=== PATIENT | female | born 1980 | race Caucasian/White ===

== ENCOUNTER → 2016-05-27 | Outpatient (REF) | payer OTHER ==
[~2016-05-27] MED LIST: IMOD2TAB16 PO; LISI10TA2 PO; NORCOTAB PO; OMEP40CA2 PO; RANI15TA PO; ZOFR8TAB4 PO
[2016-05-27 20:28] LABS: ALBUMIN 3.9 GM/DL (3.2-5.2); ALBUMIN/GLOBULIN RATIO 1.11 (1.00-1.93); ALKALINE PHOSPHATASE 99 U/L (45-117); ALT/SGPT 153 U/L (12-78); AST/SGOT 83 U/L (15-37); BILIRUBIN,DIRECT < 0.1 MG/DL (0.0-0.2); BILIRUBIN,TOTAL 0.3 MG/DL (0.2-1.0); TOTAL PROTEIN 7.4 GM/DL (6.4-8.2)
[2016-05-27 20:45] LABS: BASO # 0.1 K/mm3 (0.0-0.2); EOS # 0.2 K/mm3 (0.0-0.50); EOS % 1.9 % (0.0-3.0); LARGE UNSTAINED CELL # 0.1 K/mm3 (0.0-0.4); LARGE UNSTAINED CELL % 1.4 % (0.0-4.0); LYMPH # 3.6 K/mm3 (1.5-4.5); LYMPH % 39.8 % (24.0-44.0); MEAN CORPUSCULAR HEMOGLOBIN 28.4 pg (27.0-33.0); MEAN CORPUSCULAR HGB CONC 32.2 g/dl (32.0-36.5); MEAN CORPUSCULAR VOLUME 88.1 fl (80.0-96.0); MONO # 0.4 K/mm3 (0.0-0.8); MONO % 4.2 % (0.0-5.0); NEUTROPHILS # 4.5 K/mm3 (1.8-7.7); NEUTROPHILS % 51.6 % (36.0-66.0); PLATELET COUNT, AUTOMATED 322 k/mm3 (150-450); WHITE BLOOD COUNT 8.8 K/mm3 (4.0-10.0)
[2016-05-27 21:21] LABS: ERYTHROCYTE SEDIMENTATION RATE 11 mm/hr (0-20)
== END ==
LOC: M LAB REF 08:53
PROVIDERS: ATTEND Student in an Organized Health Care Education/Training Program
DX: K50.00 Crohn's disease of small intestine without complications (principal); K42.9 Umbilical hernia without obstruction or gangrene; E66.01 Morbid (severe) obesity due to excess calories

== ENCOUNTER → 2016-06-03 | Outpatient (REF) | payer OTHER | LOC: M LAB REF 15:14 | PROVIDERS: ATTEND Student in an Organized Health Care Education/Training Program | DX: K50.00 Crohn's disease of small intestine without complications (principal); K42.9 Umbilical hernia without obstruction or gangrene; E66.01 Morbid (severe) obesity due to excess calories ==

== ENCOUNTER → 2016-06-25 | Outpatient (REF) | payer OTHER | LOC: M LABDRWAD 12:52 | PROVIDERS: ATTEND Internal Medicine Gastroenterology | DX: K50.00 Crohn's disease of small intestine without complications (principal) ==

== ENCOUNTER 2016-07-04 15:14 | Emergency (ER) | payer OTHER ==
[~2016-07-04] VITALS: Ht 162.6 cm; Wt 158.8 kg
[2016-07-04] MEDS ORDERED: HORMONE (15:25)
[2016-07-04 16:48] LABS: BASO % 0.5 % (0.0-1.0); EOS # 0.1 K/mm3 (0.0-0.50); EOS % 1.2 % (0.0-3.0); LARGE UNSTAINED CELL # 0.1 K/mm3 (0.0-0.4); LYMPH # 2.4 K/mm3 (1.5-4.5); LYMPH % 22.2 % (24.0-44.0); MEAN CORPUSCULAR HEMOGLOBIN 28.5 pg (27.0-33.0); MEAN CORPUSCULAR HGB CONC 32.4 g/dl (32.0-36.5); MEAN CORPUSCULAR VOLUME 87.9 fl (80.0-96.0); MONO # 0.5 K/mm3 (0.0-0.8); MONO % 4.8 % (0.0-5.0); NEUTROPHILS # 7.1 K/mm3 (1.8-7.7); NEUTROPHILS % 70.3 % (36.0-66.0); PLATELET COUNT, AUTOMATED 280 k/mm3 (150-450); RED CELL DISTRIBUTION WIDTH 14.2 % (11.5-14.5); WHITE BLOOD COUNT 10.1 K/mm3 (4.0-10.0)
[2016-07-04 16:49] LABS: ANION GAP 10 MEQ/L (8-16); BLOOD UREA NITROGEN 12 MG/DL (7-18); CALCIUM LEVEL 8.8 MG/DL (8.5-10.1); CARBON DIOXIDE LEVEL 26 MEQ/L (21-32); CHLORIDE LEVEL 104 MEQ/L (98-107); CREATININE FOR GFR 0.78 MG/DL (0.55-1.02); GLOMERULAR FILTRATION RATE > 60.0 (>60); GLUCOSE, FASTING 99 MG/DL (70-105); POTASSIUM SERUM 3.8 MEQ/L (3.5-5.1); SODIUM LEVEL 140 MEQ/L (136-145)
[2016-07-04] MEDS ORDERED: MORPHINE 4 MG/ML 1ML SYRINGE IV ONE (17:00)
[2016-07-04] MEDS ORDERED: NS 500 ML IV ONE (17:00)
[2016-07-04] MEDS ORDERED: diazePAM 5 MG TAB PO ONE (17:00)
--- NOTE | 2016-07-04 18:00 | REPUSA ---
CLINICAL HISTORY: Neck pain. TECHNIQUE: Multiple axial images were obtained through the cervical spine. Images were also reconstru cted in coronal and sagittal planes. The study was performed without IV contrast. COMMENTS: There is no fracture or spondylolisthesis visualized. The paraspinal soft tissues are unremarkable. T here are no lytic or blastic lesions. Straightening of cervical lordosis is seen, suggesting muscular spasm. There is evidence of minimal m ultilevel disk disease, demonstrated by minimal osteophytosis and endplate sclerosis. No significant disk herniation is noted at any level. Canal and foramina remain patent. IMPRESSION: 1. No fracture or spondylolisthesis. 2. Straightening of cervical lordosis is seen, suggesting muscular spasm. 3. Minimal multilevel spondylosis. Thank you for your kind referral of this patient.
[2016-07-04] MEDS ORDERED: KETOROLAC 30 MG/ML VIAL (J1885) IV ONE (18:15)
[2016-07-04] MEDS ORDERED: VALI5TAB PO (18:42)
[2016-07-04] MEDS ORDERED: NAPR500T PO (18:42)
[2016-07-04] MEDS ORDERED: NORCO 5/325MG TABLET (BULK) PO ONE (18:45)
[2016-07-04 18:47] VITALS: BP 129/59
--- NOTE | 2016-07-04 20:39 | ECGEPIP ---
Stationary ECG Study [facility] - ED Test Date: 2016-07-04 Pat Name: RUKHSANA LARES Department: Room: - Gender: F Ip Paralegal: pia : 1980 Requested By: Ailyn Husain Order Number: [id number] Reading MD: Ailyn Husain Measurements Intervals [place] Rate: 79 P: 46 NM: 153 QRS: 3 QRSD: 92 T: 29 QT: 381 QTc: 438 Interpretive Statements SINUS RHYTHM DECREASED RATE 05/10/13 Electronically Signed On 07-04-2016 20:39:04 EDT by Ailyn Husain
--- NOTE | 2016-07-05 07:26 | REP ---
Portable chest x-ray: Single view. History: Chest pain. Comparison chest x-ray April 07, 2016. Findings: EKG monitoring electrodes overlie the chest. Heart is not enlarged. Pulmonary vasculature is not increased. No infiltrate is seen. Impression: No active disease. Signed by Jose Alberto Gong MD 07/05/2016 11:41 A
== END 2016-07-04 18:53 | disposition home or self-care (01) ==
LOC: EDBD 15:14 → M ED 16:18
DX: M43.6 Torticollis (principal)
CPT/HCPCS: 71010; 72125; 80048; 82550; 82553; 85025; 85379; 93005; 93041; 94760; 96374; 96375; 99284; J1885

== ENCOUNTER 2016-07-21 11:40 | Outpatient (CLI) | payer OTHER ==
[~2016-07-21] VITALS: Ht 162.6 cm; Wt 148.6 kg
[~2016-07-21 11:40] MED LIST changes: +HORMONE; +NAPR500T PO; +VALI5TAB PO; +diphenhydrAMINE 25 MG CAP PO SCH
[2016-07-21] MEDS ORDERED: inFLIXimab INJECTION 700 MG in NS 180 ML IV ONE (13:00)
[2016-07-21] MEDS ORDERED: NS 1,000 ML IV SCH (13:00)
[2016-07-21] MEDS ORDERED: ACETAMINOPHEN TAB 650MG DOSE (2X325MG) PO ONE (13:00)
== END 2016-07-21 14:45 | disposition home or self-care (01) ==
LOC: M INFU 11:40
PROVIDERS: ATTEND Internal Medicine
DX: K50.00 Crohn's disease of small intestine without complications (principal); Z79.899 Other long term (current) drug therapy
CPT/HCPCS: 96413; 96415; J1745

== ENCOUNTER 2016-09-15 11:59 | Outpatient (CLI) | payer OTHER ==
[~2016-09-15] VITALS: Ht 162.6 cm; Wt 148.6 kg
[~2016-09-15 11:59] MED LIST changes: -diphenhydrAMINE 25 MG CAP PO SCH
[2016-09-15] MEDS ORDERED: NS 1,000 ML IV SCH (12:45)
[2016-09-15] MEDS ORDERED: ACETAMINOPHEN TAB 650MG DOSE (2X325MG) PO ONE (13:00)
[2016-09-15] MEDS ORDERED: diphenhydrAMINE 50 MG CAP PO ONE (13:00)
[2016-09-15] MEDS ORDERED: inFLIXimab INJECTION 700 MG in NS 180 ML IV ONE (13:00)
== END 2016-09-15 15:20 | disposition home or self-care (01) ==
LOC: M INFU 11:59
PROVIDERS: ATTEND General Practice
DX: K50.90 Crohn's disease, unspecified, without complications (principal); Z87.891 Personal history of nicotine dependence; Z88.8 Allergy status to other drugs, medicaments and biological substances; Z91.040 Latex allergy status; Z79.899 Other long term (current) drug therapy
CPT/HCPCS: 96413; 96415; J1745

== ENCOUNTER 2016-11-10 12:13 | Outpatient (CLI) | payer OTHER ==
[~2016-11-10] VITALS: Ht 162.6 cm; Wt 148.6 kg
[~2016-11-10 12:13] MED LIST changes: +diphenhydrAMINE 25 MG CAP PO SCH
[2016-11-10] MEDS ORDERED: NS 1,000 ML IV SCH (12:30)
[2016-11-10] MEDS ORDERED: ACETAMINOPHEN TAB 650MG DOSE (2X325MG) PO ONE (12:30)
[2016-11-10] MEDS ORDERED: inFLIXimab INJECTION 700 MG in NS 180 ML IV ONE (13:00)
== END 2016-11-10 15:30 | disposition home or self-care (01) ==
LOC: M INFU 12:13
PROVIDERS: ATTEND Internal Medicine
DX: K50.90 Crohn's disease, unspecified, without complications (principal); Z87.891 Personal history of nicotine dependence; Z88.8 Allergy status to other drugs, medicaments and biological substances; Z91.040 Latex allergy status
CPT/HCPCS: 96413; 96415; J1745

== ENCOUNTER 2017-01-05 11:42 | Outpatient (CLI) | payer OTHER ==
[~2017-01-05] VITALS: Ht 162.6 cm; Wt 148.6 kg
[~2017-01-05 11:42] MED LIST changes: -diphenhydrAMINE 25 MG CAP PO SCH
[2017-01-05] MEDS ORDERED: ACETAMINOPHEN TAB 650MG DOSE (2X325MG) PO ONE (12:00)
[2017-01-05] MEDS ORDERED: inFLIXimab INJECTION 700 MG in NS 180 ML IV ONE (12:00)
[2017-01-05] MEDS ORDERED: NS 1,000 ML IV SCH (12:00)
[2017-01-05] MEDS ORDERED: diphenhydrAMINE 25 MG CAP PO ONE (12:00)
== END 2017-01-05 14:35 | disposition home or self-care (01) ==
LOC: M INFU 11:42
PROVIDERS: ATTEND Internal Medicine Nephrology
DX: K50.00 Crohn's disease of small intestine without complications (principal); I10 Essential (primary) hypertension; G47.30 Sleep apnea, unspecified; E07.9 Disorder of thyroid, unspecified; Z87.891 Personal history of nicotine dependence; Z88.5 Allergy status to narcotic agent; Z79.899 Other long term (current) drug therapy
CPT/HCPCS: 96413; 96415; J1745

== ENCOUNTER 2017-03-02 12:50 | Outpatient (CLI) | payer OTHER ==
[~2017-03-02] VITALS: Ht 162.6 cm; Wt 161.4 kg
[2017-03-02] MEDS ORDERED: INFLIXIMAB BIOSIMILAR 800 MG in NS 170 ML IV ONE (14:00)
[2017-03-02] MEDS ORDERED: NS 1,000 ML IV SCH (14:00)
[2017-03-02] MEDS ORDERED: diphenhydrAMINE 25 MG CAP PO ONE (14:00)
[2017-03-02] MEDS ORDERED: ACETAMINOPHEN TAB 650MG DOSE (2X325MG) PO ONE (14:00)
== END 2017-03-02 16:30 | disposition home or self-care (01) ==
LOC: M INFU 12:50
PROVIDERS: ATTEND General Practice
DX: K50.90 Crohn's disease, unspecified, without complications (principal); Z87.891 Personal history of nicotine dependence; Z88.8 Allergy status to other drugs, medicaments and biological substances; Z91.040 Latex allergy status; Z79.899 Other long term (current) drug therapy
CPT/HCPCS: 96413; 96415; Q5102

== ENCOUNTER → 2017-03-26 | Outpatient (CLI) | payer OTHER ==
[2017-03-28 09:08] LABS: HEPATITIS B SURFACE ANTIBODY POSITIVE (POSITIVE)
== END ==
LOC: M LAB 09:31
PROVIDERS: ATTEND Student in an Organized Health Care Education/Training Program
DX: K50.00 Crohn's disease of small intestine without complications (principal)

== ENCOUNTER 2017-05-11 12:08 | Outpatient (CLI) | payer OTHER ==
[2017-05-11] MEDS: ACETAMINOPHEN TAB 650MG DOSE (2X325MG) PO (13:03)
[2017-05-11] MEDS: diphenhydrAMINE 25 MG CAP PO (13:03)
[2017-05-11] MEDS: INFLIXIMAB BIOSIMILAR 800 MG in NS 170 ML IV (13:23)
[2017-05-11] MEDS: NS 1,000 ML IV (13:23)
== END 2017-05-11 15:45 | disposition home or self-care (01) ==
LOC: M INFU 12:08
DX: K50.90 Crohn's disease, unspecified, without complications (principal); Z88.8 Allergy status to other drugs, medicaments and biological substances; Z91.040 Latex allergy status; Z79.899 Other long term (current) drug therapy
CPT/HCPCS: 96413

== ENCOUNTER 2017-06-23 08:57 | Emergency (ER) | payer OTHER | END 2017-06-23 09:38 | disposition home or self-care (01) | LOC: M ED 08:57 | DX: L02.416 Cutaneous abscess of left lower limb (principal); J45.909 Unspecified asthma, uncomplicated; I10 Essential (primary) hypertension; K50.90 Crohn's disease, unspecified, without complications; Z79.899 Other long term (current) drug therapy; Z88.8 Allergy status to other drugs, medicaments and biological substances; Z91.040 Latex allergy status | CPT/HCPCS: 99282 ==

== ENCOUNTER 2017-07-14 07:57 | Outpatient (CLI) | payer OTHER ==
[2017-07-14] MEDS: diphenhydrAMINE 25 MG CAP PO (08:15)
[2017-07-14] MEDS: ACETAMINOPHEN TAB 650MG DOSE (2X325MG) PO (08:15)
[2017-07-14] MEDS: inFLIXimab INJECTION 800 MG in NS 170 ML IV (08:40)
[2017-07-14] MEDS: NS 1,000 ML IV (08:41)
== END 2017-07-14 11:15 | disposition home or self-care (01) ==
LOC: M INFU 07:57
DX: K50.90 Crohn's disease, unspecified, without complications (principal); I10 Essential (primary) hypertension; Z79.899 Other long term (current) drug therapy; Z91.040 Latex allergy status; Z91.048 Other nonmedicinal substance allergy status; Z88.8 Allergy status to other drugs, medicaments and biological substances; Z87.891 Personal history of nicotine dependence; Z90.89 Acquired absence of other organs
CPT/HCPCS: J1745

== ENCOUNTER → 2017-08-15 | Outpatient (REF) | payer OTHER | LOC: M LAB REF 19:01 | DX: R30.0 Dysuria (principal) | CPT/HCPCS: 87086 ==

== ENCOUNTER 2017-09-01 13:13 | Outpatient (CLI) | payer OTHER ==
[2017-09-01] MEDS: FILTER 1.2 MICRON (ADULT TPN/MANNITOL/REMICADE) XX (13:30)
[2017-09-01] MEDS: ACETAMINOPHEN TAB 650MG DOSE (2X325MG) PO (13:34)
[2017-09-01] MEDS: diphenhydrAMINE 25 MG CAP PO (13:34)
[2017-09-01] MEDS: NS 1,000 ML IV (13:34)
[2017-09-01] MEDS: inFLIXimab INJECTION 800 MG in NS 170 ML IV (13:53)
== END 2017-09-01 16:15 | disposition home or self-care (01) ==
LOC: M INFU 13:13
DX: K50.00 Crohn's disease of small intestine without complications (principal); I10 Essential (primary) hypertension; Z79.899 Other long term (current) drug therapy; Z91.040 Latex allergy status; Z90.89 Acquired absence of other organs; Z88.8 Allergy status to other drugs, medicaments and biological substances
CPT/HCPCS: J1745

== ENCOUNTER 2017-10-27 10:53 | Outpatient (CLI) | payer OTHER ==
[2017-10-27] MEDS: ACETAMINOPHEN TAB 650MG DOSE (2X325MG) PO (12:09)
[2017-10-27] MEDS: diphenhydrAMINE 50 MG CAP PO (12:09)
[2017-10-27] MEDS: inFLIXimab INJECTION 800 MG in NS 170 ML IV (12:10)
[2017-10-27] MEDS: FILTER 1.2 MICRON (ADULT TPN/MANNITOL/REMICADE) XX (12:10)
[2017-10-27] MEDS ORDERED: NS 1,000 ML IV (12:30)
== END 2017-10-27 15:00 | disposition home or self-care (01) ==
LOC: M INFU 10:53
DX: K50.90 Crohn's disease, unspecified, without complications (principal); Z88.8 Allergy status to other drugs, medicaments and biological substances; Z79.899 Other long term (current) drug therapy
CPT/HCPCS: J1745

== ENCOUNTER 2017-12-29 12:59 | Outpatient (CLI) | payer OTHER ==
[2017-12-29] MEDS: FILTER 1.2 MICRON (ADULT TPN/MANNITOL/REMICADE) XX (07:30)
[2017-12-29] MEDS: ACETAMINOPHEN TAB 650MG DOSE (2X325MG) PO (13:44)
[2017-12-29] MEDS: diphenhydrAMINE 25 MG CAP PO (13:44)
[2017-12-29] MEDS: NS 1,000 ML IV (13:45)
[2017-12-29] MEDS: inFLIXimab INJECTION 800 MG in NS 170 ML IV (13:46)
== END 2017-12-29 16:00 | disposition home or self-care (01) ==
LOC: M INFU 12:59
DX: K50.90 Crohn's disease, unspecified, without complications (principal); G43.909 Migraine, unspecified, not intractable, without status migrainosus; I10 Essential (primary) hypertension; J45.909 Unspecified asthma, uncomplicated; M47.9 Spondylosis, unspecified; F41.9 Anxiety disorder, unspecified; Z79.899 Other long term (current) drug therapy; Z88.8 Allergy status to other drugs, medicaments and biological substances; Z91.040 Latex allergy status; Z91.048 Other nonmedicinal substance allergy status; Z90.2 Acquired absence of lung [part of]
CPT/HCPCS: J1745

== ENCOUNTER → 2018-03-13 | Outpatient (REF) | payer OTHER ==
[2018-03-13 13:24] LABS: BASO # 0.1 10^3/uL (0.0-0.2); BASO % 0.6 % (0.0-1.0); EOS # 0.2 10^3/uL (0.0-0.50); EOS % 2.2 % (0.0-3.0); HEMATOCRIT 45.1 % (36.0-47.0); HEMOGLOBIN 14.7 g/dl (12.0-15.5); IMMATURE GRANULOCYTE % 1.1 % (0-3.0); LYMPH # 3.7 10^3/uL (1.5-4.5); LYMPH % 37.7 % (24.0-44.0); MEAN CORPUSCULAR HEMOGLOBIN 29.8 pg (27.0-33.0); MEAN CORPUSCULAR HGB CONC 32.6 g/dl (32.0-36.5); MEAN CORPUSCULAR VOLUME 91.5 fl (80.0-96.0); MONO # 0.6 10^3/uL (0.0-0.8); MONO % 5.6 % (0.0-5.0); NEUTROPHILS # 5.2 10^3/uL (1.8-7.7); NEUTROPHILS % 52.8 % (36.0-66.0); PLATELET COUNT, AUTOMATED 305 10^3/uL (150-450); RED BLOOD COUNT 4.93 10^6/uL (4.00-5.40); WHITE BLOOD COUNT 9.8 10^3/uL (4.0-10.0)
[2018-03-13 14:08] LABS: ALBUMIN 3.7 GM/DL (3.2-5.2); ALBUMIN/GLOBULIN RATIO 1.06 (1.00-1.93); ALKALINE PHOSPHATASE 66 U/L (45-117); ALT/SGPT 39 U/L (12-78); AST/SGOT 23 U/L (7-37); BILIRUBIN,DIRECT 0.1 MG/DL (0.0-0.2); BILIRUBIN,TOTAL 0.4 MG/DL (0.2-1.0); FERRITIN 58 NG/ML (8-252); TOTAL PROTEIN 7.2 GM/DL (6.4-8.2); VITAMIN B12 LEVEL 479 PG/ML (247-911)
[2018-03-13 14:46] LABS: TOTAL 25(OH) VITAMIN D 22.2 NG/ML (30.0-100.0)
[2018-03-15 14:13] LABS: QuantiFERON-TB Gold Plus Negative (Negative)
== END ==
LOC: M LAB REF 12:26
DX: K50.00 Crohn's disease of small intestine without complications (principal); E55.9 Vitamin D deficiency, unspecified

== ENCOUNTER 2018-05-02 06:42 | Outpatient (CLI) | payer OTHER ==
[~2018-05-02] VITALS: Ht 162.6 cm; Wt 163.6 kg
[2018-05-02] VITALS (8 sets, daily range): BP systolic 133–162; BP diastolic 65–88
[~2018-05-02 06:42] MED LIST changes: +ACETAMINOPHEN 650MG PO PRIOR TO INFUSION PO ONE; +FILTER 1.2 MICRON (ADULT TPN/MANNITOL/REMICADE) XX ONE; +HYDR12.55 PO; +INFL10VL IV; +NAPR-50 PO; -NAPR500T PO; +NS 1,000 ML IV SCH; +SULFAMETHOXAZOLE-TMP; +ZOFR8TAB22 PO; -ZOFR8TAB4 PO; +diphenhydrAMINE 50MG PO PRIOR TO INFUSION PO ONE; +inFLIXimab INJECTION 800 MG in NS 170 ML IV ONE
[2018-05-02] MEDS ORDERED: diphenhydrAMINE 25 MG CAP As Ordered ONE (07:21)
[2018-05-02] MEDS ORDERED: NS 1,000 ML IV SCH (07:30)
[2018-05-02] MEDS ORDERED: diphenhydrAMINE 50MG PO PRIOR TO INFUSION PO ONE (07:30)
[2018-05-02] MEDS ORDERED: inFLIXimab INJECTION 800 MG in NS 170 ML IV ONE (07:30)
[2018-05-02] MEDS ORDERED: FILTER 1.2 MICRON (ADULT TPN/MANNITOL/REMICADE) XX ONE (07:30)
[2018-05-02] MEDS ORDERED: ACETAMINOPHEN 650MG PO PRIOR TO INFUSION PO ONE (07:30)
== END 2018-05-02 10:30 | disposition home or self-care (01) ==
LOC: M INFU 06:42
PROVIDERS: ATTEND Internal Medicine
DX: K50.00 Crohn's disease of small intestine without complications (principal); Z88.5 Allergy status to narcotic agent; Z91.040 Latex allergy status; Z91.048 Other nonmedicinal substance allergy status
CPT/HCPCS: 96413; 96415; J1745

== ENCOUNTER 2018-06-27 06:53 | Outpatient (CLI) | payer OTHER ==
[~2018-06-27] VITALS: Ht 162.6 cm; Wt 163.0 kg
[2018-06-27] VITALS (7 sets, daily range): BP systolic 129–156; BP diastolic 80–100
[~2018-06-27 06:53] MED LIST changes: -ACETAMINOPHEN 650MG PO PRIOR TO INFUSION PO ONE; -FILTER 1.2 MICRON (ADULT TPN/MANNITOL/REMICADE) XX ONE; -NS 1,000 ML IV SCH; -diphenhydrAMINE 50MG PO PRIOR TO INFUSION PO ONE; -inFLIXimab INJECTION 800 MG in NS 170 ML IV ONE
[2018-06-27] MEDS ORDERED: FILTER 1.2 MICRON (ADULT TPN/MANNITOL/REMICADE) XX ONE (07:00)
[2018-06-27] MEDS ORDERED: NS 1,000 ML IV SCH (07:00)
[2018-06-27] MEDS ORDERED: ACETAMINOPHEN 650MG PO PRIOR TO INFUSION PO ONE (07:00)
[2018-06-27] MEDS ORDERED: diphenhydrAMINE 50MG PO PRIOR TO INFUSION PO ONE (07:00)
[2018-06-27] MEDS ORDERED: inFLIXimab INJECTION 800 MG in NS 170 ML IV ONE (07:30)
== END 2018-06-27 09:50 | disposition home or self-care (01) ==
LOC: M INFU 06:53
PROVIDERS: ATTEND Internal Medicine
DX: K50.00 Crohn's disease of small intestine without complications (principal); Z91.048 Other nonmedicinal substance allergy status; Z91.040 Latex allergy status; Z88.8 Allergy status to other drugs, medicaments and biological substances
CPT/HCPCS: 96413; 96415; J1745

== ENCOUNTER → 2018-06-29 | Outpatient (REF) | payer OTHER | LOC: M LAB REF 12:22 | PROVIDERS: ATTEND Physician Assistant | DX: N39.0 Urinary tract infection, site not specified (principal) ==

== ENCOUNTER 2018-09-22 11:14 | Outpatient (CLI) | payer OTHER ==
[~2018-09-22 11:14] MED LIST changes: +HYDR-3715 PO; -NAPR-50 PO; +NAPR-837 PO; -NORCOTAB PO
[2018-09-22 11:20] VITALS: BP 151/95
[2018-09-22] MEDS ORDERED: FILTER 1.2 MICRON (ADULT TPN/MANNITOL/REMICADE) XX ONE (11:30)
[2018-09-22] MEDS ORDERED: inFLIXimab INJECTION 800 MG in NS 170 ML IV ONE (11:30)
[2018-09-22] MEDS ORDERED: NS 1,000 ML IV SCH (11:30)
[2018-09-22] MEDS ORDERED: ACETAMINOPHEN 650MG PO PRIOR TO INFUSION PO ONE (11:30)
[2018-09-22] MEDS ORDERED: diphenhydrAMINE 50MG IV PRIOR TO INFUSION IV ONE (11:30)
[2018-09-22] MEDS ORDERED: diphenhydrAMINE 25 MG CAP PO ONE (12:00)
[2018-09-22 14:35] VITALS: BP 141/86
== END 2018-09-22 14:35 | disposition home or self-care (01) ==
LOC: M INFU 11:14
PROVIDERS: ATTEND Student in an Organized Health Care Education/Training Program
DX: K50.00 Crohn's disease of small intestine without complications (principal); Z88.8 Allergy status to other drugs, medicaments and biological substances; Z91.040 Latex allergy status; Z91.048 Other nonmedicinal substance allergy status
CPT/HCPCS: 96413; 96415; J1745

== ENCOUNTER 2018-11-17 10:57 | Outpatient (CLI) | payer OTHER ==
[~2018-11-17] VITALS: Ht 162.6 cm; Wt 167.4 kg
[2018-11-17 11:00] VITALS: BP 137/84
[2018-11-17] MEDS ORDERED: diphenhydrAMINE 25MG PO PRIOR TO INFUSION PO ONE (11:15)
[2018-11-17] MEDS ORDERED: NS 1,000 ML IV SCH (11:15)
[2018-11-17] MEDS ORDERED: inFLIXimab INJECTION 800 MG in NS 170 ML IV ONE (11:15)
[2018-11-17] MEDS ORDERED: ACETAMINOPHEN 650MG PO PRIOR TO INFUSION PO ONE (11:15)
[2018-11-17] MEDS ORDERED: FILTER 1.2 MICRON (ADULT TPN/MANNITOL/REMICADE) XX ONE (11:15)
[2018-11-17 12:00] VITALS: BP 143/88
[2018-11-17 12:30] VITALS: BP 145/94
[2018-11-17 13:20] VITALS: BP 141/79
== END 2018-11-17 13:20 | disposition home or self-care (01) ==
LOC: M INFU 10:57
PROVIDERS: ATTEND Student in an Organized Health Care Education/Training Program
DX: K50.00 Crohn's disease of small intestine without complications (principal); Z88.8 Allergy status to other drugs, medicaments and biological substances; Z88.5 Allergy status to narcotic agent; Z91.040 Latex allergy status; Z91.048 Other nonmedicinal substance allergy status
CPT/HCPCS: 96413; J1745

== ENCOUNTER → 2018-12-09 | Outpatient (CLI) | payer OTHER ==
[~2018-12-09] MED LIST changes: +LISI10TA15 PO; -LISI10TA2 PO
[2018-12-09 09:16] LABS: BASO # 0.1 10^3/uL (0.0-0.2); BASO % 0.7 % (0.0-1.0); EOS # 0.1 10^3/uL (0.0-0.50); EOS % 1.5 % (0.0-3.0); HEMATOCRIT 47.6 % (36.0-47.0); HEMOGLOBIN 15.6 g/dl (12.0-15.5); LYMPH # 3.5 10^3/uL (1.5-4.5); LYMPH % 37.7 % (24.0-44.0); MEAN CORPUSCULAR HEMOGLOBIN 29.8 pg (27.0-33.0); MEAN CORPUSCULAR HGB CONC 32.8 g/dl (32.0-36.5); MEAN CORPUSCULAR VOLUME 90.8 fl (80.0-96.0); MONO # 0.5 10^3/uL (0.0-0.8); MONO % 5.1 % (0.0-5.0); NEUTROPHILS % 54.6 % (36.0-66.0); PLATELET COUNT, AUTOMATED 314 10^3/uL (150-450); RED BLOOD COUNT 5.24 10^6/uL (4.00-5.40); WHITE BLOOD COUNT 9.2 10^3/uL (4.0-10.0)
[2018-12-09 09:47] LABS: ALBUMIN 3.9 GM/DL (3.2-5.2); BILIRUBIN,DIRECT 0.2 MG/DL (0.0-0.2); BILIRUBIN,TOTAL 0.5 MG/DL (0.2-1.0); TOTAL PROTEIN 7.1 GM/DL (6.4-8.2)
[2018-12-11 10:42] LABS: TOTAL 25(OH) VITAMIN D 28.2 NG/ML (30.0-100.0)
== END ==
LOC: M LAB 09:02
PROVIDERS: ATTEND Nurse Practitioner Family
DX: K50.00 Crohn's disease of small intestine without complications (principal)

== ENCOUNTER 2018-12-18 14:45 | Emergency (ER) | payer OTHER ==
[~2018-12-18] VITALS: Ht 162.6 cm; Wt 143.5 kg
[2018-12-18] MEDS ORDERED: PRED20TA (15:01)
[2018-12-18] MEDS ORDERED: AMOX875T2 (15:01)
--- NOTE | 2018-12-18 17:23 | REP ---
Clinical: Generalized abdominal pain and bloating. Technique: Two supine views of the abdomen and pelvis. Findings: Bowel gas pattern is nonspecific. No organomegaly. No abnormal calcifications. Skeletal structures are intact. A thin linear 10 mm foreign body identified in the right mid abdomen may represent surgical clip and should be correlated clinically. Impression: Nonspecific bowel gas pattern. As above. Electronically Signed by Miguel Wan MD 12/18/2018 05:15 P
[2018-12-18] MEDS ORDERED: COLA100C5 PO (18:06)
[2018-12-18] MEDS ORDERED: MIRA3350 PO (18:06)
[2018-12-18 18:10] VITALS: BP 167/107
--- NOTE | 2018-12-20 14:54 | ED PDOC ---
Post-Departure Follow-Up dr cheri yang faxed formal report of kub for Rupal Pena MD Dec 20, 2018 14:53
== END 2018-12-18 18:11 | disposition home or self-care (01) ==
LOC: M ED 14:45
DX: K59.00 Constipation, unspecified (principal); R14.3 Flatulence; I10 Essential (primary) hypertension; K50.919 Crohn's disease, unspecified, with unspecified complications; J45.909 Unspecified asthma, uncomplicated; Z79.899 Other long term (current) drug therapy; Z91.040 Latex allergy status; Z91.018 Allergy to other foods; Z88.8 Allergy status to other drugs, medicaments and biological substances

== ENCOUNTER 2018-12-21 16:26 | Emergency (ER) | payer OTHER ==
[~2018-12-21] VITALS: Ht 162.6 cm; Wt 143.0 kg
[~2018-12-21 16:26] MED LIST changes: +AMOX875T2; +COLA100C5 PO; +MIRA3350 PO; +PRED20TA
[2018-12-21 17:03] LABS: BASO % 0.1 % (0.0-1.0); HEMATOCRIT 47.5 % (36.0-47.0); HEMOGLOBIN 15.7 g/dl (12.0-15.5); LYMPH # 3.3 10^3/uL (1.5-5.0); LYMPH % 15.9 % (24.0-44.0); MEAN CORPUSCULAR HEMOGLOBIN 29.1 pg (27.0-33.0); MEAN CORPUSCULAR HGB CONC 33.1 g/dl (32.0-36.5); MEAN CORPUSCULAR VOLUME 88.1 fl (80.0-96.0); MONO % 4.8 % (0.0-5.0); NEUTROPHILS # 16.2 10^3/uL (1.5-8.5); NEUTROPHILS % 78.1 % (36.0-66.0); PLATELET COUNT, AUTOMATED 368 10^3/uL (150-450); RED BLOOD COUNT 5.39 10^6/uL (4.00-5.40); WHITE BLOOD COUNT 20.7 10^3/uL (4.0-10.0)
--- NOTE | 2018-12-21 17:05 | REP ---
Clinical: Chest pain . Comparison: 07/04/2016 . Findings: The mediastinum and cardiac silhouette are stable and within normal limits for portable technique. The lung quiñonez are clear without acute consolidation, effusion, or pneumothorax. Skeletal structures are intact. Impression: No acute cardiopulmonary process appreciated. Electronically Signed by Miguel Wan MD 12/21/2018 04:56 P
[2018-12-21 17:25] LABS: BLOOD UREA NITROGEN 16 MG/DL (7-18); CALCIUM LEVEL 9.8 MG/DL (8.5-10.1); CARBON DIOXIDE LEVEL 28 MEQ/L (21-32); CHLORIDE LEVEL 104 MEQ/L (98-107); CK-MB VALUE MASS < 1.0 NG/ML (<3.6); CPK CREATINE PHOSPHOKINASE 43 U/L (26-192); CREATININE FOR GFR 0.95 MG/DL (0.55-1.30); GLOMERULAR FILTRATION RATE > 60.0 (>60); GLUCOSE, FASTING 125 MG/DL (70-100); MB/CK RELATIVE INDEX 2.33 (< OR =4); POTASSIUM SERUM 3.6 MEQ/L (3.5-5.1); SODIUM LEVEL 139 MEQ/L (136-145); TROPONIN I < 0.02 NG/ML (< 0.10)
[2018-12-21] MEDS ORDERED: ISOVUE-370 76% 100ML VIAL (Q9967) As Ordered ONE (18:00)
--- NOTE | 2018-12-21 18:25 | REPVR ---
EXAM: CT Angiography Chest With Contrast EXAM DATE/TIME: 12/21/2018 5:55 PM CLINICAL HISTORY: 38 years old, female; Shortness of breath; Chest pain; Additional info: Chest pain/sob TECHNIQUE: Imaging protocol: Computed tomographic angiography of the chest with intravenous contrast. 3D rendering: MIP reconstructed images were created and reviewed. Radiation optimization: All CT scans at this facility use at least one of these dose optimization techniques: automated exposure control; mA and/or kV adjustment per patient size (includes targeted exams where dose is matched to clinical indication); or iterative reconstruction. Contrast material: ISOVUE 370; Contrast volume: 75 ml; Contrast route: IV; COMPARISON: CR PORTABLE CHEST X-RAY 12/21/2018 4:46 PM FINDINGS: Pulmonary arteries: There are no pulmonary emboli. Aorta: There is no aortic dissection or aneurysm. Lungs: Suboptimal inspiratory effort. Bilateral groundglass opacities likely represent atelectasis less likely changes related to mosaic perfusion in the absence of any known lung disease. Subcentimeter calcified granuloma left upper lobe. Lungs otherwise unremarkable. Pleural space: Unremarkable. No pneumothorax. No pleural effusion. Heart: Unremarkable. No cardiomegaly. No pericardial effusion. Lymph nodes: Unremarkable. No enlarged lymph nodes. Bones/joints: Unremarkable. No acute fracture. Soft tissues: Unremarkable. IMPRESSION: 1. There is no aortic dissection or aneurysm. 2. There are no pulmonary emboli. 3. No acute pulmonary parenchymal findings. Electronically signed by: Jim Loyola On 12/21/2018 18:25:15 PM
[2018-12-21] MEDS ORDERED: IPRATROPIUM 0.5MG/ALBUTEROL 2.5MG INH SOL UD 3ML (DUONEB)(J7620) NEB ONE (19:00)
[2018-12-21] MEDS ORDERED: ALBUTEROL SULFATE 2.5 MG/0.5 ML INH NEB SOLN INH ONE (19:00)
[2018-12-21 20:16] VITALS: BP 102/53
[2018-12-21] MEDS ORDERED: ACETAMINOPHEN/CODEINE 300MG/30MG 12.5 ML UDC PO ONE (20:45)
[2018-12-21] MEDS ORDERED: PRED10TA2 PO (20:51)
[2018-12-21] MEDS ORDERED: GUAI1SOL2 PO (20:51)
[2018-12-21] MEDS ORDERED: AZIT500T2 PO (20:51)
[2018-12-21] MEDS ORDERED: AZITHROMYCIN 250 MG TAB PO ONE (21:00)
--- NOTE | 2018-12-22 07:14 | ECGEPIP ---
[facility] - ED Test Date: 2018-12-21 Pat Name: RUKHSANA LARES Department: Room: - Gender: Female Last Trimmer: rosalind : 1980 Requested By: Regan Conroy Order Number: [id number] Reading MD: Regan Mayorga Measurements Intervals [place] Rate: 92 P: 44 [place]: 172 QRS: -11 QRSD: 98 T: 42 QT: 326 QTc: 405 Interpretive Statements SINUS RHYTHM POSSIBLE LEFT VENTRICULAR HYPERTROPHY NONSPECIFIC T-WAVE ABNORMALITY BASELINE ARTIFACT AFFECTS INTERPRETATION Electronically Signed on 12-22-2018 7:14:10 EDT by Regan Mayorga
== END 2018-12-21 21:23 | disposition home or self-care (01) ==
LOC: M ED 16:26
DX: J18.9 Pneumonia, unspecified organism (principal); I10 Essential (primary) hypertension; K50.919 Crohn's disease, unspecified, with unspecified complications; Z79.899 Other long term (current) drug therapy; Z91.040 Latex allergy status; Z91.89 Other specified personal risk factors, not elsewhere classified; Z88.8 Allergy status to other drugs, medicaments and biological substances
CPT/HCPCS: 71045; 71275; 80048; 82550; 82553; 84484; 85025; 87486; 87581; 87633; 87798; 93005; 93041; 94640; 94760; 99285; Q9967

== ENCOUNTER 2019-01-12 07:25 | Outpatient (CLI) | payer OTHER ==
[~2019-01-12] VITALS: Ht 162.6 cm; Wt 143.1 kg
[2019-01-12 07:25] VITALS: BP 120/84
[~2019-01-12 07:25] MED LIST changes: +AZIT500T2 PO; +GUAI1SOL2 PO; +PRED10TA2 PO
[2019-01-12] MEDS ORDERED: NS 1,000 ML IV SCH (07:45)
[2019-01-12] MEDS ORDERED: FILTER 1.2 MICRON (ADULT TPN/MANNITOL/REMICADE) XX ONE (07:45)
[2019-01-12] MEDS ORDERED: inFLIXimab INJECTION 700 MG in NS 180 ML IV ONE (07:45)
[2019-01-12] MEDS ORDERED: diphenhydrAMINE 25 MG CAP PO ONE (07:45)
[2019-01-12] MEDS ORDERED: ACETAMINOPHEN 650MG PO PRIOR TO INFUSION PO ONE (07:45)
[2019-01-12 09:00] VITALS: BP 121/59
== END 2019-01-12 10:20 ==
LOC: M INFU 07:25
PROVIDERS: ATTEND Student in an Organized Health Care Education/Training Program
DX: K50.00 Crohn's disease of small intestine without complications (principal); Z88.8 Allergy status to other drugs, medicaments and biological substances; Z91.048 Other nonmedicinal substance allergy status
CPT/HCPCS: 96413; J1745

== ENCOUNTER → 2019-02-22 | Outpatient (CLI) | payer OTHER ==
[~2019-02-22] MED LIST changes: -AZIT500T2 PO; +AZIT500T5 PO; -OMEP40CA2 PO; +OMEP40CA97 PO
[2019-02-22 17:59] LABS: HEMATOCRIT 46.8 % (36.0-47.0); HEMOGLOBIN 15.4 g/dl (12.0-15.5); MEAN CORPUSCULAR HGB CONC 32.9 g/dl (32.0-36.5); MEAN CORPUSCULAR VOLUME 91.1 fl (80.0-96.0); PLATELET COUNT, AUTOMATED 334 10^3/uL (150-450); RED BLOOD COUNT 5.14 10^6/uL (4.00-5.40)
[2019-02-22 18:35] LABS: ALBUMIN 4.1 GM/DL (3.2-5.2); BILIRUBIN,DIRECT 0.1 MG/DL (0.0-0.2); BILIRUBIN,TOTAL 0.4 MG/DL (0.2-1.0); TOTAL PROTEIN 7.4 GM/DL (6.4-8.2)
[2019-02-22 18:38] LABS: TOTAL 25(OH) VITAMIN D 12.3 NG/ML (30.0-100.0)
[2019-02-22 18:50] LABS: ATYPICAL LYMPH 5 % (0-5); BASOPHILS 3 % (0-1); LYMPHOCYTES 29 % (16-44); MONOCYTES 6 % (0-5); NEUTROPHILS 57 % (28-66)
[2019-02-22 18:51] LABS: PLATELET ESTIMATE NORMAL (NORMAL)
== END ==
LOC: M LAB 17:17
PROVIDERS: ATTEND Student in an Organized Health Care Education/Training Program
DX: K50.00 Crohn's disease of small intestine without complications (principal)

== ENCOUNTER → 2019-02-26 | Outpatient (CLI) | payer OTHER | LOC: M LAB 09:29 | PROVIDERS: ATTEND Student in an Organized Health Care Education/Training Program | DX: K50.00 Crohn's disease of small intestine without complications (principal) ==

== ENCOUNTER 2019-03-23 06:32 | Outpatient (CLI) | payer OTHER ==
[~2019-03-23] VITALS: Ht 162.6 cm; Wt 135.9 kg
[2019-03-23 07:14] VITALS: BP 186/90
[2019-03-23] MEDS ORDERED: diphenhydrAMINE 25MG PO PRIOR TO INFUSION PO ONE (07:30)
[2019-03-23] MEDS ORDERED: FILTER 1.2 MICRON (ADULT TPN/MANNITOL/REMICADE) XX ONE (07:30)
[2019-03-23] MEDS ORDERED: ACETAMINOPHEN 650MG PO PRIOR TO INFUSION PO ONE (07:30)
[2019-03-23] MEDS ORDERED: NS 1,000 ML IV SCH (07:30)
[2019-03-23] MEDS ORDERED: inFLIXimab INJECTION 700 MG in NS 180 ML IV ONE (07:30)
== END 2019-03-23 08:45 | disposition home or self-care (01) ==
LOC: M INFU 06:32
PROVIDERS: ATTEND Student in an Organized Health Care Education/Training Program
DX: K50.00 Crohn's disease of small intestine without complications (principal); Z88.3 Allergy status to other anti-infective agents; Z88.5 Allergy status to narcotic agent; Z91.040 Latex allergy status; Z91.048 Other nonmedicinal substance allergy status
CPT/HCPCS: 96413; J1745

== ENCOUNTER 2019-04-28 09:43 | Emergency (ER) | payer OTHER ==
[~2019-04-28] VITALS: Ht 162.6 cm; Wt 134.0 kg
[2019-04-28] MEDS ORDERED: DEBL1TAB (09:51)
[2019-04-28 10:46] LABS: BASO # 0.1 10^3/uL (0.0-0.2); BASO % 0.8 % (0.0-1.0); EOS # 0.2 10^3/uL (0.0-0.5); EOS % 1.7 % (0.0-3.0); HEMOGLOBIN 15.9 g/dl (12.0-15.5); LYMPH # 3.7 10^3/uL (1.5-5.0); LYMPH % 41.9 % (24.0-44.0); MEAN CORPUSCULAR HEMOGLOBIN 29.3 pg (27.0-33.0); MEAN CORPUSCULAR HGB CONC 33.1 g/dl (32.0-36.5); MEAN CORPUSCULAR VOLUME 88.4 fl (80.0-96.0); MONO # 0.5 10^3/uL (0.0-0.8); MONO % 6.1 % (0.0-5.0); NEUTROPHILS # 4.3 10^3/uL (1.5-8.5); NEUTROPHILS % 49.2 % (36.0-66.0); PLATELET COUNT, AUTOMATED 336 10^3/uL (150-450); RED BLOOD COUNT 5.43 10^6/uL (4.00-5.40); WHITE BLOOD COUNT 8.8 10^3/uL (4.0-10.0)
[2019-04-28] MEDS ORDERED: BACT800T5 PO (11:25)
[2019-04-28 11:50] VITALS: BP 161/93
== END 2019-04-28 11:52 | disposition home or self-care (01) ==
LOC: M ED 09:43
DX: N75.1 Abscess of Bartholin's gland (principal); E87.6 Hypokalemia; N39.0 Urinary tract infection, site not specified; E66.9 Obesity, unspecified; I10 Essential (primary) hypertension; Z87.448 Personal history of other diseases of urinary system; K50.919 Crohn's disease, unspecified, with unspecified complications; F41.9 Anxiety disorder, unspecified; Z86.39 Personal history of other endocrine, nutritional and metabolic disease; J45.909 Unspecified asthma, uncomplicated; Z79.899 Other long term (current) drug therapy; Z88.8 Allergy status to other drugs, medicaments and biological substances; Z88.5 Allergy status to narcotic agent; Z91.040 Latex allergy status

== ENCOUNTER 2019-05-18 06:11 | Outpatient (CLI) | payer OTHER ==
[~2019-05-18] VITALS: Ht 162.6 cm; Wt 131.4 kg
[~2019-05-18 06:11] MED LIST changes: +BACT800T5 PO; +DEBL1TAB
[2019-05-18 07:15] VITALS: BP 115/78
[2019-05-18] MEDS ORDERED: diphenhydrAMINE 25MG PO PRIOR TO INFUSION PO ONE (08:00)
[2019-05-18] MEDS ORDERED: NS 1,000 ML IV SCH (08:00)
[2019-05-18] MEDS ORDERED: ACETAMINOPHEN 650MG PO PRIOR TO INFUSION PO ONE (08:00)
[2019-05-18] MEDS ORDERED: inFLIXimab INJECTION 700 MG in NS 180 ML IV ONE (08:00)
== END 2019-05-18 11:52 | disposition home or self-care (01) ==
LOC: M INFU 06:11
PROVIDERS: ATTEND Student in an Organized Health Care Education/Training Program
DX: K50.00 Crohn's disease of small intestine without complications (principal); Z88.3 Allergy status to other anti-infective agents; Z88.5 Allergy status to narcotic agent; Z91.040 Latex allergy status; Z91.048 Other nonmedicinal substance allergy status
CPT/HCPCS: 96413; J1745

== ENCOUNTER 2019-07-13 06:41 | Outpatient (CLI) | payer OTHER ==
[~2019-07-13] VITALS: Ht 162.6 cm; Wt 128.6 kg
[2019-07-13] MEDS ORDERED: diphenhydrAMINE 25MG PO PRIOR TO INFUSION PO ONE (07:00)
[2019-07-13] MEDS ORDERED: ACETAMINOPHEN 650MG PO PRIOR TO INFUSION PO ONE (07:00)
[2019-07-13] MEDS ORDERED: NS 1,000 ML IV SCH (07:00)
[2019-07-13] MEDS ORDERED: inFLIXimab INJECTION 700 MG in NS 180 ML IV ONE (07:30)
== END 2019-07-13 08:20 | disposition home or self-care (01) ==
LOC: M INFU 06:41
PROVIDERS: ATTEND Student in an Organized Health Care Education/Training Program
DX: K50.00 Crohn's disease of small intestine without complications (principal); Z88.8 Allergy status to other drugs, medicaments and biological substances; Z91.040 Latex allergy status; Z91.041 Radiographic dye allergy status
CPT/HCPCS: 96413; J1745

== ENCOUNTER → 2019-08-28 | Outpatient (REF) | payer OTHER | LOC: M LABDRWAD 17:09 | PROVIDERS: ATTEND Student in an Organized Health Care Education/Training Program | DX: E55.9 Vitamin D deficiency, unspecified (principal) ==

== ENCOUNTER 2019-09-07 06:57 | Outpatient (CLI) | payer OTHER ==
[~2019-09-07] VITALS: Ht 162.6 cm; Wt 138.0 kg
[2019-09-07 07:08] VITALS: BP 150/97
[2019-09-07] MEDS ORDERED: inFLIXimab INJECTION 700 MG in NS 180 ML IV ONE (07:30)
[2019-09-07] MEDS ORDERED: NS 1,000 ML IV SCH (07:30)
[2019-09-07] MEDS ORDERED: ACETAMINOPHEN 650MG PO PRIOR TO INFUSION PO ONE (07:30)
[2019-09-07] MEDS ORDERED: diphenhydrAMINE 25MG PO PRIOR TO INFUSION PO ONE (07:30)
[2019-09-07 08:46] VITALS: BP 129/72
== END 2019-09-07 08:45 | disposition home or self-care (01) ==
LOC: M INFU 06:57
PROVIDERS: ATTEND Student in an Organized Health Care Education/Training Program
DX: K50.00 Crohn's disease of small intestine without complications (principal)
CPT/HCPCS: 96413; J1745

== ENCOUNTER → 2019-09-13 | Outpatient (REF) | payer OTHER | LOC: M LAB REF 12:31 | PROVIDERS: ATTEND Physician Assistant | DX: N39.0 Urinary tract infection, site not specified (principal) ==

== ENCOUNTER 2019-11-02 06:52 | Outpatient (CLI) | payer OTHER ==
[~2019-11-02] VITALS: Ht 162.6 cm; Wt 122.7 kg
[2019-11-02 06:55] VITALS: BP 147/95
[2019-11-02] MEDS ORDERED: inFLIXimab INJECTION 600 MG in NS 190 ML IV ONE (07:15)
[2019-11-02] MEDS ORDERED: ACETAMINOPHEN 650MG PO PRIOR TO INFUSION PO ONE (07:15)
[2019-11-02] MEDS ORDERED: NS 1,000 ML IV SCH (07:15)
[2019-11-02] MEDS ORDERED: diphenhydrAMINE 25MG PO PRIOR TO INFUSION PO ONE (07:30)
[2019-11-02 08:00] VITALS: BP 147/95
[2019-11-02 08:20] VITALS: BP 120/72
[2019-11-02 09:00] VITALS: BP 129/76
[2019-11-02 09:05] VITALS: BP 126/78
[2019-11-02 09:20] VITALS: BP 126/78
== END 2019-11-02 09:20 | disposition home or self-care (01) ==
LOC: M INFU 06:52
PROVIDERS: ATTEND Student in an Organized Health Care Education/Training Program
DX: K50.00 Crohn's disease of small intestine without complications (principal)
CPT/HCPCS: 96413; J1745

== ENCOUNTER → 2019-12-13 | Outpatient (CLI) | payer OTHER ==
[~2019-12-13] MED LIST changes: +KETO10TAB PO; +ONDA4TAB6 PO
--- NOTE | 2019-12-13 16:22 | REPMRS ---
Patient History The patient states she had a clinical breast exam in 2019. Patient is nulliparous. Family history of colorectal cancer in father, colorectal cancer in paternal aunt, colorectal cancer in maternal cousin, unknown cancer in maternal grandfather. Taking hormonal contraceptives for 4 years. Digital Woman Screen Mammo: December 13, 2019 - Exam #: [id number] Bilateral CC and MLO view(s) were taken. Technologist: Essence Hall, Technologist No prior studies available for comparison. FINDINGS: There are scattered fibroglandular densities. The Volpara volumetric breast density category is: B. There is no evidence of dominant mass, architectural distortion, or grouped microcalcification typical of malignancy. 3-D tomosynthesis shows no additional findings. Assessment: BI-RADS/ACR category 1 mammogram. Negative Mammogram. Recommendation Routine screening mammogram of both breasts in 1 year (for women over age 40). This patient's Lifetime Breast Cancer RIsk is estimated at 12.9 %. This mammogram was interpreted with the aid of an FDA-approved computer-aided dectection system. Electronically Signed By: Ivan Gong MD 12/13/19 0080
== END ==
LOC: M WHC 09:29
PROVIDERS: ATTEND Obstetrics & Gynecology Gynecology
DX: Z12.31 Encounter for screening mammogram for malignant neoplasm of breast (principal)

== ENCOUNTER 2019-12-28 06:31 | Outpatient (CLI) | payer OTHER ==
[~2019-12-28] VITALS: Ht 162.6 cm; Wt 122.7 kg
[~2019-12-28 06:31] MED LIST changes: -KETO10TAB PO; -ONDA4TAB6 PO
[2019-12-28 06:35] VITALS: BP 122/88
[2019-12-28] MEDS ORDERED: ACETAMINOPHEN TAB 650MG DOSE (2X325MG) As Ordered ONE (06:51)
[2019-12-28] MEDS ORDERED: diphenhydrAMINE 25MG CAP As Ordered ONE (06:51)
[2019-12-28 07:05] VITALS: BP 122/80
[2019-12-28] MEDS ORDERED: NS 1,000 ML IV SCH (07:15)
[2019-12-28] MEDS ORDERED: inFLIXimab INJECTION 600 MG in NS 190 ML IV ONE (07:15)
[2019-12-28] MEDS ORDERED: diphenhydrAMINE 25MG PO PRIOR TO INFUSION PO ONE (07:15)
[2019-12-28] MEDS ORDERED: ACETAMINOPHEN 650MG PO PRIOR TO INFUSION PO ONE (07:15)
[2019-12-28 07:23] VITALS: BP 121/82
[2019-12-28 08:00] VITALS: BP 139/81
[2019-12-28 09:00] VITALS: BP 143/77
[2019-12-28 09:15] VITALS: BP 138/82
== END 2019-12-28 09:15 | disposition home or self-care (01) ==
LOC: M INFU 06:31
PROVIDERS: ATTEND Student in an Organized Health Care Education/Training Program
DX: K50.00 Crohn's disease of small intestine without complications (principal)
CPT/HCPCS: 96413; 96415; J1745

== ENCOUNTER → 2020-01-20 | Outpatient (CLI) | payer OTHER ==
[~2020-01-20] MED LIST changes: +KETO10TAB PO; +ONDA4TAB6 PO
[2020-01-20 09:48] LABS: BASO # 0.1 10^3/uL (0.0-0.2); BASO % 0.7 % (0.0-1.0); EOS # 0.1 10^3/uL (0.0-0.5); EOS % 1.7 % (0.0-3.0); HEMATOCRIT 48.1 % (36.0-47.0); HEMOGLOBIN 15.6 g/dl (12.0-15.5); LYMPH # 3.3 10^3/uL (1.5-5.0); LYMPH % 46.5 % (24.0-44.0); MEAN CORPUSCULAR HEMOGLOBIN 29.1 pg (27.0-33.0); MEAN CORPUSCULAR HGB CONC 32.4 g/dl (32.0-36.5); MEAN CORPUSCULAR VOLUME 89.7 fl (80.0-96.0); MONO # 0.4 10^3/uL (0.0-0.8); NEUTROPHILS # 3.2 10^3/uL (1.5-8.5); NEUTROPHILS % 44.7 % (36.0-66.0); PLATELET COUNT, AUTOMATED 322 10^3/uL (150-450); RED BLOOD COUNT 5.36 10^6/uL (4.00-5.40); WHITE BLOOD COUNT 7.1 10^3/uL (4.0-10.0)
[2020-01-20 10:16] LABS: ERYTHROCYTE SEDIMENTATION RATE 9 mm/hr (0-20)
[2020-01-20 10:24] LABS: ALBUMIN 3.8 GM/DL (3.2-5.2); ALT/SGPT 28 U/L (12-78); BILIRUBIN,DIRECT 0.1 MG/DL (0.0-0.2); BILIRUBIN,TOTAL 0.6 MG/DL (0.2-1.0); BLOOD UREA NITROGEN 13 MG/DL (7-18); C REACTIVE PROTEIN QUANTITATIV 0.67 MG/DL (0.00-0.30); CALCIUM LEVEL 9.1 MG/DL (8.5-10.1); CARBON DIOXIDE LEVEL 27 MEQ/L (21-32); CHLORIDE LEVEL 106 MEQ/L (98-107); GLOMERULAR FILTRATION RATE > 60.0 (>58); GLUCOSE, FASTING 65 MG/DL (70-100); POTASSIUM SERUM 3.6 MEQ/L (3.5-5.1); SODIUM LEVEL 140 MEQ/L (136-145); TOTAL PROTEIN 7.1 GM/DL (6.4-8.2)
[2020-01-21 11:21] LABS: TOTAL 25(OH) VITAMIN D 35.8 NG/ML (30.0-100.0)
== END ==
LOC: M LAB 09:12
PROVIDERS: ATTEND Nurse Practitioner Family
DX: K50.00 Crohn's disease of small intestine without complications (principal); E55.9 Vitamin D deficiency, unspecified

== ENCOUNTER 2020-02-10 10:08 | Emergency (ER) | payer OTHER ==
[~2020-02-10] VITALS: Ht 162.6 cm; Wt 119.8 kg
[~2020-02-10 10:08] MED LIST changes: -KETO10TAB PO; -ONDA4TAB6 PO
[2020-02-10] MEDS ORDERED: KETOROLAC 30 MG/ML 1ML VIAL IM ONE (10:45)
[2020-02-10] MEDS ORDERED: ONDANSETRON 4 MG ORAL DISINTEGRATING TAB PO ONE (10:45)
[2020-02-10 11:30] VITALS: BP 130/78
[2020-02-10] MEDS ORDERED: KETO10TAB PO (11:42)
[2020-02-10] MEDS ORDERED: ONDA4TAB6 PO (11:42)
== END 2020-02-10 12:05 | disposition home or self-care (01) ==
LOC: M ED 10:08
DX: R51.9 Headache, unspecified (principal); R11.10 Vomiting, unspecified; Z88.5 Allergy status to narcotic agent; Z88.8 Allergy status to other drugs, medicaments and biological substances; Z91.040 Latex allergy status; Z91.09 Other allergy status, other than to drugs and biological substances
CPT/HCPCS: 96372; 99283; J1885; Q0162

== ENCOUNTER 2020-03-06 06:33 | Outpatient (CLI) | payer OTHER ==
[~2020-03-06] VITALS: Ht 162.6 cm; Wt 122.7 kg
[~2020-03-06 06:33] MED LIST changes: +KETO10TAB PO; +ONDA4TAB6 PO
[2020-03-06] MEDS ORDERED: diphenhydrAMINE 25MG PO PRIOR TO INFUSION PO ONE (07:00)
[2020-03-06] MEDS ORDERED: inFLIXimab INJECTION 600 MG in NS 190 ML IV ONE (07:00)
[2020-03-06] MEDS ORDERED: ACETAMINOPHEN 650MG PO PRIOR TO INFUSION PO ONE (07:00)
[2020-03-06] MEDS ORDERED: NS 1,000 ML IV SCH (07:00)
[2020-03-06 07:11] VITALS: BP 170/84
[2020-03-06 07:12] VITALS: BP 170/84
[2020-03-06 07:40] VITALS: BP 154/90
[2020-03-06 08:21] VITALS: BP 138/88
== END 2020-03-06 08:30 | disposition home or self-care (01) ==
LOC: M INFU 06:33
PROVIDERS: ATTEND Student in an Organized Health Care Education/Training Program
DX: K50.00 Crohn's disease of small intestine without complications (principal); Z88.8 Allergy status to other drugs, medicaments and biological substances; Z91.040 Latex allergy status
CPT/HCPCS: 96413; J1745

== ENCOUNTER 2020-04-29 06:45 | Outpatient (CLI) | payer OTHER ==
[~2020-04-29] VITALS: Ht 162.6 cm; Wt 121.0 kg
[2020-04-29 06:55] VITALS: BP 148/90
[2020-04-29] MEDS ORDERED: ACETAMINOPHEN 650MG PO PRIOR TO INFUSION PO ONE (07:00)
[2020-04-29] MEDS ORDERED: NS 1,000 ML IV SCH (07:00)
[2020-04-29] MEDS ORDERED: inFLIXimab INJECTION 600 MG in NS 190 ML IV ONE (07:00)
[2020-04-29] MEDS ORDERED: diphenhydrAMINE 25MG PO PRIOR TO INFUSION PO ONE (07:00)
[2020-04-29 07:06] VITALS: BP 148/98
[2020-04-29 08:05] VITALS: BP 127/78
[2020-04-29 09:00] VITALS: BP 143/96
== END 2020-04-29 09:00 | disposition home or self-care (01) ==
LOC: M INFU 06:45
PROVIDERS: ATTEND Student in an Organized Health Care Education/Training Program
DX: K50.00 Crohn's disease of small intestine without complications (principal); Z88.8 Allergy status to other drugs, medicaments and biological substances; Z91.040 Latex allergy status
CPT/HCPCS: 96413; J1745

== ENCOUNTER 2020-06-08 08:26 | Emergency (ER) | payer OTHER ==
[~2020-06-08] VITALS: Ht 162.6 cm; Wt 126.0 kg
--- OUTSIDE RECORDS SUMMARY | 2020-06-08 08:31 | CCD | Continuity of Care Document ---
Author Author Mallory MORFIN MUMPS DEVELOPER Organization Unknown Address [address] [place] [address] Phone [phone] Care Team Providers Care Technology Resource Teacher Name Role Phone Otto Shepherd DO AUTM Unavailable Problems Description No Information Available Social History Type Date Description Comments Sex Unknown Tobacco Use Start: Unknown Never Used Smokeless Tobacco Tobacco Use Start: Unknown Patient has never smoked Allergies, Adverse Reactions, Alerts Active Allergies Reaction Severity Comments Date Thimerosal 05/22/2020 FD&C Blue #1 Aluminum Rabago 0 05/22/2020 Medications Active Medications SIG Qnty Indications Ordering Provide r Date Hydrochlorothiazide 12.5mg Tablets 1 by mouth every day Unknown Deblitane 0.35mg Tablets 1 by mouth every day Unknown Vitamin D 50mcg (1999 Ut) Capsules 1 by mouth every day Unknown Remicade 100mg Solution Rec Unknown Immunizations Description No Information Available Vital Signs Date Vital Result Comment 05/22/2020 11:25am BP Systolic 144 mmHg BP Diastolic 106 mmHg Heart Rate 82 /min Body Temperature 97.2 F O2 % BldC Oximetry 97 % Results Description No Information Available Procedures Description No Information Available Medical Devices Description No Information Available Encounters Description No Information Available Assessments Description No Information Available Plan of Treatment No Information Available Functional Status Description No Information Available Mental Status Description No Information Available Referrals Description No Information Available
--- OUTSIDE RECORDS SUMMARY | 2020-06-08 08:31 | CCD | Continuity of Care Document ---
Author Author Mallory BERNSTEIN RPA Organization Unknown Address [address] [facility] [address] [place] [address] Phone [phone] Problems Active Problems Provider Date Non-toxic uninodular goiter Armen Bernstein RPA Onset: Vitamin D deficiency Armen Bernstein RPA Onset: 5 Migraine with typical aura Armen Bernstein RPA Onset: Essential hypertension Armen Bernstein RPA Onset: 015 Crohn's disease of small intestine Armen Bernstein RPA On set: 03/05/2016 Obstructive sleep apnea of adult Ivette Ambriz D., CUSTOMER PROFESSIONAL-C Onset: 11/18/2017 Social History Type Date Description Comments Sex Unknown ETOH Use Never used alcohol Recreational Drug Use Never Used Drugs Tobacco Use Start: Unknown End: Unknown Patient is a former smoker Allergies, Adverse Reactions, Alerts Active Allergies Reaction Severity Comments Date Darvocet 04/13/2010 Darvon 04/13/2010 Eva GI cramping. 08/12/2015 Thimerosal 02/16/2018 Blue Dyes (Parenteral) Hives 03/30 Dermabon Hives 03/30/2019 Medications Active Medications SIG Qnty Indications Ordering Provide r Date Hydrochlorothiazide 25mg Tablets take one tablet by mouth every day 30tabs Otto Shepherd D.O., FAAFP 07/18/2017 Remicade 100mg Solution Rec q 8 weeks Unknown Deblitane 0.35mg Tablets Airline Customer Service Agent Unknown History Medications Keflex 500mg Capsules one tab po tid x 10 days 30caps Otto Shepherd D.O., FAAFP - 02/11/2020 Diflucan 150mg Tablets one tab po now and one tab po in 7 days 2tabs Otto Shepherd D.O., FAAF P 02/01/2020 - 02/08/2020 Azithromycin 250mg Tablets 2 by mouth stat followed by 1 by mouth every day x 4 days 6tabs Rob Shepherd D.O., FAAFP 12/21/2019 - 12/31/2019 Diflucan 150mg Tablets one pill by mouth today followed by 1 in 1 week. 2tabs Otto Shepherd D.O., FAAFP 12/21/2019 - 12/31/2019 HM Famotidine 20mg Tablets 1 by mouth every night at bedtime 30tabs Otto Shepherd D.O., FA AFP 12/21/2019 - 12/31/2019 Medications Administered in Office Medication SIG Qnty Indications Ordering Provider Date Injection (SC)/(Im) Injection Armen Bernstein, SINCERE 03/30/2016 Injection (SC)/(Im) Injection Abraham Husain M.D. 04/09/2014 Injection (SC)/(Im) Injection Ivette Ambriz D., CUSTOMER PROFESSIONAL-C 02/27/2014 Injection (SC)/(Im) Injection Anjum Ernandez . M.D 08/31/2011 Immunizations CPT Code Status Date Vaccine Reaction Lot # [id number] Given 03/31/2017 Influenza Virus Vaccine, Quadrivalent, Slit Virus, Im Use 3Y & Up [id number] Given 10/07/2015 Tdap Tetanus,Dip htheria Toxoids/Acellular Pertussis 7Yrs Or Older [id number] Given 10/25/2014 PPD Tuberculosis Intradermal [id number] Given 04/09/2014 Influenza Virus Vac. Split Virus Individuals 3 Years And Above [id number] Refused 02/07/2019 Influenza Virus Vaccine, Quadrivalent, Slit Virus, Im Use 3Y & Up ALLERGY TO THIMEROSAL [id number] Refused 03/05/2016 Influenza Virus Vaccine, Quadrivalent, Slit Virus, Im Use 3Y & Up [id number] Refused 01/29/2015 Influenza Virus Vac. Split Virus Individuals 3 Years And Above Vital Signs Date Vital Result Comment 04/07/2020 3:24pm BP Systolic 102 mmHg BP Diastolic 64 mmHg Body Temperature 98.0 F Heart Rate 87 /min Respiratory Rate 16 /min Height 68 inches 5'8" Weight 274.00 lb [place] Body Weight 140 lb BMI (Body Mass Index) 41.7 kg/m2 O2 % BldC Oximetry 99 % 02/01/2020 10:54am BP Systolic 118 mmHg BP Diastolic 76 mmHg Body Temperature 96.9 F Heart Rate 75 /min Respiratory Rate 16 /min Height 68 inches 5'8" Weight 266.00 lb [place] Body Weight 140 lb BMI (Body Mass Index) 40.4 kg/m2 O2 % BldC Oximetry 98 % (AT Rest), (Room Air ) Results Test Acquired Date Facility Test Result H/L Range Note Urine Culture, Routine 02/01/2020 [facility] [place] Urine Culture, Routine Final report 1, 2 Result 1 See Comment: 3 U/A DIP 02/01/2020 [facility]Inhouse Color yellow QUAL Clarity cloudy QUAL Glucose-Ua Negative g/dL Negative Bilirubin,Urine Negative QUAL Negative Ketone Negative mg/dL Negative Specific [place] 1.025 # 1.000 - 1.030 Blood - Ua Negative QUAL Negative pH 5.5 # 5.0 - 8.0 Protein Negative mg/dL Negative Urobilinogen 0.2 NA 0.2 - 1.0 Nitrite Negative QUAL Negative Leukocyte Small QUAL Abnormal Negative RBC-Ua 0-3/HPF # 0 - 3 Epithelial Cells - Ua 3-5/LPF QUAL Bacteria - Ua many QUAL Abnormal Negative Mucous - Ua trace QUAL WBC-Ua 5-10/HPF #/HPF Abnormal 0 - 5 Crystals FEW SEDIMENTS QUAL CBC With Differential 01/20/2020 [facility] (Interface) [phone] White Blood Count 7.1 10 Normal 4.0-10.0 Red Blood Count 5.36 10 Normal 4.00-5.40 Hemoglobin 15.6 g/dL High 12.0-15.5 Hematocrit 48.1 % High 36.0-47.0 Mean Corpuscular Volume 89.7 fl Normal 80.0-96.0 Mean Corpuscular Hemoglobin 29.1 pg Normal 27.0-33.0 Mean Corpuscular HGB Conc 32.4 g/dL Normal 32.0-36.5 Red Cell Distribution Width 13.0 % Normal 11.5-14.5 Platelet Count, Automated 322 10 Normal 150-450 Neutrophils % 44.7 % Normal 36.0-66.0 Lymph % 46.5 % High 24.0-44.0 [place] % 6.0 % High 0.0-5.0 Eos % 1.7 % Normal 0.0-3.0 Baso % 0.7 % Normal 0.0-1.0 Immature Granulocyte % 0.4 % Normal 0-3.0 Nucleated Red Blood Cell % 0.0 % Normal 0-0 Neutrophils # 3.2 10 Normal 1.5-8.5 Lymph # 3.3 10 Normal 1.5-5.0 [place] # 0.4 10 Normal 0.0-0.8 Eos # 0.1 10 Normal 0.0-0.5 Baso # 0.1 10 Normal 0.0-0.2 Laboratory test finding 01/20/2020 [facility] (Interface) [phone] Erythrocyte Sedimentation Rate 9 mm/hr Normal 0 -20 Liver Profile 01/20/2020 [facility] [phone] Ast/Sgot 12 U/L Normal 7-37 Alt/SGPT 28 U/L Normal 12-78 Alkaline Phosphatase 60 U/L Normal 45-117 Bilirubin,Total 0.6 mg/dL Normal 0.2-1.0 Bilirubin,Direct 0.1 mg/dL Normal 0.0-0.2 Total Protein 7.1 GM/DL Normal 6.4-8.2 Albumin 3.8 GM/DL Normal 3.2-5.2 Albumin/Globulin Ratio 1.2 Normal 1.2-2.2 Basic Metabolic Profile 01/20/2020 [facility] (Interface) [phone] Glucose, Fasting 65 mg/dL Low 70-100 Blood Urea Nitrogen 13 mg/dL Normal 7-18 Creatinine For GFR 0.80 mg/dL Normal 0.55-1.30 Glomerular Filtration Rate > 60.0 Normal >58 4 Sodium Level 140 mEq/L Normal 136-145 Potassium Serum 3.6 mEq/L Normal 3.5-5.1 Chloride Level 106 mEq/L Normal 98-107 Carbon Dioxide Level 27 mEq/L Normal 21-32 Anion Gap 7 mEq/L Low 8-16 Calcium Level 9.1 mg/dL Normal 8.5-10.1 Laboratory test finding [facility]/20[facility]Interface[facility] [phone] Total 25(Oh) Vitamin D 35.8 NG/ML Normal 30.0-100. 0 C Reactive Protein Quantitativ 0.67 mg/dL High 0.00-0.30 Quanteferon TB Gold Test 01/20/2020 [facility] (Interface) [phone] QuantiFERON Criteria (SEE NOTE) Normal . 5 QuantiFERON TB1 Ag Value 0.11 IU/mL Normal . QuantiFERON TB2 Ag Value 0.10 IU/mL Normal . QuantiFERON Nil Value 0.10 IU/mL Normal . QuantiFERON Mitogen Value >10.00 IU/mL Normal . QuantiFERON-TB Gold Plus Negative Normal Negative 6 HCG Serum Qual 11/15/2019 [place] [address] [phone] HCG Serum Qual NEGATIVE Normal: Negative HCG Serum QL [place] NEGATIVE Normal: Negative 7 1 SRC:VOIDED 2 Source of Specimen: VOIDED 3 Source of Specimen: VOIDED Culture shows less than 10,000 colony forming units of bacteria per milliliter of urine. This colony count is not generally considered to be clinically significant. 4 Units are mL/min/1.73 m2 Chronic Kidney Disease Staging per NKF: Stage I & II GFR >=60 Normal to Mildly Decreased Stage III GFR 30-59 Moderately Decreased Stage IV GFR 15-29 Severely Decreased Stage V GFR <15 Very Little GFR Left ESRD GFR <15 on RE ETCHER 5 . The QuantiFERON-TB Gold Plus result is determined by subtracting the Nil value from either TB antigen (Ag) tube. The mitogen tube serves as a control for the test. 6 . The specimen received for QuantiFERON testing was incubated by the ordering institution. Specific procedures outlined in our Directory of Services and in the package insert for the QuantiFERON Gold (In Tube) test must be followed to enable for proper stimulation of cells for the production of interferon gamma. Performed at: RN - [facility] [address] [id number] Roller Stitcher: Anuja Oconnell MD, Phone: [phone] { KIT LOT # [id number] ) { KIT EXP DATE 01.28.21 ) { PROCEDURAL CONTROL VALID ) Procedures Description No Information Available Medical Devices Description No Information Available Encounters Type Date Location Provider Dx Diagnosis Office Visit 04/07/2020 4:00p [place] [facility] Armen Bernstein, RP A I10 Essential (primary) hypertension K50.00 Crohn's disease of small int estine without complications G43.109 Migraine with aura, not intr actable, w/o status migrainosus E55.9 Vitamin D deficiency, unspec ified Office Visit 02/01/2020 11:00a [place] [facility] Brad Truong PA R30.0 Dysuria Office Visit 12/21/2019 2:40p [place] [facility] Armen Bernstein, RP A J02.9 Acute pharyngitis, unspecified J01.00 Acute maxillary sinusitis, u nspecified Assessments Date Code Description Provider 04/07/2020 I10 Essential (primary) hypertension Armen Bernstein, RPA 04/07/2020 K50.00 Crohn's disease of small intesti ne without complications Armen Bernstein, RPA 04/07/2020 G43.109 Migraine with aura, not intractable, without status migrainosus Armen Bernstein, RPA 04/07/2020 E55.9 Vitamin D deficiency, unspecifie d Armen Bernstein, RPA 02/01/2020 R30.0 Dysuria Kolton Truong PA 12/21/2019 J02.9 Acute pharyngitis, unspecified H Armen rogers, RPA 12/21/2019 J01.00 Acute maxillary sinusitis, unspe cified Armen Bernstein, RPA Plan of Treatment No Information Available Functional Status Description No Information Available Mental Status Description No Information Available Referrals Refer to Reason for Referral Status Appt Date [facility] Re referral fo r Crohn's as per [facility]. auth [id number] Sent [address] [place] [address] [phone]
--- OUTSIDE RECORDS SUMMARY | 2020-06-08 08:31 | CCD | Summary of Care ---
Author Author [facility] Organization [facility] Address Unknown Phone Unavailable Care Team Providers Care Signals Collection Technician Name Role Phone Otto Shepherd DO PCP Reason for Visit * Reason Comments Other Encounter Details Care Team Description Date Type Department Nakita Murcia MD [address] [facility] [address] [place] [address] [phone] Medication management (Primary Dx); Post-void dribbling; Irregular menses 06/05/2020 Telemedicine [facility] [address] [place], [place] [id number] Allergies Comments Active Allergy Reactions Severity Noted Date Adhesive Tape Rash Low 11/25/2015 Blue Dyes (Parenteral) Diarrhea, Low 020 Rash hallucinations Propoxyphene Other (See 07/10/2012 N-Acetaminophen Comments) Green Dye Hives 09/14/2019 Latex Rash Low 11/25/2015 Dermabond Other Rash Low 05/07/2019 Thimerosal Hives, 05/07/2019 Swelling documented as of this encounter (statuses as of 06/05/2020) Medications End Date Status Medication Sig Dispensed Refills Start Date Active infliximab (REMICADE) 100 Inject into 0 MG injection the vein. Active vitamin D 0 (ERGOCALCIFEROL) 27388 7 units capsule Active diphenhydrAMINE Take 50 mg by 0 (BENADRYL) 25 MG tablet mouth Active diphenhydramine-acetamino Take 2 0 phen (TYLENOL PM) 25-500 tablets by MG TABS mouth Active hydrochlorothiazide TAKE ONE 5 (HYDRODIURIL) 25 MG TABLET BY 8 tablet MOUTH EVERY DAY Active Nitrofurantoin Monohyd 0 Macro 100 MG Oral Capsule 0 (MACROBID) Active Fluconazole 150 MG Oral 0 Tablet (DIFLUCAN) 0 06/04/2021 Active Norethindrone 0.35 MG Take 1 tablet 28 tablet 12 Oral Tablet (MICRONOR) by mouth 1 daily 06/05/2020 Discontinued (Reorder) Norethindrone 0.35 MG Take 1 tablet 28 tablet 3 Oral Tablet (MICRONOR) by mouth 0 daily documented as of this encounter (statuses as of 06/05/2020) Active Problems Problem Noted Date Sinusitis 03/01/2014 Migraine headache 02/28/2014 Neck mass 07/16/2013 Overview: At site of thyroglossal scar Thyroid nodule 07/10/2012 documented as of this encounter (statuses as of 06/05/2020) Social History Date Tobacco Use Types Packs/Day Years Used Former Smoker Cigarettes 1 6 Smokeless Tobacco: Never Used Drinks/Week oz/Week Comments Alcohol Use 0 Standard drinks or equivalent 0.0 No Sex Assigned at Date Recorded Not on file Date Recorded COVID-19 Exposure Response 06/05/2020 9:59 AM EST In the last month, have you been in contact with No / Unsure someone who was confirmed or suspected to have Coronavirus / COVID-19? documented as of this encounter Last Filed Vital Signs Not on filedocumented in this encounter Progress Notes * Nakita Murcia MD - 06/05/2020 10:00 AM EST This is a tele-medical visit. The patient was informed of the risks including se curity breach, technological failure, inability to perform a comprehensive physi danette exam which could delay or prevent an accurate diagnosis, and potential compl ications from treatment decisions rendered over a telemedical platform. The shaun ent understands and consented to the use of tele-health services. The service was provided by means of an audio/video telecommunication. CC: OCP check, history irregular periods, incontinence HPI: Mallory Mazariegos is a 39 y.o. female has been on micronor OC Ps for treatment of irregular periods starting 08/29/17. Since then she has had regular periods lasting up to 3 days not excessively heavy or painful. She wants to continue on that. She reports episodes of incontinence, post void dribbling. She denies stress or urge incontinence. She does kegal exercises. This is not a new problem. Medications: Outpatient Medications Marked as Taking for the 06/05/20 encounter (Telemedicine) with Nakita Murcia MD Medication Sig Dispense Refill Extra Info diphenhydrAMINE (BENADRYL) 25 MG tablet Take 50 mg by mouth 1 diphenhydramine-acetaminophen (TYLENOL PM) 25-500 MG TABS Take 2 tablets by mouth 1 hydrochlorothiazide (HYDRODIURIL) 25 MG tablet TAKE ONE TABLET BY MOUTH E VERY DAY 5 1 infliximab (REMICADE) 100 MG injection Inject into the vein. 1 Norethindrone 0.35 MG Oral Tablet (MICRONOR) Take 1 tablet by mouth daily 28 tablet 12 1 vitamin D (ERGOCALCIFEROL) 92384 units capsule 1 Allergies: Allergies Allergen Reactions Darvocet [Propoxyphene N-Acetaminophen] Other (See Comments) hallucinations Green Dye Hives Thimerosal Hives and Swelling Adhesive Tape Rash Blue Dyes (Parenteral) Diarrhea and Rash Latex Rash Other Rash Dermabond LMP: No LMP recorded. Past Medical History: Diagnosis Date Asthma Crohn's disease Female infertility she has 4 adopted children Larry's duct cyst right History of bone density study 03/17/2017 normal with mild osteopenia L3 and L4 History of mammogram 12/13/2019 Hypertension Irritable bowel Migraine no aura Obesity Pap smear for cervical cancer screening 05/07/2019 normal, HPV negative Reflux Umbilical hernia having repaired 2017 Past Surgical History: Procedure Laterality Date CHOLECYSTECTOMY 03/02 COLONOSCOPY W/ BIOPSIES 02/07/2014 normal, Dr. Snyder COLONOSCOPY W/ BIOPSIES 11/18/2016 normal, Dr. Snyder COMBINED HYSTEROSCOPY DIAGNOSTIC / D&C 06/01/2016 benign path INCISION AND DRAINAGE / EXCISION THYROGLOSSAL CYST OVARIAN CYST REMOVAL Right 1999 laparoscopic, benign THYROID LOBECTOMY Right 07/29 benign TONSILLECTOMY 1999 UMBILICAL HERNIA REPAIR 12/26/15 Family History Problem Relation Age of Onset Thyroid disease Father Colon cancer Father 63 Hypertension Father Other Father hernia Dementia Paternal Grandfather Diabetes Maternal Grandmother Heart disease Maternal Grandmother Angina Maternal Grandmother Lung cancer Maternal Grandfather Breast cancer Neg Hx Ovarian cancer Neg Hx Uterine cancer Neg Hx Blood Clots Neg Hx High cholesterol Neg Hx Social History Socioeconomic History Marital status: Spouse name: Not on file Number of children: Not on file Years of education: Not on file Highest education level: Not on file Occupational History Employer: [employer] Social Needs Financial resource strain: Not on file Food insecurity Worry: Not on file Inability: Not on file Transportation needs Medical: Not on file Non-medical: Not on file Tobacco Use Smoking status: Former Smoker Packs/day: 1.00 Years: 6.00 Pack years: 6.00 Types: Cigarettes Smokeless tobacco: Never Used Substance and Sexual Activity Alcohol use: No Alcohol/week: 0.0 standard drinks Drug use: No Sexual activity: Yes Partners: Male control/protection: None Lifestyle Physical activity Days per week: Not on file Minutes per session: Not on file Stress: Not on file Relationships Social connections Talks on phone: Not on file Gets together: Not on file Attends adventist service: Not on file Active member of club or organization: Not on file Attends meetings of clubs or organizations: Not on file Relationship status: Not on file Intimate partner violence Fear of current or ex partner: Not on file Emotionally abused: Not on file Physically abused: Not on file Forced sexual activity: Not on file Other Topics Concern Not on file Social History Narrative Violence (intimate partner violence, elder/child abuse): none Sexual Abuse: no Health Hazards at home/work: no Safe Driving Practices: yes [place] Status: no Diet discussed: yes Folic Acid Intake: no Regular Exercise: no Caffeine Intake: yes Advance Directive (living will/power of deicer repairer pneumatic): no Organ Donation: No Patient has 4 adopted children Past medical history, surgical history, obstetrical history, family history and social history reviewed and updated as needed. Review of Systems - History obtained from the patient Genito-Urinary ROS: positive for incontinence, negative for abnormal bleeding, d ischarge, itching, odor, dysuria, urinary frequency/urgency, hematuria, dysmenor jarrod Physical Examination: General appearance - alert, well appearing, and in no dist ress, oriented to person, place, and time and overweight Mental status - alert, oriented to person, place, and time, normal mood, behavio r, speech, dress, motor activity, and thought processes Assessment: She is doing well on micronor progesterone only OCP and wants to continue Incontinence as per HPI Plan: micronor #1 Rx12 Patient offered consult with urology, declined Will schedule annual appt within a few months 17 minute total time telemedicine appointment Low complexity medical decision making Nakita Murcia MD, FACOG documented in this encounter Plan of Treatment Health Maintenance Due Date Last Done Comments MMR Vaccines (1 of - 12/10/1980 Standard series) Varicella Vaccines (1 of 12/10/1980 2 - 2-dose childhood series) DTaP,Tdap,and Td Vaccines 12/10/1986 (1 - Tdap) HIV Screening 12/10/1992 Influenza Vaccine 01/17/2020 03/08/2019 Cervical Cancer Screening 05/07/2024 05/07/2019, 5 years 11/25/2015 Pneumococcal Vaccine: 65+ 12/10/2044 Years (1 of - PPSV23) HIB Vaccines Aged Out No longer eligible based on patient's age to complete this topic Hepatitis A Vaccines Aged Out No longer eligibl e based on patient's age to complete this topic Hepatitis B Vaccines Aged Out No longer eligibl e based on patient's age to complete this topic IPV Vaccines Aged Out No longer eligible based on patient's age to complete this topic Pneumococcal Vaccine: Aged Out No longer eligib le based on patient's age to Pediatrics (0 to 5 Years) complete this topic and At-Risk Patients (6 to 64 Years) documented as of this encounter Results Not on filedocumented in this encounter Visit Diagnoses Diagnosis Medication management - Primary Encounter for long-term (current) use o f other medications Post-void dribbling Irregular menses Irregular menstrual cycle documented in this encounter
--- OUTSIDE RECORDS SUMMARY | 2020-06-08 08:31 | CCD | Continuity of Care Document ---
Author Author [facility] Organization Unknown Address [address] [facility] [address] [place] [address] Phone [phone] Problems Active Problems Provider Date Non-toxic uninodular goiter Armen Bernstein RPA Onset: Vitamin D deficiency Armen Bernstein RPA Onset: 5 Migraine with typical aura Armen Bernstein RPA Onset: Essential hypertension Armen Bernstein RPA Onset: 015 Crohn's disease of small intestine Armen Bernstein RPA On set: 03/05/2016 Obstructive sleep apnea of adult Ivette Ambriz D., ELEMENTARY EDUCATION TUTOR-C Onset: 11/18/2017 Social History Type Date Description [...] q 8 weeks Unknown 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 M.D 08/31/2011 Immunizations CPT Code Status Date Vaccine Reaction Lot # [id number] Given 03/31/2017 Influenza Virus Vaccine, Quadrivalent, Slit Virus, Im Use 3Y & Up [id number] Given 10/07/2015 Tdap Tetanus,Dip htheria Toxoids/Acellular Pertussis 7Yrs Or Older [id number] Given 10/25/2014 PPD Tuberculosis Intradermal 06365 Given 04/09/2014 Influenza Virus Vac. Split Virus Individuals 3 Years And Above [id number] Refused 02/07/2019 Influenza Virus Vaccine, Quadrivalent, Slit Virus, Im Use 3Y & Up ALLERGY TO THIMEROSAL [id number] Refused 03/05/2016 Influenza Virus Vaccine, Quadrivalent, Slit Virus, Im Use 3Y & Up [id number] Refused 01/29/2015 Influenza Virus Vac. Split Virus Individuals 3 Years And Above Vital Signs Date Vital Result Comment 04/07/2020 3:24pm BP Systolic 102 mmHg BP Diastolic 64 mmHg Body Temperature 98.0 F Heart Rate 87 /min Respiratory Rate 16 /min Height 68 inches 5'8" Weight 274.00 lb [place] Body Weight 140 lb BMI (Body Mass Index) 41.7 kg/m2 O2 % BldC Oximetry 99 % 02/01/2020 10:54am BP Systolic 118 mmHg BP Diastolic 76 mmHg Body Temperature 96.9 F Heart Rate 75 /min Respiratory Rate 16 /min Height 68 inches 5'8" Weight 266.00 lb [place] Body Weight 140 lb BMI (Body Mass [...] QUAL Negative Ketone Negative mg/dL Negative Specific [place] 1.025 # 1.000 - 1.030 Blood - [...] FEW SEDIMENTS QUAL CBC With Differential 01/20/2020 [facility] (Interface) [phone] White Blood Count 7.1 10 Normal 4.0-10.0 [...] 36.0-66.0 Lymph % 46.5 % High 24.0-44.0 [place]ander % 6.0 % High 0.0-5.0 Eos % 1.7 % Normal 0.0-3.0 Baso % 0.7 % Normal 0.0-1.0 Immature Granulocyte % 0.4 % Normal 0-3.0 Nucleated Red Blood Cell % 0.0 % Normal 0-0 Neutrophils # 3.2 10 Normal 1.5-8.5 Lymph # 3.3 10 Normal 1.5-5.0 Lander # 0.4 10 Normal 0.0-0.8 Eos # 0.1 10 Normal 0.0-0.5 Baso # 0.1 10 Normal 0.0-0.2 Laboratory test finding 01/20/2020 [facility] (Interface) [phone] Erythrocyte Sedimentation Rate 9 mm/hr Normal 0 -20 Liver Profile 01/20/2020 [facility] [phone] Ast/Sgot 12 U/L Normal 7-37 Alt/SGPT 28 U/L Normal 12-78 Alkaline Phosphatase 60 U/L Normal 45-117 Bilirubin,Total 0.6 mg/dL Normal 0.2-1.0 Bilirubin,Direct 0.1 mg/dL Normal 0.0-0.2 Total Protein 7.1 GM/DL Normal 6.4-8.2 Albumin 3.8 GM/DL Normal 3.2-5.2 Albumin/Globulin Ratio 1.2 Normal 1.2-2.2 Basic Metabolic Profile 01/20/2020 [facility] (Interface) [phone] Glucose, Fasting 65 mg/dL Low 70-100 Blood [...] mg/dL Normal 8.5-10.1 Laboratory test finding [facility] [phone] Total 25(Oh) Vitamin D 35.8 NG/ML Normal 30.0-100. 0 C Reactive Protein Quantitativ 0.67 mg/dL High 0.00-0.30 Quanteferon TB Gold Test 01/20/2020 [facility] (Interface) [phone] QuantiFERON Criteria (SEE NOTE) Normal . 5 QuantiFERON TB1 Ag Value 0.11 IU/mL Normal . QuantiFERON TB2 Ag Value 0.10 IU/mL Normal . QuantiFERON Nil Value 0.10 IU/mL Normal . QuantiFERON Mitogen Value >10.00 IU/mL Normal . 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 The QuantiFERON-TB Gold Plus result [...] interferon gamma. Performed at: RN - [facility] [address] [id number] Game Trapper: Anuja Oconnell MD, Phone: [phone] { KIT LOT # [id number] ) { KIT EXP DATE 01.28.21 ) { PROCEDURAL CONTROL VALID ) Procedures Description No Information Available Medical Devices Description No Information Available Encounters Type Date Location Provider Dx Diagnosis Office Visit 04/07/2020 4:00p [facility] Armen Bernstein, RP A I10 Essential (primary) hypertension K50.00 Crohn's disease of small int estine without complications G43.109 Migraine with aura, not intr actable, w/o status migrainosus E55.9 Vitamin D deficiency, unspec ified Office Visit 02/01/2020 11:00a [place] [facility] Brad Truong PA R30.0 Dysuria Office Visit 12/21/2019 2:40p [facility] Armen Bernstein, RP A J02.9 Acute [...] to Reason for Referral Status Appt Date [facility] Re referral fo r Crohn's as per [facility]. auth [id number] Sent [address] [place] [address] [phone]
--- OUTSIDE RECORDS SUMMARY | 2020-06-08 08:32 | CCD ---
Author Author [facility] Organization [facility] Address Unknown Phone Unavailable Care Team Providers Care Program Trainer Name Role Phone Barraclough, Delores PA Unavailable Unavailable Barraclough, Delores PA Unavailable Unavailable Barraclough, Delores PA Unavailable Unavailable Barraclough, Delores PA Unavailable Unavailable Barraclough, Delores PA Unavailable Unavailable Barraclough, Delores PA Unavailable Unavailable Day, D Armen PA Unavailable Unavailable Day, D Armen PA Unavailable Unavailable Day, D Armen PA Unavailable Unavailable Day, D Armen PA Unavailable Unavailable Day, D Armen PA Unavailable Unavailable Day, D Armen PA Unavailable Unavailable Day, D Armen PA Unavailable Unavailable Day, D Armen PA Unavailable Unavailable Day, D Armen PA Unavailable Unavailable Day, D Armen PA Unavailable Unavailable Day, D Armen PA Unavailable Unavailable Day, D Armen PA Unavailable Unavailable Day, D Armen PA Unavailable Unavailable Day, D Armen PA Unavailable Unavailable Day, D Armen PA Unavailable Unavailable Day, D Armen PA Unavailable Unavailable Day, D Armen PA Unavailable Unavailable Day, D Armen PA Unavailable Unavailable Day, D Armen PA Unavailable Unavailable Day, D Armen PA Unavailable Unavailable Day, D Armen PA Unavailable Unavailable Day, D Armen PA Unavailable Unavailable Day, D Armen PA Unavailable Unavailable Day, D Armen PA Unavailable Unavailable Day, D Armen PA Unavailable Unavailable Day, D Armen PA Unavailable Unavailable Day, D Armen PA Unavailable Unavailable Day, D Armen PA Unavailable Unavailable Day, D Armen PA Unavailable Unavailable Day, D Armen PA Unavailable Unavailable Day, D Armen PA Unavailable Unavailable Day, D Armen PA Unavailable Unavailable Day, D Armen PA Unavailable Unavailable Day, D Armen PA Unavailable Unavailable Day, D Armen PA Unavailable Unavailable Day, D Armen PA Unavailable Unavailable Day, D Armen PA Unavailable Unavailable Day, D Armen PA Unavailable Unavailable Day, D Armen PA Unavailable Unavailable Day, D Armen PA Unavailable Unavailable Day, D Armen PA Unavailable Unavailable Day, D Armen PA Unavailable Unavailable Day, D Armen PA Unavailable Unavailable Day, D Armen PA Unavailable Unavailable Day, D Armen PA Unavailable Unavailable Day, D Armen PA Unavailable Unavailable Day, D Armen PA Unavailable Unavailable Day, D Armen PA Unavailable Unavailable Day, D Armen PA Unavailable Unavailable Day, D Armen PA Unavailable Unavailable Day, D Armen PA Unavailable Unavailable Day, D Armen PA Unavailable Unavailable Day, D Armen PA Unavailable Unavailable Day, D Armen PA Unavailable Unavailable Day, D Armen PA Unavailable Unavailable Ady, D Armen PA Unavailable Unavailable Day, D Armen PA Unavailable Unavailable Day, D Armen PA Unavailable Unavailable Day, D Armen PA Unavailable Unavailable Day, D Armen PA Unavailable Unavailable Day, D Armen PA Unavailable Unavailable Day, D Armen PA Unavailable Unavailable Day, D Armen PA Unavailable Unavailable BUMBANAC, A STAR TEAM GUIDE Unavailable Unavailable BUMBANAC, A STAR TEAM GUIDE Unavailable Unavailable BUMBANAC, A STAR TEAM GUIDE Unavailable Unavailable BUMBANAC, A STAR TEAM GUIDE Unavailable Unavailable BUMBANAC, A STAR TEAM GUIDE Unavailable Unavailable BUMBANAC, A STAR TEAM GUIDE Unavailable Unavailable BUMBANAC, A STAR TEAM GUIDE Unavailable Unavailable BUMBANAC, A STAR TEAM GUIDE Unavailable Unavailable BUMBANAC, A STAR TEAM GUIDE Unavailable Unavailable BUMBANAC, A STAR TEAM GUIDE Unavailable Unavailable BUMBANAC, A STAR TEAM GUIDE Unavailable Unavailable BUMBANAC, A STAR TEAM GUIDE Unavailable Unavailable BUMBANAC, A STAR TEAM GUIDE Unavailable Unavailable BUMBANAC, A STAR TEAM GUIDE Unavailable Unavailable BUMBANAC, A STAR TEAM GUIDE Unavailable Unavailable BUMBANAC, A STAR TEAM GUIDE Unavailable Unavailable BUMBANAC, A STAR TEAM GUIDE Unavailable Unavailable BUMBANAC, A STAR TEAM GUIDE Unavailable Unavailable BUMBANAC, A STAR TEAM GUIDE Unavailable Unavailable BUMBANAC, A STAR TEAM GUIDE Unavailable Unavailable BUMBANAC, A STAR TEAM GUIDE Unavailable Unavailable BUMBANAC, A STAR TEAM GUIDE Unavailable Unavailable BUMBANAC, A STAR TEAM GUIDE Unavailable Unavailable BUMBANAC, A STAR TEAM GUIDE Unavailable Unavailable BUMBANAC, A STAR TEAM GUIDE Unavailable Unavailable BUMBANAC, A STAR TEAM GUIDE Unavailable Unavailable RING, K MERCED PA Unavailable Unavailable RING, K MERCED PA Unavailable Unavailable RING, K MERCED PA Unavailable Unavailable RING, K MERCED PA Unavailable Unavailable RING, K MERCED PA Unavailable Unavailable RING, K MERCED PA Unavailable Unavailable RING, K MERCED PA Unavailable Unavailable RING, K MERCED PA Unavailable Unavailable RING, K MERCED PA Unavailable Unavailable RING, K MERCED PA Unavailable Unavailable RING, K MERCED PA Unavailable Unavailable RING, K MERCED PA Unavailable Unavailable RING, K MERCED PA Unavailable Unavailable RING, K MERCED PA Unavailable Unavailable RING, K MERCED PA Unavailable Unavailable RING, K MERCED PA Unavailable Unavailable RING, K MERCED PA Unavailable Unavailable RING, K MERCED PA Unavailable Unavailable RING, K MERCED PA Unavailable Unavailable RING, K MERCED PA Unavailable Unavailable RING, K MERCED PA Unavailable Unavailable CAMPBELL, M FLORES TEAM GUIDE Unavailable Unavailable CAMPBELL, M FLORES TEAM GUIDE Unavailable Unavailable CAMPBELL, M FLORES TEAM GUIDE Unavailable Unavailable CAMPBELL, M FLORES TEAM GUIDE Unavailable Unavailable CAMPBELL, M FLORES TEAM GUIDE Unavailable Unavailable CAMPBELL, M FLORES TEAM GUIDE Unavailable Unavailable CAMPBELL, M FLORES TEAM GUIDE Unavailable Unavailable CAMPBELL, M FLORES TEAM GUIDE Unavailable Unavailable CAMPBELL, M FLORES TEAM GUIDE Unavailable Unavailable CAMPBELL, M FLORES TEAM GUIDE Unavailable Unavailable CAMPBELL, M FLORES TEAM GUIDE Unavailable Unavailable CAMPBELL, M FLORES TEAM GUIDE Unavailable Unavailable CAMPBELL, M FLORES TEAM GUIDE Unavailable Unavailable CAMPBELL, M FLORES TEAM GUIDE Unavailable Unavailable CAMPBELL, M FLORES TEAM GUIDE Unavailable Unavailable CAMPBELL, M FLORES TEAM GUIDE Unavailable Unavailable CAMPBELL, M FLORES TEAM GUIDE Unavailable Unavailable CAMPBELL, M FLORES TEAM GUIDE Unavailable Unavailable CAMPBELL, M FLORES TEAM GUIDE Unavailable Unavailable CAMPBELL, M FLORES TEAM GUIDE Unavailable Unavailable CAMPBELL, M FLORES TEAM GUIDE Unavailable Unavailable CAMPBELL, M FLORES TEAM GUIDE Unavailable Unavailable CAMPBELL, M FLORES TEAM GUIDE Unavailable Unavailable CAMPBELL, M FLORES TEAM GUIDE Unavailable Unavailable CAMPBELL, M FLORES TEAM GUIDE Unavailable Unavailable CAMPBELL, M FLORES TEAM GUIDE Unavailable Unavailable CAMPBELL, M FLORES TEAM GUIDE Unavailable Unavailable CAMPBELL, M FLORES TEAM GUIDE Unavailable Unavailable CAMPBELL, M FLORES TEAM GUIDE Unavailable Unavailable CAMPBELL, M FLORES TEAM GUIDE Unavailable Unavailable CAMPBELL, M FLORES TEAM GUIDE Unavailable Unavailable CAMPBELL, M FLORES TEAM GUIDE Unavailable Unavailable CAMPBELL, M FLORES TEAM GUIDE Unavailable Unavailable CAMPBELL, M FLORES TEAM GUIDE Unavailable Unavailable CAMPBELL, M FLORES TEAM GUIDE Unavailable Unavailable CAMPBELL, M FLORES TEAM GUIDE Unavailable Unavailable CAMPBELL, M FLORES TEAM GUIDE Unavailable Unavailable CAMPBELL, M FLORES TEAM GUIDE Unavailable Unavailable CAMPBELL, M FLORES TEAM GUIDE Unavailable Unavailable CAMPBELL, M FLORES TEAM GUIDE Unavailable Unavailable CAMPBELL, M FLORES TEAM GUIDE Unavailable Unavailable CAMPBELL, M FLORES TEAM GUIDE Unavailable Unavailable CAMPBELL, M FLORES TEAM GUIDE Unavailable Unavailable CAMPBELL, M FLORES TEAM GUIDE Unavailable Unavailable CAMPBELL, M FLORES TEAM GUIDE Unavailable Unavailable CAMPBELL, M FLORES TEAM GUIDE Unavailable Unavailable CAMPBELL, M FLORES TEAM GUIDE Unavailable Unavailable CAMPBELL, M FLORES TEAM GUIDE Unavailable Unavailable CAMPBELL, M FLORES TEAM GUIDE Unavailable Unavailable CAMPBELL, M FLORES TEAM GUIDE Unavailable Unavailable CAMPBELL, M FLORES TEAM GUIDE Unavailable Unavailable CAMPBELL, M FLORES TEAM GUIDE Unavailable Unavailable CAMPBELL, M FLORES TEAM GUIDE Unavailable Unavailable CAMPBELL, M FLORES TEAM GUIDE Unavailable Unavailable CAMPBELL, M FLORES TEAM GUIDE Unavailable Unavailable CAMPBELL, M FLORES TEAM GUIDE Unavailable Unavailable CAMPBELL, M FLORES TEAM GUIDE Unavailable Unavailable CAMPBELL, M FLORES TEAM GUIDE Unavailable Unavailable Fish, J Otto Unavailable Unavailable Fish, J Otto Unavailable Unavailable Fish, J Otto Unavailable Unavailable Fish, J Otto Unavailable Unavailable Fish, J Otto Unavailable Unavailable Fish, J Otto Unavailable Unavailable Fish, J Otto Unavailable Unavailable Fish, J Otto Unavailable Unavailable Fish, J Otto Unavailable Unavailable Fish, J Otto Unavailable Unavailable Fish, J Otto Unavailable Unavailable Fish, J Otto Unavailable Unavailable Fish, J Otto Unavailable Unavailable Fish, J Otto Unavailable Unavailable Fish, J Otto Unavailable Unavailable Fish, J Otto Unavailable Unavailable Fish, J Otto Unavailable Unavailable Fish, J Otto Unavailable Unavailable Fish, J Otto Unavailable Unavailable Fish, J Otto Unavailable Unavailable Fish, J Otto Unavailable Unavailable Fish, J Otto Unavailable Unavailable Fish, J Otto Unavailable Unavailable Fish, J Otto Unavailable Unavailable Fish, J Otto Unavailable Unavailable Fish, J Otto Unavailable Unavailable Fish, J Otto Unavailable Unavailable Fish, J Otto Unavailable Unavailable Fish, J Otto Unavailable Unavailable Fish, J Otto Unavailable Unavailable Fish, J Otto Unavailable Unavailable Fish, J Otto Unavailable Unavailable Fish, J Otto Unavailable Unavailable Fish, J Otto Unavailable Unavailable Fish, J Otto Unavailable Unavailable Fish, J Otto Unavailable Unavailable Fish, J Otto Unavailable Unavailable Fish, J Otto Unavailable Unavailable Fish, J Otto Unavailable Unavailable Fish, J Otto Unavailable Unavailable Fish, J Otto Unavailable Unavailable Fish, J Otto Unavailable Unavailable Fish, J Otto Unavailable Unavailable Fish, J Otto Unavailable Unavailable Fish, J Otto Unavailable Unavailable Fish, J Otto Unavailable Unavailable Fish, J Otto Unavailable Unavailable Fish, J Otto Unavailable Unavailable Fish, J Otto Unavailable Unavailable Fish, J Otto Unavailable Unavailable Fish, J Otto Unavailable Unavailable Fish, J Otto Unavailable Unavailable Fish, J Otto Unavailable Unavailable Fish, J Otto Unavailable Unavailable Fish, J Otto Unavailable Unavailable Fish, J Otto Unavailable Unavailable Fish, J Otto Unavailable Unavailable Fish, J Otto Unavailable Unavailable Fish, J Otto Unavailable Unavailable Fish, J Otto Unavailable Unavailable Fish, J Otto Unavailable Unavailable Fish, J Otto Unavailable Unavailable Fish, J Otto Unavailable Unavailable Fish, J Otto Unavailable Unavailable Fish, J Otto Unavailable Unavailable Fish, J Otto Unavailable Unavailable Fish, J Otto Unavailable Unavailable Fish, J Otto Unavailable Unavailable Fish, J Otto Unavailable Unavailable Fish, J Otto Unavailable Unavailable Fish, J Otto Unavailable Unavailable Fish, J Otto Unavailable Unavailable Fish, J Otto Unavailable Unavailable Fish, J Otto Unavailable Unavailable Fish, J Otto Unavailable Unavailable Fish, J Otto Unavailable Unavailable Fish, J Otto Unavailable Unavailable Fish, J Otto Unavailable Unavailable Fish, J Otto Unavailable Unavailable Fish, J Otto Unavailable Unavailable Fish, J Otto Unavailable Unavailable Fish, J Otto Unavailable Unavailable Fish, J Otto Unavailable Unavailable Fish, J Otto Unavailable Unavailable Fish, J Otto Unavailable Unavailable Kay PORTER MD Unavailable Unavailable Kay PORTER MD Unavailable Unavailable Kay PORTER MD Unavailable Unavailable Kay PORTER MD Unavailable Unavailable Kay PORTER MD Unavailable Unavailable Kay PORTER MD Unavailable Unavailable Kay PORTER MD Unavailable Unavailable Kay PORTER MD Unavailable Unavailable Kay PORTER MD Unavailable Unavailable Kay PORTER MD Unavailable Unavailable Kay PORTER MD Unavailable Unavailable Kay PORTER MD Unavailable Unavailable Kay PORTER MD Unavailable Unavailable Kay PORTER MD Unavailable Unavailable Kay PORTER MD Unavailable Unavailable Kay PORTER MD Unavailable Unavailable Kay PORTER MD Unavailable Unavailable Kay PORTER MD Unavailable Unavailable Kay PORTER MD Unavailable Unavailable Kay PORTER MD Unavailable Unavailable Kay PORTER MD Unavailable Unavailable Kay PORTER MD Unavailable Unavailable Kay PORTER MD Unavailable Unavailable Kay PORTER MD Unavailable Unavailable Kay PORTER MD Unavailable Unavailable Kay PORTER MD Unavailable Unavailable Kay PORTER MD Unavailable Unavailable Kay PORTER MD Unavailable Unavailable Kay PORTER MD Unavailable Unavailable Kay PORTER MD Unavailable Unavailable Kay PORTER MD Unavailable Unavailable Kay PORTER MD Unavailable Unavailable Kay PORTER MD Unavailable Unavailable Kay PORTER MD Unavailable Unavailable Kay PORTER MD Unavailable Unavailable Kay PORTER MD Unavailable Unavailable Kay PORTER MD Unavailable Unavailable Kay PORTER MD Unavailable Unavailable Kay PORTER MD Unavailable Unavailable GERMAN, E WIL BROWN Unavailable Unavailable GERMAN, E WIL BROWN Unavailable Unavailable GERMAN, E WIL BROWN Unavailable Unavailable GERMAN, E WIL BROWN Unavailable Unavailable GERMAN, E WIL MD Unavailable Unavailable GERMAN, E WIL MD Unavailable Unavailable GERMAN, E WIL MD Unavailable Unavailable GERMAN, E WIL MD Unavailable Unavailable GERMAN, E WIL MD Unavailable Unavailable GERMAN, E WIL MD Unavailable Unavailable GERMAN, E WIL MD Unavailable Unavailable GERMAN, E WIL MD Unavailable Unavailable GERMAN, E WIL MD Unavailable Unavailable GERMAN, E WIL MD Unavailable Unavailable GERMAN, E WIL MD Unavailable Unavailable GERMAN, E WIL MD Unavailable Unavailable GERMAN, E WIL MD Unavailable Unavailable GERMAN, E WIL MD Unavailable Unavailable Duran, Shiloh Marichuy PA Unavailable Unavailable Duran, Shiloh Marichuy PA Unavailable Unavailable Duran, Shiloh Marichuy PA Unavailable Unavailable Duran, Shiloh Marichuy PA Unavailable Unavailable Duran, Shiloh Marichuy PA Unavailable Unavailable Duran, Shiloh Marichuy PA Unavailable Unavailable Duran, Shiloh Marichuy PA Unavailable Unavailable Duran, Shiloh Marichuy PA Unavailable Unavailable Duran, Shiloh Marichuy PA Unavailable Unavailable Duran, Shiloh Marichuy PA Unavailable Unavailable VENERUS, Andrea OH MD Unavailable Unavailable VENERUS, Andrea OH MD Unavailable Unavailable VENERUS, Andrea OH MD Unavailable Unavailable VENERUS, Andrea OH MD Unavailable Unavailable VENERUS, Andrea OH MD Unavailable Unavailable VENERUS, Andrea OH MD Unavailable Unavailable VENERUS, Andrea OH MD Unavailable Unavailable VENERUS, Andrea OH MD Unavailable Unavailable VENERUS, Andrea OH MD Unavailable Unavailable Re-disclosure Warning The records that you are about to access may contain information from federally-assisted alcohol or drug abuse programs. If such information is present, then the following federally mandated warning applies: This information has been disclosed to you from records protected by federal confidentiality rules (42 CFR part 2). The federal rules prohibit you from making any further disclosure of this information unless further disclosure is expressly permitted by the written consent of the person to whom it pertains or as otherwise permitted by 42 CFR part 2. A general authorization for the release of medical or other information is NOT sufficient for this purpose. The Federal rules restrict any use of the information to criminally investigate or prosecute any alcohol or drug abuse patient.The records that you are about to access may contain highly sensitive health information, the redisclosure of which is protected by Article 27-F of the [facility] Public Health law. If you continue you may have access to information: Regarding HIV / AIDS; Provided by facilities licensed or operated by the [facility] Office of Mental Health; or Provided by the [facility] Office for People With Developmental Disabilities. If such information is present, then the following [facility] mandated warning applies: This information has been disclosed to you from confidential records which are protected by state law. State law prohibits you from making any further disclosure of this information without the specific written consent of the person to whom it pertains, or as otherwise permitted by law. Any unauthorized further disclosure in violation of state law may result in a fine or chcf sentence or both. A general authorization for the release of medical or other information is NOT sufficient authorization for further disc losure. Allergies and Adverse Reactions Type Description Substance Reaction Status Data Source(s ) Drug allergy nas[facility] DR[facility] INGREDI GREEN DYE GREEN DYE Hives Rash Low Diarrhea [facility] OTHER OTHER Rash [facility] DRUG INGREDI THIMEROSAL THIMEROSAL Hives [facility] Family History Family Member Name Family Member Gender Family Member Status Date o f Status Description Data Source(s) Unknown Unknown Problem [facility] ([facility]) Unknown Male Problem [facility] ([facility]) Encounters Encounter Providers Location Date Indications Data Source(s ) Outpatient Attender: WIL PORTER MD [id number] 06/05/2020 12 :00:00 AM EST Other care home (current) drug therapy [facility] Other care home (current) drug therapy Outpatient Attender: MARYLU MORFIN NPConsultant: Otto tovar 05/22/2020 11:17:00 AM EST - 05/22/2020 11:17:00 AM EST [facility] Outpatient Attender: WIL PORTER MD 05/13/2020 12:00:00 AM [facility] Outpatient Attender: Armen BOURGEOIS [facility] 03:00:00 PM EST [facility] ([facility] Outpatient Attender: Delores BOURGEOIS [facility] 02/01/2020 11:00:00 AM EDT [facility] ([facility] Outpatient Attender: Armen BOURGEOIS [facility] 07/2019 02:40:00 PM EDT [facility] ([facility] Emergency Attender: ADRIANO THOMAS MDConsultant: Otto Aguila 11/15/2019 09:35:00 AM EDT - 11/15/2019 12:17:00 PM EDT [facility] Patient discharged. Outpatient Attender: Marichuy sagastumey 10/31/2019 07:00:00 PM EDT [facility] ([facility] Outpatient Attender: Armen BOURGEOIS [facility] 03:15:00 PM EDT [facility] ([facility] Outpatient Attender: WIL PORTER MD [address] [place] [address] 08/17 12:00:00 AM EDT - 09/14/2019 02:59:35 PM [facility] Outpatient Attender: MERCED Morrissey Primary 09/13/2019 06:00:00 PM EDT [facility] ([facility]) Outpatient Attender: WIL PORTER MD 07/16/2019 12:00:00 AM [facility] Outpatient Attender: FLORES CAMPBELL NP [facility] 07/04 04:15:00 PM EDT [facility] ([facility] Outpatient Attender: FLORES CAMPBELL NP [facility] 07/01 01:00:00 PM EDT [facility] ([facility] Outpatient Attender: WIL PORTER MDAdmitter: WIL VARELA MD [address] [place] [address] 05/07/2019 12:00:00 AM EST - 05/08/2019 12:00:00 AM EST Encounter for gynecological examination (general) (routine) without abnormal findings [facility] Encounter for gynecological examination (general) (routine) without abnormal findings Immunizations Vaccine Date Status Description Data Source(s) INFLUENZA VIRUS VACCINE QUADRIVAL [id number](6 MOS AND UP)/PF 01/11/2020 12:00:00 AM EDT completed [facility] Medications Medication Brand Name Start Date Product Form Dose Route Admi nistrative Instructions Pharmacy Instructions Status Indications Reaction Description Data Source(s) 0.35 mg 06/06/2020 12:00:00 AM EST tablet 28 TAKE ONE TABLET BY MOUTH EVERY DAY TAKE ONE TABLET BY MOUTH EVERY DAY SOLD: 06/07/2020 [facility] Norethindrone 0.35 MG Oral Tablet Norethindrone 0.35 M G Oral Tablet (MICRONOR) Norethindrone 0.35 MG Oral Tablet (MICRONOR) 06/05/2020 12:00:00 AM EST 0.35 mg Oral active Take 1 tablet by mouth d [facility] 875-125 mg 05/22/2020 12:00:00 AM EST tablet 20 TAKE ONE TABLET BY MOUTH EVERY 12 HOURS TAKE ONE TABLET BY MOUTH EVERY 12 HOURS SOLD: 05/22/2020 [facility] 150 mg 05/22/2020 12:00:00 AM EST tablet 1 TAKE 1 TABLET BY MOUTH FOR 1 DOSE TAKE 1 TABLET BY MOUTH FOR 1 DOSE SOLD: 05/22/2020 [facility] 25 mg 05/09/2020 12:00:00 AM EST tablet 30 TAKE ONE TABLET BY MOUTH EVERY DAY TAKE ONE TABLET BY MOUTH EVERY DAY SOLD: 05/10/2020 [facility] 25 mg 05/09/2020 12:00:00 AM EST tablet 30 TAKE ONE TABLET BY MOUTH EVERY DAY TAKE ONE TABLET BY MOUTH EVERY DAY SOLD: 06/07/2020 [facility] 25 mg 04/02/2020 12:00:00 AM EST tablet 30 TAKE ONE TABLET BY MOUTH EVERY DAY TAKE ONE TABLET BY MOUTH EVERY DAY SOLD: 04/04/2020 [facility] 10 mg 02/10/2020 12:00:00 AM EDT tablet 20 TAKE ONE TABLET BY MOUTH EVERY 6 HOURS NEEDED FOR PAIN TAKE ONE TABLET BY MOUTH EVERY 6 HOURS A S NEEDED FOR PAIN SOLD: 02/10/2020 [facility] 4 mg 02/10/2020 12:00:00 AM EDT tablet,disintegrating 1 6 DISSOLVE 1 TABLET BY MOUTH EVERY 6-8 HOURS NEEDED FOR NAUSEA/ VOMITING DISSOLVE 1 TABLET BY MOUTH EVERY 6-8 HOURS NEEDED FOR NAUSEA/ VOMITING SOLD: 02/10/2020 [facility] 150 mg 02/01/2020 12:00:00 AM EDT tablet 2 TAKE ONE TABLET BY MOUTH NOW AND ONE TABLET IN 7 DAYS TAKE ONE TABLET BY MOUTH NOW AND ONE TABLET IN 7 DAYS SOLD: 02/02/2020 [facility] Cephalexin 500 MG Oral Capsule [Keflex] Keflex 02/01/2020 12:00:0 0 AM EDT ORAL completed [facility] ([facility] Fluconazole 150 MG Oral Tablet [Diflucan] Diflucan 02/01/2020 1 2:00:00 AM EDT ORAL completed [facility] ([facility] Cephalexin 500 MG Oral Capsule CEPHALEXIN 02/01/2020 12:00:00 AM EDT capsule 30 TAKE ONE CAPSULE BY MOUTH THREE TIMES A DAY FOR 10 DAY S TAKE ONE CAPSULE BY MOUTH THREE TIMES A DAY FOR 10 DAYS SOLD: 02/02/2020 [facility] 25 mg 01/04/2020 12:00:00 AM EDT tablet 30 TAKE ONE TABLET BY MOUTH EVERY DAY TAKE ONE TABLET BY MOUTH EVERY DAY SOLD: 03/05/2020 [facility] 25 mg 01/04/2020 12:00:00 AM EDT tablet 30 TAKE ONE TABLET BY MOUTH EVERY DAY TAKE ONE TABLET BY MOUTH EVERY DAY SOLD: 02/09/2020 [facility] 25 mg 01/04/2020 12:00:00 AM EDT tablet 30 TAKE ONE TABLET BY MOUTH EVERY DAY TAKE ONE TABLET BY MOUTH EVERY DAY SOLD: 01/06/2020 [facility] 150 mg 12/21/2019 12:00:00 AM EDT tablet 2 TAKE ONE TABLET BY MOUTH TODAY FOLLOWED BY ONE TABLET IN 1 WEEK TAKE ONE TABLET BY MOUTH TODAY FOLLOWED BY ONE TABLET IN 1 WEEK SOLD: 12/21/2019 [facility] Azithromycin 250 MG Oral Tablet Azithromycin 12/21/2019 12:00:00 AM E DT ORAL completed [facility] ([facility] Fluconazole 150 MG Oral Tablet [Diflucan] Diflucan 12/21/2019 1 2:00:00 AM EDT ORAL completed [facility] ([facility] 250 mg 12/21/2019 12:00:00 AM EDT tablet 6 TAKE TWO TABLETS BY MOUTH AT ONCE ON THE FIRST DAY THEN TAKE ONE DAILY THEREAFTER TAKE TWO TABLETS BY MOUTH AT ONCE ON THE FIRST DAY THEN TAKE ONE DAILY THEREAFTER SOLD: 12/21/2019 [facility] Famotidine 20 MG Oral Tablet HM Famotidine 12/21/2019 12:00:00 AM EDT ORAL completed [facility] ([facility] 20 mg 12/21/2019 12:00:00 AM EDT tablet 30 TAKE ONE TABLET BY MOUTH EVERY DAY AT BEDTIME TAKE ONE TABLET BY MOUTH EVERY DAY AT BEDTIME SOLD: 12/21/2019 [facility] 25 mg 10/02/2019 12:00:00 AM EDT tablet 30 TAKE ONE TABLET BY MOUTH EVERY DAY TAKE ONE TABLET BY MOUTH EVERY DAY SOLD: 11/01/2019 [facility] 25 mg 10/02/2019 12:00:00 AM EDT tablet 30 TAKE ONE TABLET BY MOUTH EVERY DAY TAKE ONE TABLET BY MOUTH EVERY DAY SOLD: 12/08/2019 [facility] 25 mg 10/02/2019 12:00:00 AM EDT tablet 30 TAKE ONE TABLET BY MOUTH EVERY DAY TAKE ONE TABLET BY MOUTH EVERY DAY SOLD: 10/03/2019 [facility] 800-160 mg 09/21/2019 12:00:00 AM EDT tablet 6 TAKE ONE TABLET BY MOUTH TWICE A DAY FOR 3 DAYS TAKE ONE TABLET BY MOUTH TWICE A DAY FOR 3 DAYS SOLD: 09/25/2019 [facility] Fluconazole 150 MG Oral Tablet [Diflucan] Diflucan 09/13/2019 1 2:00:00 AM EDT ORAL completed [facility] ([facility], [facility]) NITROFURANTOIN, MACROCRYSTALS 25 MG / Ni trofurantoin, Monohydrate 75 MG Oral Capsule [Macrobid] Macrobid 09/13/2019 12:00:00 AM EDT ORAL completed [facility] ([facility], [facility]) NITROFURANTOIN, MACROCRYSTALS 25 MG / Ni trofurantoin, Monohydrate 75 MG Oral Capsule Nitrofurantoin Monohyd Macro 100 MG Oral Capsule (MACROBID) Nitrofurantoin Monohyd Macro 100 MG Oral Capsule (MACROBID) 09/13/2019 12:00:00 AM EDT [facility] Fluconazole 150 MG Oral Tablet Fluconazole 150 MG Oral Tablet (DIFLUCAN) Fluconazole 150 MG Oral Tablet (DIFLUCAN) 09/13/2019 12:00:00 AM EDT active [facility] 150 mg 09/13/2019 12:00:00 AM EDT tablet 1 TAKE ONE TABLET BY MOUTH EVERY DAY TAKE ONE TABLET BY MOUTH EVERY DAY SOLD: 09/13/2019 [facility] 100 mg 09/13/2019 12:00:00 AM EDT capsule 10 TAKE ONE CAPSULE BY MOUTH EVERY 12 HOURS FOR 5 DAYS TAKE ONE CAPSULE BY MOUTH EVERY 12 HOURS FOR 5 DAYS SO LD: 09/13/2019 [facility] 0.35 mg 07/19/2019 12:00:00 AM EDT tablet 28 TAKE ONE TABLET BY MOUTH EVERY DAY TAKE ONE TABLET BY MOUTH EVERY DAY SOLD: 01/06/2020 [facility] 0.35 mg 07/19/2019 12:00:00 AM EDT tablet 28 TAKE ONE TABLET BY MOUTH EVERY DAY TAKE ONE TABLET BY MOUTH EVERY DAY SOLD: 02/02/2020 [facility] 0.35 mg 07/19/2019 12:00:00 AM EDT tablet 28 TAKE ONE TABLET BY MOUTH EVERY DAY TAKE ONE TABLET BY MOUTH EVERY DAY SOLD: 03/05/2020 [facility] 0.35 mg 07/19/2019 12:00:00 AM EDT tablet 28 TAKE ONE TABLET BY MOUTH EVERY DAY TAKE ONE TABLET BY MOUTH EVERY DAY SOLD: 10/12/2019 [facility] 0.35 mg 07/19/2019 12:00:00 AM EDT tablet 28 TAKE ONE TABLET BY MOUTH EVERY DAY TAKE ONE TABLET BY MOUTH EVERY DAY SOLD: 09/15/2019 [facility] 0.35 mg 07/19/2019 12:00:00 AM EDT tablet 28 TAKE ONE TABLET BY MOUTH EVERY DAY TAKE ONE TABLET BY MOUTH EVERY DAY SOLD: 05/06/2020 [facility] 0.35 mg 07/19/2019 12:00:00 AM EDT tablet 28 TAKE ONE TABLET BY MOUTH EVERY DAY TAKE ONE TABLET BY MOUTH EVERY DAY SOLD: 08/20/2019 [facility] 0.35 mg 07/19/2019 12:00:00 AM EDT tablet 28 TAKE ONE TABLET BY MOUTH EVERY DAY TAKE ONE TABLET BY MOUTH EVERY DAY SOLD: 07/20/2019 [facility] Norethindrone 0.35 MG Oral Tablet Norethindrone 0.35 M G Oral Tablet (MICRONOR) Norethindrone 0.35 MG Oral Tablet (MICRONOR) 07/19/2019 12:00:00 AM EDT 0.35 mg Oral aborted Take 1 tablet by mouth d [facility] 0.35 mg 07/19/2019 12:00:00 AM EDT tablet 28 TAKE ONE TABLET BY MOUTH EVERY DAY TAKE ONE TABLET BY MOUTH EVERY DAY SOLD: 11/13/2019 [facility] 0.35 mg 07/19/2019 12:00:00 AM EDT tablet 28 TAKE ONE TABLET BY MOUTH EVERY DAY TAKE ONE TABLET BY MOUTH EVERY DAY SOLD: 04/04/2020 [facility] 0.35 mg 07/19/2019 12:00:00 AM EDT tablet 28 TAKE ONE TABLET BY MOUTH EVERY DAY TAKE ONE TABLET BY MOUTH EVERY DAY SOLD: 12/08/2019 [facility] 20 mg 07/02/2019 12:00:00 AM EDT tablet 5 TAKE ONE TABLET BY MOUTH EVERY DAY WITH FOOD FOR 5 DAYS TAKE ONE TABLET BY MOUTH EVERY DAY WITH FOOD FOR 5 DAY S SOLD: 07/03/2019 [facility] cetirizine hydrochloride 10 MG Oral Tablet [Zyrtec] Zyrtec A llergy 07/02/2019 12:00:00 AM EDT ORAL completed [facility] ([facility] Prednisone 20 MG Oral Tablet Prednisone 07/02/2019 12:00:00 AM EDT ORAL completed [facility] ([facility] 25 mg 05/15/2019 12:00:00 AM EST tablet 30 TAKE ONE TABLET BY MOUTH EVERY DAY MAXIMUM DAILY DOSE = 1 TAKE ONE TABLET BY MOUTH EVERY DAY MAXIM UM DAILY DOSE = 1 SOLD: 09/04/2019 [facility] 25 mg 05/15/2019 12:00:00 AM EST tablet 30 TAKE ONE TABLET BY MOUTH EVERY DAY MAXIMUM DAILY DOSE = 1 TAKE ONE TABLET BY MOUTH EVERY DAY MAXIM UM DAILY DOSE = 1 SOLD: 05/26/2019 [facility] 25 mg 05/15/2019 12:00:00 AM EST tablet 30 TAKE ONE TABLET BY MOUTH EVERY DAY MAXIMUM DAILY DOSE = 1 TAKE ONE TABLET BY MOUTH EVERY DAY MAXIM UM DAILY DOSE = 1 SOLD: 06/25/2019 [facility] 25 mg 05/15/2019 12:00:00 AM EST tablet 30 TAKE ONE TABLET BY MOUTH EVERY DAY MAXIMUM DAILY DOSE = 1 TAKE ONE TABLET BY MOUTH EVERY DAY MAXIM UM DAILY DOSE = 1 SOLD: 08/04/2019 [facility] 800-160 mg 05/07/2019 12:00:00 AM EST tablet 10 TAKE ONE TABLET BY MOUTH TWICE A DAY FOR 5 DAYS TAKE ONE TABLET BY MOUTH TWICE A DAY FOR 5 DAYS SOLD: 05/09/2019 [facility] Sulfamethoxazole 800 MG / Trimethoprim 1 60 MG Oral Tablet Sulfamethoxazole- Trimethoprim 800-160 MG Oral Tablet (BACTRIM DS) Sulfamethoxazole-Trimethoprim 800-160 MG Oral Tablet (BACTRIM DS) 05/07/2019 12:00:00 AM EST 1 {tbl } Oral active Take 1 tablet by mouth Two T imes Daily for 5 days [facility] 800-160 mg 04/28/2019 12:00:00 AM EST tablet 14 TAKE ONE TABLET BY MOUTH EVERY 12 HOURS TAKE ONE TABLET BY MOUTH EVERY 12 HOURS SOLD: 04/28/2019 [facility] 0.35 mg 01/16/2019 12:00:00 AM EDT tablet 28 TAKE ONE TABLET BY MOUTH EVERY DAY TAKE ONE TABLET BY MOUTH EVERY DAY SOLD: 05/26/2019 [facility] 0.35 mg 01/16/2019 12:00:00 AM EDT tablet 28 TAKE ONE TABLET BY MOUTH EVERY DAY TAKE ONE TABLET BY MOUTH EVERY DAY SOLD: 06/25/2019 [facility] 0.35 mg 01/16/2019 12:00:00 AM EDT tablet 28 TAKE ONE TABLET BY MOUTH EVERY DAY TAKE ONE TABLET BY MOUTH EVERY DAY SOLD: 04/19/2019 [facility] Norethindrone 0.35 MG Oral Tablet norethindrone (MICRO NOR) 0.35 MG tablet norethindrone (MICRONOR) 0.35 MG tablet 01/16/2019 12:00:00 AM EDT 0.35 mg Oral active Take 1 tablet by raymond th daily [facility] 25 mg 09/08/2018 12:00:00 AM EDT tablet 30 TAKE ONE TABLET BY MOUTH EVERY DAY TAKE ONE TABLET BY MOUTH EVERY DAY SOLD: 04/19/2019 [facility] Cholecalciferol 1000 UNT Oral Capsule Ch olecalciferol (VITAMIN D) 1000 UNITS capsule Cholecalciferol (VITAMIN D) 1000 UNITS capsule 1000 U O ral aborted Take 1,000 Units by mouth twice a week. [facility] Insurance Providers Payer name Policy type / Coverage type Policy ID Covered alliance party ID Covered alliance party's relationship to navarro Policy Navarro Plan Information [facility] [id number] [facility] [id number] U [id number] Self [id number] [place] [id number] 01 [id number] [employer] [place] [id number] 2 [id number] [employer]MA[employer] [place] REG O [id number] S [id number] [place] [employer] - O/P [id number] 01 [id number] [place] [employer] [id number] 2 [id number] SELF [id number] SELF PAY UNAVAILABLE SELF UNAVAILA BLE [id number] SELF [id number] [employer] [id number] Family Dependent [id number] [employer] [id number] Family Dependent [id number] [employer] [id number] Other [facility] Program [id number] [employer] [id number] Family Dependent [id number] [employer] [id number] Family Dependent [id number] [employer] [id number] Family Dependent [id number] [employer] [id number] 2 [id number] [place] [employer] [id number] 2 [id number] [facility] REGION [id number] 2 [id number] [place] Commercial [id number] Family Dependent [id number] Krysta [id number] U [id number] Spouse [id number] PI PI [id number] Krysta [id number] Spo [id number] FOR LIFE U [id number] PI PI [id number] Krysta [id number] Krysta [id number] U [id number] Self [id number] HEA [id number] SP [id number] [employer] [place] [id number] SP [id number] Spo [id number] PG[employer] [place] [id number] SP [id number] PG[employer] [place] [id number] SP [id number] PG[employer] [place]TH [place] O [id number] S [id number] [employer]ALTH[employer]/ AD O [id number] S [id number] U [id number] Spouse [id number] PGBA [place] REGION [id number] HU2 [id number] PGBA [place] REG[place] [id number] HU2 [id number] PGBA RUBY JAELYN O [id number] S [id number] [facility] Federal [employer] Commercial HEALTHNET/ AD O [id number] P [id number] [facility] [employer] Commercial HEALTHNET FEDERAL O [id number] SP [id number] CONTRACT CLAIMS SERVICES P [id number] S [id number] CONTRACT CLAIMS SERVICES [id number] SP [id number] OTHER WORKERS COMPENSATION [id number] SP [id number] N REGIONAL CLAIMS YEVGENIY-O/P [id number] 01 [id number] [facility] O [id number] U [id number] [phone] [phone] SELFPAY 5 UNAVAILABLE 1 UNAVAILA BLE SELF PAY 5 UNAVAILABLE 1 UNAVAILA BLE [id number] Problems, Conditions, and Diagnoses Code Display Name Description Problem Type Effective Dates Data Source(s) N92.6 Irregular menstruation, unspecified Irregular me nstruation, unspecified Diagnosis 06/05/2020 10:00:06 AM [facility] N39.43 Post-void dribbling Post-void dribbling Diagnosis 0 06/05/2020 10:00:06 AM [facility] Z79.899 Other care home (current) drug therapy O ther care home (current) drug therapy Diagnosis 06/05/2020 10:00:06 AM [facility] [id number] Migraine, unspecified, not intractable, without status migrainosus Migraine, unspecified, not intractable, without status migrainosus Diagnosis 11/15/2019 09:35:00 AM EDT [facility] R51 Headache Headache Diagnosis 11/15/2019 09:35:00 AM ED T [facility] N39.498 Other specified urinary incontinence Oth er specified urinary incontinence Diagnosis 05/07/2019 09:19:59 AM [facility] R92.2 Inconclusive mammogram Inconclusive mammogram Diagnosi s 05/07/2019 09:19:59 AM [facility] Z12.31 Encounter for screening mammogram for ma lignant neoplasm of breast Encounter for screening mammogram for malignant neoplasm of breast Diagnosis 05/07/2019 09:19:59 AM [facility] Z01.419 Encounter for gynecological examination (general) (routine) without abnormal findings Encounter for gynecological examination (general) (routine) without abnormal findings Diagnosis 05/07/2019 09:19:59 AM [facility] Results ID Date Data Source [id number] 06/05/2020 10:38:35 AM [facility] Name Value Range Interpretation Code Description Data Kassy rce(s) Supporting Document(s) Progress Note [facility] TUPIBu3qIqIGDkOv98/DYEgoSMXsc7HtQGgeQPa3LUxmCEFbF1IoRHH6eR8aTTU4JFsZYzBcOiCvJgG6 lbm [file] ebKG6U32mINOQe0p0ucRthDepx9240pRRVL3TMxzc7Bix/stamping mill tender/Ulg2NmdjX9Ehokp92N01+K3Y/6aTJP [file] AgICAgICAgICAgICAgICAgICAgICAgICAgICAgICAgICAgICAgICAgICAgICAgICAgICAgICAgICAgIC AgICAgICAgICAgICAgICAgICAgICAgICANCiAgICAg ICAgICAgICAgICAgICAgICAgICAgICAgICAgICAgICAgICAgICAgICAgICAgICAgICAgICAgICAgICAg ICAgICAgICAgICAgICAgICAgICAgICAgICAgICAgICAgICANCiAgICAgICAgICAgICAgICAgICAgICAg ICAgICAgICAgICAgICAgICAgICAgICAgICAgICAgIC AgICAgICAgICAgICAgICAgICAgICAgICAgICAgICAgICAgICAgICAgICAgICANCiAgICAgICAgICAgIC AgICAgICAgICAgICAgICAgICAgICAgICAgICAgICAgICAgICAgICAgICAgICAgICAgICAgICAgICAgIC AgICAgICAgICAgICAgICAgICAgICAgICAgICANCiAg ICAgICAgICAgICAgICAgICAgICAgICAgICAgICAgICAgICAgICAgICAgICAgICAgICAgICAgICAgICAg ICAgICAgICAgICAgICAgICAgICAgICAgICAgICAgICAgICAgICANCiAgICAgICAgICAgICAgICAgICAg ICAgICAgICAgICAgICAgICAgICAgICAgICAgICAgIC AgICAgICAgICAgICAgICAgICAgICAgICAgICAgICAgICAgICAgICAgICAgICAgICANCiAgICAgICAgIC AgICAgICAgICAgICAgICAgICAgICAgICAgICAgICAgICAgICAgICAgICAgICAgICAgICAgICAgICAgIC AgICAgICAgICAgICAgICAgICAgICAgICAgICAgICAN CiAgICAgICAgICAgICAgICAgICAgICAgICAgICAgICAgICAgICAgICAgICAgICAgICAgICAgICAgICAg ICAgICAgICAgICAgICAgICAgICAgICAgICAgICAgICAgICAgICAgICANCiAgICAgICAgICAgICAgICAg ICAgICAgICAgICAgICAgICAgICAgICAgICAgICAgIC AgICAgICAgICAgICAgICAgICAgICAgICAgICAgICAgICAgICAgICAgICAgICAgICAgICANCiAgICAgIC AgICAgICAgICAgICAgICAgICAgICAgICAgICAgICAgICAgICAgICAgICAgICAgICAgICAgICAgICAgIC AgICAgICAgICAgICAgICAgICAgICAgICAgICAgICAg ICANCjw/zBZtS0pjpRQscfK0S8vkYa2SFc1YGL1ho1OuGLTmEDuaqvGcBpmZXtXjYFVoTdyQBfe8EHhq DW4NeWSgP2GyO2AnENzsHR0HVJPjQPGznIFcKGMpFNDnHrF5ILQhKGfpPS7XjIVlXWkuADHjWAImLxLb ADTrPPAxNNQdDETzMIMYURVcUCJuSvJyRDyxNC5Fi3 MxuEW0YEq+Sy9ABR1ki2XiLBocUZRmWR1sge6UTWeYCsXeH0JzquK6SYCpLAOlSs3OUKFaUTGgvEFgLG RrCPWTYkKkM4SezM30ACTXIo9+SNnlfbIeZlxBNsUkFVVzz2OvIOx7PZ9OYTErGBr6bYSaNOCeO9Shu8 MyRe93EMYdEijjJNBlhXUqynNFKU7jhXajlrwjAXFr CPBxYd2vRW8jYUXmXXDzYnZzOSRMJV9HSKEyLAXvtBXsRCEdYMBNQE0OGZgdZBD2RWZvdmZrjNOwMLah MR5STPJtqgScEaFcARXNPIb+Bv6JTX1ch9PfBWjpUnPqBP4sxz1EFGiCCyHyH7A2zQCsM5J0NOvoZk2T TEXlHWRoKhzkQHMYFOpaKD4BWI4rjeL5VX0KsQReIR VaQWOiqGKoJJk3E95woEIcIBttSX1ISEU+Emmanuel+Yl2TIVJdEKNuTBPpQrLgCBWLIpVwO5QbJ4HLn5BkJ4 RqKL91vUspvqIjJFzsQU4FUJ9tKOSrGXEPUD5FySOftB6zzjOpKCLhTVQOGiBmP83fcDFjZQWbDMK5KT HjKq6ZCSHdL1ObgfNovZbyzlMyZAQnJDZEWM0HQSji ehIbiHTjbPfsXZ59gJqzJQ0VMq6CHtZgWQ5dae0HlUPpUo4MEBJmYa4LEGZtWOWsYBSjIQO7SNYrFuEa HFezQZFeNIVjYUG4GUAfVUZjFZ1ZNkVtMGNsPjx2DaNmTRTqOHOddk8SMPMtKGWyVFH1KYJaOTCkSVOq LWfzVUKyMKWcDMK8LRSrANOjDK8QBsVmPPApCBHfNA mxADSbJMYuar8AFYLrSGUdNLC4PoRdYXQnBXLdMTxqVCRjUJI8Muq9XADtUPAsCN4IEiEmIRWuWEE2WA DhRRDvBKCkiu6WSHQxUPWqIUNdZzTiIVDxFUBsIEcwROEzBYL9NBGvUGOaVBDkWP0UOjOaQLJcNKEmNC SkDZPoEYShqg3QRHKnWUCpIzSpGPMbRJZcTTNwNUkj ODTdYPMnRmP6UDKuMMEdWO4YUgWyFEIsCYJ1BZYvWUZbUVMwtz4DTAAzGDHhSANfYtFfPBQmATLtFKgr QZPmOUI7JUx6YFKoDRJnJQ0CNuLqFNSzJOB6OODjUXBsZXEvkz8APTKnUOGoFOd0TNPcKTTbAGCgIYts XRDgZQD8SEAxHPXxIRBaNR9HIyBiNFJcFBQyZfGcPD NySQUnmk4IEOGvBPNsZrE4UQCqNRFyUSXiZBeiQJHcVJK3DMe3BZXiBZVsUV6BFaTcFRTqGmncOANkIH YgTQKvlj5BPDLxNDQrAFZ6YPSfPEKoKOTgZOvjPHFxDEB6GSrtXHSgPZOyEW4MCcKqSTCzMwo2QsNgQE GwWRNfei9BVSDmHFNlKYYkNzPxSMCrOKQuJNcdWGEr UNA8NSDwLQKxJXDpEC2TQiHfBINaCcGoAObgDZEzHDJcut7LIQWtMQQsHUG3QmOiLWUjQABvOQfkDYFv OSRfLrHqFNSqHAHySK3OTlJaVJBpNvG6NBHuLYZhOEDrpb5VtKQpyDdecd4EIItVRh3XxYjzTXYqCLjt Il6efVIsMlBtTJOLJh9MmdEgRVCfOJLZOTlfTHTtYV o9MJHeZDP8LGC0LDDxTPK5Uwh2FONxOpN8FLdcZEb3VuJ2Cqq7SKMkMSEyFQB7PUXxNJC9CRG6LjWjQW G7MzJqLgB+JK8nFJb+Bj7Zf9JtugG6ibTjFIisUyT7PW0KMDMQM3BMRu== ID Date Data Source [id number] 05/01/2020 12:00:00 AM EST [facility] Name Value Range Interpretation Code Description Data Kassy rce(s) Supporting Document(s) SARS coronavirus 2 Ag Negative [facility] This lab was ordered by [facility] and reported by [facility]. ID Date Data Source [id number] 02/01/2020 11:11:00 AM EDT [facility] ([facility] Name Value Range Interpretation Code Description Data Kassy rce(s) Supporting Document(s) Urine Culture, Routine Laboratory test result [facility] ([facility] SRC:VOIDED Bacteria identified in Urine by Culture Laboratory test result [facility] ([facility] SRC:VOIDED ID Date Data Source [id number] 02/01/2020 10:29:00 AM EDT [facility] ([facility] Name Value Range Interpretation Code Description Data Kassy rce(s) Supporting Document(s) Color Laboratory test result [facility] ([facility] Clarity Laboratory test result [facility] ([facility] Glucose-Ua Laboratory test result [facility] ([facility] Bilirubin,Urine Laboratory test result [facility] ([facility] Ketone Laboratory test result [facility] ([facility] Creatine kinase [Enzymatic activity/volume] in Serum or Plas ma 1.025 # 1.000-1.030 [facility] Blood - Ua Laboratory test result [facility] ([facility] pH 5.5 # 5.0-8.0 [facility] Protein Laboratory test result [facility] ([facility] Urobilinogen 0.2 NA 0.2-1.0 [facility] ([facility] Nitrite Laboratory test result [facility] ([facility] Leukocyte Laboratory test result Abnormal (applies to non -numeric results) [facility] ([facility] RBC-Ua Laboratory test result 0-3 [facility] ([facility] Epithelial Cells - Ua Laboratory test result [facility] ([facility] Bacteria - Ua Laboratory test result Abnormal (applies to non-numeric results) [facility] ([facility] ) Mucous - Ua Laboratory test result M [facility] ([facility] WBC-Ua Laboratory test result 0-5 Abnormal (applies to non -numeric results) [facility] ([facility] Crystals Laboratory test result [facility] ([facility] ID Date Data Source [id number] 01/20/2020 09:23:00 AM EDT [facility] ([facility] Name Value Range Interpretation Code Description Data Kassy rce(s) Supporting Document(s) QuantiFERON Criteria Laboratory test result Norm al (applies to non-numeric results) [facility] ([facility] ) . The QuantiFERON-TB Gold Plus result is determined by subtracting the Nil value from either TB antigen (Ag) tube. The mitogen tube serves as a control for the test. QuantiFERON TB1 Ag Value 0.11 IU/ml Normal (applies to non -numeric results) [facility] ([facility] QuantiFERON Nil Value 0.10 IU/ml Normal (applies to non-nu meric results) [facility] ([facility] QuantiFERON TB2 Ag Value 0.10 IU/ml Normal (applies to non -numeric results) [facility] ([facility] QuantiFERON Mitogen Value Laboratory test result Normal (applies to non- numeric results) [facility] ) QuantiFERON-TB Gold Plus Laboratory test result Normal (applies to non-numeric results) [facility] ([facility] ) . The specimen received for QuantiFERON testing was incubated by the ordering institution. Specific procedures outlined in our Directory of Services and in the package insert for the QuantiFERON Gold (In Tube) test must be followed to enable for proper stimulation of cells for the production of interferon gamma. Performed at: RN - [facility] [address] [id number] Outside Residential Sales Professional: Anuja Oconnell MD, Phone: [phone] ID Date Data Source [id number] 01/20/2020 09:23:00 AM EDT [facility] Name Value Range Interpretation Code Description Data Kassy rce(s) Supporting Document(s) Calcidiol [Mass/volume] in Serum or Plasma 35.8 ng/mL 30.0- 100.0 Normal (applies to non-numeric results) [facility] C reactive protein [Mass/volume] in Serum or Plasma by High sensitivity method 0.67 mg/dL 0.00-0.30 Above high normal [facility] ([facility] ID Date Data Source [id number] 01/20/2020 09:23:00 AM EDT [facility] Name Value Range Interpretation Code Description Data Kassy rce(s) Supporting Document(s) Glucose, Fasting 65 mg/dL 70-100 Below low normal [facility] ([facility] Blood Urea Nitrogen 13 mg/dL 7-18 Normal (applies to non-nume sophia results) [facility] ([facility] Creatinine For GFR 0.80 mg/dL 0.55-1.30 Normal (applies to non -numeric results) [facility] ([facility] Glomerular Filtration Rate Laboratory test result Normal (applies to non- numeric results) [facility] ([facility] ) <content>Units are mL/min/1.73 m2</content>
<content></content>
<content>Chronic Kidney Disease Staging per NKF:</content>
<content></content>
<content>Stage I & II GFR >=60 Normal to Mildly Decreased</content>
<content>Stage III GFR 30- 59 Moderately Decreased</content>
<content>Stage IV GFR 15-29 Severely Decreased</content>
<content>Stage V GFR <15 Very Little GFR Left</content>
<content>ESRD GFR <15 on MEDICAL FACILITIES SECTION DIRECTOR</content>
<content></content> Sodium Level 140 meq/L 136-145 Normal (applies to non-numeric res ults) [facility] ([facility] Potassium Serum 3.6 meq/L 3.5-5.1 Normal (applies to non-numeric results) [facility] Chloride Level 106 meq/L 98-107 Normal (applies to non-numeric r esults) [facility] ([facility] Calcium Level 9.1 mg/dL 8.5-10.1 Normal (applies to non-numeric re sults) [facility] Anion Gap 7 meq/L 8-16 Below low normal [facility] Carbon Dioxide Level 27 meq/L 21-32 Normal (applies to non-num nalini results) [facility] ([facility] ID Date Data Source [id number] 01/20/2020 09:23:00 AM EDT [facility] ([facility] Name Value Range Interpretation Code Description Data Kassy rce(s) Supporting Document(s) Ast/Sgot 12 U/L 7-37 Normal (applies to non-numeric resul ts) [facility] ([facility] Alt/SGPT 28 U/L 12-78 Normal (applies to non-numeric resul ts) [facility] ([facility] Alkaline Phosphatase 60 U/L 45-117 Normal (applies to non-num nalini results) [facility] ([facility] Bilirubin,Total 0.6 mg/dL 0.2-1.0 Normal (applies to non-numeric results) [facility] ([facility] Albumin 3.8 GM/DL 3.2-5.2 Normal (applies to non-numeric resul ts) [facility] ([facility] Bilirubin,Direct 0.1 mg/dL 0.0-0.2 Normal (applies to non-numeric results) [facility] ([facility] Total Protein 7.1 GM/DL 6.4-8.2 Normal (applies to non-numeric re sults) [facility] ([facility] Albumin/Globulin Ratio 1.2 1.2-2.2 Normal (applies to non-n umeric results) [facility] ([facility] ID Date Data Source [id number] 01/20/2020 09:23:00 AM EDT [facility] Name Value Range Interpretation Code Description Data Kassy rce(s) Supporting Document(s) Erythrocyte sedimentation rate by Westergren method 9 mm/hr 0-20 Normal (applies to non-numeric results) [facility] ([facility] ID Date Data Source [id number] 01/20/2020 09:23:00 AM EDT [facility] Name Value Range Interpretation Code Description Data Kassy rce(s) Supporting Document(s) White Blood Count 7.1 10 4.0-10.0 Normal (applies to non-numeri c results) [facility] ([facility] Red Blood Count 5.36 10 4.00-5.40 Normal (applies to non-numeric results) [facility] ([facility] Hematocrit 48.1 % 36.0-47.0 Above high normal [facility] ([facility] Hemoglobin 15.6 g/dL 12.0-15.5 Above high normal [facility] ([facility] Mean Corpuscular Hemoglobin 29.1 pg 27.0-33.0 Norm al (applies to non-numeric results) [facility] ([facility] ) Mean Corpuscular HGB Conc 32.4 g/dL 32.0-36.5 Normal (applies to non-numeric results) [facility] ([facility] ) Mean Corpuscular Volume 89.7 fl 80.0-96.0 Normal ( applies to non-numeric results) [facility] ([facility] ) Red Cell Distribution Width 13.0 % 11.5-14.5 Norm al (applies to non-numeric results) [facility] ([facility] ) Platelet Count, Automated 322 10 150-450 Normal (applies to non-numeric results) [facility] ([facility] ) Neutrophils % 44.7 % 36.0-66.0 Normal (applies to non-numeric re sults) [facility] ([facility] Lymph % 46.5 % 24.0-44.0 Above high normal [facility] ([facility] Harnett % 6.0 % 0.0-5.0 Above high normal [facility] ([facility] Eos % 1.7 % 0.0-3.0 Normal (applies to non-numeric resul ts) [facility] ([facility] Immature Granulocyte % 0.4 % 0-3.0 Normal (applies to non-n umeric results) [facility] ([facility] Baso % 0.7 % 0.0-1.0 Normal (applies to non-numeric resul ts) [facility] ([facility] Nucleated Red Blood Cell % 0.0 % 0-0 Normal (applies to n on-numeric results) [facility] ([facility] Neutrophils # 3.2 10 1.5-8.5 Normal (applies to non-numeric re sults) [facility] ([facility] Lymph # 3.3 10 1.5-5.0 Normal (applies to non-numeric resul ts) [facility] ([facility] Harnett # 0.4 10 0.0-0.8 Normal (applies to non-numeric resul ts) [facility] ([facility] Eos # 0.1 10 0.0-0.5 Normal (applies to non-numeric resul ts) [facility] ([facility] Baso # 0.1 10 0.0-0.2 Normal (applies to non-numeric resul ts) [facility] ([facility] ID Date Data Source [id number] 11/15/2019 09:35:00 AM EDT [facility] 1 OrderSheet [facility] Emergency Department [address] [place] [address] Phone #: ext- [phone] 11/15/2019 09:27 Patient: RUKHSANA LARES Sex: F : 1980 Age: 38yWEIGHT:120.2 kg (S) HEIGHT:64 inches (S) BMI:45.5ALLERGIES: Blue Dyes (Parenteral), Thimeril preservativeCHIEF COMPLAINT: headacheDIAGNOSIS: MigraineLAB ORDERSOrder Description Priority Entered Acknowledged InitialedBeta-HCG, Qual STAT 10:10/18 10:14 TerrySerum Lynn Mensah RN PA;DIAGNOSTIC STUDY ORDERSOrder Description Priority Entered Acknowledged InitialedMEDICATION/IV/DRIP/FLUID ORDERSOrder Description Priority Entered Acknowledged InitialedToradol 15 mg IVP 10:11/15/2019 10:30 TerryX1 dose: 15 mg Lynn Mensah RN(NOW x1) PA;Reglan 10 mg IVP 10:07 11/15/2019 10:30 TerryX1 dose: 10 mg Lynn Mensah RN(NOW x1) PA;NS IV 1000 mL 10:11/15/2019 10:29 TerryBolus: : Bolus 1000 Lynn Mensah RNmL (X1) PA;GENERAL ORDERSOrder Description Priority Entered Acknowledged InitialedSaline Lock 10:07 11/15/2019 10:14 Art Mensah RN PA;[Electronically signed by Lynn Hutchison (13:39 11/15/2019)][Electronically signed by Art Mensah RN (15:41 11/15/2019)][Electronically locked by Art Mensah RN (15:41 11/15/2019)] Name Value Range Interpretation Code Description Data Kassy rce(s) Supporting Document(s) ID Date Data Source [id number] 11/15/2019 09:35:00 AM EDT [facility] 1 Medication Reconciliation Report [facility] Emergency Department [address] [place] [address] Phone #: [phone] 11/15/2019 09:27 Patient: RUKHSANA LARES Sex: F : 1980 Age: 38yWeight: 120.2 kgHeight/Length: 64 in.BMI: 45.5ALLERGIES: Blue Dyes (Parenteral), Thimeril preservativeThe patient's Home Medications are listed below:CONTINUE TAKING THE FOLLOWING MEDICATIONS: Advil Oral (200 mg) 2 tablets, last dose: today 829, prn Control Pills hydroCHLOROthiazide Oral (12.5 mg) 1 tablet, daily, at bedtime Remeron Q8 week Tylenol Extra Strength Oral 1,000 mg, last dose: today 729, prnThe source(s) of the original Home Medication information:Not obtained.The following Medications were given to the patient in the Emergency Department:normal saline IV Fluids bolus 0, then 1000 cc bolus, administered: 11/15/2019 10:25:00 AMToradol [IVP] IVP 15 mg, administered: 11/15/2019 10:25:00 AMReglan [IVP] IVP 15 mg, administered: 11/15/2019 10:26:00 AMThe following Medications were prescribed to the patient:None. Name Value Range Interpretation Code Description Data Kassy rce(s) Supporting Document(s) ID Date Data Source [id number] 11/15/2019 09:35:00 AM EDT [facility] 1 Medication Administration Record [facility] Emergency Department [address] [place] [address] Phone #: ext- [phone] 11/15/2019 09:27 Patient: RUKHSANA LARES Sex: F : 1980 Age: 38yWeight: 120.2 kgHeight/Length: 64 inBMI: 45.5ALLERGIES: Blue Dyes (Parenteral), Thimeril preservative Date/Time Medication Administered Medication OrderedGiven TORADOL [IVP] (KETOROLAC Toradol 15 mg IVP X1 dose: 15 mg10:25 11/15/2019 TROMETHAMINE) (NOW x1)Art Mensah RN Dose: 15 mg IVP Site: #1 left ACGiven REGLAN [IVP] (METOCLOPRAMIDE Reglan 10 mg IVP X1 dose: 10 mg10:26 11/15/2019 HCL) (NOW x1)Art Mensah RN Dose: 15 mg IVP Site: #1 left ACStart normal saline * NS IV 1000 mL Bolus: : Bolus 410049:[id number] 11/15/2019 Dose: 1000 cc bolus * IV Fluids mL (X1)Art Mensah RN----Stop11:45 11/15/2019Art Mensah RN Name Value Range Interpretation Code Description Data Kassy rce(s) Supporting Document(s) ID Date Data Source [id number] 11/15/2019 09:35:00 AM EDT [facility] 1 General Instructions [facility] Emergency Department [address] [place] [address] Phone #: ext- [phone] 11/15/2019 09:27 [id number] Sex[facility] F : 1980 Age: 38yAcute migraine headache.INSTRUCTIONS(return to the ER for worsening or concerning symptoms. Follow up with your regular provider for recheck.).Warnings: Further evaluation is necessary.GENERAL WARNINGS: Return or contact your physician immediately if your condition worsens orchanges un expectedly, if not improving as expected, or if other problems arise. SPECIFICALLY, return ifyou develop fever, vomiting, numbness, weakness, difficulty thinking, fainting or extreme fatigue.Your Current Medications: Your current home medications have been reviewed.CONTINUE TAKING THE FOLLOWING MEDICATIONS:Advil Oral : Tablet 200 mg, 2 tablets, Last: today 0830, prn. Control Pills*.hydroCHLOROthiazide Oral : Tablet 12.5 mg, 1 tablet daily, at bedtime.Remeron Q8 week*.Tylenol Extra Strength Oral : 1,000 mg, Last: today 0730, prn.Follow-up:Follow up with your healthcare provider in about two days even if well. Call for an appointment. Reason forreferral: evaluation and treatment. Summary of care provided to patient via paper.Understanding of the discharge instructions verbalized by patient. ADDITIONAL INFORMATIONMigraine HeadacheThis often severe type of headache is different from other types of headaches in that symptoms otherthan pain occur with the headache. Nausea and vomiting, lightheadedness, sensitivity to light(photophobia), and other visual disturbances are common migraine symptoms. The pain may lastfrom a few hours to several days. It is not clear why migraines occur but certain factors called"triggers" can raise the risk of having a migraine attack. A migraine may be triggered by emotionalstress or depression, or by hormone changes during the menstrual cycle. Other triggers include birthcontrol pills, overuse of migraine medicines, alcohol or caffeine, foods with tyramine (such as agedcheese and wine), eyestrain, weather changes, missed meals, or too little or too much sleep. 2 General Instructions [facility] Emergency Department [address] [place] [address], [place] [address] Phone #: ext- [phone] 11/15/2019 09:27 Patient: RUKHSANA LARES Sex: F : 1980 Age: 38yHome careFollow these tips when taking care of yourself at home: Don't drive yourself home if you were given pain medicine for your headache or are having visual symptoms. Instead, have someone else drive you home. Try to sleep when you get home. You should feel much better when you wake up. Cold can help ease migraine symptoms. Put an ice pack on your forehead or at the base of your skull. Put heat on the back of your neck to help ease any neck spasm. Drink only clear liquids or eat a light diet until your symptoms get better. This will help you avoid nausea and vomiting.How to prevent migrainesPay attention to what seems to trigger your headache. Try to avoid the triggers when you can. If youhave frequent headaches, consider keeping a headache diary. In it, write down what you were doing,feeling, or eating in the hours before each headache. Show this to your healthcare provider to helpfind the cause of your headaches.If stress seems to be a trigger for your headaches, figure out what is causing stress in your life. Learnnew ways to handle your stress. Ideas include regular exercise, biofeedback, self-hypnosis, yoga,and meditation. Talk with your healthcare provider to find out more information about managingstress. Many books and digital media are also available on this subject.Tyramine is a substance found in many foods. It can trigger a migraine in some people. These foodscontain tyramine: Chocolate Yogurt All cheeses, but especially aged cheeses Smoked or pickled fish and meat, including mark, caviar, bologna, pepperoni, and salami Liver Avocados Bananas Figs Raisins Red wine 3 General Instructions [facility] Emergency Department [address] [place] [address] Phone #: ext- [phone] 11/15/2019 09:27 Patient: RUKHSANA LARES Sex: F : 1980 Age: 38yTry staying away from these foods for 1 to 2 months to see if you have fewer headaches.How to treat future headaches Take time out at the first sign of a headache, if possible. Find a quiet, dark, comfortable place to sit or lie down. Let yourself relax or sleep. Put an ice pack on your forehead or on the area of greatest pain. A heating pad and massage may help if you are having a muscle spasm and tightness in your neck. If you have been prescribed a medicine to stop a migraine headache, use this at the first warning sign of the headache for best results. First signs may be an aura or pain. If you need to take medicine often for your migraine, talk with your healthcare provider about other ways to prevent your headaches.Follow-up careFollow up with your healthcare provider, or as advised. Talk with your provider if you have frequentheadaches. He or she can figure out a treatment plan. Ask if you can have medicine to take at homethe next time you get a bad headache. This may keep you from having to visit the emergencydepartment in the future. You may need to see a headache specialist (neurologist) if you continue tohave headaches.When to seek medical adviceCall your healthcare provider right away if any of these occur: Your head pain gets worse, or doesn't get better within 24 hours You can't keep liquids down (repeated vomiting) Pain in your sinuses, ears, or throat Fever of 100.4 F (38 C) or higher, or as directed by your healthcare provider Stiff neck Extreme drowsiness, confusion, or fainting Dizziness, or dizziness with spinning sensation (vertigo) Weakness in an arm or leg, or on one side of your face Difficulty talking or seeing [id number] [employer]. [address] [place] [address], [place] [address]. All rights reserved. 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 Always follow your healthcare professional's instructions. You have been given the following additional information: Headache, Migraine, Classic(Electronically signed by BK Hernandez 11/15/2019 13:39) Name Value Range Interpretation Code Description Data Kassy rce(s) Supporting Document(s) ID Date Data Source [id number] 11/15/2019 09:35:00 AM EDT [facility] 1 Clinical Report - Nurses [facility] Emergency Department [address] [place] [address] Phone #: ext- [phone] 11/15/2019 09:27 Patient: RUKHSANA LARES Sex: F : 1980 Age: 38yTRIAGEArrived by private vehicle. Historian: patient. ( pt c/o sharp grabbing pain starting below left ear radiatingto left sinus and eyes, pt photophobic, + nausea, + dizzy, + post nasal drip every thing started 0730 thismorning).Triage time: 09:32 11/15/2019. Acuity: LEVEL 3.Chief Complaint: MIGRAINE HEADACHE.09:52 11/15/19.This started today. She has had nausea and sinus pain.Treatment SPRING BENDER:Took Tylenol and ibuprofen.SEPSIS SCREEN: SIRS Screen negative. Sepsis Screen negative. No suspected or confirmed signs ofinfection present. (09:51 11/15/2019). --09:52 11/15/19 Art Mensah RN09:42 11/15/19. BP: 149/109 (large adult cuff) taken on the right arm, via an automat ed monitor, whilesitting. MAP: 122. HR: 83. RR: 16. O2 saturation: 97% on room air. Temp: 97.1 F (temporal). Pain levelnow: 11/25. --09:52 11/15/19 Art Mensah RN.Weight: 120.2 kg stated. Height/Length: 64 inches Per Patient. BMI: 45.5. --09:42 11/15/19 Art Mensah RN.MedicationshydroCHLOROthiazide Oral (Tablet 12.5 mg) 1 tablet, daily at bedtime. --09:44 11/15/19 Art Mensah RN Control Pills. --09:44 11/15/19 Art Mensah RN Remeron Q8 week. --09:45 11/15/19 Art Mensah RN Tylenol Extra Strength Oral 1,000 mg, as needed, last dose today 0730. --09:45 11/15/19 URI Santamaria Advil Oral (Tablet 200 mg) 2 tablets, as needed, last dose today 0830. --09:46 11/15/19 URI Santamaria.AllergiesThimeril preservative. --09:46 11/15/19 Art Mensah RNBlue Dyes (Parenteral). --09:46 11/15/19 Art Mensah RN.PROBLEMS:Migraine Headache.Chrons. 2 Clinical Report - Nurses [facility] Emergency Department [address] [place] [address] Phone #: ext- [phone] 11/15/2019 09:27 [id number] Sex[facility] F : 1980 Age: 38y Hypertension. --09:11/15/19 Art Mensah RN. ADDITIONAL SURGERIES: Ovarian cyst. Right thyroid. --09:11/15/19 Art Mensah RN Cholecystectomy. Colonoscopy. Hernia Repair. Teeth. --09:11/15/19 Art Mensah RN. History 09:11/15/19. PAST MEDICAL HX: Headaches. Last normal menstrual period- 2 days ago. SOCIAL HX: Never smoker. No alcohol use or drug use. No recent travel. No known contact with a sick individual. She was offered HIV testing but declined and hepatitis C testing but declined. She has not traveled outside the [place] Infectious disease exposure: No infectious disease exposure. SELF HARM ASSESSMENT: Self harm assessment was performed. The patient answered "no" to the question(s) "Have you recently felt down, depressed, or hopeless?", "Do you have thoughts of harming or killing yourself?", "Do you have a plan for harming or killing yourself?", "Have you recently had thoughts about harming or killing others?", "Do you have any dangerous items in your possession?", "Have you noticed less interest or pleasure in doing things?", "Are you here because you tried to hurt yourself?" and "Have you ever tried to hurt yourself before today?". ABUSE ASSESSMENT: Abuse history: reports abuse. (no). Abuse assessment. no. NUTRITIONAL RISK ASSESSMENT: The nutritional risk assessment revealed no deficiencies. FUNCTIONAL ASSESSMENT: Functional assessment: no impairments noted. LEARNING NEEDS ASSESSMENT: The learning needs assessment revealed no barriers. FALL RISK ASSESSMENT: Fall risk assessment completed. No risk factors identified. SKIN INTEGRITY ASSESSMENT: Skin integrity risk assessment completed. No skin integrity risk identified. --09:11/15/19 Art Mensah RN. Interventions 09:11/15/19. Identification band on patient. To treatment room. --09:11/15/19 Art Mensah RN.PHYSICAL [id number]:11/15/19. Ambulatory to room. 3 Clinical Report - Nurses [facility] Emergency Department [address] [place] [address] Phone #: ext- [phone] 11/15/2019 09:27 Patient: RUKHSANA LARES Sex: F : 1980 Age: 38y GENERAL / NEURO / PSYCH: Alert. Oriented X 4. Speech within normal limits. HEENT: No facial asymmetry noted. RESPIRATORY: Respirations not labored. Breath sounds within normal limits. CVS: Capillary refill less than 2 seconds. GI / : Abdomen soft and nontender. SKIN: Skin is warm and dry. --09:11/15/19 Art Mensah RN.NURSING PROGRESS NOTES09:11/15/19. Head of bed elevated 75 degrees. Two patient identifiers checked. Call light placed inreach. Bed placed in lowest position. Brakes of bed on. Patient ready for evaluation- chart flagged.--:11/15/19 Art Mensah RN 10:11/15/2019 Site #1 started via IV in the left antecubital space with an 20g angiocath; one attempt. Saline lock flushed with 10 mL saline. --10:11/15/19 Art Mensah RN 10:11/15/2019 normal saline * IV Fluids 1000 cc bolus --10:11/15/19 Art Mensah RN 10:11/15/2019 Toradol (Ketorolac Tromethamine) IVP 15 mg given over 30 second(s) via site #1. Allergies verified and confirmed 5 rights. IV patency established. IV site checked: no pain, redness, or swelling. IV flushed thoroughly pre- and post-medication administration. IVP given by RN. Information reviewed with patient. --10:11/15/19 Art Mensah RN 10:11/15/2019 Reglan (Metoclopramide HCl) IVP 15 mg given over 1 minute(s) via site #1. Allergies verified and confirmed 5 rights. IV patency established. IV site checked: no pain, redness, or swelling. IV flushed thoroughly pre- and post- medication administration. IVP given by RN. Information reviewed with patient. --10:30 11/15/19 Art Mensah RN 10:31 11/15/19. Checked patient name and birthdate. Blood samples drawn from the right antecubital space by tech. ([id number]). --10:31 11/15/19 Art Mensah RN 10:32 11/15/19. BP: 139/72. MAP: 94. HR: 16. O2 saturation: 97%. --10:32 11/15/19 [facility] Tech1.DISPOSITION / DISCHARGE 11:52 11/15/19. BP: 137/84. MAP: 101. HR: 68. RR: 18. O2 saturation : 98%. Temp: 98.3 F. --11:52 11/15/19 [facility] Tech1 12:15 11/15/19. Pain level now: 0/10. --12:16 11/15/19 Art Mensah RN 11:45 11/15/2019 Normal saline IV Fluids Discontinued: bag #1 infused. Total amount infused: 1000 mL. IV patency established. IV site checked: no pain, redness, or swelling. IV flushed thoroughly. --12:16 11/15/19 Art Mensah RN 11:45 11/15/2019 Toradol IVP Response: pain is gone now. Symptoms have improved the patient feels 4 Clinical Report - Nurses [facility] Emergency Department [address] [place] [address] Phone #: ext- [phone] 11/15/2019 09:27 Patient: RUKHSANA LARES Sex: F : 1980 Age: 38y better. --12:17 11/15/19 Art Mensah RN 11:45 11/15/2019 Reglan IVP Response: symptoms have improved the patient feels better. --12:17 11/15/19 Art Mensah RN 12:02 11/15/2019 Site #1 removed upon discharge. Catheter intact. Bandaid applied. --12:17 11/15/19 Art Mensah RN 12:16 11/15/19. Departure time: 12:16 11/15/2019. Condition at departure: improved. No learning barriers present. Discharge instructions provided and reviewed with the patient. Reviewed medication(s) (no changes). Reviewed referrals. Provided to follow-up provider. Patient verbalized understanding. Written instructions provided in German. The patient was discharged by the physician. She was discharged home. She left ambulatory and via private vehicle. Patient driving. --12:16 11/15/19 Art Mensah RN.Locked/Released at 11/15/2019 15:41 by Art Mensah RN Name Value Range Interpretation Code Description Data Kassy rce(s) Supporting Document(s) ID Date Data Source [id number] 11/15/2019 09:35:00 AM EDT [facility] 1 Clinical Report - Physicians/Mid Levels [facility] Emergency Department [address] [place] [address] Phone #: ext- [phone] 11/15/2019 09:27 [id number] Sex[facility] F : 1980 Age: 38y Time Seen: 09:52 11/15/2019. Arrived- By private vehicle. Historian- patient. Disposition decision: 11:46 11/15/2019.HISTORY OF PRESENT ILLNESS Chief Complaint: HEADACHE. Is still present. Onset during started at work. No obvious trigger. This started today 730 AM. It is described as similar to previous headaches, "pain", tightness and throbbing. Located in the region of the left eye and left temporal and left maxillary region. No neck pain. Not located in the facial region. At its maximum, severity described as 9 / 10. When seen in the E.D., severity described as 9 / 10. The patient has had photophobia and nausea. No preceding symptoms, blurred vision, numbness, weakness or vomiting. (38 year old female here for a headache that started at 7:30 am on her left side with associated nausea. 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 This feels similar to them. Last KINNEY like this was 3 years ago. Frequency of KINNEY decreased once she started remeron for Crohns). No recent travel. Similar symptoms previously. Patient has had similar symptoms frequently. Recent medical care: Not recently seen/assessed.REVIEW OF SYSTEMSThe patient has had sinus pressure (left sided). She has had ear pain (l eft sided). No sore throat orthroat, chills, fatigue or fever. No ear pain, nasal congestion, runny nose, chest pain or cough. Nodifficulty breathing, abdominal pain, diarrhea, vomiting or urinary problems. No back pain, neck pain, skinrash or head injury. She has had photophobia, sinus pain, nausea, dizziness and a headache.PAST HISTORYProblems:Migraine Headache.Chrons.Hypertension. Additional Surgeries: Cholecystectomy. Colonoscopy. Hernia Repair. Ovarian cyst. Right thyroid. 2 Clinical Report - Physicians/Mid Levels [facility] Emergency Department [address] [place] [address] Phone #: ext- [phone] 11/15/2019 09:27 Patient: RUKHSANA LARES Sex: F : 1980 Age: 38y Teeth. Medications: Advil Oral (Tablet 200 mg) 2 tablets, as needed, last dose today 0830. Tylenol Extra Strength Oral 1,000 mg, as needed, last dose today 0730. Remeron Q8 week. Control Pills. h ydroCHLOROthiazide Oral (Tablet 12.5 mg) 1 tablet, daily at bedtime. Allergies: Blue Dyes (Parenteral). Thimeril preservative.SOCIAL HISTORYNever smoker. No alcohol use or drug use.ADDITIONAL NOTESThe nursing notes have been reviewed.PHYSICAL EXAMVital Signs: 11/15/2019 11:52 BP: 137/84. MAP: 101. HR: 68. RR: 18. O2 saturation: 98%. Temp: 98.3 F.Have been reviewed and appear to be correct. Blood pressure normal. Heart rate normal. Respiratoryrate normal. Temperature normal. Oxygen saturation normal.Appearance: Alert. No acute distress.Head: Tenderness present to percussion/palpation of the sinuses: mild left maxillary tenderness.Rt Eye: Right eye exam normal.Eyes: Eyelids appear normal to inspection. Conjunctivae and sclerae appear normal to inspection.Corneas appear normal to inspection. Pupils equal, round and reactive to light and light.Accommodation normal. EOMs intact. Periorbital areas appear normal to inspection.Lt Eye: Left eye exam normal.ENT: Ears normal. Nose normal. Pharynx normal.Neck: Normal inspection. Neck supple.CVS: Normal heart rate and rhythm. Heart sounds normal. Pulses normal.Respiratory: No respiratory distress. Painless inspiration. Breath sounds normal.Abdomen: Soft and nontender. No organomegaly.Back: Normal inspection.Skin: Skin warm and dry. Normal skin color. No rash. Normal skin turgor.Extremities: Extremities exhibit normal ROM. No lower extremity edema.Neuro: Oriented X 3. Alert. Mood/affect normal. Speech normal. Cranial nerves normal (as tested).No cerebellar findings. No abnormal finger-nose test. No motor deficit. No sensory deficit. Reflexesnormal.LABS, X- RAYS, AND EKGLaboratory Tests: Laboratory tests have been ordered, with results reviewed and considered in themedical decision making process. 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 Most recent episode was 3years ago. This episode feels similar. Neurological examination is normal with the exceptions of somephotophobia. No deficits noted. Will start with toradol, reglan, and IVF and will reassess. 11:48 11/15/19. Pt feeling much better. She states she is ready to go home. Considered imaging at the time of presentation but since symptoms resolved with typical migraine management, will hold off at this time. Will dc with close PCP follow up. Strict precautions given. Disposition: Discharged home. Discharge decision based on the following: patient's condition is stable; patient is ambulatory; patient's pain is controlled; patient's exam is improved; improving condition on repeat evaluation; social support is adequate; transportation is available; follow-up is available; clinical impression is consistent with outpatient treatment.CLINICAL IMPRESSION Acute migraine headache.INSTRUCTIONS (return to the ER for worsening or concerning symptoms. Follow up with your regular provider for recheck.). Warnings: Further evaluation is necessary. GENERAL WARNINGS: Return or contact your physician immediately if your condition worsens or changes unexpectedly, if not improving as expected, or if other problems arise. SPECIFICALLY, return if you develop fever, vomiting, numbness, weakness, difficulty thinking, fainting or extreme fatigue. Your Current Medications: Your current home medications have been reviewed. CONTINUE TAKING THE FOLLOWING MEDICATIONS: Advil Oral : Tablet 200 mg, 2 tablets, Last: today 0830, prn. Control Pills*. hydroCHLOR Othiazide Oral : Tablet 12.5 mg, 1 tablet daily, at bedtime. 4 Clinical Report - Physicians/Mid Levels [facility] Emergency Department [address] [place] [address] Phone #: [phone] 11/15/2019 09:27 Patient: RUKHSANA LARES Sex: F : 1980 Age: 38y Remeron Q8 week*. Tylenol Extra Strength Oral : 1,000 mg, Last: today 729, prn. Follow-up: Follow up with your healthcare provider in about two days even if well. Call for an appointment. Reason for referral: evaluation and treatment. Summary of care provided to patient via paper. Understanding of the discharge instructions verbalized by patient.(Electronically signed by BK Hernandez 11/15/2019 13:39) Name Value Range Interpretation Code Description Data Kassy rce(s) Supporting Document(s) ID Date Data Source [id number] 11/15/2019 10:56:00 AM EDT [facility] Name Value Range Interpretation Code Description Data Kassy rce(s) Supporting Document(s) HCG SERUM QUAL NEGATIVE NORMAL: NEGATIVE [facility] HCG SERUM QL REENTER NEGATIVE NORMAL: NEGATIVE [facility] { KIT LOT # [id number] ){ KIT EXP DATE 01.28.21 ){ PROCEDURAL CONTROL VALID ) ID Date Data Source [id number] 11/15/2019 10:20:00 AM EDT [facility] ([facility] Name Value Range Interpretation Code Description Data Kassy rce(s) Supporting Document(s) HCG Serum Qual Laboratory test result [facility] ([facility] HCG Serum QL Reenter Laboratory test result [facility] ([facility] { KIT LOT # [id number] ) { KIT EXP DATE 01.28.21 ) { PROCEDURAL CONTROL VALID ) ID Date Data Source [id number] 09/14/2019 03:01:35 PM EDT [facility] Name Value Range Interpretation Code Description Data Kassy rce(s) Supporting Document(s) Progress Note [facility] [id number] lbm [file] [id number] ID Date Data Source [id number] 09/13/2019 06:27:00 PM EDT [facility] ([facility]) Name Value Range Interpretation Code Description Data Kassy rce(s) Supporting Document(s) Bacteria identified in Urine by Culture Laboratory test result [facility] ([facility], [facility]) FULL REPORT IN LAB NOTES (eCW and [facility] ). NO GROWTH CLINICAL SIGNIFICANCE 2 OR MORE ORGANISMS ID Date Data Source [id number] 05/08/2019 12:28:46 PM [facility] Service Cmnt XXX-Imp : Microorganism XXX Cult : No growth (qualifier value) Name Value Range Interpretation Code Description Data Kassy rce(s) Supporting Document(s) ID Date Data Source [id number] 05/07/2019 12:40:39 PM [facility] Name Value Range Interpretation Code Description Data Kassy rce(s) Supporting Document(s) Progress Note [facility] [id number] lbm [file] [id number] ID Date Data Source [id number] 05/11/2019 03:23:00 PM [facility] CYTOPATHOLOGY REPORT See Addendum BelowN tolu: RUKHSANA LARES RMRN: [id number] Number: [id number] Date: 05/07/2019 10:40Received Date: 05/08/2019 13:15Physician(s): WIL PORTER E WIL PORTER Specimen(s) ReceivedA: ThinPrep Pap Test with Image Review with full manual rescreen. HR HPVcotesting and reflex to 16/18 HPV genotyping if Pap results are normal andHPV is positive.Date of Last Menstrual Period: 04/21/2019Menstrual History:CyclingPrior Pap Diagnosis History:Last Pap test: 11/25/2015 normal, HPV negativeNo previous abnormal Pap smearsClinical Findings:Source: Cervical /jviyqjrjvrxvH55.419 ICD Code, Encounter for routine gynecological examination with Papsmear of cervixADEQUACY OF THE SPECIMEN:Satisfactory for evaluation. Transformation zone component identified.GENERAL CATEGORIZATIONNegative for intraepithelial lesion or malignancy Reviewing [employer]: Jory Martin, SCT 15:23:19 Procedures/AddendaHR HPV Aptima Addendum Date Complete: 05/11/2019 Date Reported: 05/11/2019 08:34 HPV High Risk E6/E7 mRNASpecimen DescriptionThin prep vial cervix05/10/2019 10:42Special RequestNon05/10/2019 10:42Culture/ResultsNEGATIVE for HPV high-risk types by excel analyst-mediated amplification.Thistest detects HPV types 16,18,31,33,35,39,45,51,52,56,58,59,66, and 68withoutdifferentiation. LIMITATIONS Detection of high-risk HPV mRNA isdependenton the number of copies present in the specimen and may be affected byspecimenadequacy, stage of infection, and presence of interfering substances .Prevalance may also affect performance as positive predictive valuesdecrease inlow prevalance populations and when testing individuals with no risk ofinfection. The performance of this assay has not been evaluated in HPVvaccinated individuals. Cross- reactivity with low-risk HPV types 26, 67,70,and 82 may occur05/11/2019 08:34Report StatusFinal 08:34 Procedure Electronically Signed System Interface 05/11/2019 08:34 Name Value Range Interpretation Code Description Data Kassy rce(s) Supporting Document(s) ID Date Data Source [id number] 05/07/2019 05:32:38 PM [facility] Name Value Range Interpretation Code Description Data Kassy rce(s) Supporting Document(s) Color of Urine [facility] Clarity of Urine [facility] Specific gravity of Urine by Refractometry automated 1.023 1.003 -1.030 [facility] pH of Urine by Automated test strip 5.0 5.0-8.0 [facility] Protein [Mass/volume] in Urine by Automated test strip Neg [facility] Glucose [Mass/volume] in Urine by Automated test strip Neg [facility] Ketones [Mass/volume] in Urine by Automated test strip Neg [facility] Bilirubin.total [Presence] in Urine by Automated test strip Negative [facility] Hemoglobin [Presence] in Urine by Automated test strip Neg ative [facility] Leukocyte esterase [Presence] in Urine by Automated test strip Negative [facility] Nitrite [Presence] in Urine by Automated test strip Negati [facility] Leukocytes [#/area] in Urine sediment by Automated count 0 -5 [facility] Erythrocytes [#/area] in Urine sediment by Automated count 3 /HPF 0-3 [facility] Epithelial cells.squamous [#/area] in Urine sediment by Automate d count None [facility] Mucus [#/area] in Urine sediment by Microscopy low power field None [facility] ID Date Data Source [id number] 04/28/2019 11:14:00 AM EST [facility] ([facility] Name Value Range Interpretation Code Description Data Kassy rce(s) Supporting Document(s) Wound Culture Laboratory test result [facility] ([facility] If aerobic or anaerobic growth is detect ed within the next 7-21 days, an addendum will follow. . . FULL REPORT IN LAB NOTES (eCW and Med[facility]). NORMAL ANAYELI PRESENT Gram Stain Laboratory test result Normal (applies to non-n umeric results) [facility] ([facility] FEW WBCS MODERATE GRAM POSITIVE COCCI IN PAIRS MODERATE GRAM NEGATIVE RODS ID Date Data Source [id number] 04/28/2019 10:57:00 AM EST [facility] ([facility] Name Value Range Interpretation Code Description Data Kassy rce(s) Supporting Document(s) Reflex Urine Culture Laboratory test result Norm al (applies to non-numeric results) [facility] ([facility] ) FULL REPORT IN LAB NOTES (eCW and [facility] ). SPECIMEN APPEARS CONTAMINATED ID Date Data Source [id number] 04/28/2019 10:57:00 AM EST [facility] Name Value Range Interpretation Code Description Data Kassy rce(s) Supporting Document(s) Appearance, Urine RFX Laboratory test result Above high no rmal [facility] ([facility] Color, Urine RFX Laboratory test result Normal ( applies to non-numeric results) [facility] ([facility] ) PH,Urine RFX 5.0 units 5.0-9.0 Normal (applies to non-numeric res ults) [facility] ([facility] Protein, Urine Auto RFX Laboratory test result Above high normal [facility] ([facility] Specific [place] Ur Auto RFX 1.023 1.002-1.035 Nor mal (applies to non-numeric results) [facility] ([facility] ) Ketone, Urine Auto RFX Laboratory test result Above high n ormal [facility] ([facility] Urobilinogen, Urine Auto RFX 0.2 mg/dL 0.0-2.0 Nor mal (applies to non-numeric results) [facility] ([facility] ) Glucose, Urine (Ua) Auto RFX Laboratory test result Normal (applies to non- numeric results) [facility] ([facility] ) Nitrite, Urine Auto RFX Laboratory test result N ormal (applies to non-numeric results) [facility] ([facility] ) Bilirubin, Urine Auto RFX Laboratory test result Normal (applies to non- numeric results) [facility] ([facility] ) Blood, Urine Blood RFX Laboratory test result Above high n ormal [facility] ([facility] Leukocyte Esterase Ur Auto RFX Laboratory test result Abov e high normal [facility] ([facility] WBC, Urine Auto RFX Laboratory test result 0-3 Above high norm al [facility] ([facility] RBC, Urine Auto RFX 139 /HPF 0-3 Above high normal [facility] ([facility] Squam Epithelial Cell Ur Aurfx 7 /HPF 0-6 N ormal (applies to non-numeric results) [facility] ([facility] ) Bacteria, Urine Auto RFX Laboratory test result Above high normal [facility] ([facility] Mucus, Urine RFX Laboratory test result Normal ( applies to non-numeric results) [facility] ([facility] ) Hyaline Cast, Urine Auto RFX 0 /LPF 0-1 Normal (appl ies to non-numeric results) [facility] ([facility] ID Date Data Source [id number] 04/28/2019 10:45:00 AM EST [facility] ([facility] Name Value Range Interpretation Code Description Data Kassy rce(s) Supporting Document(s) Laboratory test finding (navigational concept) 49.0 % 3 8.0-51.0 Normal (applies to non-numeric results) [facility] ([facility] Laboratory test finding (navigational concept) 115 mg/dL 7 0-105 Above high normal [facility] ([facility] ) Laboratory test finding (navigational concept) 3.3 meq/L 3 .5-5.1 Below low normal [facility] ([facility] ) Laboratory test finding (navigational concept) 139 meq/L 1 36-145 Normal (applies to non-numeric results) [facility] ([facility] Laboratory test finding (navigational concept) 4.8 mg/dL 4 .5-5.3 Normal (applies to non-numeric results) [facility] ([facility] Laboratory test finding (navigational concept) 26.0 MM/L 2 3.0-27.0 Normal (applies to non-numeric results) [facility] ([facility] Laboratory test finding (navigational concept) 102 meq/L 9 8-109 Normal (applies to non-numeric results) [facility] ([facility] Laboratory test finding (navigational concept) 11 mg/dL 8 -26 Normal (applies to non-numeric results) [facility] ([facility]) Laboratory test finding (navigational concept) 0.7 mg/dL 0 .6-1.3 Normal (applies to non-numeric results) [facility] ([facility] ID Date Data Source [id number] 04/28/2019 10:33:00 AM EST [facility] ([facility] Name Value Range Interpretation Code Description Data Kassy rce(s) Supporting Document(s) Red Blood Count 5.43 10 4.00-5.40 Above high normal [place] DENT ([facility] White Blood Count 8.8 10 4.0-10.0 Normal (applies to non-numeri c results) [facility] ([facility] Hematocrit 48.0 % 36.0-47.0 Above high normal [facility] ([facility] Hemoglobin 15.9 g/dL 12.0-15.5 Above high normal [facility] ([facility] Mean Corpuscular Volume 88.4 fl 80.0-96.0 Normal ( applies to non-numeric results) [facility] ([facility] ) Mean Corpuscular Hemoglobin 29.3 pg 27.0-33.0 Norm al (applies to non-numeric results) [facility] ([facility] ) Red Cell Distribution Width 13.1 % 11.5-14.5 Norm al (applies to non-numeric results) [facility] ([facility] ) Mean Corpuscular HGB Conc 33.1 g/dL 32.0-36.5 Normal (applies to non-numeric results) [facility] ([facility] ) Neutrophils % 49.2 % 36.0-66.0 Normal (applies to non-numeric re sults) [facility] ([facility] Platelet Count, Automated 336 10 150-450 Normal (applies to non-numeric results) [facility] ([facility] ) Lymph % 41.9 % 24.0-44.0 Normal (applies to non-numeric resul ts) [facility] ([facility] [place] % 6.1 % 0.0-5.0 Above high normal [facility] ([facility] Eos % 1.7 % 0.0-3.0 Normal (applies to non-numeric resul ts) [facility] ([facility] Baso % 0.8 % 0.0-1.0 Normal (applies to non-numeric resul ts) [facility] ([facility] Immature Granulocyte % 0.3 % 0-3.0 Normal (applies to non-n umeric results) [facility] ([facility] Nucleated Red Blood Cell % 0.0 % 0-0 Normal (applies to n on-numeric results) [facility] ([facility] Neutrophils # 4.3 10 1.5-8.5 Normal (applies to non-numeric re sults) [facility] ([facility] Lymph # 3.7 10 1.5-5.0 Normal (applies to non-numeric resul ts) [facility] ([facility] [place] # 0.5 10 0.0-0.8 Normal (applies to non-numeric resul ts) [facility] ([facility] Eos # 0.2 10 0.0-0.5 Normal (applies to non-numeric resul ts) [facility] ([facility] Baso # 0.1 10 0.0-0.2 Normal (applies to non-numeric resul ts) [facility] ([facility] Procedure Social History Code Duration Value Status Description Data Source(s ) Alcohol intake 06/05/2020 12:00:00 AM EST Current non-d loco of alcohol (finding) completed Current non-drinker of alcohol (finding) [facility] Tobacco use and exposure 06/05/2020 12:00:00 AM EST Never used co mpleted Never used [facility] Cigarette pack-years 06/05/2020 12:00:00 AM EST UNK completed [facility] Cigarettes smoked current (pack per day) - Reported 06/05/19 12:00:00 AM EST UNK completed [facility] Smoking 06/05/2020 12:00:00 AM EST Former smoker completed Former smoker [facility] Smoking 10/31/2019 12:00:00 AM EDT Patient has never smoked co mpleted Patient has never smoked [facility] ([facility]) Alcohol intake 09/14/2019 12:00:00 AM EDT Current non-d loco of alcohol (finding) completed Current non-drinker of alcohol (finding) [facility] Cigarette pack-years 09/14/2019 12:00:00 AM EDT UNK [facility] Cigarettes smoked current (pack per day) - Reported 09/14/19 12:00:00 AM EDT UNK completed [facility] Smoking 09/14/2019 12:00:00 AM EDT Former smoker completed Former smoker [facility] Alcohol intake 05/07/2019 12:00:00 AM EST Current non-d loco of alcohol (finding) completed Current non-drinker of alcohol (finding) [facility] Cigarette pack-years 05/07/2019 12:00:00 AM EST UNK completed [facility] Cigarettes smoked current (pack per day) - Reported 05/07/19 12:00:00 AM EST UNK completed [facility] Smoking 05/07/2019 12:00:00 AM EST Former smoker completed Former smoker [facility] Vital Signs ID Date Data Source UNK Name Value Range Interpretation Code Description Data Source(s) Oxygen saturation in Arterial blood by Pulse oximetry 97 % 97 % [facility] ([facility]) Body temperature 97.2 [degF] 97.2 [degF] [facility] ([facility]) Heart rate 82 /min 82 /min [facility] ([facility]) Diastolic blood pressure 106 mm[Hg] 106 mm[Hg] [facility] ([facility]) Systolic blood pressure 144 mm[Hg] 144 mm[Hg] M EDENT ([facility]) Oxygen saturation in Arterial blood by Pulse oximetry 99 % 99 % [facility] ([facility] Body mass index (BMI) [Ratio] 41.7 kg/m2 41.7 k g/m2 [facility] ([facility] [place] body weight 140 [lb_av] 140 [lb_av] MEDEN T ([facility] Body weight 274.00 [lb_av] 274.00 [lb_av] MEDEN T ([facility] Body height 68 [in_i] 68 [in_i] [facility] ([facility] 5'8" Respiratory rate 16 /min 16 /min [facility] ( [facility] Heart rate 87 /min 87 /min [facility] ([facility] Body temperature 98.0 [degF] 98.0 [degF] [facility] ([facility] Diastolic blood pressure 64 mm[Hg] 64 mm[Hg] [facility] ([facility] Systolic blood pressure 102 mm[Hg] 102 mm[Hg] M EDENT ([facility] Oxygen saturation in Arterial blood by Pulse oximetry 98 % 98 % MEDKATHLEEN ([facility] ([place]), (Room Air) Body mass index (BMI) [Ratio] 40.4 kg/m2 40.4 k g/m2 [facility] ([facility] [place] body weight 140 [lb_av] 140 [lb_av] MEDEN T ([facility] Body weight 266.00 [lb_av] 266.00 [lb_av] MEDEN T ([facility] Body height 68 [in_i] 68 [in_i] [facility] ([facility] 5'8" Respiratory rate 16 /min 16 /min [facility] ( [facility] Heart rate 75 /min 75 /min [facility] ([facility] Body temperature 96.9 [degF] 96.9 [degF] [facility] ([facility] Diastolic blood pressure 76 mm[Hg] 76 mm[Hg] [facility] ([facility] Systolic blood pressure 118 mm[Hg] 118 mm[Hg] M EDENT ([facility] Oxygen saturation in Arterial blood by Pulse oximetry 96 % 96 % [facility] ([facility] Body mass index (BMI) [Ratio] 41.0 kg/m2 41.0 k g/m2 [facility] ([facility] [place] body weight 140 [lb_av] 140 [lb_av] MEDEN T ([facility] Body weight 270.00 [lb_av] 270.00 [lb_av] MEDEN T ([facility] Body height 68 [in_i] 68 [in_i] [facility] ([facility] 5'8" Respiratory rate 12 /min 12 /min [facility] ( [facility] Heart rate 74 /min 74 /min [facility] ([facility] Body temperature 98.3 [degF] 98.3 [degF] [facility] ([facility] Diastolic blood pressure 80 mm[Hg] 80 mm[Hg] [facility] ([facility] Systolic blood pressure 112 mm[Hg] 112 mm[Hg] M EDENT ([facility] Body mass index (BMI) [Ratio] 46.3 kg/m2 46.3 k g/m2 [facility] ([facility], [facility]) Body height 64 [in_i] 64 [in_i] [facility] ([facility], [facility]) 5'4" Body weight 270.00 [lb_av] 270.00 [lb_av] MEDEN T ([facility], [facility]) Body temperature 98.3 [degF] 98.3 [degF] [facility] ([facility], [facility]) Oxygen saturation in Arterial blood by Pulse oximetry 99 % 99 % [facility] ([facility], [facility]) Respiratory rate 17 /min 17 /min [facility] ( [facility], [facility]) Heart rate 80 /min 80 /min [facility] ([facility], [facility]) Diastolic blood pressure 90 mm[Hg] 90 mm[Hg] [facility] ([facility], [facility]) Systolic blood pressure 152 mm[Hg] 152 mm[Hg] M EDENT ([facility], [facility]) Oxygen saturation in Arterial blood by Pulse oximetry 99 % 99 % [facility] ([facility] Body mass index (BMI) [Ratio] 41.4 kg/m2 41.4 k g/m2 [facility] ([facility] Body weight 272.00 [lb_av] 272.00 [lb_av] MEDEN T ([facility] Body height 68 [in_i] 68 [in_i] [facility] ([facility] 5'8" Respiratory rate 16 /min 16 /min [facility] ( [facility] Heart rate 87 /min 87 /min [facility] ([facility] Body temperature 98.3 [degF] 98.3 [degF] [facility] ([facility] Diastolic blood pressure 78 mm[Hg] 78 mm[Hg] [facility] ([facility] Systolic blood pressure 100 mm[Hg] 100 mm[Hg] M EDENT ([facility] Body mass index (BMI) [Ratio] 46.3 kg/m2 46.3 k g/m2 [facility] ([facility], [facility]) Body height 64 [in_i] 64 [in_i] [facility] ([facility], [facility]) 5'4" Body weight 270.00 [lb_av] 270.00 [lb_av] MEDEN T ([facility], [facility]) Body temperature 98.2 [degF] 98.2 [degF] [facility] ([facility], [facility]) Oxygen saturation in Arterial blood by Pulse oximetry 99 % 99 % [facility] ([facility], [facility]) Respiratory rate 18 /min 18 /min [facility] ( [facility], [facility]) Heart rate 74 /min 74 /min [facility] ([facility], [facility]) Diastolic blood pressure 92 mm[Hg] 92 mm[Hg] [facility] ([facility], [facility]) Systolic blood pressure 150 mm[Hg] 150 mm[Hg] [facility]) Oxygen saturation in Arterial blood by Pulse oximetry 99 % 99 % [facility] ([facility] ([place]), ([place]) Body mass index (BMI) [Ratio] 43.2 kg/m2 43.2 k g/m2 [facility] ([facility] Body weight 284.00 [lb_av] 284.00 [lb_av] MEDEN T ([facility] Body height 68 [in_i] 68 [in_i] MEDENT ([facility] 5'8" Respiratory rate 18 /min 18 /min MEDENT ( [facility] Heart rate 95 /min 95 /min MEDENT ([facility] Body temperature 98.4 [degF] 98.4 [degF] MEDENT ([facility] Diastolic blood pressure 64 mm[Hg] 64 mm[Hg] MEDKATHLEEN ([facility] Systolic blood pressure 112 mm[Hg] 112 mm[Hg] M TAMARA ([facility] Oxygen saturation in Arterial blood by Pulse oximetry 97 % 97 % MEDKATHLEEN ([facility] Body mass index (BMI) [Ratio] 43.0 kg/m2 43.0 k g/m2 MEDENT ([facility] Body weight 283.00 [lb_av] 283.00 [lb_av] MEDEN T ([facility] Body height 68 [in_i] 68 [in_i] MEDENT ([facility] 5'8" Respiratory rate 18 /min 18 /min MEDKATHLEEN ( [facility] Heart rate 104 /min 104 /min MEDKATHLEEN ([facility] Body temperature 98.0 [degF] 98.0 [degF] MEDENT ([facility] Diastolic blood pressure 90 mm[Hg] 90 mm[Hg] JASON ([facility] Systolic blood pressure 122 mm[Hg] 122 mm[Hg] M TAMARA ([facility] ID Date Data Source [id number] 05/11/2019 03:23:35 PM [facility] Name Value Range Interpretation Code Description Data Source(s) WEIGHT RECORDED 291 lb 291 lb [facility] Body height Measured 62 in 62 in [facility] Patient Treatment Plan of Care Planned Activity Planned Date Details Description Data Source (s) Norethindrone 0.35 MG Oral Tablet 06/05/2020 12:00:00 AM [facility] Fluconazole 150 MG Oral Tablet 09/13/2019 12:00:00 AM [facility] NITROFURANTOIN, MACROCRYSTALS 25 MG / Ni trofurantoin, Monohydrate 75 MG Oral Capsule 09/13/2019 12:00:00 AM [facility] Norethindrone 0.35 MG Oral Tablet 07/19/2019 12:00:00 AM [facility] Sulfamethoxazole 800 MG / Trimethoprim 160 MG Oral Tab let 05/07/2019 12:00:00 AM EST [facility] Norethindrone 0.35 MG Oral Tablet 01/16/2019 12:00:00 AM EDT [facility] Cholecalciferol 1000 UNT Oral Capsule [facility]
[2020-06-08] MEDS ORDERED: GI COCKTAIL 50ML BTL(HYOSCYAMINE/MAALOX/LIDOCAINE VISCOUS)(1:3:1) PO ONE (08:45)
--- OUTSIDE RECORDS SUMMARY | 2020-06-08 09:09 | CCD ---
Author Author [facility] Organization [facility] Address Unknown Phone Unavailable Care Team Providers Care Machine I Coremaker Name Role Phone Barraclough, Delores PA Unavailable [...] D Armen PA Unavailable Unavailable Day, D Armne PA Unavailable Unavailable Day, D Armen PA Unavailable Unavailable Dya, D Armen PA Unavailable Unavailable Day, D [...] Armen PA Unavailable Unavailable BUMBANAC, A STAR SOFTWARE ENGINEER DEVELOPER Unavailable Unavailable BUMBANAC, A STAR SOFTWARE ENGINEER DEVELOPER Unavailable Unavailable BUMBANAC, A STAR SOFTWARE ENGINEER DEVELOPER Unavailable Unavailable BUMBANAC, A STAR SOFTWARE ENGINEER DEVELOPER Unavailable Unavailable BUMBANAC, A STAR SOFTWARE ENGINEER DEVELOPER Unavailable Unavailable BUMBANAC, A STAR SOFTWARE ENGINEER DEVELOPER Unavailable Unavailable BUMBANAC, A STAR SOFTWARE ENGINEER DEVELOPER Unavailable Unavailable BUMBANAC, A STAR SOFTWARE ENGINEER DEVELOPER Unavailable Unavailable BUMBANAC, A STAR SOFTWARE ENGINEER DEVELOPER Unavailable Unavailable BUMBANAC, A STAR SOFTWARE ENGINEER DEVELOPER Unavailable Unavailable BUMBANAC, A STAR SOFTWARE ENGINEER DEVELOPER Unavailable Unavailable BUMBANAC, A STAR SOFTWARE ENGINEER DEVELOPER Unavailable Unavailable BUMBANAC, A STAR SOFTWARE ENGINEER DEVELOPER Unavailable Unavailable BUMBANAC, A STAR SOFTWARE ENGINEER DEVELOPER Unavailable Unavailable BUMBANAC, A STAR SOFTWARE ENGINEER DEVELOPER Unavailable Unavailable BUMBANAC, A STAR SOFTWARE ENGINEER DEVELOPER Unavailable Unavailable BUMBANAC, A STAR SOFTWARE ENGINEER DEVELOPER Unavailable Unavailable BUMBANAC, A STAR SOFTWARE ENGINEER DEVELOPER Unavailable Unavailable BUMBANAC, A STAR SOFTWARE ENGINEER DEVELOPER Unavailable Unavailable BUMBANAC, A STAR SOFTWARE ENGINEER DEVELOPER Unavailable Unavailable BUMBANAC, A STAR SOFTWARE ENGINEER DEVELOPER Unavailable Unavailable BUMBANAC, A STAR SOFTWARE ENGINEER DEVELOPER Unavailable Unavailable BUMBANAC, A STAR SOFTWARE ENGINEER DEVELOPER Unavailable Unavailable BUMBANAC, A STAR SOFTWARE ENGINEER DEVELOPER Unavailable Unavailable BUMBANAC, A STAR SOFTWARE ENGINEER DEVELOPER Unavailable Unavailable BUMBANAC, A STAR SOFTWARE ENGINEER DEVELOPER Unavailable Unavailable RING, K MERCED PA Unavailable [...] MERCED PA Unavailable Unavailable CAMPBELL, M FLORES SOFTWARE ENGINEER DEVELOPER Unavailable Unavailable CAMPBELL, M FLORES SOFTWARE ENGINEER DEVELOPER Unavailable Unavailable CAMPBELL, M FLORES SOFTWARE ENGINEER DEVELOPER Unavailable Unavailable CAMPBELL, M FLORES SOFTWARE ENGINEER DEVELOPER Unavailable Unavailable CAMPBELL, M FLORSE SOFTWARE ENGINEER DEVELOPER Unavailable Unavailable CAMPBELL, M FLORES SOFTWARE ENGINEER DEVELOPER Unavailable Unavailable CAMPBELL, M FLORES SOFTWARE ENGINEER DEVELOPER Unavailable Unavailable CAMPBELL, M FLORES SOFTWARE ENGINEER DEVELOPER Unavailable Unavailable CAMPBELL, M FLORES SOFTWARE ENGINEER DEVELOPER Unavailable Unavailable CAMPBELL, M FLORES SOFTWARE ENGINEER DEVELOPER Unavailable Unavailable CAMPBELL, M FLORES SOFTWARE ENGINEER DEVELOPER Unavailable Unavailable CAMPBELL, M FLORES SOFTWARE ENGINEER DEVELOPER Unavailable Unavailable CAMPBELL, M FLORES SOFTWARE ENGINEER DEVELOPER Unavailable Unavailable CAMPBELL, M FLORES SOFTWARE ENGINEER DEVELOPER Unavailable Unavailable CAMPBELL, M FLORES SOFTWARE ENGINEER DEVELOPER Unavailable Unavailable CAMPBELL, M FLORES SOFTWARE ENGINEER DEVELOPER Unavailable Unavailable CAMPBELL, M FLORES SOFTWARE ENGINEER DEVELOPER Unavailable Unavailable CAMPBELL, M FLORES SOFTWARE ENGINEER DEVELOPER Unavailable Unavailable CAMPBELL, M FLORES SOFTWARE ENGINEER DEVELOPER Unavailable Unavailable CAMPBELL, M FLORES SOFTWARE ENGINEER DEVELOPER Unavailable Unavailable CAMPBELL, M FLORES SOFTWARE ENGINEER DEVELOPER Unavailable Unavailable CAMPBELL, M FLORES SOFTWARE ENGINEER DEVELOPER Unavailable Unavailable CAMPBELL, M FLORES SOFTWARE ENGINEER DEVELOPER Unavailable Unavailable CAMPBELL, M FLORES SOFTWARE ENGINEER DEVELOPER Unavailable Unavailable CAMPBELL, M FLORES SOFTWARE ENGINEER DEVELOPER Unavailable Unavailable CAMPBELL, M FLORES SOFTWARE ENGINEER DEVELOPER Unavailable Unavailable CAMPBELL, M FLORES SOFTWARE ENGINEER DEVELOPER Unavailable Unavailable CAMPBELL, M FLORES SOFTWARE ENGINEER DEVELOPER Unavailable Unavailable CAMPBELL, M FLORES SOFTWARE ENGINEER DEVELOPER Unavailable Unavailable CAMPBELL, M FLORES SOFTWARE ENGINEER DEVELOPER Unavailable Unavailable CAMPBELL, M FLORES SOFTWARE ENGINEER DEVELOPER Unavailable Unavailable CAMPBELL, M FLORES SOFTWARE ENGINEER DEVELOPER Unavailable Unavailable CAMPBELL, M FLORES SOFTWARE ENGINEER DEVELOPER Unavailable Unavailable CAMPBELL, M FLORES SOFTWARE ENGINEER DEVELOPER Unavailable Unavailable CAMPBELL, M FLORES SOFTWARE ENGINEER DEVELOPER Unavailable Unavailable CAMPBELL, M FLORES SOFTWARE ENGINEER DEVELOPER Unavailable Unavailable CAMPBELL, M FLORES SOFTWARE ENGINEER DEVELOPER Unavailable Unavailable CAMPBELL, M FLORES SOFTWARE ENGINEER DEVELOPER Unavailable Unavailable CAMPBELL, M FLORES SOFTWARE ENGINEER DEVELOPER Unavailable Unavailable CAMPBELL, M FLORES SOFTWARE ENGINEER DEVELOPER Unavailable Unavailable CAMPBELL, M FLORES SOFTWARE ENGINEER DEVELOPER Unavailable Unavailable CAMPBLEL, M FLORES SOFTWARE ENGINEER DEVELOPER Unavailable Unavailable CAMPBELL, M FLORES SOFTWARE ENGINEER DEVELOPER Unavailable Unavailable CAMPBELL, M FLORES SOFTWARE ENGINEER DEVELOPER Unavailable Unavailable CAMPBELL, M FLORES SOFTWARE ENGINEER DEVELOPER Unavailable Unavailable CAMPBELL, M FLORES SOFTWARE ENGINEER DEVELOPER Unavailable Unavailable CAMPBELL, M FLORES SOFTWARE ENGINEER DEVELOPER Unavailable Unavailable CAMPBELL, M FLORES SOFTWARE ENGINEER DEVELOPER Unavailable Unavailable CAMPBELL, M FLORES SOFTWARE ENGINEER DEVELOPER Unavailable Unavailable CAMPBELL, M FLORES SOFTWARE ENGINEER DEVELOPER Unavailable Unavailable CAMPBELL, M FLORES SOFTWARE ENGINEER DEVELOPER Unavailable Unavailable CAMPBELL, M FLORES SOFTWARE ENGINEER DEVELOPER Unavailable Unavailable CAMPBELL, M FLORES SOFTWARE ENGINEER DEVELOPER Unavailable Unavailable CAMPBELL, M FLORES SOFTWARE ENGINEER DEVELOPER Unavailable Unavailable CAMPBELL, M FLORES SOFTWARE ENGINEER DEVELOPER Unavailable Unavailable CAMPBELL, M FLORES SOFTWARE ENGINEER DEVELOPER Unavailable Unavailable CAMPBELL, M FLORES SOFTWARE ENGINEER DEVELOPER Unavailable Unavailable CAMPBELL, M FLORES SOFTWARE ENGINEER DEVELOPER Unavailable Unavailable Fish, J Otto Unavailable Unavailable [...] Fish, J Otto Unavailable Unavailable Fish, J Otot Unavailable Unavailable Fish, J Otto Unavailable Unavailable [...] is protected by Article 27-F of the [facility] Public Health law. If you continue you may have access to information: Regarding HIV / AIDS; Provided by facilities licensed or operated by the [facility] Office of Mental Health; or Provided by the [facility] Office for People With Developmental Disabilities. If such information is present, then the following [facility] mandated warning applies: This information has [...] law may result in a fine or long-term sentence or both. A general authorization for the release of medical or other information is NOT sufficient authorization for further disc losure. Allergies and Adverse Reactions Type Description Substance Reaction Status Data Source(s ) Drug allergy [facility] DRUG INGREDI GREEN DYE GREEN DYE Hives Rash Low Diarrhea [facility] OTHER OTHER Rash [facility] DRUG INGREDI THIMEROSAL THIMEROSAL Hives [facility] Family History Family Member Name Family Member Gender Family Member Status Date o f Status Description Data Source(s) Unknown Unknown Problem [facility] ([facility]) Unknown Male Problem [facility] ([facility]) Encounters Encounter Providers Location Date Indications Data Source(s ) Outpatient Attender: WIL PORTER MD [id number] 06/05/2020 12 :00:00 AM EST Other senior living (current) drug therapy [facility] Other senior living (current) drug therapy Outpatient Attender: MARYLU MORFIN NPConsultant: Otto tovar 05/22/2020 11:17:00 AM EST - 05/22/2020 11:17:00 AM EST [facility] Outpatient Attender: WIL PORTER MD 05/13/2020 12:00:00 AM [facility] Outpatient Attender: Armen BOURGEOIS [place] [facility] 03:00:00 PM EST [facility] ([facility] Outpatient Attender: Delores BOURGEOIS [place] [facility] 02/01/2020 11:00:00 AM EDT [facility] ([facility] Outpatient Attender: Armen BOURGEOIS [place] [facility] 07/2019 02:40:00 PM EDT [facility] ([facility] Emergency Attender: ADRIANO THOMAS MDConsultant: Otto Aguila 11/15/2019 09:35:00 AM EDT - 11/15/2019 12:17:00 PM EDT [facility] Patient discharged. Outpatient Attender: Marichuy sagastumey 10/31/2019 07:00:00 PM EDT [facility] ([facility] Outpatient Attender: Armen BOURGEOIS [place] [facility] 03:15:00 PM EDT [facility] ([facility] Outpatient Attender: WIL PORTER MD [address] [place] [address] 08/17 12:00:00 AM EDT - 09/14/2019 02:59:35 PM [facility] Outpatient Attender: MERCED Morrissey Primary 09/13/2019 06:00:00 PM EDT [facility] ([facility] Outpatient Attender: WIL PORTER MD 07/16/2019 12:00:00 AM [facility] Outpatient Attender: FLORES CAMPBELL NP [facility] [place] [facility] 07/04 04:15:00 PM EDT [facility] ([facility] Outpatient Attender: FLORES CAMPBELL NP [place] [facility] 07/01 01:00:00 PM EDT [facility] ([facility] Outpatient Attender: WIL PORTER MDAdmitter: WIL VARELA MD [address] [place] [address] 05/07/2019 12:00:00 AM EST - 05/08/2019 12:00:00 AM EST Encounter for gynecological examination (general) (routine) without abnormal findings [facility] Encounter for gynecological examination (general) (routine) without abnormal findings Immunizations Vaccine Date Status Description Data Source(s) INFLUENZA VIRUS VACCINE QUADRIVAL [id number](6 MOS AND UP)/PF 01/11/2020 12:00:00 AM EDT [...] active Take 1 tablet by mouth d [facility] 875-125 mg 05/22/2020 12:00:00 AM EST [...] 12:00:0 0 AM EDT ORAL completed [facility] ([facility] Fluconazole 150 MG Oral Tablet [Diflucan] Diflucan 02/01/2020 1 2:00:00 AM EDT ORAL completed [facility] ([facility] Cephalexin 500 MG Oral Capsule [...] 12:00:00 AM E DT ORAL completed [facility] ([facility] Fluconazole 150 MG Oral Tablet [Diflucan] Diflucan 12/21/2019 1 2:00:00 AM EDT ORAL completed [facility] ([facility] 250 mg 12/21/2019 12:00:00 AM [...] 1 2:00:00 AM EDT ORAL completed [facility] ([facility]) NITROFURANTOIN, MACROCRYSTALS 25 MG / Ni trofurantoin, Monohydrate 75 MG Oral Capsule [Macrobid] Macrobid 09/13/2019 12:00:00 AM EDT ORAL completed [facility] ([facility] NITROFURANTOIN, MACROCRYSTALS 25 MG / Ni trofurantoin, Monohydrate 75 MG Oral Capsule Nitrofurantoin Monohyd Macro 100 MG Oral Capsule (MACROBID) Nitrofurantoin Monohyd Macro 100 MG Oral Capsule (MACROBID) 09/13/2019 12:00:00 AM EDT [facility] Fluconazole 150 MG Oral Tablet Fluconazole 150 MG Oral Tablet (DIFLUCAN) Fluconazole 150 MG Oral Tablet (DIFLUCAN) 09/13/2019 12:00:00 AM EDT active [facility] 150 mg 09/13/2019 12:00:00 AM EDT [...] aborted Take 1 tablet by mouth d [facility] 0.35 mg 07/19/2019 12:00:00 AM EDT [...] 07/02/2019 12:00:00 AM EDT ORAL completed [facility] ([facility] Prednisone 20 MG Oral Tablet Prednisone 07/02/2019 12:00:00 AM EDT ORAL completed [facility] ([facility] 25 mg 05/15/2019 12:00:00 AM [...] Two T imes Daily for 5 days [facility] 800-160 mg 04/28/2019 12:00:00 AM EST [...] Take 1 tablet by raymond th daily [facility] 25 mg 09/08/2018 12:00:00 AM EDT tablet 30 TAKE ONE TABLET BY MOUTH EVERY DAY TAKE ONE TABLET BY MOUTH EVERY DAY SOLD: 04/19/2019 [facility] Cholecalciferol 1000 UNT Oral Capsule Ch olecalciferol (VITAMIN D) 1000 UNITS capsule Cholecalciferol (VITAMIN D) 1000 UNITS capsule 1000 U O ral aborted Take 1,000 Units by mouth twice a week. [facility] Insurance Providers Payer name Policy type / Coverage type Policy ID Covered alliance party ID Covered alliance party's relationship to navarro Policy Navarro Plan Information [facility] [id number] RUST [id number] U [id number] Self [id number] [place] [id number] 01 [id number] [place] [id number] 2 [id number] [place] O [id number] S [id number] [place] [employer] - O/P [id number] 01 [id number] [place] [employer] [id number] 2 [id number] SELF [id number] SELF PAY UNAVAILABLE SELF UNAVAILA BLE [id number] SELF [id number] [place] [employer] [id number] Family Dependent [id number] [employer] [id number] Family Dependent [id number] [employer] [id number] Other [facility] Program [id number] [employer] [id number] Family Dependent [id number] [employer] [id number] Family Dependent [id number] [employer] [id number] Family Dependent [id number] EAST [employer] [id number] 2 [id number] [place] [id number] 2 [id number] [facility] REGION [id number] 2 [id number] [place] Commercial [id number] Family Dependent [id number] Krysta [id number] U [id number] Spouse [id number] PI PI [id number] Krysta [id number] Spo [id number] FOR LIFE U [id number] PI PI [id number] Krysta [id number] Krysta [id number] U [id number] Self [id number] HEA [id number] SP [id number] PGBA [place] [id number] SP [id number] Spo [id number] PGBA [place] [id number] SP [id number] PGBA [place] [id number] SP [id number] PGBA [place]TH [place] O [id number] S [id number] HEALTHNET/ AD O [id number] S [id number] U [id number] Spouse [id number] PGBA [place] REGION [id number] HU2 [id number] PGBA [place] REGION [id number] HU2 [id number] PGBA YULEE JAELYN O [id number] S [id number] [facility] Federal Service Commercial HEALTHNET/ AD O [id number] P [id number] [facility] Federal Service Commercial HEALTHNET FEDERAL O [id number] SP [id number] CONTRACT CLAIMS SERVICES P [id number] S [id number] CONTRACT CLAIMS SERVICES [id number] SP [id number] OTHER WORKERS COMPENSATION [id number] SP [id number] N REGIONAL CLAIMS YEVGENIY-O/P [id number] 01 [id number] [facility] O [id number] U [id number] SELFPAY 5 UNAVAILABLE 1 UNAVAILA BLE SELF PAY 5 UNAVAILABLE 1 UNAVAILA BLE [id number] Problems, Conditions, and Diagnoses Code Display Name Description Problem Type Effective Dates Data Source(s) N92.6 Irregular menstruation, unspecified Irregular me nstruation, unspecified Diagnosis 06/05/2020 10:00:06 AM [facility] N39.43 Post-void dribbling Post-void dribbling Diagnosis 0 06/05/2020 10:00:06 AM [facility] Z79.899 Other senior living (current) drug therapy O ther senior living (current) drug therapy Diagnosis 06/05/2020 10:00:06 AM [facility] [id number] Migraine, unspecified, not intractable, without status migrainosus Migraine, unspecified, not intractable, without status migrainosus Diagnosis 11/15/2019 09:35:00 AM EDT [facility] R51 Headache Headache Diagnosis 11/15/2019 09:35:00 AM ED T [facility] N39.498 Other specified urinary incontinence Oth er specified urinary incontinence Diagnosis 05/07/2019 09:19:59 AM [facility] R92.2 Inconclusive mammogram Inconclusive mammogram Diagnosi s 05/07/2019 09:19:59 AM [facility] Z12.31 Encounter for screening mammogram for ma lignant neoplasm of breast Encounter for screening mammogram for malignant neoplasm of breast Diagnosis 05/07/2019 09:19:59 AM [facility] Z01.419 Encounter for gynecological examination (general) (routine) without abnormal findings Encounter for gynecological examination (general) (routine) without abnormal findings Diagnosis 05/07/2019 09:19:59 AM [facility] Results ID Date Data Source [id number] 06/05/2020 10:38:35 AM [facility] Name Value Range Interpretation Code Description Data Kassy rce(s) Supporting Document(s) Progress Note [facility] BXPLNz0rCpXCXdKq39/GOWwuAUJxk1KtGPlrQDn9ZYbdAFYsR4ZxKAC0zS2cXTX2HWgFCiFrSkGiRkI6 lbm [file] diTU8H53gDXSIp7b7avBajHhzg8536mJLUH9NIwet5Egd/tower foreman/Pbv9CgpcE0Bkhoy07I06+K3Y/6aTJP [file] AgICAgICAgICAgICAgICAgICAgICAgICAgICAgICAgICAgICAgICAgICAgICAgICAgICAgICAgICAgIC AgICAgICAgICAgICAgICAgICAgICAgICANCiAgICAg ICAgICAgICAgICAgICAgICAgICAgICAgICAgICAgICAgICAgICAgICAgICAgICAgICAgICAgICAgICAg ICAgICAgICAgICAgICAgICAgICAgICAgICAgICAgICAgICANCiAgICAgICAgICAgICAgICAgICAgICAg ICAgICAgICAgICAgICAgICAgICAgICAgICAgICAgIC AgICAgICAgICAgICAgICAgICAgICAgICAgICAgICAgICAgICAgICAgICAgICANCiAgICAgICAgICAgIC AgICAgICAgICAgICAgICAgICAgICAgICAgICAgICAgICAgICAgICAgICAgICAgICAgICAgICAgICAgIC AgICAgICAgICAgICAgICAgICAgICAgICAgICANCiAg ICAgICAgICAgICAgICAgICAgICAgICAgICAgICAgICAgICAgICAgICAgICAgICAgICAgICAgICAgICAg ICAgICAgICAgICAgICAgICAgICAgICAgICAgICAgICAgICAgICANCiAgICAgICAgICAgICAgICAgICAg ICAgICAgICAgICAgICAgICAgICAgICAgICAgICAgIC AgICAgICAgICAgICAgICAgICAgICAgICAgICAgICAgICAgICAgICAgICAgICAgICANCiAgICAgICAgIC AgICAgICAgICAgICAgICAgICAgICAgICAgICAgICAgICAgICAgICAgICAgICAgICAgICAgICAgICAgIC AgICAgICAgICAgICAgICAgICAgICAgICAgICAgICAN CiAgICAgICAgICAgICAgICAgICAgICAgICAgICAgICAgICAgICAgICAgICAgICAgICAgICAgICAgICAg ICAgICAgICAgICAgICAgICAgICAgICAgICAgICAgICAgICAgICAgICANCiAgICAgICAgICAgICAgICAg ICAgICAgICAgICAgICAgICAgICAgICAgICAgICAgIC AgICAgICAgICAgICAgICAgICAgICAgICAgICAgICAgICAgICAgICAgICAgICAgICAgICANCiAgICAgIC AgICAgICAgICAgICAgICAgICAgICAgICAgICAgICAgICAgICAgICAgICAgICAgICAgICAgICAgICAgIC AgICAgICAgICAgICAgICAgICAgICAgICAgICAgICAg ICANCjw/eLPkS2cbjWMeaiA3Y9dcXi9DWf8HNK4dm4TxDRKeXIgvkvWbNpyEYpFyIUAhHxpFRob9XKmk IV8IsELeF6FsE2AkDXliKG2PBDGtRXZtqKFoPLSvELVeAxE6LCGaIGijCR7BvNWaSNzhCZJpHPCzCoUf ZYBzIWBdOLQhEKKvAAILZVCgAVYnHmMsPFweME2Ja8 PolTF5ZKs+Ii8YOL6kl6GsGRqnRVIuOB8vwa8TWHaREnIcF8MgjjB5GLYdXUTxCj0NMDJiPKIvsSCpGM CrJLXMJpKwH6ZxdG36XQBASm6+OKblopIbCxiSNgDoIOFmh8BuCNf2VE3XSQLmTYa6nEFfOJDxO3Gmk3 WqWr53AHDoAsmgPBBdxIEfzbIADH2uySkbgvmiTUYa BSLhYq6bEA5mQQIiIXQyVnQsGJEEOK4QGOUyBXBacKEaYSYaPCZGCL6QGRyqJJN5ULHzyeUhyBVlVPdu VQ7VQTWzphQaLmKtTCKRXNi+Yp1OCS9ck6TfSEppRkQwGT5pxd4RANoCGwPlE4T7zMVgL3T4HTrwXe4Y AITpQODxTptoPSJKRTedTW6JCH7dpuQ1TI3SsEBwDU LfLXYjrOSbKMn8V07ppVBiHDjaLB0KXHV+Emmanuel+Qj2CQONsOXUvQXDiVdUuWENBAuTgK0NgO3JFf2GqV4 KhDO56jEnefeNfRDicIM2JEV4oOLKpFUABDI4NrSGreI5nxhCiTTIxHEIOEbFtJ41oxSDqTTGwMSQ1BM OvSn0ELWAhE8YqqsMllTxryhYkZDPmLEFNAW0ZZKsa idFdwTWqyQhdAV03wOciBC3LPu8RKvMyZO0tiy9SqSQqBz3BUFCgCa8DNMIbJHLdWLFhPFF1IONbItPt FRnwVWFpOQSvFQL0SUUhEYSuFS8IKfQgJPIhGip9UxHdGXTuURObdx3LCDNsZRHnCDQ1JZMgUEWiWZZe GIreRPJbTZBjHVL5EQUcUCXcIV1YXpAxKOOqJCQpVY fwRSLiNXNiyv5DGOXeKHVwDLU1BlWgSRNbXEHtJDvhQDHlMPW0Iwg5TYMiJCAzPG0THlDlDOXoPNZ3OX LgYGTnITGexg9QAUElJBDqIWEcThMaKKHaIFKoNFytKJKmLVD9UTIoVTBzYMFaRR5SQiKuDHWwIBSwYX UoYCFkCWTswd0HHLKlKWHvCnBrGVDqGWLrJZKoRRuo ETYbLDJrRbN8ZGGgMFVuYP1NVpOqBCKtXVF2GCObOXDlEWHnsd9SFAYlCYKcXFXgIrQsVBGcZLOgCKle CDZqOPW9IUy1CHAcBIXkNP2XOxSwHXMsUZZ4IQYdRKNrMBFarr6BSWNmIMYdALe4UIUsYDSnXFUqUQjz BPKhILH6NREzZJFaSBMxIO5ZPoHlYYOqILEtIhZiNR RdYXVkhk8RGREaQRYxFoC1ISRaVQKuIMGqEUudHDJaFOL0DVi9JVOcQNWzLL1LVuHpDLEwHyyyGYWoIJ CtTEHpto2OGSNaNGAlQAS9ELPyTAHyKZOrPDmkAQZpOFI7ITmzNONzXRIcLU2JAxCuJIGiKfg2IjEtEH OkLIWqtt9VUQBkVMJjHXCxIwBtJGMkWXLcFCsiOWLw EPU0MKEhCDVkOQFhFA4QQjRzQJXtDkNoSSiyQJRgWSPvzb9OEETxLLXuSBV9WyCnIUAoBVDpPTsyFZLv CTKoJkYxMJEwPGAxUZ7PGmIzTTEuYgM6EIVfJQDwLOCzhc9HqIYheXtfwf6AZPgFOn8YlHivYRMbCWli Zi0fvJOtIiTvBCAEVi7FqcYiZCOcRAIMPHuxUPIkFH z0RPVnXER1YAA4KLPbEHX1Igr9NNAkAzA2CPtqHSm1ErV5Lwu3PQMkOQUzZLT1DAMlERI4NIL1AcBaGK O4XfXbCmJ+JS8xDCc+Bq7Ke9WndvD6mbYuMWlaUpK4NP4QESHKR0NZJy== ID Date Data Source [id number] 05/01/2020 12:00:00 AM EST [facility] Name Value Range Interpretation Code Description Data Kassy rce(s) Supporting Document(s) SARS coronavirus 2 Ag Negative [facility] This lab was ordered by [facility] and reported by [facility]. ID Date Data Source [id number] 02/01/2020 11:11:00 AM EDT [facility] ([facility] Name Value Range Interpretation Code Description Data Kassy rce(s) Supporting Document(s) Urine Culture, Routine Laboratory test result [facility] ([facility] SRC:VOIDED Bacteria identified in Urine by Culture Laboratory test result [facility] ([facility] SRC:VOIDED ID Date Data Source [id number] 02/01/2020 10:29:00 AM EDT [facility] ([facility] Name Value Range [...] or Plas ma 1.025 # 1.000-1.030 [facility] ([facility] Blood - Ua Laboratory test result ME DENT ([facility] pH 5.5 # 5.0-8.0 [facility] Protein Laboratory test result [facility] ([facility] Urobilinogen 0.2 NA 0.2-1.0 [facility] ([facility] Nitrite Laboratory test result [...] - Ua Laboratory test result M EDENT ([facility] WBC-Ua Laboratory test result 0-5 Abnormal (applies to non -numeric results) [facility] ([facility] Crystals Laboratory test result [facility] ([facility] ID Date Data Source [id number] 01/20/2020 09:23:00 AM EDT [facility] ([facility] Name Value Range [...] Normal (applies to non -numeric results) [facility] ([facility] QuantiFERON Nil Value 0.10 IU/ml Normal (applies to non-nu meric results) [facility] ([facility] QuantiFERON TB2 Ag Value 0.10 IU/ml Normal (applies to non -numeric results) [facility] ([facility] QuantiFERON Mitogen Value Laboratory test result Normal (applies to non- numeric results) [facility] ) QuantiFERON-TB Gold Plus Laboratory test result Normal (applies to non-numeric results) [facility] ([facility] ) . The specimen received for QuantiFERON testing was incubated by the ordering institution. Specific procedures outlined in our Directory of Services and in the package insert for the QuantiFERON Gold (In Tube) test must be followed to enable for proper stimulation of cells for the production of interferon gamma. Performed at: RN - [facility] [address] [id number] Cash Office Worker: Anuja Oconnell MD, Phone: [phone] ID Date Data Source [id number] 01/20/2020 09:23:00 AM EDT [facility] Name Value Range Interpretation Code Description Data Kassy rce(s) Supporting Document(s) Calcidiol [Mass/volume] in Serum or Plasma 35.8 ng/mL 30.0- 100.0 Normal (applies to non-numeric results) [facility] C reactive protein [Mass/volume] in Serum or Plasma by High sensitivity method 0.67 mg/dL 0.00-0.30 Above high normal [facility] ([facility] ID Date Data Source [id number] 01/20/2020 09:23:00 AM EDT [facility] ([facility] Name Value Range Interpretation Code Description Data Kassy rce(s) Supporting Document(s) Glucose, Fasting 65 mg/dL 70-100 Below low normal [facility] ([facility] Blood Urea Nitrogen 13 mg/dL 7-18 Normal (applies to non-nume sophia results) [facility] ([facility] Creatinine For GFR 0.80 mg/dL 0.55-1.30 Normal (applies to non -numeric results) [facility] ([facility] Glomerular Filtration Rate Laboratory test result Normal (applies to non- numeric results) [facility] ([facility] ) <content>Units are mL/min/1.73 m2</content>
<content></content>
<content>Chronic Kidney Disease Staging per NKF:</content>
<content></content>
<content>Stage I & II GFR >=60 Normal to Mildly Decreased</content>
<content>Stage III GFR 30- 59 Moderately Decreased</content>
<content>Stage IV GFR 15-29 Severely Decreased</content>
<content>Stage V GFR <15 Very Little GFR Left</content>
<content>ESRD GFR <15 on GEROPSYCHOLOGIST</content>
<content></content> Sodium Level 140 meq/L 136-145 Normal (applies to non-numeric res ults) [facility] ([facility] Potassium Serum 3.6 meq/L 3.5-5.1 Normal (applies to non-numeric results) [facility] Chloride Level 106 meq/L 98-107 Normal (applies to non-numeric r esults) [facility] ([facility] Calcium Level 9.1 mg/dL 8.5-10.1 Normal (applies to non-numeric re sults) [facility] Anion Gap 7 meq/L 8-16 Below low normal [facility] Carbon Dioxide Level 27 meq/L 21-32 Normal (applies to non-num nalini results) [facility] ([facility] ID Date Data Source [id number] 01/20/2020 09:23:00 AM EDT [facility] ([facility] Name Value Range Interpretation Code Description Data Kassy rce(s) Supporting Document(s) Ast/Sgot 12 U/L 7-37 Normal (applies to non-numeric resul ts) [facility] ([facility] Alt/SGPT 28 U/L 12-78 Normal (applies to non-numeric resul ts) [facility] ([facility] Alkaline Phosphatase 60 U/L 45-117 Normal (applies to non-num nalini results) [facility] ([facility] Bilirubin,Total 0.6 mg/dL 0.2-1.0 Normal (applies to non-numeric results) [facility] ([facility] Albumin 3.8 GM/DL 3.2-5.2 Normal (applies to non-numeric resul ts) [facility] ([facility] Bilirubin,Direct 0.1 mg/dL 0.0-0.2 Normal (applies to non-numeric results) [facility] ([facility] Total Protein 7.1 GM/DL 6.4-8.2 Normal (applies to non-numeric re sults) [facility] ([facility] Albumin/Globulin Ratio 1.2 1.2-2.2 Normal (applies to non-n umeric results) [facility] ([facility] ID Date Data Source [id number] 01/20/2020 09:23:00 AM EDT [facility] ([facility] Name Value Range Interpretation Code Description Data Kassy rce(s) Supporting Document(s) Erythrocyte sedimentation rate by Westergren method 9 mm/hr 0-20 Normal (applies to non-numeric results) [facility] ([facility] ID Date Data Source [id number] 01/20/2020 09:23:00 AM EDT [facility] ([facility] Name Value Range Interpretation Code Description Data Kassy rce(s) Supporting Document(s) White Blood Count 7.1 10 4.0-10.0 Normal (applies to non-numeri c results) [facility] ([facility] Red Blood Count 5.36 10 4.00-5.40 Normal (applies to non-numeric results) [facility] ([facility] Hematocrit 48.1 % 36.0-47.0 Above high normal [facility] ([facility] Hemoglobin 15.6 g/dL 12.0-15.5 Above high normal [facility] ([facility] Mean Corpuscular Hemoglobin 29.1 pg 27.0-33.0 Norm al (applies to non-numeric results) [facility] ([facility] ) Mean Corpuscular HGB Conc 32.4 g/dL 32.0-36.5 Normal (applies to non-numeric results) [facility] ([facility] ) Mean Corpuscular Volume 89.7 fl 80.0-96.0 Normal ( applies to non-numeric results) [facility] ([facility] ) Red Cell Distribution Width 13.0 % 11.5-14.5 Norm al (applies to non-numeric results) [facility] ([facility] ) Platelet Count, Automated 322 10 150-450 Normal (applies to non-numeric results) [facility] ([facility] ) Neutrophils % 44.7 % 36.0-66.0 Normal (applies to non-numeric re sults) [facility] ([facility] Lymph % 46.5 % 24.0-44.0 Above high normal [facility] ([facility] Boyd % 6.0 % 0.0-5.0 Above high normal [facility] ([facility] Eos % 1.7 % 0.0-3.0 Normal (applies to non-numeric resul ts) [facility] ([facility] Immature Granulocyte % 0.4 % 0-3.0 Normal (applies to non-n umeric results) [facility] ([facility] Baso % 0.7 % 0.0-1.0 Normal (applies to non-numeric resul ts) [facility] ([facility] Nucleated Red Blood Cell % 0.0 % 0-0 Normal (applies to n on-numeric results) [facility] ([facility] Neutrophils # 3.2 10 1.5-8.5 Normal (applies to non-numeric re sults) [facility] ([facility] Lymph # 3.3 10 1.5-5.0 Normal (applies to non-numeric resul ts) [facility] ([facility] Boyd # 0.4 10 0.0-0.8 Normal (applies to non-numeric resul ts) [facility] ([facility] Eos # 0.1 10 0.0-0.5 Normal (applies to non-numeric resul ts) [facility] ([facility] Baso # 0.1 10 0.0-0.2 Normal (applies to non-numeric resul ts) [facility] ([facility] ID Date Data Source [id number] 11/15/2019 09:35:00 AM EDT [facility] 1 OrderSheet [facility] Emergency Department [address] [place] [address] Phone #: ext- [phone] 11/15/2019 09:27 Patient: [...] rce(s) Supporting Document(s) ID Date Data Source [id number] 11/15/2019 09:35:00 AM EDT [facility] 1 Medication Reconciliation Report [facility] Emergency Department [address] [place] [address] Phone #: [phone] 11/15/2019 09:27 Patient: RUKHSANA LARES Sex: F [...] rce(s) Supporting Document(s) ID Date Data Source [id number] 11/15/2019 09:35:00 AM EDT [facility] 1 Medication Administration Record [facility] Emergency Department [address] [place] [address] Phone #: ext- [phone] 11/15/2019 09:27 Patient: RUKHSANA LARES Sex: F [...] NS IV 1000 mL Bolus: : Bolus [id number] 11/15/2019 Dose: 1000 cc bolus * IV Fluids mL (X1)Art Mensah RN----Stop11:45 11/15/2019Art Mensah RN Name Value Range Interpretation Code Description Data Kassy rce(s) Supporting Document(s) ID Date Data Source [id number] 11/15/2019 09:35:00 AM EDT [facility] 1 General Instructions [facility] Emergency Department [address] [place] [address] Phone #: ext- [phone] 11/15/2019 09:27 [id number] Sex: F : 1980 Age: 38yAcute migraine [...] or too much sleep. 2 General Instructions [facility] Emergency Department [address] [place] [address], [place] [address] Phone #: ext- [phone] 11/15/2019 09:27 Patient: [...] Figs Raisins Red wine 3 General Instructions [facility] Emergency Department [address] [place] [address] Phone #: ext- [phone] 11/15/2019 09:27 Patient: [...] of your face Difficulty talking or seeing [phone] [employer]. [address] [place] [address], [place] [address]. All rights reserved. 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 Always follow your healthcare professional's instructions. 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 [...] RN.PROBLEMS:Migraine Headache.Chrons. 2 Clinical Report - Nurses [facility] Emergency Department [address] [place] [address] Phone #: ext- [phone] 11/15/2019 09:27 Patient: [id number] Sex: F : 1980 Age: 38y Hypertension. [...] To treatment room. --09:11/15/19 Art Mensah RN.PHYSICAL [id number]:11/15/19. Ambulatory to room. 3 Clinical Report - Nurses [facility] Emergency Department [address] [place] [address] Phone #: ext- [phone] 11/15/2019 09:27 Patient: RUKHSANA LARES Sex: F [...] from the right antecubital space by tech. ([id number]). --10:31 11/15/19 Art Mensah RN 10:32 11/15/19. BP: 139/72. MAP: 94. HR: 16. O2 saturation: 97%. --10:32 11/15/19 [facility] Tech1.DISPOSITION / DISCHARGE 11:52 11/15/19. BP: 137/84. MAP: 101. HR: 68. RR: 18. O2 saturation : 98%. Temp: 98.3 F. --11:52 11/15/19 [facility] Tech1 12:15 11/15/19. Pain level now: 0/10. [...] patient feels 4 Clinical Report - Nurses [facility] Emergency Department [address] [place] [address] Phone #: ext- [phone] 11/15/2019 09:27 Patient: RUKHSANA LARES Sex: F [...] Patient verbalized understanding. Written instructions provided in [place]. The patient was discharged by the physician. She was discharged home. She left ambulatory and via private vehicle. Patient driving. --12:16 11/15/19 Art Mensah RN.Locked/Released at 11/15/2019 15:41 by Art Mensah RN Name Value Range Interpretation Code Description Data Kassy rce(s) Supporting Document(s) ID Date Data Source [id number] 11/15/2019 09:35:00 AM EDT [facility] 1 Clinical Report - Physicians/Mid Levels [facility] Emergency Department [address] [place] [address] Phone #: ext- [phone] 11/15/2019 09:27 Patient: [id number] Sex: F : 1980 Age: 38y Time [...] thyroid. 2 Clinical Report - Physicians/Mid Levels [facility] Emergency Department [address] [place] [address] Phone #: ext- [phone] 11/15/2019 09:27 Patient: [...] process. 3 Clinical Report - Physicians/Mid Levels [facility] Emergency Department [address] [place] [address] Phone #: ext- [phone] 11/15/2019 09:27 Patient: RUKHSA[facility] L[facility]ES [id number] Sex: F : 1980 Age: 38y Beta-HCG, Qual Serum: (RED: 11/15/2019 10:20) ( MsgRcvd 11/15/2019 10:57) Final results Test Result Flag Units (Reference) HCG SERUM QUAL NEGATIVE (NORMAL: NEGAT HCG SERUM QL REENTER NEGATIVE (NORMAL: NEGAT { KIT LOT # [id number] ){ KIT EXP DATE 01.28.21 ){ PROCEDURAL [...] bedtime. 4 Clinical Report - Physicians/Mid Levels [facility] Emergency Department [address] [place] [address] Phone #: ext- [phone] 11/15/2019 09:27 Patient: RUKHSANA LARES Sex: F [...] rce(s) Supporting Document(s) ID Date Data Source [id number] 11/15/2019 10:56:00 AM EDT [facility] Name Value Range Interpretation Code Description Data Kassy rce(s) Supporting Document(s) HCG SERUM QUAL NEGATIVE NORMAL: NEGATIVE [facility] HCG SERUM QL REENTER NEGATIVE NORMAL: NEGATIVE [facility] { KIT LOT # [id number] ){ KIT EXP DATE 01.28.21 ){ PROCEDURAL CONTROL VALID ) ID Date Data Source [id number] 11/15/2019 10:20:00 AM EDT [facility] ([facility] Name Value Range Interpretation Code Description Data Kassy rce(s) Supporting Document(s) HCG Serum Qual Laboratory test result [facility] ([facility] HCG Serum QL Reenter Laboratory test result [facility] ([facility] { KIT LOT # [id number] ) { KIT EXP DATE 01.28.21 ) { PROCEDURAL CONTROL VALID ) ID Date Data Source [id number] 09/14/2019 03:01:35 PM EDT [facility] Name Value Range Interpretation Code Description Data Kassy rce(s) Supporting Document(s) Progress Note [facility] [id number] lbm [file] [id number] ID Date Data Source [id number] 09/13/2019 06:27:00 PM EDT [facility] ([facility]) Name Value Range Interpretation Code Description Data Kassy rce(s) Supporting Document(s) Bacteria identified in Urine by Culture Laboratory test result [facility] ([facility] FULL REPORT IN LAB NOTES (eCW and [facility] ). NO GROWTH CLINICAL SIGNIFICANCE 2 OR MORE ORGANISMS ID Date Data Source [id number] 05/08/2019 12:28:46 PM [facility] XXX-Imp : Microorganism XXX Cult : No growth (qualifier value) Name Value Range Interpretation Code Description Data Kassy rce(s) Supporting Document(s) ID Date Data Source [id number] 05/07/2019 12:40:39 PM [facility] Name Value Range Interpretation Code Description Data Kassy rce(s) Supporting Document(s) Progress Note [facility] [id number] lbm [file] [id number] ID Date Data Source [id number] 05/11/2019 03:23:00 PM [facility] CYTOPATHOLOGY REPORT See Addendum BelowN tolu: RUKHSANA LARES RMRN: [id number] Number: [id number] Date: 05/07/2019 10:40Received Date: 05/08/2019 13:15Physician(s): WIL PORTER E WIL PORTER Specimen(s) ReceivedA: ThinPrep Pap Test with Image Review with full manual rescreen. HR HPVcotesting and reflex to 16/18 HPV genotyping if Pap results are normal andHPV is positive.Date of Last Menstrual Period: 04/21/2019Menstrual History:CyclingPrior Pap Diagnosis History:Last Pap test: 11/25/2015 normal, HPV negativeNo previous abnormal Pap smearsClinical Findings:Source: Cervical /rfzrommhnyxxJ68.419 ICD Code, Encounter for routine gynecological examination with Papsmear of cervixADEQUACY OF THE SPECIMEN:Satisfactory for evaluation. Transformation zone component identified.GENERAL CATEGORIZATIONNegative for intraepithelial lesion or malignancy Reviewing [employer]: Jory Martin, SCT 15:23:19 Procedures/AddendaHR HPV Aptima Addendum Date Complete: 05/11/2019 Date Reported: 05/11/2019 08:34 HPV High Risk E6/E7 mRNASpecimen DescriptionThin prep vial cervix05/10/2019 10:42Special RequestNon05/10/2019 10:42Culture/ResultsNEGATIVE for HPV high-risk types by machine room operator-mediated amplification.Thistest detects HPV types 16,18,31,33,35,39,45,51,52,56,58,59,66, and 68withoutdifferentiation. [...] Date Data Source [id number] 05/07/2019 05:32:38 PM [facility] Name Value Range Interpretation Code Description Data Kassy rce(s) Supporting Document(s) Color of Urine [facility] Clarity of Urine [facility] Specific gravity of Urine by Refractometry automated 1.023 1.003 -1.030 [facility] pH of Urine by Automated test strip 5.0 5.0-8.0 [facility] Protein [Mass/volume] in Urine by Automated test strip Neg [facility] Glucose [Mass/volume] in Urine by Automated test strip Neg [facility] Ketones [Mass/volume] in Urine by Automated test strip Neg [facility] Bilirubin.total [Presence] in Urine by Automated test strip Negative [facility] Hemoglobin [Presence] in Urine by Automated test strip Neg ative [facility] Leukocyte esterase [Presence] in Urine by Automated test strip Negative [facility] Nitrite [Presence] in Urine by Automated test strip Negati [facility] Leukocytes [#/area] in Urine sediment by Automated count 0 -5 [facility] Erythrocytes [#/area] in Urine sediment by Automated count 3 /HPF 0-3 [facility] Epithelial cells.squamous [#/area] in Urine sediment by Automate d count None [facility] Mucus [#/area] in Urine sediment by Microscopy low power field None [facility] ID Date Data Source [id number] 04/28/2019 11:14:00 AM EST [facility] ([facility] Name Value Range Interpretation [...] GRAM NEGATIVE RODS ID Date Data Source [id number] 04/28/2019 10:57:00 AM EST [facility] ([facility] Name Value Range Interpretation Code Description Data Kassy rce(s) Supporting Document(s) Reflex Urine Culture Laboratory test result Norm al (applies to non-numeric results) [facility] ([facility] ) FULL REPORT IN LAB NOTES (eCW and [facility] ). SPECIMEN APPEARS CONTAMINATED ID Date Data Source [id number] 04/28/2019 10:57:00 AM EST [facility] ([facility] Name Value Range Interpretation Code Description Data Kassy rce(s) Supporting Document(s) Appearance, Urine RFX Laboratory test result Above high no rmal [facility] ([facility] Color, Urine RFX Laboratory test result Normal ( applies to non-numeric results) [facility] ([facility] ) PH,Urine RFX 5.0 units 5.0-9.0 Normal (applies to non-numeric res ults) [facility] ([facility] Protein, Urine Auto RFX Laboratory test result Above high normal [facility] ([facility] Specific [place] Ur Auto RFX 1.023 1.002-1.035 Nor mal (applies to non-numeric results) [facility] ([facility] ) Ketone, Urine Auto RFX Laboratory test result Above high n ormal [facility] ([facility] Urobilinogen, Urine Auto RFX 0.2 mg/dL 0.0-2.0 Nor mal (applies to non-numeric results) [facility] ([facility] ) Glucose, Urine (Ua) Auto RFX Laboratory test result Normal (applies to non- numeric results) [facility] ([facility] ) Nitrite, Urine Auto RFX Laboratory test result N ormal (applies to non-numeric results) [facility] ([facility] ) Bilirubin, Urine Auto RFX Laboratory test result Normal (applies to non- numeric results) [facility] ([facility] ) Blood, Urine Blood RFX Laboratory test result Above high n ormal [facility] ([facility] Leukocyte Esterase Ur Auto RFX Laboratory test result Abov e high normal [facility] ([facility] WBC, Urine Auto RFX Laboratory test result 0-3 Above high norm al [facility] ([facility] RBC, Urine Auto RFX 139 /HPF 0-3 Above high normal [facility] ([facility] Squam Epithelial Cell Ur Aurfx 7 /HPF 0-6 N ormal (applies to non-numeric results) [facility] ([facility] ) Bacteria, Urine Auto RFX Laboratory test result Above high normal [facility] ([facility] Mucus, Urine RFX Laboratory test result Normal ( applies to non-numeric results) [facility] ([facility] ) Hyaline Cast, Urine Auto RFX 0 /LPF 0-1 Normal (appl ies to non-numeric results) [facility] ([facility] ID Date Data Source [id number] 04/28/2019 10:45:00 AM EST [facility] ([facility] Name Value Range Interpretation Code Description Data Kassy rce(s) Supporting Document(s) Laboratory test finding (navigational concept) 49.0 % 3 8.0-51.0 Normal (applies to non-numeric results) [facility] ([facility] Laboratory test finding (navigational concept) 115 mg/dL 7 0-105 Above high normal [facility] ([facility] ) Laboratory test finding (navigational concept) 3.3 meq/L 3 .5-5.1 Below low normal [facility] ([facility] ) Laboratory test finding (navigational concept) 139 meq/L 1 36-145 Normal (applies to non-numeric results) [facility] ([facility] Laboratory test finding (navigational concept) 4.8 mg/dL 4 .5-5.3 Normal (applies to non-numeric results) [facility] ([facility] Laboratory test finding (navigational concept) 26.0 MM/L 2 3.0-27.0 Normal (applies to non-numeric results) [facility] ([facility] Laboratory test finding (navigational concept) 102 meq/L 9 8-109 Normal (applies to non-numeric results) [facility] ([facility] Laboratory test finding (navigational concept) 11 mg/dL 8 -26 Normal (applies to non-numeric results) [facility] ([facility]) Laboratory test finding (navigational concept) 0.7 mg/dL 0 .6-1.3 Normal (applies to non-numeric results) [facility] ([facility] ID Date Data Source [id number] 04/28/2019 10:33:00 AM EST [facility] ([facility] Name Value Range Interpretation Code Description Data Kassy rce(s) Supporting Document(s) Red Blood Count 5.43 10 4.00-5.40 Above high normal [facility] ([facility] White Blood Count 8.8 10 4.0-10.0 Normal (applies to non-numeri c results) [facility] ([facility] Hematocrit 48.0 % 36.0-47.0 Above high normal [facility] ([facility] Hemoglobin 15.9 g/dL 12.0-15.5 Above high normal [facility] ([facility] [facility] Mean Corpuscular Volume 88.4 fl 80.0-96.0 Normal ( applies to non-numeric results) [facility] ([facility] ) Mean Corpuscular Hemoglobin 29.3 pg 27.0-33.0 Norm al (applies to non-numeric results) [facility] ([facility] ) Red Cell Distribution Width 13.1 % 11.5-14.5 Norm al (applies to non-numeric results) [facility] ([facility] ) Mean Corpuscular HGB Conc 33.1 g/dL 32.0-36.5 Normal (applies to non-numeric results) [facility] ([facility] ) Neutrophils % 49.2 % 36.0-66.0 Normal (applies to non-numeric re sults) [facility] ([facility] Platelet Count, Automated 336 10 150-450 Normal (applies to non-numeric results) [facility] ([facility] ) Lymph % 41.9 % 24.0-44.0 Normal (applies to non-numeric resul ts) [facility] ([facility] Boyd % 6.1 % 0.0-5.0 Above high normal [...] Normal (applies to n on-numeric results) [facility] ([facility] Neutrophils # 4.3 10 1.5-8.5 Normal (applies to non-numeric re sults) [facility] ([facility] Lymph # 3.7 10 1.5-5.0 Normal (applies to non-numeric resul ts) [facility] ([facility] Boyd # 0.5 10 0.0-0.8 Normal (applies to non-numeric resul ts) [facility] ([facility] Eos # 0.2 10 0.0-0.5 Normal (applies to non-numeric resul ts) [facility] ([facility] Baso # 0.1 10 0.0-0.2 Normal (applies to non-numeric resul ts) [facility] ([facility] Procedure Social History Code Duration Value Status Description Data Source(s ) Alcohol intake 06/05/2020 12:00:00 AM EST Current non-d loco of alcohol (finding) completed Current non-drinker of alcohol (finding) [facility] Tobacco use and exposure 06/05/2020 12:00:00 AM EST Never used co mpleted Never used [facility] Cigarette pack-years 06/05/2020 12:00:00 AM EST UNK completed [facility] Cigarettes smoked current (pack per day) - Reported 06/05/19 12:00:00 AM EST UNK completed [facility] Smoking 06/05/2020 12:00:00 AM EST Former smoker completed Former smoker [facility] Smoking 10/31/2019 12:00:00 AM EDT Patient has never smoked co mpleted Patient has never smoked MED[facility] ([facility]) Alcohol intake 09/14/2019 12:00:00 AM EDT Current non-d loco of alcohol (finding) completed Current non-drinker of alcohol (finding) [facility] Cigarette pack-years 09/14/2019 12:00:00 AM EDT UNK [facility] Cigarettes smoked current (pack per day) - Reported 09/14/19 12:00:00 AM EDT UNK completed [facility] Smoking 09/14/2019 12:00:00 AM EDT Former smoker completed Former smoker [facility] Alcohol intake 05/07/2019 12:00:00 AM EST Current non-d loco of alcohol (finding) completed Current non-drinker of alcohol (finding) [facility] Cigarette pack-years 05/07/2019 12:00:00 AM EST UNK completed [facility] Cigarettes smoked current (pack per day) - Reported 05/07/19 12:00:00 AM EST UNK completed [facility] Smoking 05/07/2019 12:00:00 AM EST Former smoker completed Former smoker [facility] Vital Signs ID Date Data Source UNK Name Value Range Interpretation Code Description Data Source(s) Oxygen saturation in Arterial blood by Pulse oximetry 97 % 97 % [facility] ([facility]) Body temperature 97.2 [degF] 97.2 [degF] [facility] ([facility]) Heart rate 82 /min 82 /min [facility] ([facility]) Diastolic blood pressure 106 mm[Hg] 106 mm[Hg] [facility] ([facility]) Systolic blood pressure 144 mm[Hg] 144 mm[Hg] M EDENT ([facility]) Oxygen saturation in Arterial blood by Pulse oximetry 99 % 99 % [facility] ([facility] Body mass index (BMI) [Ratio] 41.7 kg/m2 41.7 k g/m2 [facility] ([facility] Wells body weight 140 [lb_av] 140 [lb_av] MEDEN T ([facility] Body weight 274.00 [lb_av] 274.00 [lb_av] MEDEN T ([facility] Body height 68 [in_i] 68 [in_i] MED[facility] ([facility] 5'8" Respiratory rate 16 [...] k g/m2 [facility] ([facility] [place] body weight 140 [lb_av] 140 [lb_av] MEDEN T ([facility] Body weight 266.00 [lb_av] 266.00 [lb_av] MEDEN T ([facility] Body height 68 [in_i] 68 [in_i] MED[facility] ([facility] 5'8" Respiratory rate 16 [...] k g/m2 [facility] ([facility] [place] body weight 140 [lb_av] 140 [lb_av] MEDEN T ([facility] Body weight 270.00 [lb_av] 270.00 [lb_av] MEDEN T ([facility] Body height 68 [in_i] 68 [in_i] MED[facility] ([facility] 5'8" Respiratory rate 12 /min 12 /min MED[facility] ( [facility] Heart rate 74 /min 74 /min [facility] ([facility] Body temperature 98.3 [degF] 98.3 [degF] MED[facility] ([facility] Diastolic blood pressure 80 mm[Hg] 80 mm[Hg] [facility] ([facility] Systolic blood pressure 112 mm[Hg] 112 mm[Hg] M EDENT ([facility] Body mass index (BMI) [Ratio] 46.3 kg/m2 46.3 k g/m2 MED[facility] ([facility]) Body height 64 [in_i] 64 [in_i] MED[facility] ([facility]) 5'4" Body weight 270.00 [lb_av] 270.00 [lb_av] MEDEN T ([facility]) Body temperature 98.3 [degF] 98.3 [degF] MEDENT ([facility]) Oxygen saturation in Arterial blood by Pulse oximetry 99 % 99 % MED[facility] ([facility]) Respiratory rate 17 /min 17 /min MED[facility] ( [facility]) Heart rate 80 /min 80 /min MED[facility] ([facility]) Diastolic blood pressure 90 mm[Hg] 90 mm[Hg] MED[facility] ([facility]) Systolic blood pressure 152 mm[Hg] 152 mm[Hg] M EDENT ([facility], [facility]) Oxygen saturation in Arterial blood by Pulse oximetry 99 % 99 % [facility] ([facility] Body mass index (BMI) [Ratio] 41.4 kg/m2 41.4 k g/m2 [facility] ([facility] Body weight 272.00 [lb_av] 272.00 [lb_av] MEDEN T ([facility] Body height 68 [in_i] 68 [in_i] MED[facility] ([facility] 5'8" Respiratory rate 16 /min 16 /min MED[facility] ( [facility] Heart rate 87 /min 87 /min [facility] ([facility] Body temperature 98.3 [degF] 98.3 [degF] [facility] ([facility] Diastolic blood pressure 78 mm[Hg] 78 mm[Hg] [facility] ([facility] Systolic blood pressure 100 mm[Hg] 100 mm[Hg] M EDENT ([facility] Body mass index (BMI) [Ratio] 46.3 kg/m2 46.3 k g/m2 MED[facility] ([facility]) Body height 64 [in_i] 64 [in_i] MED[facility] ([facility], [facility]) 5'4" Body weight 270.00 [lb_av] 270.00 [lb_av] MEDEN T ([facility], [facility]) Body temperature 98.2 [degF] 98.2 [degF] MED[facility] ([facility], [facility]) Oxygen saturation in Arterial blood by Pulse oximetry 99 % 99 % MED[facility] ([facility], [facility]) Respiratory rate 18 /min 18 /min MED[facility] ( [facility]) Heart rate 74 /min 74 /min [facility] ([facility], [facility]) Diastolic blood pressure 92 mm[Hg] 92 mm[Hg] [facility] ([facility]) Systolic blood pressure 150 mm[Hg] 150 mm[Hg] [facility]) Oxygen saturation in Arterial blood by Pulse oximetry 99 % 99 % [facility] ([facility] ([place]), ([facility]) Body mass index (BMI) [Ratio] 43.2 kg/m2 43.2 k g/m2 [facility] ([facility] Body weight 284.00 [lb_av] 284.00 [lb_av] MEDEN T ([facility] Body height 68 [in_i] 68 [in_i] MED[facility] ([facility] 5'8" Respiratory rate 18 /min 18 /min MED[facility] ( [facility] Heart rate 95 /min 95 /min [facility] ([facility] Body temperature 98.4 [degF] 98.4 [degF] [facility] ([facility] Diastolic blood pressure 64 mm[Hg] 64 mm[Hg] MEDKATHLEEN ([facility] Systolic blood pressure 112 mm[Hg] 112 mm[Hg] M TAMARA ([facility] Oxygen saturation in Arterial blood by Pulse oximetry 97 % 97 % MEDKATHLEEN ([facility] Body mass index (BMI) [Ratio] 43.0 kg/m2 43.0 k g/m2 [facility] ([facility] Body weight 283.00 [lb_av] 283.00 [lb_av] MEDEN T ([facility] Body height 68 [in_i] 68 [in_i] MED[facility] ([facility] 5'8" Respiratory rate 18 /min 18 /min MEDKATHLEEN ( [facility] Heart rate 104 /min 104 /min MEDKATHLEEN ([facility] Body temperature 98.0 [degF] 98.0 [degF] [facility] ([facility] Diastolic blood pressure 90 mm[Hg] 90 mm[Hg] JASON ([facility] Systolic blood pressure 122 mm[Hg] 122 mm[Hg] M TAMARA ([facility] ID Date Data Source [id number] 05/11/2019 03:23:35 PM [facility] Name Value Range Interpretation Code Description Data Source(s) WEIGHT RECORDED 291 lb 291 lb [facility] Body height Measured [address] [facility] Patient Treatment Plan of Care Planned Activity Planned Date Details Description Data Source (s) Norethindrone 0.35 MG Oral Tablet 06/05/2020 12:00:00 AM [facility] Fluconazole 150 MG Oral Tablet 09/13/2019 12:00:00 AM [facility] NITROFURANTOIN, MACROCRYSTALS 25 MG / Ni trofurantoin, Monohydrate 75 MG Oral Capsule 09/13/2019 12:00:00 AM [facility] Norethindrone 0.35 MG Oral Tablet 07/19/2019 12:00:00 AM [facility] Sulfamethoxazole 800 MG / Trimethoprim 160 MG Oral Tab let 05/07/2019 12:00:00 AM EST [facility] Norethindrone 0.35 MG Oral Tablet 01/16/2019 12:00:00 AM EDT [facility] Cholecalciferol 1000 UNT Oral Capsule [facility]
--- NOTE | 2020-06-08 09:37 | REP ---
INDICATION: chest pain. COMPARISON: CT angio and, portable chest 12/21/2018 TECHNIQUE: AP upright portable chest FINDINGS: Lung quiñonez are well inflated without pleural effusion, acute infiltrate, atelectasis or mass. The heart, mediastinal and hilar contours are normal. The aorta and airway are intact. The bony thorax shows no focal lesion. There is no free air under the diaphragm. IMPRESSION: 1. No acute cardiopulmonary disease. <Electronically signed by Juan David Junior > 06/08/20 [id number]
--- NOTE | 2020-06-08 09:38 | ECGEPIP ---
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
[2020-06-08 10:26] LABS: CK-MB VALUE MASS < 1.0 NG/ML (<3.6); CPK CREATINE PHOSPHOKINASE 46 U/L (26-192); LIPASE 152 U/L (73-393); MB/CK RELATIVE INDEX 2.17 (< OR =4); TROPONIN I < 0.02 NG/ML (< 0.10)
[2020-06-08 11:03] LABS: BASO # 0.1 10^3/uL (0.0-0.2); BASO % 1.3 % (0.0-1.0); EOS % 0.9 % (0.0-3.0); HEMATOCRIT 46.5 % (36.0-47.0); HEMOGLOBIN 15.3 g/dl (12.0-15.5); LYMPH # 1.6 10^3/uL (1.5-5.0); LYMPH % 33.9 % (24.0-44.0); MEAN CORPUSCULAR HEMOGLOBIN 29.5 pg (27.0-33.0); MEAN CORPUSCULAR HGB CONC 32.9 g/dl (32.0-36.5); MEAN CORPUSCULAR VOLUME 89.8 fl (80.0-96.0); MONO # 0.5 10^3/uL (0.0-0.8); MONO % 11.5 % (2.0-8.0); NEUTROPHILS # 2.4 10^3/uL (1.5-8.5); PLATELET COUNT, AUTOMATED 266 10^3/uL (150-450); RED BLOOD COUNT 5.18 10^6/uL (4.00-5.40); WHITE BLOOD COUNT 4.7 10^3/uL (4.0-10.0)
[2020-06-08 11:28] LABS: BLOOD UREA NITROGEN 10 MG/DL (7-18); CARBON DIOXIDE LEVEL 28 MEQ/L (21-32); CHLORIDE LEVEL 104 MEQ/L (98-107); CREATININE FOR GFR 0.68 MG/DL (0.55-1.30); GLOMERULAR FILTRATION RATE > 60.0 (>58); GLUCOSE, FASTING 89 MG/DL (70-100); POTASSIUM SERUM 3.6 MEQ/L (3.5-5.1); SODIUM LEVEL 140 MEQ/L (136-145)
[2020-06-08 11:29] LABS: ALBUMIN 3.5 GM/DL (3.2-5.2); ALT/SGPT 294 U/L (12-78); BILIRUBIN,TOTAL 0.3 MG/DL (0.2-1.0); CALCIUM LEVEL 8.9 MG/DL (8.5-10.1); TOTAL PROTEIN 6.7 GM/DL (6.4-8.2)
[2020-06-08] MEDS ORDERED: ISOVUE-370 76% 100ML VIAL As Ordered ONE (12:00)
--- NOTE | 2020-06-08 13:40 | REP ---
INDICATION: epigastric pain. COMPARISON: None. TECHNIQUE: CT angiogram chest performed following the intravenous administration of 100 cc of Isovue 370. Sagittal and coronal reconstruction images are performed. FINDINGS: Lungs: Shows some minor dependent atelectasis without infiltrate, effusion or mass. No pleural thickening, parenchymal nodule or pneumothorax. Mediastinum: There is mild ectasia of the ascending aorta up to a 4.5 cm in AP diameter tapering at the anterior arch with normal caliber posterior arch and descending aorta of the 2.1 cm. No pathologic sized adenopathy. No hiatal hernia. Pulmonary arteries: No evidence of pulmonary embolism. Zhane: No adenopathy. Axilla: No adenopathy. Pleura: No effusion. Heart: Not enlarged. No pericardial thickening or effusion Upper abdominal structures: Unremarkable. Visualized osseous structures: Unremarkable. IMPRESSION: No CT evidence of pulmonary embolism.No infiltrate seen. Mild ectasia of the ascending aorta without dissection. Maximum AP diameter 4.5 cm tapering to 2.1 cm by the posterior arch and descending aorta. No atherosclerotic calcifications. <Electronically signed by Juan David Junior > 06/08/20 [id number]
--- NOTE | 2020-06-08 13:47 | REP ---
INDICATION: epigastric pain. COMPARISON: 10/11/2013 TECHNIQUE: Bolus 100 mL Isovue 370 scanning through the abdomen with coronal and sagittal reconstructions. FINDINGS: CT abdomen: Lung bases are clear. Heart is not enlarged. There is no pericardial thickening or effusion and no hiatal hernia. The liver, spleen, pancreas and adrenal glands were normal gallbladder is surgically absent. Kidneys show function without obstruction, mass or stone. No abnormal gastric distention or mass. Abdominal portions of the colon without colitis or diverticulitis. No mass small bowel loops without dilatation or air-fluid levels. Lung windows show no perforation or free air in the abdomen. No abdominal ascites. The aorta is normal there is no periaortic or retroperitoneal pathologic sized lymphadenopathy. No ventral hernia the abdominal wall except a small pocket of omental fat in the umbilicus without bowel herniation. The bone windows show marginal osteophytes without compression deformity, disc space narrowing or destructive lesions. Visualized ribs intact. IMPRESSION: 1. No evidence of hiatal hernia, gastric distention or wall thickening. No colitis or diverticulitis in the upper abdomen. No small bowel abnormalities. 2. Solid organs in the upper abdomen without acute finding. There has been a cholecystectomy. 3. No renal or ureteral stone. No ascites, perforation or free air. No adenopathy. <Electronically signed by Juan David Junior > 06/08/20 2221
[2020-06-08] MEDS ORDERED: PANT20TA6 PO (14:04)
[2020-06-08] MEDS ORDERED: SUCR1SS PO (14:04)
[2020-06-08 14:23] VITALS: BP 163/89
== END 2020-06-08 14:25 | disposition home or self-care (01) ==
LOC: M ED 08:26
DX: K29.00 Acute gastritis without bleeding (principal); K50.90 Crohn's disease, unspecified, without complications; K44.9 Diaphragmatic hernia without obstruction or gangrene; Z87.891 Personal history of nicotine dependence; Z79.899 Other long term (current) drug therapy; Z91.040 Latex allergy status; Z91.02 Food additives allergy status; Z88.8 Allergy status to other drugs, medicaments and biological substances
CPT/HCPCS: 71045; 71275; 74160; 80053; 82550; 82553; 83690; 84484; 85025; 93005; 99284; Q9967

== ENCOUNTER 2020-06-24 06:44 | Outpatient (CLI) | payer OTHER ==
[~2020-06-24] VITALS: Ht 165.1 cm; Wt 121.0 kg
[~2020-06-24 06:44] MED LIST changes: +PANT20TA6 PO; +SUCR1SS PO
[2020-06-24 06:54] VITALS: BP 149/96
[2020-06-24 07:00] VITALS: BP 149/96
[2020-06-24] MEDS ORDERED: ACETAMINOPHEN 650MG PO PRIOR TO INFUSION PO ONE (07:00)
[2020-06-24] MEDS ORDERED: diphenhydrAMINE 25MG PO PRIOR TO INFUSION PO ONE (07:00)
[2020-06-24] MEDS ORDERED: NS 1,000 ML IV SCH (07:00)
[2020-06-24] MEDS ORDERED: inFLIXimab INJECTION 600 MG in NS 190 ML IV ONE (07:00)
[2020-06-24 07:34] VITALS: BP 127/79
[2020-06-24 08:39] VITALS: BP 120/75
== END 2020-06-24 08:40 | disposition home or self-care (01) ==
LOC: M INFU 06:44
PROVIDERS: ATTEND Student in an Organized Health Care Education/Training Program
DX: K50.00 Crohn's disease of small intestine without complications (principal); Z88.8 Allergy status to other drugs, medicaments and biological substances; Z91.040 Latex allergy status
CPT/HCPCS: 96413; J1745

== ENCOUNTER 2020-06-25 12:29 | Emergency (ER) | payer OTHER ==
[~2020-06-25] VITALS: Ht 162.6 cm; Wt 127.0 kg
[2020-06-25] MEDS ORDERED: NS 1,000 ML IV ONE (13:05)
[2020-06-25] MEDS ORDERED: KETOROLAC 30 MG/ML 1ML VIAL IV ONE (13:25)
[2020-06-25] MEDS ORDERED: METOCLOPRAMIDE INJ 10MG/2ML VIAL (J2765 PER 1) IV ONE (13:25)
[2020-06-25] MEDS ORDERED: diphenhydrAMINE 50MG/ML VIAL (J1200) IV ONE (13:25)
[2020-06-25 14:01] LABS: HEMOGLOBIN 15.9 g/dl (12.0-15.5); MEAN CORPUSCULAR HEMOGLOBIN 30.8 pg (27.0-33.0); MEAN CORPUSCULAR HGB CONC 33.8 g/dl (32.0-36.5); MEAN CORPUSCULAR VOLUME 90.9 fl (80.0-96.0); PLATELET COUNT, AUTOMATED 334 10^3/uL (150-450); RED BLOOD COUNT 5.17 10^6/uL (4.00-5.40); WHITE BLOOD COUNT 12.5 10^3/uL (4.0-10.0)
[2020-06-25 14:23] LABS: ALBUMIN 3.9 GM/DL (3.2-5.2); ALT/SGPT 28 U/L (12-78); AMYLASE 67 U/L (25-115); BILIRUBIN,DIRECT 0.1 MG/DL (0.0-0.2); BILIRUBIN,TOTAL 0.3 MG/DL (0.2-1.0); BLOOD UREA NITROGEN 15 MG/DL (7-18); CALCIUM LEVEL 9.3 MG/DL (8.5-10.1); CARBON DIOXIDE LEVEL 31 MEQ/L (21-32); CHLORIDE LEVEL 102 MEQ/L (98-107); GLOMERULAR FILTRATION RATE > 60.0 (>58); GLUCOSE, FASTING 100 MG/DL (70-100); LIPASE 170 U/L (73-393); POTASSIUM SERUM 3.4 MEQ/L (3.5-5.1); SODIUM LEVEL 140 MEQ/L (136-145); TOTAL PROTEIN 7.1 GM/DL (6.4-8.2)
[2020-06-25] MEDS ORDERED: ISOVUE-370 76% 100ML VIAL As Ordered ONE (14:43)
[2020-06-25 14:48] LABS: EOSINOPHILS 2 % (0-3); LYMPHOCYTES 31 % (16-44); MONOCYTES 1 % (0-5); NEUTROPHILS 66 % (28-66); PLATELET ESTIMATE NORMAL (NORMAL)
--- NOTE | 2020-06-25 16:16 | REP ---
INDICATION: RLQ and RUQ pain, h/o crohns, diarrhea. COMPARISON: Comparison CT studies are from June 08, 2020 and October 11, 2013.. TECHNIQUE: Helical scanning was acquired and 4 mm axial images are re-formatted. Coronal and sagittal MPR images were generated and reviewed. The contrast enhancement dose is 100 mL of intravenous Isovue 370. FINDINGS: Preliminary digital director employee communications radiograph is unremarkable. Bowel gas pattern is normal. The lung bases are clear on axial CT images. The liver and the spleen are normal in size. There is a small low-density area laterally in the right lobe of the liver measuring 1.2 cm in greatest diameter. This is most compatible with a small hemangioma. It appears to be visible in retrospect on the 2013 study. No other focal hepatic lesion is appreciated. Normal adrenal glands are observed. No abnormality is noted in the pancreas. The gallbladder is surgically absent by history. There is a 1.3 cm fluid collection in the gallbladder fossa unchanged from the comparison CT study June 08, 2020. This could be a small seroma. Small and large bowel loops are normal in the upper abdomen. No retroperitoneal mass or adenopathy is seen. The kidneys enhance symmetrically and are morphologically intact. Pelvic CT images demonstrate normal distal ileal small bowel loops. A tiny noninflamed appendix appears adjacent to the cecum. There is no CT evidence of appendicitis or other inflammatory change. A spigelian hernia is apparent in the right lower quadrant transmitting a small quantity of abdominal fat. This is unchanged. The abdominal wall defect measures 1.6 cm in medial to lateral span by 1.8 cm craniocaudal. No uterine or ovarian abnormality is observed. Urinary bladder is intact. No pelvic mass or adenopathy seen. No bony destructive lesion is observed. IMPRESSION: No acute abdominal or pelvic abnormality. Right lower quadrant spigelian hernia transmits a small quantity of abdominal fat. Post cholecystectomy. 1.2 cm hemangioma in the liver which appears to be unchanged. <Electronically signed by Ivan Gong > 06/25/20 [id number]
[2020-06-25 17:08] VITALS: BP 152/80
--- NOTE | 2020-06-27 08:14 | ED PDOC ---
Post-Departure Follow-Up dr cheri yang faxed fomral report of ct abd/p for fu Rupal Pena MD Jun 27, 2020 08:13
== END 2020-06-25 17:10 | disposition home or self-care (01) ==
LOC: M ED 12:29
DX: R10.11 Right upper quadrant pain (principal); K43.6 Other and unspecified ventral hernia with obstruction, without gangrene; D18.03 Hemangioma of intra-abdominal structures; K21.9 Gastro-esophageal reflux disease without esophagitis; J45.909 Unspecified asthma, uncomplicated; G43.909 Migraine, unspecified, not intractable, without status migrainosus; G47.30 Sleep apnea, unspecified; K44.9 Diaphragmatic hernia without obstruction or gangrene; K50.90 Crohn's disease, unspecified, without complications; E66.9 Obesity, unspecified; I10 Essential (primary) hypertension; Z87.448 Personal history of other diseases of urinary system; Z87.891 Personal history of nicotine dependence; Z79.899 Other long term (current) drug therapy; Z91.02 Food additives allergy status; Z91.040 Latex allergy status; Z88.8 Allergy status to other drugs, medicaments and biological substances
CPT/HCPCS: 74177; 80047; 80048; 80076; 81001; 82150; 83605; 83690; 84702; 85025; 87086; 87798; 96361; 96374; 96375; 99284; J1200; J1885; J2765; Q9967

== ENCOUNTER → 2020-07-03 | Outpatient (CLI) | payer OTHER ==
[~2020-07-03] MED LIST changes: +E-Z-GAS II EFFERVESCENT PACKET (SODIUM BICARB./CITRIC ACID/SIMETHICONE) As Ordered ONE; +E-Z-HD 98% w/w 340GM SUSP BTL As Ordered ONE; +E-Z-PAQUE 96% w/w SUSP 176GM BTL As Ordered ONE
--- NOTE | 2020-07-03 16:21 | REP ---
INDICATION: R10.11 RUQ ABD PAIN. COMPARISON: None. TECHNIQUE: This procedure was performed under the direct supervision of Dr. Gong. Images were reviewed with Dr. Gong. Liquid barium and gas producing granules were given in the erect position as well as liquid barium in the prone oblique positions in order to perform a double contrast esophagram examination. 0.6 minutes of fluoro time was utilized for this procedure. FINDINGS: A single view PA chest x-ray is submitted as a bromination equipment operator film. The superior mediastinal structures are midline. The heart size is within normal limits. The lungs are clear. The oral and pharyngeal stages of deglutition were unremarkable. Esophageal transport is prompt and efficient and there is no evidence of esophagitis, stricture, mucosal ring, or hiatal hernia.There is gastroesophageal reflux demonstrated to the level of the jay jay. IMPRESSION: There is gastroesophageal reflux demonstrated to the level of the jay jay. Otherwise, unremarkable double-contrast esophagram examination. <Electronically signed by Milton Tyler > 07/03/20 1616 <Electronically signed by Ivan Gong > 07/03/20 2424
== END ==
LOC: M RAD 06:38
PROVIDERS: ATTEND Nurse Practitioner Family
DX: K21.9 Gastro-esophageal reflux disease without esophagitis (principal); R10.11 Right upper quadrant pain; R07.9 Chest pain, unspecified

== ENCOUNTER 2020-08-22 06:59 | Outpatient (CLI) | payer OTHER ==
[~2020-08-22] VITALS: Ht 157.5 cm; Wt 121.4 kg
[~2020-08-22 06:59] MED LIST changes: -E-Z-GAS II EFFERVESCENT PACKET (SODIUM BICARB./CITRIC ACID/SIMETHICONE) As Ordered ONE; -E-Z-HD 98% w/w 340GM SUSP BTL As Ordered ONE; -E-Z-PAQUE 96% w/w SUSP 176GM BTL As Ordered ONE
[2020-08-22] MEDS ORDERED: inFLIXimab INJECTION 600 MG in NS 190 ML IV ONE (07:00)
[2020-08-22] MEDS ORDERED: NS 1,000 ML IV SCH (07:00)
[2020-08-22] MEDS ORDERED: ACETAMINOPHEN TAB 650MG DOSE (2X325MG) PO ONE (07:00)
[2020-08-22] MEDS ORDERED: diphenhydrAMINE 25MG CAP PO ONE (07:00)
[2020-08-22 07:36] VITALS: BP 178/88
[2020-08-22 08:05] VITALS: BP 173/90
[2020-08-22 08:50] VITALS: BP 152/77
== END 2020-08-22 08:55 | disposition home or self-care (01) ==
LOC: M INFU 06:59
PROVIDERS: ATTEND Student in an Organized Health Care Education/Training Program
DX: K50.00 Crohn's disease of small intestine without complications (principal); Z88.8 Allergy status to other drugs, medicaments and biological substances; Z91.040 Latex allergy status
CPT/HCPCS: 96413; J1745

== ENCOUNTER 2020-10-14 07:04 | Outpatient (CLI) | payer OTHER ==
[~2020-10-14] VITALS: Ht 157.5 cm; Wt 121.1 kg
[~2020-10-14 07:04] MED LIST changes: +ACETAMINOPHEN 650MG PO PRIOR TO INFUSION PO ONE; +NS 1,000 ML IV SCH; +OMEP40CA4 PO; -OMEP40CA97 PO; +diphenhydrAMINE 25MG PO PRIOR TO INFUSION PO ONE; +inFLIXimab INJECTION 600 MG in NS 190 ML IV ONE
[2020-10-14 07:19] VITALS: BP 139/94
[2020-10-14 08:00] VITALS: BP 144/87
[2020-10-14 09:00] VITALS: BP 171/99
== END 2020-10-14 09:00 | disposition home or self-care (01) ==
LOC: M INFU 07:04
PROVIDERS: ATTEND Student in an Organized Health Care Education/Training Program
DX: K50.00 Crohn's disease of small intestine without complications (principal)
CPT/HCPCS: 96413; J1745

== ENCOUNTER → 2020-10-24 | Outpatient (REF) | payer OTHER ==
[~2020-10-24] MED LIST changes: -ACETAMINOPHEN 650MG PO PRIOR TO INFUSION PO ONE; -NS 1,000 ML IV SCH; -diphenhydrAMINE 25MG PO PRIOR TO INFUSION PO ONE; -inFLIXimab INJECTION 600 MG in NS 190 ML IV ONE
[2020-10-24 17:49] LABS: APPEARANCE, URINE CLEAR (CLEAR); BACTERIA, URINE AUTO NEGATIVE (NEGATIVE); BILIRUBIN, URINE AUTO NEGATIVE (NEGATIVE); BLOOD, URINE BLOOD NEGATIVE (NEGATIVE); COLOR, URINE YELLOW (YELLOW); GLUCOSE, URINE (UA) AUTO NEGATIVE (NEGATIVE); KETONE, URINE AUTO NEGATIVE (NEGATIVE); LEUKOCYTE ESTERASE, URINE AUTO NEGATIVE (NEGATIVE); MUCUS, URINE SMALL (NEGATIVE); NITRITE, URINE AUTO NEGATIVE (NEGATIVE); PROTEIN, URINE AUTO NEGATIVE (NEGATIVE); RBC, URINE AUTO 1 /HPF (0-3); SPECIFIC GRAVITY URINE AUTO 1.019 (1.002-1.035); SQUAMOUS EPITHELIAL CELL UR AU 1 /HPF (0-6); UROBILINOGEN, URINE AUTO 0.2 mg/dL (0.0-2.0); WBC, URINE AUTO 0 /HPF (0-3)
[2020-10-24 18:10] LABS: BASO # 0.1 10^3/uL (0.0-0.2); BASO % 0.5 % (0.0-1.0); EOS # 0.2 10^3/uL (0.0-0.5); EOS % 1.6 % (0.0-3.0); HEMATOCRIT 46.5 % (36.0-47.0); LYMPH # 4.3 10^3/uL (1.5-5.0); LYMPH % 39.7 % (24.0-44.0); MEAN CORPUSCULAR HEMOGLOBIN 29.7 pg (27.0-33.0); MEAN CORPUSCULAR HGB CONC 32.3 g/dl (32.0-36.5); MEAN CORPUSCULAR VOLUME 92.1 fl (80.0-96.0); MONO # 0.6 10^3/uL (0.0-0.8); MONO % 5.1 % (2.0-8.0); NEUTROPHILS # 5.8 10^3/uL (1.5-8.5); NEUTROPHILS % 52.7 % (36.0-66.0); PLATELET COUNT, AUTOMATED 297 10^3/uL (150-450); RED BLOOD COUNT 5.05 10^6/uL (4.00-5.40); WHITE BLOOD COUNT 10.9 10^3/uL (4.0-10.0)
[2020-10-24 18:16] LABS: BLOOD UREA NITROGEN 14 MG/DL (7-18); C REACTIVE PROTEIN QUANTITATIV 0.35 MG/DL (0.00-0.30); CALCIUM LEVEL 8.3 MG/DL (8.5-10.1); CARBON DIOXIDE LEVEL 31 MEQ/L (21-32); CHLORIDE LEVEL 109 MEQ/L (98-107); COMPLEMENT C3 134 MG/DL (90-180); COMPLEMENT C4 26 MG/DL (10-40); CREATININE FOR GFR 0.71 MG/DL (0.55-1.30); GLOMERULAR FILTRATION RATE > 60.0 (>58); GLUCOSE, FASTING 67 MG/DL (70-100); POTASSIUM SERUM 3.9 MEQ/L (3.5-5.1); SODIUM LEVEL 143 MEQ/L (136-145)
[2020-10-24 18:17] LABS: TOTAL PROTEIN,RANDOM URINE 7.7 MG/DL (0.0-12.0)
[2020-10-24 18:45] LABS: ERYTHROCYTE SEDIMENTATION RATE 8 mm/hr (0-20)
[2020-10-30 13:43] LABS: DRVV SCREEN 36.6 SEC
[2020-11-04 14:15] LABS: COMPLEMENT TOTAL (CH50) > 60 U/mL (>41); HSV IgM TYPES 1&2 <0.91 Ratio (0.00-0.90)
== END ==
LOC: M SFHCRHEU 16:00
PROVIDERS: ATTEND Internal Medicine
DX: K12.1 Other forms of stomatitis (principal); R76.8 Other specified abnormal immunological findings in serum; Z79.899 Other long term (current) drug therapy; M25.40 Effusion, unspecified joint
CPT/HCPCS: 80048; 80230; 81001; 82397; 82570; 84156; 85025; 85652; 85730; 86140; 86160; 86162; 86256; 86694; G0463

== ENCOUNTER → 2020-10-28 | Outpatient (CLI) | payer OTHER ==
[~2020-10-28] MED LIST changes: +GABA-1171; +IBUP-1022 PO; -LISI10TA15 PO; +LISI10TA24 PO; +VALA1TAB5
== END ==
LOC: M RAD 08:16
PROVIDERS: ATTEND Internal Medicine
DX: M25.40 Effusion, unspecified joint (principal); M54.5 Low back pain

== ENCOUNTER → 2020-11-27 | Outpatient (REF) | payer OTHER ==
[~2020-11-27] MED LIST changes: -GABA-1171; -IBUP-1022 PO; +LISI10TA15 PO; -LISI10TA24 PO; -VALA1TAB5
== END ==
LOC: M LAB REF 11:16
PROVIDERS: ATTEND Student in an Organized Health Care Education/Training Program
DX: K50.00 Crohn's disease of small intestine without complications (principal); R15.2 Fecal urgency; R10.11 Right upper quadrant pain; R10.30 Lower abdominal pain, unspecified; R19.4 Change in bowel habit; R11.0 Nausea

== ENCOUNTER → 2020-12-01 | Outpatient (CLI) | payer OTHER ==
[2020-12-01 08:01] LABS: BASO # 0.1 10^3/uL (0.0-0.2); BASO % 0.9 % (0.0-1.0); EOS # 0.2 10^3/uL (0.0-0.5); EOS % 2.8 % (0.0-3.0); HEMATOCRIT 49.8 % (36.0-47.0); HEMOGLOBIN 16.3 g/dl (12.0-15.5); LYMPH % 39.5 % (24.0-44.0); MEAN CORPUSCULAR HEMOGLOBIN 29.5 pg (27.0-33.0); MEAN CORPUSCULAR HGB CONC 32.7 g/dl (32.0-36.5); MEAN CORPUSCULAR VOLUME 90.1 fl (80.0-96.0); MONO # 0.5 10^3/uL (0.0-0.8); MONO % 6.1 % (2.0-8.0); NEUTROPHILS # 3.8 10^3/uL (1.5-8.5); NEUTROPHILS % 50.2 % (36.0-66.0); PLATELET COUNT, AUTOMATED 323 10^3/uL (150-450); RED BLOOD COUNT 5.53 10^6/uL (4.00-5.40); WHITE BLOOD COUNT 7.6 10^3/uL (4.0-10.0)
[2020-12-01 08:20] LABS: ALBUMIN 3.8 GM/DL (3.2-5.2); ALT/SGPT 28 U/L (12-78); BILIRUBIN,DIRECT 0.1 MG/DL (0.0-0.2); BILIRUBIN,TOTAL 0.5 MG/DL (0.2-1.0); BLOOD UREA NITROGEN 13 MG/DL (7-18); C REACTIVE PROTEIN QUANTITATIV 0.52 MG/DL (0.00-0.30); CALCIUM LEVEL 9.1 MG/DL (8.5-10.1); CARBON DIOXIDE LEVEL 31 MEQ/L (21-32); CHLORIDE LEVEL 105 MEQ/L (98-107); CREATININE FOR GFR 0.78 MG/DL (0.55-1.30); GLOMERULAR FILTRATION RATE > 60.0 (>58); GLUCOSE, FASTING 74 MG/DL (70-100); POTASSIUM SERUM 3.6 MEQ/L (3.5-5.1); SODIUM LEVEL 140 MEQ/L (136-145); TOTAL PROTEIN 7.2 GM/DL (6.4-8.2)
[2020-12-01 08:58] LABS: ERYTHROCYTE SEDIMENTATION RATE 4 mm/hr (0-20)
== END ==
LOC: M LAB 07:19
PROVIDERS: ATTEND Nurse Practitioner Family
DX: K50.00 Crohn's disease of small intestine without complications (principal); R15.2 Fecal urgency; R10.11 Right upper quadrant pain; R10.30 Lower abdominal pain, unspecified; R19.4 Change in bowel habit; R11.0 Nausea

== ENCOUNTER → 2020-12-08 | Outpatient (CLI) | payer OTHER | LOC: M LAB 07:31 | PROVIDERS: ATTEND Nurse Practitioner Family | DX: K50.00 Crohn's disease of small intestine without complications (principal); R19.4 Change in bowel habit; R10.30 Lower abdominal pain, unspecified ==

== ENCOUNTER 2020-12-09 07:12 | Outpatient (CLI) | payer OTHER ==
[~2020-12-09] VITALS: Ht 157.5 cm; Wt 127.0 kg
[~2020-12-09 07:12] MED LIST changes: +ACETAMINOPHEN 650MG PO PRIOR TO INFUSION PO ONE; +NS 1,000 ML IV SCH; +diphenhydrAMINE 25MG PO PRIOR TO INFUSION PO ONE; +inFLIXimab INJECTION 600 MG in NS 190 ML IV ONE
[2020-12-09 07:31] VITALS: BP 154/74
[2020-12-09 08:05] VITALS: BP 164/80
[2020-12-09 09:01] VITALS: BP 146/80
== END 2020-12-09 09:00 | disposition home or self-care (01) ==
LOC: M INFU 07:12
PROVIDERS: ATTEND Student in an Organized Health Care Education/Training Program
DX: K50.00 Crohn's disease of small intestine without complications (principal); Z88.8 Allergy status to other drugs, medicaments and biological substances; Z91.040 Latex allergy status
CPT/HCPCS: 96413; J1745

== ENCOUNTER 2021-02-03 06:26 | Outpatient (CLI) | payer OTHER ==
[~2021-02-03] VITALS: Ht 157.5 cm; Wt 127.2 kg
[~2021-02-03 06:26] MED LIST changes: -ACETAMINOPHEN 650MG PO PRIOR TO INFUSION PO ONE; -NS 1,000 ML IV SCH; -diphenhydrAMINE 25MG PO PRIOR TO INFUSION PO ONE; -inFLIXimab INJECTION 600 MG in NS 190 ML IV ONE
[2021-02-03 06:47] VITALS: BP 135/77
[2021-02-03] MEDS ORDERED: ACETAMINOPHEN 650MG PO PRIOR TO INFUSION PO ONE (07:05)
[2021-02-03] MEDS ORDERED: NS 1,000 ML IV SCH (07:05)
[2021-02-03] MEDS ORDERED: diphenhydrAMINE 25MG PO PRIOR TO INFUSION PO ONE (07:05)
[2021-02-03] MEDS ORDERED: inFLIXimab INJECTION 600 MG in NS 190 ML IV ONE (07:05)
[2021-02-03 08:30] VITALS: BP 141/71
[2021-02-03 09:30] VITALS: BP 120/81
== END 2021-02-03 09:30 | disposition home or self-care (01) ==
LOC: M INFU 06:26
PROVIDERS: ATTEND Student in an Organized Health Care Education/Training Program
DX: K50.00 Crohn's disease of small intestine without complications (principal); Z91.040 Latex allergy status; Z88.8 Allergy status to other drugs, medicaments and biological substances
CPT/HCPCS: 96413; J1745

== ENCOUNTER 2021-03-30 13:15 | Emergency (ER) | payer OTHER ==
[~2021-03-30] VITALS: Ht 162.6 cm; Wt 133.9 kg
--- OUTSIDE RECORDS SUMMARY | 2021-03-30 13:22 | CCD | Continuity of Care Document ---
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 08/12/2015 Thimerosal Unable to assess criticality 02/16/2018 Blue Dyes (Parenteral) Unable to assess criticality Hives 03/30/2019 Dermabon Unable to assess criticality Hives 03/30/2019 Medications Active Medications SIG Qnty Indications Ordering Provide r Date Hydrochlorothiazide 25mg Tablets take one tablet by mouth every day 30tabs Otto Shepherd D.O., FAAFP 07/18/2017 Remicade 100mg Solution Rec q 8 weeks Unknown Deblitane 0.35mg Tablets Production Machine Operator Unknown Pantoprazole Sodium 20mg Tablets D R 1 by mouth bid x30 days [facility] ER Unknown 0000 Sucralfate 1GM/10ML Suspension 10 milliliters by mouth twice a day x 6 Days [facility] ER Unknown Medications Administered in Office Medication SIG Qnty Indications Ordering Provider Date Injection (SC)/(Im) Injection Armen Bernstein, SINCERE 03/30/2016 Injection (SC)/(Im) Injection Abraham Husain M.D. 04/09/2014 Injection (SC)/(Im) Injection Ivette Ambriz D., HOT AIR FURNACE INSTALLER AND REPAIRER-C 02/27/2014 Injection (SC)/(Im) Injection Anjum Ernandez . M.D 08/31/2011 Immunizations CPT Code Status Date Vaccine Reaction Lot # 30171 Given 03/31/2017 Influenza Virus Vaccine, Quadrivalent, Slit Virus, Im Use 3Y & Up [id number] Given 10/07/2015 Tdap Tetanus,Dip htheria Toxoids/Acellular Pertussis 7Yrs Or Older [id number] 80195 Given 10/25/2014 PPD Tuberculosis Intradermal 48877 Given 04/09/2014 Influenza Virus Vac. Split Virus Individuals 3 Years And Above [id number] Refused 02/07/2019 Influenza Virus Vaccine, Quadrivalent, Slit Virus, Im Use 3Y & Up ALLERGY TO THIMEROSAL [id number] Refused 03/05/2016 Influenza Virus Vaccine, Quadrivalent, Slit Virus, Im Use 3Y & Up [id number] Refused 01/29/2015 Influenza Virus Vac. Split Virus Individuals 3 Years And Above Vital Signs Date Vital Result Comment 01/16/2021 3:49pm BP Systolic 118 mmHg BP Diastolic 80 mmHg Body Temperature 98.0 F Heart Rate 86 /min Respiratory Rate 16 /min Height 68 inches 5'8" Weight 284.00 lb [place] Body Weight 140 lb BMI (Body Mass Index) 43.2 kg/m2 O2 % BldC Oximetry 99 % 06/10/2020 1:06pm BP Systolic 126 mmHg BP Diastolic 74 mmHg Body Temperature 96.6 F Heart Rate 88 /min Respiratory Rate 16 /min Height 68 inches 5'8" Weight 283.00 lb [place] Body Weight 140 lb BMI (Body Mass Index) 43.0 kg/m2 O2 % BldC Oximetry 98 % Results Test Acquired Date Facility Test Result H/L Range Note Covid-19 12/25/2020 [place] [address] [phone] Sars-CoV-2, Arlene Not Detected Not Detected 1, 2 Sars-CoV-2, Arlene 2 Day Tat Performed Infliximab Level & Antibody 12/08/2020 [facility] dical (Interface) [phone] Infliximab Drug Level 8.9 ug/mL Normal . 3 Anti-Infliximab Antibody <22 ng/mL Normal . 4 Liver Profile 12/01/2020 [facility] (I nterface) [phone] Ast/Sgot 12 U/L Normal 7-37 Alt/SGPT 28 U/L Normal 12-78 Alkaline Phosphatase 68 U/L Normal 45-117 Bilirubin,Total 0.5 mg/dL Normal 0.2-1.0 Bilirubin,Direct 0.1 mg/dL Normal 0.0-0.2 Total Protein 7.2 GM/DL Normal 6.4-8.2 Albumin 3.8 GM/DL Normal 3.2-5.2 Albumin/Globulin Ratio 1.1 Low 1.2-2.2 Basic Metabolic Profile 12/01[facility] ([facility] [phone] Glucose, Fasting 74 mg/dL Normal 70-100 Blood Urea Nitrogen 13 mg/dL Normal 7-18 Creatinine For GFR 0.78 mg/dL Normal 0.55-1.30 Glomerular Filtration Rate > 60.0 Normal >58 5 Sodium Level 140 mEq/L Normal 136-145 Potassium Serum 3.6 mEq/L Normal 3.5-5.1 Chloride Level 105 mEq/L Normal 98-107 Carbon Dioxide Level 31 mEq/L Normal 21-32 Anion Gap 4 mEq/L Low 8-16 Calcium Level 9.1 mg/dL Normal 8.5-10.1 Laboratory test finding [facility] (Interface) [phone] C Reactive Protein Quantitativ 0.52 mg/dL High 0 .00-0.30 CBC With Differential 12/01/2020 [facility] (Interface) [phone] White Blood Count 7.6 10 Normal 4.0-10.0 Red Blood Count 5.53 10 High 4.00-5.40 Hemoglobin 16.3 g/dL High 12.0-15.5 Hematocrit 49.8 % High 36.0-47.0 Mean Corpuscular Volume 90.1 fl Normal 80.0-96.0 Mean Corpuscular Hemoglobin 29.5 pg Normal 27.0-33.0 Mean Corpuscular HGB Conc 32.7 g/dL Normal 32.0-36.5 Red Cell Distribution Width 12.6 % Normal 11.5-14.5 Platelet Count, Automated 323 10 Normal 150-450 Neutrophils % 50.2 % Normal 36.0-66.0 Lymph % 39.5 % Normal 24.0-44.0 [place] % 6.1 % Normal 2.0-8.0 Eos % 2.8 % Normal 0.0-3.0 Baso % 0.9 % Normal 0.0-1.0 Immature Granulocyte % 0.5 % Normal 0-3.0 Nucleated Red Blood Cell % 0.0 % Normal 0-0 Neutrophils # 3.8 10 Normal 1.5-8.5 Lymph # 3.0 10 Normal 1.5-5.0 [place] # 0.5 10 Normal 0.0-0.8 Eos # 0.2 10 Normal 0.0-0.5 Baso # 0.1 10 Normal 0.0-0.2 Laboratory test finding 12/01/2020 [facility] (Interface) [phone] Erythrocyte Sedimentation Rate 4 mm/hr Normal 0 -20 1 .~.~J02.9 2 This nucleic acid amplificat ion test was developed and its performance characteristics determined by [employer]. Nucleic acid amplification tests include RT-PCR and TMA. This test has not been FDA cleared or approved. This test has been authorized by FDA under an Emergency Use Authorization (EUA). This test is only authorized for the duration of time the declaration that circumstances exist justifying the authorization of the emergency use of in vitro diagnostic tests for detection of SARS-CoV-2 virus and/or diagnosis of COVID-19 infection under section 564(b)(1) of the Act, 21 U.S.C. 360bbb-3(b) (1), unless the authorizatio n is terminated or revoked sooner. When diagnostic testing is negative, the possibility of a false negative result should be considered in the context of a patient's recent exposures and the presence of clinical signs and symptoms consistent with COVID-19. An individual without symptoms of COVID-19 and who is not shedding SARS-CoV-2 virus would expect to have a negative (not detected) result in this assay. 3 Quantitation Limit: <0.4 ug/ mL Results of 0.4 or higher indicate detection of infliximab. Comments: - The optimal drug concentration depends upon patient-specific factors including the disease and desired therapeutic endpoint. - Maintenance trough concentrations >=5 may be associated with higher remission rates.(1) - In severe CD, higher trough levels (>1 0) may be necessary to achieve fistula healing.(2) - In rheumatoid arthritis, EULAR respond ers had higher median trough levels (3.6) than non-responders (0.5).(3) - This assay measures the antibody-unbou nd (free) fraction of infliximab when serum anti-infliximab antibodies are present. 4 Interpretation: The above result is an UNDETECTED Antibody titer. Quantitation Limit: <22 ng/mL. Results of 22 or higher indicate detection of anti- infliximab antibodies. 22 - 200 ng/mL: LOW titer 201 - 1,000 ng/mL: INTERMEDIATE titer 1,001 or greater ng/mL: HIGH titer Comments: - Anti-drug antibody levels should be in terpreted in the context of the concomitant free drug trough concentration. - Low titer anti-drug antibodies may be transient while high titers are likely to be more consequential.(4-6) - Some immunogenicity is reversible. Yvonne mination of intermediate titer (and even some high titer) anti-infliximab antibodies has been achieved with dose escalation and/or methotrexate or 6-MP.(7) - Maintenance of drug levels greater sue n 3 ug/mL may reduce the risk of developing anti-drug antibodies.(8) - This anti-infliximab antibody assay is drug tolerant, and all positive results are verified for anti-drug specificity by a confirmatory test. References: 1. Holly Duenas et al. AGA Review on TDM in IBD. Gastroenterol 2017;153:835-857. 2. Ian A, et al. Gastroenterol 2016;15 0(4):O360-C068. 3. Halima GJ, et al. Alethea Rheum Dis 2005 ;64:704-707. 4. Chelsey Sol et al. Inflamm Bowel Di s 2012;18(12): 1663-8113. 5. Holly N, et al. Am J Gastroen terol 2013;108: 962-971. 6. Ji H et al. Clin Gastroenterol He patol 2015;13(3): 522-530. 7. Tammy A, et al. Gastroenterol 2019;156(6):S-617. 8. Imani JF, et al. Gastroenterol 2016 ;150(4):S144. 9. Sweta Mendez, et al. AAPS Journal 2016 DO I:10.1208/ [id number]. These tests were developed and their performance characteristics determined by [employer]. They have not been cleared or approved by the Food and Drug Administration. However, these electrochemiluminescence immunoassay (ECLIA) measurements of infliximab and anti-infliximab antibody (constituting DoseASSURE IFX) have been developed and validated in accordance with CLIA (Clinical Laboratory Improvement Amendments) and the FDA Guidance document, Assay Development and Validation for Immunogenicity Testing of Therapeutic Protein Products (2019). 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 Procedures Date Code Description Status 01/16/2021 03112 Office/Outpatient Established Mo d MDM 30-39 Min Completed Medical Devices Description No Information Available Encounters Type Date Location Provider Dx Diagnosis Office Visit 01/16/2021 3:45p [place] [facility] Armen Bernstein, RP A I10 Essential (primary) hypertension K50.00 Crohn's disease of small int estine without complications E55.9 Vitamin D deficiency, unspec ified Assessments Date Code Description Provider 01/16/2021 I10 Essential (primary) hypertension Armen Bernstein, RPA 01/16/2021 K50.00 Crohn's disease of small intesti ne without complications Armen Bernstein, SINCERE 01/16/2021 E55.9 Vitamin D deficiency, unspecifie d Armen Bernstein, RPA Plan of Treatment No Information Available Functional Status Description No Information Available Mental Status Description No Information Available Referrals Description No Information Available
--- OUTSIDE RECORDS SUMMARY | 2021-03-30 13:22 | CCD | Continuity of Care Document ---
Author Author Mallory BERNSTEIN [facility] Organization Unknown Address 3 [facility] [address] [place] [address] Phone [phone] Problems Active Problems Provider Date Non-toxic uninodular goiter Armen Bernstein RPA Onset: Vitamin D deficiency Armen Bernstein RPA Onset: 5 Migraine with typical aura Armen Bernstein RPA Onset: Essential hypertension Armen Bernstein RPA Onset: 015 Crohn's disease of small intestine Armen Bernstein RPA On set: 03/05/2016 Obstructive sleep apnea of adult Ivette Ambriz D., GROUND WOOD SUPERVISOR-C Onset: 11/18/2017 Social History Type Date Description Comments Sex Unknown ETOH Use Never used alcohol Recreational Drug Use Never Used Drugs Tobacco Use Start: Unknown End: Unknown Patient is a former smoker Allergies and adverse reactions Active Allergies Criticality Reaction | Severity Comments Date Darvocet Unable to assess criticality 04/13/2010 Darjovannyn Unable to assess criticality 04/13/2010 Eva Unable to assess criticality GI cramping. 08/12/2015 Thimerosal Unable to assess criticality 02/16/2018 Blue Dyes (Parenteral) Unable to assess criticality Hives 03/30/2019 Dermabon Unable to assess criticality Hives 03/30/2019 Medications Active Medications SIG Qnty Indications Ordering Provide r Date Valtrex 1gm Tablets 2 pills by mouth now and 2 in 12 hours 4tabs Otto Shepherd D.O., FAAFP 1 05/27/2020 Hydrochlorothiazide 25mg Tablets take one tablet by mouth every day 30tabs Otto Shepherd D.O., FAAFP 07/18/2017 Remicade 100mg Solution Rec q 8 weeks Unknown Deblitane 0.35mg Tablets Head Teacher Unknown Pantoprazole Sodium 20mg Tablets D R 1 by mouth bid x30 days [facility] ER Unknown Sucralfate 1GM/10ML Suspension 10 milliliters by mouth twice a day x 6 Days [facility] ER Unknown Medications Administered in Office Medication SIG Qnty Indications Ordering Provider Date Injection (SC)/(Im) Injection Armen Bernstein, SINCERE 03/30/2016 Injection (SC)/(Im) Injection Abraham Husain M.D. 04/09/2014 Injection (SC)/(Im) Injection Ivette Ambriz D., GROUND WOOD SUPERVISOR-C 02/27/2014 Injection (SC)/(Im) Injection Anjum Ernandez . M.D 08/31/2011 Immunizations CPT Code Status Date Vaccine Reaction Lot # 30359 Given 03/31/2017 Influenza Virus Vaccine, Quadrivalent, Slit Virus, Im Use 3Y & Up [id number] 49104 Given 10/07/2015 Tdap Tetanus,Dip htheria Toxoids/Acellular Pertussis 7Yrs Or Older [id number] 65342 Given 10/25/2014 PPD Tuberculosis Intradermal 98602 Given 04/09/2014 Influenza Virus Vac. Split Virus Individuals 3 Years And Above [id number] Refused 02/07/2019 Influenza Virus Vaccine, Quadrivalent, Slit Virus, Im Use 3Y & Up ALLERGY TO THIMEROSAL 20652 Refused 03/05/2016 Influenza Virus Vaccine, Quadrivalent, Slit Virus, Im Use 3Y & Up [id number] Refused 01/29/2015 Influenza Virus Vac. Split Virus Individuals 3 Years And Above Vital Signs Date Vital Result Comment 03/26/2021 1:20pm BP Systolic 104 mmHg BP Diastolic 62 mmHg Body Temperature 97.2 F Heart Rate 90 /min Respiratory Rate 16 /min Height 68 inches 5'8" Weight 300.00 lb [place] Body Weight 140 lb BMI (Body Mass Index) 45.6 kg/m2 O2 % BldC Oximetry 98 % 01/16/2021 3:49pm BP Systolic 118 mmHg BP Diastolic 80 mmHg Body Temperature 98.0 F Heart Rate 86 /min Respiratory Rate 16 /min Height 68 inches 5'8" Weight 284.00 lb [place] Body Weight 140 lb BMI (Body Mass Index) 43.2 kg/m2 O2 % BldC Oximetry 99 % Results Test Acquired Date Facility Test Result H/L Range Note HSV 1 And 2 -Spec AB, Igg W/RFX 03/26/2021 [facility] [place] HSV 1 IgG, Type Spec 29.30 index High 0.00-0.90 1 HSV 2 IgG, Type Spec <0.91 index 0.00-0.90 2 Laboratory test finding 02/09/2021 [facility] [place] [address] [phone] Coronavirus Covid-19 Not Detected Not Dete cted 3, 4 Covid-19 12/25/2020 [place] [address] (095) [phone] Sars-CoV-2, Arlene Not Detected Not Detected 5, 6 Sars-CoV-2, Arlene 2 Day Tat Performed Infliximab Level & Antibody 12/08/2020 [facility] dical (Interface) [phone] Infliximab Drug Level 8.9 ug/mL Normal . 7 Anti-Infliximab Antibody <22 ng/mL Normal . 8 Liver Profile 12/01/[address] [facility] (I nterface) [phone] Ast/Sgot 12 U/L Normal 7-37 Alt/SGPT 28 U/L Normal 12-78 Alkaline Phosphatase 68 U/L Normal 45-117 Bilirubin,Total 0.5 mg/dL Normal 0.2-1.0 Bilirubin,Direct 0.1 mg/dL Normal 0.0-0.2 Total Protein 7.2 GM/DL Normal 6.4-8.2 Albumin 3.8 GM/DL Normal 3.2-5.2 Albumin/Globulin Ratio 1.1 Low 1.2-2.2 Basic Metabolic Profile 12/01/2020 [facility] (Interface) [phone] Glucose, Fasting 74 mg/dL Normal 70-100 Blood Urea Nitrogen 13 mg/dL Normal 7-18 Creatinine For GFR 0.78 mg/dL Normal 0.55-1.30 Glomerular Filtration Rate > 60.0 Normal >58 9 Sodium Level 140 mEq/L Normal 136-145 Potassium Serum 3.6 mEq/L Normal 3.5-5.1 Chloride Level 105 mEq/L Normal 98-107 Carbon Dioxide Level 31 mEq/L Normal 21-32 Anion Gap 4 mEq/L Low 8-16 Calcium Level 9.1 mg/dL Normal 8.5-10.1 Laboratory test finding 12/01/2020 [facility] (Interface) [phone] C Reactive Protein Quantitativ 0.52 mg/dL High 0 .00-0.30 CBC With Differential 12/01/2020 [facility]) [phone] White Blood Count 7.6 10 Normal 4.0-10.0 [...] 36.0-66.0 Lymph % 39.5 % Normal 24.0-44.0 [place] % 6.1 % Normal 2.0-8.0 Eos % 2.8 % Normal 0.0-3.0 Baso % 0.9 % Normal 0.0-1.0 Immature Granulocyte % 0.5 % Normal 0-3.0 Nucleated Red Blood Cell % 0.0 % Normal 0-0 Neutrophils # 3.8 10 Normal 1.5-8.5 Lymph # 3.0 10 Normal 1.5-5.0 [place] # 0.5 10 Normal 0.0-0.8 Eos # 0.2 10 Normal 0.0-0.5 Baso # 0.1 10 Normal 0.0-0.2 Laboratory test finding 12/01/2020 [facility] (Interface) [phone] Erythrocyte Sedimentation Rate 4 mm/hr Normal 0 -20 1 Negative <0.91 Equivocal 0.91 - 1.09 Positive >1.09 Note: Negative indicates no antibodies detected to HSV-1. Equivocal may suggest early infection. If clinically appropriate, retest at later date. Positive indicates antibodies detected to HSV-1. 2 Negative <0.91 Equivocal 0.91 - 1.09 Positive >1.09 Note: Negative indicates no antibodies detected to HSV-2. Equivocal may suggest early infection. If clinically appropriate, retest at later date. Positive indicates antibodies detected to HSV-2. 3 .~.~Z11.52 4 This nucleic acid amplificat ion test was developed and its performance characteristics determined by [employer]. Nucleic acid amplification tests include RT-PCR and [...] negative (not detected) result in this assay. 5 .~.~J02.9 6 This nucleic acid amplificat ion test was developed and its performance characteristics determined by [employer]. Nucleic acid amplification tests include RT-PCR and [...] negative (not detected) result in this assay. 7 Quantitation Limit: <0.4 ug/ mL Results of [...] infliximab when serum anti-infliximab antibodies are present. 8 Interpretation: The above result is an UNDETECTED [...] 2. Ian A, et al. Gastroenterol 2016;15 0(4):L566-D357. 3. Halima GJ, et al. Alethea Rheum Dis 2005 ;64:704-707. 4. Chelsey Sol et al. Inflamm Bowel Di s 2012;18(12): 6171-4847. 5. Holly N, et al. Am J Gastroen terol 2013;108: 962-971. 6. Ji H et al. Clin Gastroenterol He patol 2015;13(3): 522-530. 7. Tammy A, et al. Gastroenterol 2019;156(6):S-617. 8. Imani JF, et al. Gastroenterol 2016 ;150(4):S144. 9. Sweta Mendez, et al. AAPS Journal 2016 DO I:10.1208/ [id number]. These tests were developed and their performance characteristics determined by [employer]. 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 Procedures Date Code Description Status 03/26/2021 30865 Office/Outpatient Established Lo w MDM 20-29 Min Completed 01/16/2021 36046 Office/Outpatient Established Mo d MDM 30-39 Min Completed Medical Devices Description No Information Available Encounters Type Date Location Provider Dx Diagnosis Office Visit 03/26/2021 1:30p [place] [facility] Armen Bernstein, RP A B00.9 Herpesviral infection, unspecified R53.83 Other fatigue Office Visit 01/16/2021 3:45p [place] [facility] Armen Bernstein, RP A I10 Essential (primary) hypertension K50.00 Crohn's disease of small int estine without complications E55.9 Vitamin D deficiency, unspec ified Assessments Date Code Description Provider 03/26/2021 B00.9 Herpesviral infection, unspecifi ed Armen Bernstein, RPA 03/26/2021 R53.83 Other fatigue Armen Bernstein, RPA 01/16/2021 I10 Essential (primary) hypertension Armen Bernstein, RPA 01/16/2021 K50.00 Crohn's disease of small intesti ne without complications Armen Bernstein, RPA 01/16/2021 E55.9 Vitamin D deficiency, unspecifie d Armen Bernstein, RPA Plan of Treatment No Information Available Functional Status Description No Information Available Mental Status Description No Information Available Referrals Description No Information Available
--- OUTSIDE RECORDS SUMMARY | 2021-03-30 13:22 | CCD | Continuity of Care Document ---
Author Author Mallory BERNSTEIN [facility] Organization Unknown Address [address] [facility] [address] [place] [address] Phone [phone] Problems Active Problems Provider Date Non-toxic uninodular goiter Armen Bernstein RPA Onset: Vitamin D deficiency Armen Bernstein RPA Onset: 5 Migraine with typical aura Armen Bernstein RPA Onset: Essential hypertension Armen Bernstein RPA Onset: 015 Crohn's disease of small intestine Armen Bernstein RPA On set: 03/05/2016 Obstructive sleep apnea of adult Ivette Ambriz D., INTERNAL CONTROLS ANALYST-C Onset: 11/18/2017 Social History Type Date Description [...] q 8 weeks Unknown Deblitane 0.35mg Tablets 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 04/09/2014 Injection (SC)/(Im) Injection Ivette Ambriz D., INTERNAL CONTROLS ANALYST-C 02/27/2014 Injection (SC)/(Im) Injection Anjum Ernandez . M.D 08/31/2011 Immunizations CPT Code Status Date Vaccine Reaction Lot # [id number] Given 03/31/2017 Influenza Virus Vaccine, Quadrivalent, Slit Virus, Im Use 3Y & Up [id number] Given 10/07/2015 Tdap Tetanus,Dip htheria Toxoids/Acellular Pertussis 7Yrs Or Older [id number] Given 10/25/2014 PPD Tuberculosis Intradermal 36754 Given 04/09/2014 Influenza Virus Vac. Split Virus Individuals 3 Years And Above [id number] Refused 02/07/2019 Influenza Virus Vaccine, Quadrivalent, Slit Virus, Im Use 3Y & Up ALLERGY TO THIMEROSAL [id number] Refused 03/05/2016 Influenza Virus Vaccine, Quadrivalent, Slit Virus, Im Use 3Y & Up [id number] Refused 01/29/2015 Influenza Virus Vac. Split Virus Individuals 3 Years And Above Vital Signs Date Vital Result Comment 03/26/2021 1:20pm BP Systolic 104 mmHg BP Diastolic 62 mmHg Body Temperature 97.2 F Heart Rate 90 /min Respiratory Rate 16 /min Height 68 inches 5'8" Weight 300.00 lb [place] Body Weight 140 lb BMI (Body Mass Index) 45.6 kg/m2 O2 % BldC Oximetry 98 % 01/16/2021 3:49pm BP Systolic 118 mmHg BP Diastolic 80 mmHg Body Temperature 98.0 F Heart Rate 86 /min Respiratory Rate 16 /min Height 68 inches 5'8" Weight 284.00 lb [place] Body Weight 140 lb BMI (Body Mass Index) 43.2 kg/m2 O2 % BldC Oximetry 99 % Results Test Acquired Date Facility Test Result H/L Range Note Laboratory test finding 02/09/2021 [facility] [place] [address] [phone] Coronavirus Covid-19 Not Detected Not Dete cted 1, 2 Covid-19 12/25/2020 [facility] [place] [address] [phone] Sars-CoV-2, Arlene Not Detected Not Detected 3, 4 Sars-CoV-2, Arlene 2 Day Tat Performed Infliximab Level & Antibody 12/08/2020 [facility] (Interface) [phone] Infliximab Drug Level 8.9 ug/mL Normal . 5 Anti-Infliximab Antibody <22 ng/mL Normal . 6 Liver Profile 12/01/2020 [facility] (I nterface) [phone] Ast/Sgot 12 U/L Normal 7-37 Alt/SGPT 28 U/L Normal 12-78 Alkaline Phosphatase 68 U/L Normal 45-117 Bilirubin,Total 0.5 mg/dL Normal 0.2-1.0 Bilirubin,Direct 0.1 mg/dL Normal 0.0-0.2 Total Protein 7.2 GM/DL Normal 6.4-8.2 Albumin 3.8 GM/DL Normal 3.2-5.2 Albumin/Globulin Ratio 1.1 Low 1.2-2.2 Basic Metabolic Profile 12/01/2020 [facility] (Interface) [phone] Glucose, Fasting 74 mg/dL Normal 70-100 Blood Urea Nitrogen 13 mg/dL Normal 7-18 Creatinine For GFR 0.78 mg/dL Normal 0.55-1.30 Glomerular Filtration Rate > 60.0 Normal >58 7 Sodium Level 140 mEq/L Normal 136-145 Potassium Serum 3.6 mEq/L Normal 3.5-5.1 Chloride Level 105 mEq/L Normal 98-107 Carbon Dioxide Level 31 mEq/L Normal 21-32 Anion Gap 4 mEq/L Low 8-16 Calcium Level 9.1 mg/dL Normal 8.5-10.1 Laboratory test finding 12/01/2020 [facility] ([facility]) [phone] C Reactive Protein Quantitativ 0.52 mg/dL High 0 .00-0.30 CBC With Differential 12/01/2020 [facility]) [phone] White Blood Count 7.6 10 Normal 4.0-10.0 [...] 36.0-66.0 Lymph % 39.5 % Normal 24.0-44.0 [place] % 6.1 % Normal 2.0-8.0 Eos % 2.8 % Normal 0.0-3.0 Baso % 0.9 % Normal 0.0-1.0 Immature Granulocyte % 0.5 % Normal 0-3.0 Nucleated Red Blood Cell % 0.0 % Normal 0-0 Neutrophils # 3.8 10 Normal 1.5-8.5 Lymph # 3.0 10 Normal 1.5-5.0 [place] # 0.5 10 Normal 0.0-0.8 Eos # 0.2 10 Normal 0.0-0.5 Baso # 0.1 10 Normal 0.0-0.2 Laboratory test finding 12/01/2020 [facility] (Interface) [phone] Erythrocyte Sedimentation Rate 4 mm/hr Normal 0 -20 1 .~.~Z11.52 2 This nucleic acid amplificat ion test was developed and its performance characteristics determined by [employer]. Nucleic acid amplification tests include RT-PCR and [...] (not detected) result in this assay. 3 .~.~J02.9 4 This nucleic acid amplificat ion test was developed and its performance characteristics determined by [employer]. Nucleic acid amplification tests include RT-PCR and [...] (not detected) result in this assay. 5 Quantitation Limit: <0.4 ug/ mL Results of [...] infliximab when serum anti-infliximab antibodies are present. 6 Interpretation: The above result is an UNDETECTED [...] by a confirmatory test. References: 1. Holly Duenas, et al. AGA Review on TDM in IBD. Gastroenterol 2017;153:835-857. 2. Yavangier A, et al. Gastroenterol 2016;15 0(4):B608-V787. 3. Wolbink GJ, et al. Alethea Rheum Dis 2005 ;64:704-707. 4. Chelsey C, et al. Inflamm Bowel Di s 2012;18(12): 2345-8094. 5. Holly Duenas, et al. Am J Gastroen terol 2013;108: 962-971. 6. Yanai H, et al. Clin Gastroenterol He patol 2015;13(3): 522-530. 7. Tammy A, et al. Gastroenterol 2019;156(6):S-617. 8. Imani MCDONALD, et al. Gastroenterol 2016 ;150(4):S144. 9. Sweta Mendez, et al. AAPS Journal 2016 DO I:10.1208/ [id number]. These tests were developed and their performance characteristics determined by [employer]. 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 COLLECTION INTERVIEWER Procedures Date Code Description Status 03/26/2021 61238 Office/Outpatient Established Lo w MDM 20-29 Min Completed 01/16/2021 77362 Office/Outpatient Established Mo d MDM 30-39 Min Completed Medical Devices Description No Information Available Encounters Type Date Location Provider Dx Diagnosis Office Visit 03/26/2021 1:30p [place] [facility] Armen Bernstein, RP A B00.9 Herpesviral infection, unspecified R53.83 Other fatigue Office Visit 01/16/2021 3:45p [place] [facility] Armen Bernstein, RP A I10 Essential [...] 01/16/2021 E55.9 Vitamin D deficiency, unspecifie d Day, Armen D, RPA Plan of Treatment No Information Available Functional Status Description No Information Available Mental Status Description No Information Available Referrals Description No Information Available
--- OUTSIDE RECORDS SUMMARY | 2021-03-30 13:22 | CCD | Continuity of Care Document ---
Author Author Mallory BERNSTEIN RPA Organization Unknown Address [address] [facility] [address] [place] [address] Phone [phone] Problems Active Problems Provider Date Non-toxic uninodular goiter Armen Bernstein RPA Onset: Vitamin D deficiency Armen Bernstein RPA Onset: 5 Migraine with typical aura Armen Bernstein RPA Onset: Essential hypertension Armen Bernstein RPA Onset: 015 Crohn's disease of small intestine Armen Bernstein RPA On set: 03/05/2016 Obstructive sleep apnea of adult Ivette Ambriz D., BARK FITTER-C Onset: 11/18/2017 Social History Type Date Description [...] q 8 weeks Unknown Deblitane 0.35mg Tablets Length Control Tester Unknown Pantoprazole Sodium 20mg Tablets D R 1 by mouth bid x30 days [facility] Unknown 0000 Sucralfate 1GM/10ML Suspension 10 milliliters by mouth twice a day x 6 Days [facility] Unknown Medications Administered in Office Medication SIG Qnty Indications Ordering Provider Date Injection (SC)/(Im) Injection Armen Bernstein, SINCERE 03/30/2016 Injection (SC)/(Im) Injection Abraham Husain M.D. 04/09/2014 Injection (SC)/(Im) Injection Ivette Ambriz D., BARK FITTER-C 02/27/2014 Injection (SC)/(Im) Injection Anjum Ernandez . M.D 08/31/2011 Immunizations CPT Code Status Date Vaccine Reaction Lot # [id number] Given 03/31/2017 Influenza Virus Vaccine, Quadrivalent, Slit Virus, Im Use 3Y & Up [id number] 72019 Given 10/07/2015 Tdap Tetanus,Dip htheria Toxoids/Acellular Pertussis 7Yrs Or Older [id number] 37130 Given 10/25/2014 PPD Tuberculosis Intradermal 66345 Given 04/09/2014 Influenza Virus Vac. Split Virus Individuals 3 Years And Above [id number] Refused 02/07/2019 Influenza Virus Vaccine, Quadrivalent, Slit Virus, Im Use 3Y & Up ALLERGY TO THIMEROSAL [id number] Refused 03/05/2016 Influenza Virus Vaccine, Quadrivalent, Slit Virus, Im Use 3Y & Up [id number] Refused 01/29/2015 Influenza Virus Vac. Split Virus Individuals 3 Years And Above Vital Signs Date Vital Result Comment 01/16/2021 3:49pm BP Systolic 118 mmHg BP Diastolic 80 mmHg Body Temperature 98.0 F Heart Rate 86 /min Respiratory Rate 16 /min Height 68 inches 5'8" Weight 284.00 lb [place] Body Weight 140 lb BMI (Body Mass Index) 43.2 kg/m2 O2 % BldC Oximetry 99 % 06/10/2020 1:06pm BP Systolic 126 mmHg BP Diastolic 74 mmHg Body Temperature 96.6 F Heart Rate 88 /min Respiratory Rate 16 /min Height 68 inches 5'8" Weight 283.00 lb [place] Body Weight 140 lb BMI (Body Mass Index) 43.0 kg/m2 O2 % BldC Oximetry 98 % Results Test Acquired Date Facility Test Result H/L Range Note Covid-19 12/25/2020 [place] [address] [phone] Sars-CoV-2, Arlene Not Detected Not Detected 1, 2 Sars-CoV-2, Arlene 2 Day Tat Performed Infliximab Level & Antibody 12/08/2020 [facility] (Interface) [phone] Infliximab Drug Level 8.9 ug/mL Normal . 3 Anti-Infliximab Antibody <22 ng/mL Normal . 4 Liver Profile 12/01/2020 [facility] (I nterface) [phone] Ast/Sgot 12 U/L Normal 7-37 Alt/SGPT 28 U/L Normal 12-78 Alkaline Phosphatase 68 U/L Normal 45-117 Bilirubin,Total 0.5 mg/dL Normal 0.2-1.0 Bilirubin,Direct 0.1 mg/dL Normal 0.0-0.2 Total Protein 7.2 GM/DL Normal 6.4-8.2 Albumin 3.8 GM/DL Normal 3.2-5.2 Albumin/Globulin Ratio 1.1 Low 1.2-2.2 Basic Metabolic Profile 12/01/[facility] (Interface[facility] [phone] Glucose, Fasting 74 mg/dL Normal 70-100 Blood [...] mg/dL Normal 8.5-10.1 Laboratory test finding 12/01[facility] (Interface) [phone] C Reactive Protein Quantitativ 0.52 mg/dL High 0 .00-0.30 CBC With Differential 12/01/2020 [facility] (Interface) [phone] White Blood Count 7.6 10 Normal 4.0-10.0 [...] 36.0-66.0 Lymph % 39.5 % Normal 24.0-44.0 [place] % 6.1 % Normal 2.0-8.0 Eos % 2.8 % Normal 0.0-3.0 Baso % 0.9 % Normal 0.0-1.0 Immature Granulocyte % 0.5 % Normal 0-3.0 Nucleated Red Blood Cell % 0.0 % Normal 0-0 Neutrophils # 3.8 10 Normal 1.5-8.5 Lymph # 3.0 10 Normal 1.5-5.0 [place] # 0.5 10 Normal 0.0-0.8 Eos # 0.2 10 Normal 0.0-0.5 Baso # 0.1 10 Normal 0.0-0.2 Laboratory test finding 12/01/2020 [facility] (Interface) [phone] Erythrocyte Sedimentation Rate 4 mm/hr Normal 0 -20 1 .~.~J02.9 2 This nucleic acid amplificat ion test was developed and its performance characteristics determined by [employer]. Nucleic acid amplification tests include RT-PCR and [...] 2. Ian A, et al. Gastroenterol 2016;15 0(4):T216-E527. 3. Halima GJ, et al. Alethea Rheum Dis 2005 ;64:704-707. 4. Chelsey Sol et al. Inflamm Bowel Di s 2012;18(12): 5352-3748. 5. Holly N, et al. Am J Gastroen terol 2013;108: 962-971. 6. Ji H et al. Clin Gastroenterol He patol 2015;13(3): 522-530. 7. Tammy A, et al. Gastroenterol 2019;156(6):S-617. 8. Imani JF, et al. Gastroenterol 2016 ;150(4):S144. 9. Sweta Mendez, et al. AAPS Journal 2016 DO I:10.1208/ [id number]. These tests were developed and their performance characteristics determined by [employer]. They have not been cleared or approved [...] these assays have been published.(9) Performed at: [facility] [address] [place] [address] [id number] Naphthalene Operator: Norman Chaney MD, Phone: [phone] Units are mL/min/1.73 m2 Chronic Kidney Disease Staging per NKF: Stage I & II GFR >=60 Normal to Mildly Decreased Stage III GFR 30-59 Moderately Decreased Stage IV GFR 15-29 Severely Decreased Stage V GFR <15 Very Little GFR Left ESRD GFR <15 on GLASS FITTER Procedures Date Code Description Status 01/16/2021 34168 Office/Outpatient Established Mo d MDM 30-39 Min Completed Medical Devices Description No Information Available Encounters Type Date Location Provider Dx Diagnosis Office Visit 01/16/2021 3:45p [place] [facility] Armen Bernstein, RP A I10 Essential [...]
--- OUTSIDE RECORDS SUMMARY | 2021-03-30 13:22 | CCD | Continuity of Care Document ---
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 Phone Otto Shepherd DO AUT[facility] Unavailable Problems Description No Information Available Social History Type Date Description Comments Sex Unknown Tobacco Use Start: Unknown Never Used Smokeless Tobacco Tobacco Use Start: Unknown Patient has never smoked Allergies and adverse reactions Active Allergies Criticality Reaction | Severity Comments Date Thimerosal Unable to assess criticality 05/22/2020 FD&C Blue #1 Aluminum Rabago Unable to assess criticality 05/22/2020 Propoxyphene Unable to assess criticality 12/25/2020 Medications Active Medications SIG Qnty Indications Ordering Provide r Date Azithromycin 250mg Tablets take 2 tablets today , then 1 tablet for the next 4 days. 6tabs J06.9 Reva ulloa MD 02/09/2021 Fluconazole 150mg Tablets 1 tablet by mouth every 72 hours x 2 doses. 3tabs J06.9 Reva Silveira MD 02/09/2021 Hydrochlorothiazide 12.5mg Tablets 1 by mouth every day Unknown Deblitane 0.35mg Tablets 1 by mouth every day Unknown Vitamin D 50mcg (1999 Ut) Capsules 1 by mouth every day Unknown Remicade 100mg Solution Rec Unknown Immunizations Description No Information Available Vital Signs Date Vital Result Comment 02/09/2021 5:19pm BP Systolic 146 mmHg BP Diastolic 105 mmHg Heart Rate 84 /min Body Temperature 98.1 F O2 % BldC Oximetry 99 % 12/25/2020 9:03am Heart Rate 77 /min Body Temperature 98.2 F O2 % BldC Oximetry 97 % Results Test Acquired Date Facility Test Result H/L Range Note Laboratory test finding 02/09/2021 Amy Jacob l Covid-19 <pending> Procedures Date Code Description Status 02/09/2021 71391 Office/Outpatient Established SF MDM 10-19 Min Completed 02/09/2021 87185 Pulse Oximetry Single Determinat ion Completed 12/25/2020 29414 Office/Outpatient Established Lo w MDM 20-29 Min Completed Medical Devices Description No Information Available Encounters Type Date Location Provider Dx Diagnosis Office Visit 02/09/2021 5:00p [facility] Laura Chen PA-C J0 6.9 Acute upper respiratory infection, unspecified Z11.52 Encounter for screening for Covid-19 Assessments Date Code Description Provider 02/09/2021 J06.9 Acute upper respiratory infectio n, unspecified Laura Chen PA-C 02/09/2021 Z11.52 Encounter for screening for Covi d-19 Laura Chen PA-C 12/25/2020 J06.9 Acute upper respiratory infectio n, unspecified Zaire Mars NP Plan of Treatment 02/09/2021 - Laura Chen PA-C* J06.9 Acute upper respiratory infection, unspecified* New Medication:* Azithromycin 250 mg - take 2 tablets today , then 1 tablet for the next 4 days. * Fluconazole 150 mg - 1 tablet by mouth every 72 hours x 2 doses. * Follow up:* Return to clinic if cough persists for more than 8-10 days or worsening of symptoms. Go to the ER if patient has any difficulty breathing or temperature greater than 102F * Recommendations:* Use Tylenol or ibuprofen every 4 hours as directed for temperature of 100.4F or greater. * Instructions:* Ensure frequent hydration and rest. Use humidifier in bedroom and/or steam in the bathroom to decrease nasal congestion. * Z11.52 Encounter for screening for Covid-19 Functional Status Description No Information Available Mental Status Description No Information Available Referrals Description No Information Available"
--- OUTSIDE RECORDS SUMMARY | 2021-03-30 13:23 | CCD ---
Author Author [facility] Organization [facility] Address Unknown Phone Unavailable Care Team Providers Care Stopper Maker Helper Name Role Phone BELLE WASHINGTON MD Unavailable Unavailable PADMINIBELLE MD Unavailable Unavailable PADMINIBELLE MD Unavailable Unavailable PADMINIBELLE MD Unavailable Unavailable PADMINIBELLE MD Unavailable Unavailable PADMINIBELLE MD Unavailable Unavailable PADMINIBELLE Villanueva MD Unavailable Unavailable PADMINIBELLE Villanueva MD Unavailable Unavailable PADMINIBELLE MD Unavailable Unavailable PADMINIBELLE MD Unavailable Unavailable PADMINIBELLE MD Unavailable Unavailable PADMINI, BELLE BROWN Unavailable Unavailable PADMINI, BELLE BROWN Unavailable Unavailable PADMINI, BELLE BROWN Unavailable Unavailable PADMINI, BELLE BROWN Unavailable Unavailable PADMINI, BELLE BROWN Unavailable Unavailable PADMINI, BELLE BROWN Unavailable Unavailable PADMINI, BELLE BROWN Unavailable Unavailable PADMINI, BELLE BROWN Unavailable Unavailable PADMINI, BELLE BROWN Unavailable Unavailable PADMINI, BELLE BROWN Unavailable Unavailable PADMINI, BELLE BROWN Unavailable Unavailable PADMINI, BELLE BROWN Unavailable Unavailable PADMINI, BELLE BROWN Unavailable Unavailable PADMINI, BELLE BROWN Unavailable Unavailable PADMINI, BELLE BROWN Unavailable Unavailable PADMINI, BELLE BROWN Unavailable Unavailable PADMINI, BELLE BROWN Unavailable Unavailable PADMINI, BELLE BROWN Unavailable Unavailable PADMINI, BELLE BROWN Unavailable Unavailable PADMINI, BELLE BROWN Unavailable Unavailable PADMINI, BELLE BROWN Unavailable Unavailable PADMINI, BELLE BROWN Unavailable Unavailable PADMINI, BELLE BROWN Unavailable Unavailable PADMINI, BELLE BROWN Unavailable Unavailable PADMINI, BELLE BROWN Unavailable Unavailable PADMINI, BELLE BROWN Unavailable Unavailable PADMINI, BELLE BROWN Unavailable Unavailable PADMINI, BELLE BROWN Unavailable Unavailable PADMINI, BELLE BROWN Unavailable Unavailable PADMINI, BELLE BROWN Unavailable Unavailable PADMINI, BELLE BROWN Unavailable Unavailable PADMINI, BELLE BROWN Unavailable Unavailable PADMINI, BELLE BROWN Unavailable Unavailable PADMINI, BELLE BROWN Unavailable Unavailable PADMINI, BELLE BROWN Unavailable Unavailable PADMINI, BELLE BROWN Unavailable Unavailable PADMINI, BELLE BROWN Unavailable Unavailable PADMINI, BELLE BROWN Unavailable Unavailable PADMINI, BELLE BROWN Unavailable Unavailable PADMINI, BELLE BROWN Unavailable Unavailable PADMINI, BELLE BROWN Unavailable Unavailable PADMINI, BELLE BROWN Unavailable Unavailable PADMINI, BELLE BROWN Unavailable Unavailable PADMINI, BELLE BROWN Unavailable Unavailable PADMINI, BELLE BROWN Unavailable Unavailable PADMINI, BELLE BROWN Unavailable Unavailable PADMINI, BELLE BROWN Unavailable Unavailable PADMINI, BELLE BROWN Unavailable Unavailable PADMINI, BELLE BROWN Unavailable Unavailable PADMINI, BELLE BROWN Unavailable Unavailable Barraclough, M Delores PA Unavailable Unavailable Barraclough, M Delores PA Unavailable Unavailable Barraclough, M Delores PA Unavailable Unavailable Barraclough, M Delores PA Unavailable Unavailable Barraclough, M Delores PA Unavailable Unavailable Barraclough, M Delores PA Unavailable Unavailable Barraclough, M Delores PA Unavailable Unavailable BUMBANAC, A STAR FILM PROCESSING SUPERVISOR Unavailable Unavailable BUMBANAC, A STAR FILM PROCESSING SUPERVISOR Unavailable Unavailable BUMBANAC, A STAR FILM PROCESSING SUPERVISOR Unavailable Unavailable BUMBANAC, A STAR FILM PROCESSING SUPERVISOR Unavailable Unavailable BUMBANAC, A STAR FILM PROCESSING SUPERVISOR Unavailable Unavailable BUMBANAC, A STAR FILM PROCESSING SUPERVISOR Unavailable Unavailable BUMBANAC, A STAR FILM PROCESSING SUPERVISOR Unavailable Unavailable BUMBANAC, A STAR FILM PROCESSING SUPERVISOR Unavailable Unavailable BUMBANAC, A STAR FILM PROCESSING SUPERVISOR Unavailable Unavailable BUMBANAC, A STAR FILM PROCESSING SUPERVISOR Unavailable Unavailable BUMBANAC, A STAR FILM PROCESSING SUPERVISOR Unavailable Unavailable BUMBANAC, A STAR FILM PROCESSING SUPERVISOR Unavailable Unavailable BUMBANAC, A STAR FILM PROCESSING SUPERVISOR Unavailable Unavailable BUMBANAC, A STAR FILM PROCESSING SUPERVISOR Unavailable Unavailable BUMBANAC, A STAR FILM PROCESSING SUPERVISOR Unavailable Unavailable BUMBANAC, A STAR FILM PROCESSING SUPERVISOR Unavailable Unavailable BUMBANAC, A STAR FILM PROCESSING SUPERVISOR Unavailable Unavailable BUMBANAC, A STAR FILM PROCESSING SUPERVISOR Unavailable Unavailable BUMBANAC, A STAR FILM PROCESSING SUPERVISOR Unavailable Unavailable BUMBANAC, A STAR FILM PROCESSING SUPERVISOR Unavailable Unavailable BUMBANAC, A STAR FILM PROCESSING SUPERVISOR Unavailable Unavailable BUMBANAC, A STAR FILM PROCESSING SUPERVISOR Unavailable Unavailable BUMBANAC, A STAR FILM PROCESSING SUPERVISOR Unavailable Unavailable BUMBANAC, A STAR FILM PROCESSING SUPERVISOR Unavailable Unavailable BUMBANAC, A STAR FILM PROCESSING SUPERVISOR Unavailable Unavailable BUMBANAC, A STAR FILM PROCESSING SUPERVISOR Unavailable Unavailable BUMBANAC, A STAR FILM PROCESSING SUPERVISOR Unavailable Unavailable BUMBANAC, A STAR FILM PROCESSING SUPERVISOR Unavailable Unavailable BUMBANAC, A STAR FILM PROCESSING SUPERVISOR Unavailable Unavailable BUMBANAC, A STAR FILM PROCESSING SUPERVISOR Unavailable Unavailable BUMBANAC, A STAR FILM PROCESSING SUPERVISOR Unavailable Unavailable DJOUINI, NAVNEET PA-C Unavailable Unavailable DJOUINI, NAVNEET PA-C Unavailable Unavailable DJOUINI, NAVNEET PA-C Unavailable Unavailable DJOUINI, NAVNEET PA-C Unavailable Unavailable DJOUINI, NAVNEET PA-C Unavailable Unavailable DJOUINI, NAVNEET PA-C Unavailable Unavailable ABIMBOLAOUINI, NAVNEET PA-C Unavailable Unavailable Kay PORTER MD Unavailable Unavailable [...] Unavailable Unavailable Kay PORTER MD Unavailable Unavailable DJOUINI, NAVNEET PA-C Unavailable Unavailable DJOUINI, NAVNEET PA-C Unavailable Unavailable DJOUINI, NAVNEET PA-C Unavailable Unavailable DJOUINI, NAVNEET PA-C Unavailable Unavailable DJOUINI, NAVNEET PA-C Unavailable Unavailable DJOUINI, NAVNEET PA-C Unavailable Unavailable BUMBANAC, A STAR FILM PROCESSING SUPERVISOR Unavailable Unavailable BUMBANAC, A STAR FILM PROCESSING SUPERVISOR Unavailable Unavailable BUMBANAC, A STAR FILM PROCESSING SUPERVISOR Unavailable Unavailable BUMBANAC, A STAR FILM PROCESSING SUPERVISOR Unavailable Unavailable BUMBANAC, A STAR FILM PROCESSING SUPERVISOR Unavailable Unavailable BUMBANAC, A STAR FILM PROCESSING SUPERVISOR Unavailable Unavailable BUMBANAC, A STAR FILM PROCESSING SUPERVISOR Unavailable Unavailable BUMBANAC, A STAR FILM PROCESSING SUPERVISOR Unavailable Unavailable BUMBANAC, A STAR FILM PROCESSING SUPERVISOR Unavailable Unavailable BUMBANAC, A STAR FILM PROCESSING SUPERVISOR Unavailable Unavailable BUMBANAC, A STAR FILM PROCESSING SUPERVISOR Unavailable Unavailable BUMBANAC, A STAR FILM PROCESSING SUPERVISOR Unavailable Unavailable BUMBANAC, A STAR FILM PROCESSING SUPERVISOR Unavailable Unavailable BUMBANAC, A STAR FILM PROCESSING SUPERVISOR Unavailable Unavailable BUMBANAC, A STAR FILM PROCESSING SUPERVISOR Unavailable Unavailable BUMBANAC, A STAR FILM PROCESSING SUPERVISOR Unavailable Unavailable BUMBANAC, A STAR FILM PROCESSING SUPERVISOR Unavailable Unavailable BUMBANAC, A STAR FILM PROCESSING SUPERVISOR Unavailable Unavailable BUMBANAC, A STAR FILM PROCESSING SUPERVISOR Unavailable Unavailable BUMBANAC, A STAR FILM PROCESSING SUPERVISOR Unavailable Unavailable BUMBANAC, A STAR FILM PROCESSING SUPERVISOR Unavailable Unavailable BUMBANAC, A STAR FILM PROCESSING SUPERVISOR Unavailable Unavailable BUMBANAC, A STAR FILM PROCESSING SUPERVISOR Unavailable Unavailable BUMBANAC, A STAR FILM PROCESSING SUPERVISOR Unavailable Unavailable BUMBANAC, A STAR FILM PROCESSING SUPERVISOR Unavailable Unavailable BUMBANAC, A STAR FILM PROCESSING SUPERVISOR Unavailable Unavailable BUMBANAC, A STAR FILM PROCESSING SUPERVISOR Unavailable Unavailable BUMBANAC, A STAR FILM PROCESSING SUPERVISOR Unavailable Unavailable BUMBANAC, A STAR FILM PROCESSING SUPERVISOR Unavailable Unavailable BUMBANAC, A STAR FILM PROCESSING SUPERVISOR Unavailable Unavailable BUMBANAC, A STAR FILM PROCESSING SUPERVISOR Unavailable Unavailable Cata Lino MD Unavailable Unavailable Cata Lino MD Unavailable Unavailable Cata Lino MD Unavailable Unavailable Cata Lino MD Unavailable Unavailable Cata Lino MD Unavailable Unavailable Cata Lino MD Unavailable Unavailable Cata Lino MD Unavailable Unavailable Cata Lino MD Unavailable Unavailable Cata Lino MD Unavailable Unavailable Cata Lino MD Unavailable Unavailable Cata Lino MD Unavailable Unavailable Cata Lino MD Unavailable Unavailable Cata Lino MD Unavailable Unavailable Cata Lino MD Unavailable Unavailable Cata Lino MD Unavailable Unavailable Cata Lino MD Unavailable Unavailable Lino, M Froylan MD Unavailable Unavailable Lino, M Froylan MD Unavailable Unavailable Lino, M Froylna MD Unavailable Unavailable Lino, M Froylan MD Unavailable Unavailable Lino, M Froylan MD Unavailable Unavailable Lino, M Froylan MD Unavailable Unavailable Lino, M Froylan MD Unavailable Unavailable Lino, M Froylan MD Unavailable Unavailable Lino, M Froylan MD Unavailable Unavailable Lino, M Froylan MD Unavailable Unavailable Lino, M Froylan MD Unavailable Unavailable Lino, M Froylan MD Unavailable Unavailable Lino, M Froylan MD Unavailable Unavailable Lino, M Froylan MD Unavailable Unavailable Lino, M Froylan MD Unavailable Unavailable Lino, M Froylan MD Unavailable Unavailable Lino, M Froylan MD Unavailable Unavailable Lino, M Froylan MD Unavailable Unavailable Lino, M Froylan MD Unavailable Unavailable Lino, M Froylan MD Unavailable Unavailable Lino, M Froylan MD Unavailable Unavailable Lino, M Froylan MD Unavailable Unavailable Lino, M Froylan MD Unavailable Unavailable Lino, M Froylan MD Unavailable Unavailable Lino, M Froylan MD Unavailable Unavailable Lino, M Froylan MD Unavailable Unavailable Lino, M Froylan MD Unavailable Unavailable Lino, M Froylan MD Unavailable Unavailable Lion, M Froylan MD Unavailable Unavailable Lino, M Froylan MD Unavailable Unavailable Ilno, M Froylan MD Unavailable Unavailable Lino, M Froylan MD Unavailable Unavailable Lino, M Froylan MD Unavailable Unavailable Lino, M Froylan MD Unavailable Unavailable Lino, M Froylan MD Unavailable Unavailable Lino, M Froylan MD Unavailable Unavailable Lino, M Froylan MD Unavailable Unavailable Lino, M Froylan MD Unavailable Unavailable Lino, M Froylan MD Unavailable Unavailable Lino, M Froylan MD Unavailable Unavailable Lino, M Froylan MD Unavailable Unavailable Lino, M Froylan MD Unavailable Unavailable Lino, M Froylan MD Unavailable Unavailable Lino, M Froylan MD Unavailable Unavailable Lino, M Froylan MD Unavailable Unavailable Lino, M Froylan MD Unavailable Unavailable Lino, M Froylan MD Unavailable Unavailable Lino, M Froylan MD Unavailable Unavailable Lino, M Froylan MD Unavailable Unavailable Lino, M Froylan MD Unavailable Unavailable Lino, M Froylan MD Unavailable Unavailable Lino, M Froylan MD Unavailable Unavailable Lino, M Froylan MD Unavailable Unavailable Lino, M Froylan MD Unavailable Unavailable Lino, M Froylan MD Unavailable Unavailable Lino, M Froylan MD Unavailable Unavailable Lino, M Froylan MD Unavailable Unavailable Lino, M Froylan MD Unavailable Unavailable Lino, M Froylan MD Unavailable Unavailable Lino, M Froylan MD Unavailable Unavailable Lino, M Froylan MD Unavailable Unavailable Day, D Armen PA Unavailable [...] D Armen PA Unavailable Unavailable Day, D Ramen PA Unavailable Unavailable Day, D Armen PA [...] Unavailable Day, D Armen PA Unavailable Unavailable Fish, J Otto Unavailable Unavailable [...] Unavailable Unavailable Fish, J Otto Unavailable Unavailable Woodrick, Princess Odalys VETERINARY VIROLOGIST-C Unavailable Unavail able Woodrick, Princess Odalys VETERINARY VIROLOGIST-C Unavailable Unavail able Woodrick, Princess Odalys VETERINARY VIROLOGIST-C Unavailable Unavail able Woodrick, Princess Odalys VETERINARY VIROLOGIST-C Unavailable Unavail able Woodrick, Princess Odalys VETERINARY VIROLOGIST-C Unavailable Unavail able Woodrick, Princess Odalys VETERINARY VIROLOGIST-C Unavailable Unavail able Woodrick, Princess Odalys VETERINARY VIROLOGIST-C Unavailable Unavail able Woodrick, Princess Odalys VETERINARY VIROLOGIST-C Unavailable Unavail able Woodrick, Princess Odalys VETERINARY VIROLOGIST-C Unavailable Unavail able Woodrick, Princess Odalys VETERINARY VIROLOGIST-C Unavailable Unavail able Woodrick, Princess Odalys VETERINARY VIROLOGIST-C Unavailable Unavail able Woodrick, Princess Odalys VETERINARY VIROLOGIST-C Unavailable Unavail able Woodrick, Princess Odalys VETERINARY VIROLOGIST-C Unavailable Unavail able Woodrick, Princess Odalys VETERINARY VIROLOGIST-C Unavailable Unavail able Woodrick, Princess Odalys VETERINARY VIROLOGIST-C Unavailable Unavail able Woodrick, Princess Odalys VETERINARY VIROLOGIST-C Unavailable Unavail able Woodrick, Princess Odalys VETERINARY VIROLOGIST-C Unavailable Unavail able Woodrick, Princess Odalys VETERINARY VIROLOGIST-C Unavailable Unavail able Woodrick, Princess Odalys VETERINARY VIROLOGIST-C Unavailable Unavail able Woodrick, Princess Odalys VETERINARY VIROLOGIST-C Unavailable Unavail able Woodrick, Princess Odalys VETERINARY VIROLOGIST-C Unavailable Unavail able Woodrick, Princess Odalys VETERINARY VIROLOGIST-C Unavailable Unavail able Woodrick, Princess Odalys VETERINARY VIROLOGIST-C Unavailable Unavail able Woodrick, Princess Odalys VETERINARY VIROLOGIST-C Unavailable Unavail able Woodrick, Princess Odalys VETERINARY VIROLOGIST-C Unavailable Unavail able Woodrick, Princess Odalys VETERINARY VIROLOGIST-C Unavailable Unavail able Woodrick, Princess Odalys VETERINARY VIROLOGIST-C Unavailable Unavail able Woodrick, Princess Odalys VETERINARY VIROLOGIST-C Unavailable Unavail able Woodrick, Princess Odalys VETERINARY VIROLOGIST-C Unavailable Unavail able Woodrick, Princess Odalys VETERINARY VIROLOGIST-C Unavailable Unavail able Woodrick, Princess Odalys VETERINARY VIROLOGIST-C Unavailable Unavail able Woodrick, Princess Odalys VETERINARY VIROLOGIST-C Unavailable Unavail able Fish, J Otto Unavailable Unavailable Fish, J [...] Unavailable Unavailable Fish, J Otto Unavailable Unavailable Cata Lino MD Unavailable Unavailable Cata Lino MD Unavailable Unavailable Cata Lino MD Unavailable Unavailable Cata Lino MD Unavailable Unavailable Lino, M Froylan MD Unavailable Unavailable Lino, M Froylan MD Unavailable Unavailable Lino, M Froylan MD Unavailable Unavailable Lino, M Froylan MD Unavailable Unavailable Lino, M Froylan MD Unavailable Unavailable Lino, M Froylan MD Unavailable Unavailable Lino, M Froylan MD Unavailable Unavailable Lino, M Froylan MD Unavailable Unavailable Lino, M Froylan MD Unavailable Unavailable Lino, M Froylan MD Unavailable Unavailable Lino, M Froylan MD Unavailable Unavailable Lino, M Froylan MD Unavailable Unavailable Lino, M Froylan MD Unavailable Unavailable Lino, M Froylan MD Unavailable Unavailable Lino, M Froylan MD Unavailable Unavailable Lino, M Froylan MD Unavailable Unavailable Lino, M Froylan MD Unavailable Unavailable Lino, M Froylan MD Unavailable Unavailable Lino, M Froylan MD Unavailable Unavailable Lino, M Froylan MD Unavailable Unavailable Lino, M Froylan MD Unavailable Unavailable Lino, M Froylan MD Unavailable Unavailable Lino, M Froylan MD Unavailable Unavailable Lino, M Froylan MD Unavailable Unavailable Lino, M Froylan MD Unavailable Unavailable Lino, M Froylan MD Unavailable Unavailable Lino, M Froylan MD Unavailable Unavailable Lino, M Froylan MD Unavailable Unavailable Lino, M Froylan MD Unavailable Unavailable Lino, M Froylan MD Unavailable Unavailable Lino, M Froylan MD Unavailable Unavailable Lino, M Froylan MD Unavailable Unavailable Lino, M Froylan MD Unavailable Unavailable Lino, M Froylan MD Unavailable Unavailable Lino, M Froylan MD Unavailable Unavailable Lino, M Froylan MD Unavailable Unavailable Lino, M Froylan MD Unavailable Unavailable Lino, M Froylan MD Unavailable Unavailable Lino, M Froylan MD Unavailable Unavailable Lino, M Froylan MD Unavailable Unavailable Lion, M Froylan MD Unavailable Unavailable Lino, M Froylan MD Unavailable Unavailable Lino, M Froylan MD Unavailable Unavailable Lino, M Froylan MD Unavailable Unavailable Lino, M Froylan MD Unavailable Unavailable Lino, M Froylan MD Unavailable Unavailable Lino, M Froylan MD Unavailable Unavailable Lino, M Froylan MD Unavailable Unavailable Lino, M Froylan MD Unavailable Unavailable Lino, M Froylan MD Unavailable Unavailable Lino, M Froylan MD Unavailable Unavailable Lino, M Froylan MD Unavailable Unavailable Lino, M Froylan MD Unavailable Unavailable Lino, M Froylan MD Unavailable Unavailable Lino, M Froylan MD Unavailable Unavailable Lino, M Froylan MD Unavailable Unavailable Lino, M Froylan MD Unavailable Unavailable Lino, M Froylan MD Unavailable Unavailable Lino, M Froylan MD Unavailable Unavailable Lino, M Froylan MD Unavailable Unavailable Lino, M Fryolan MD Unavailable Unavailable Lino, M Froylan MD Unavailable Unavailable Lino, M Froylan MD Unavailable Unavailable Lino, M Froylan MD Unavailable Unavailable Lino, M Froylan MD Unavailable Unavailable Lino, M Froylan MD Unavailable Unavailable Lino, M Froylan MD Unavailable Unavailable Lino, M Froylan MD Unavailable Unavailable Lino, M Froylan MD Unavailable Unavailable Lino, M Froylan MD Unavailable Unavailable Lino, M Froylan MD Unavailable Unavailable Lino, M Froylan MD Unavailable Unavailable Lino, M Froylan MD Unavailable Unavailable Re-disclosure Warning The records [...] is protected by Article 27-F of the [facility] Public Health law. If you continue you may have access to information: Regarding HIV / AIDS; Provided by facilities licensed or operated by the [facility] Office of Mental Health; or Provided by the [facility] Office for People With Developmental Disabilities. If such information is present, then the following [facility] mandated warning applies: This information has been [...] law may result in a fine or halfway sentence or both. A general authorization for the release of medical or other information is NOT sufficient authorization for further disc losure. Allergies and Adverse Reactions Type Description Substance Reaction Status Data Source(s ) Drug allergy nasrin [facility] Family History Family Member Name Family Member Gender Family Member Status Date o f Status Description Data Source(s) Unknown Unknown Problem [facility] ([facility]) Unknown Male Problem [facility] ([facility]) Encounters Encounter Providers Location Date Indications Data Source(s ) Outpatient Attender: Armen BOURGEOIS [facility] 12/2020 12:30:00 PM EST [facility] ([facility] Outpatient Attender: BELLE WASHINGTON MD 02/18/2021 12:00: 00 AM EDT [facility] Outpatient Attender: NAVNEET DEL CASTILLO PA-C [facility] 05:00:00 PM EDT [facility] Outpatient Attender: NAVNEET PERAZACConsultant: Otto Joao 02/09/2021 04:51:00 PM EDT - 02/09/2021 04:51:00 PM EDT [facility] Outpatient Attender: Armen BOURGEOIS [facility] 04/2020 03:45:00 PM EDT [facility] (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 Outpatient Attender: MARYLU MORFIN NPConsultant: Otto Aguila 12/25/2020 08:43:00 AM EDT - 12/25/2020 08:43:00 AM EDT [facility] Outpatient Attender: MARYLU MORFIN NP [facility] 12/25 08:40:00 AM EDT [facility] ([facility]) Outpatient 12/18/2020 09:15:00 AM EDT [facility] [place] [address] [address] 12/12/2020 12:00:00 AM EDT eCW1 ([facility]) [place] [address] [address] 11/14/2020 12:00:00 AM EDT eCW1 ([facility]) Outpatient Attender: BELLE WASHINGTON MD 11/05/2020 12:00: 00 AM EDT [facility] Outpatient [address] [facility] [address] 10/24/2020 12:00:00 AM EDT eCW1 ([facility]) [place] [address] [address] 08/25/2020 12:00:00 AM EDT eCW1 ([facility]) Outpatient Attender: Odalys ELP-C 07/05/2020 09:2 8:00 AM EDT [facility] Outpatient Attender: Armen BOURGEOIS [facility] 12:15:00 PM EST [facility] Outpatient Attender: WIL PORTER MD [facility] 06/05/2020 12 :00:00 AM EST 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 [facility] Other skilled nursing (current) drug therapy Outpatient Attender: MARYLU MORFIN NPConsultant: Otto tovar 05/22/2020 11:17:00 AM EST - 05/22/2020 11:17:00 AM EST [facility] Outpatient Attender: WIL PORTER MD 05/13/2020 12:00:00 AM EST [facility] Outpatient Attender: Armen BOURGEOIS [facility] 03:00:00 PM EST [facility] ([facility] Outpatient Attender: Delores [facility] 02/01/2020 11:00:00 AM EDT [facility] ([facility] Medications Medication Brand Name Start Date Product Form Dose Route Admi nistrative Instructions Pharmacy Instructions Status Indications Reaction Description Data Source(s) valacyclovir 1000 MG Oral Tablet [facility] 03/28/2021 12: 00:00 AM EST tablet 15 TAKE ONE TABLET BY MOUTH THREE T IMES A DAY FOR 5 DAYS TAKE ONE TABLET BY MOUTH THREE TIMES A DAY FOR 5 DAYS SOLD: 03/28/2021 [facility] 100 mg 03/28/2021 12:00:00 AM EST capsule 30 TAKE ONE CAPSULE BY MOUTH THREE TIMES A DAY TAKE ONE CAPSULE BY MOUTH THREE TIMES A DAY SOLD: 03/28/2021 [facility] valacyclovir 1000 MG Oral Tablet VALACYCLOVIR HCL 03/26/2021 12: 00:00 AM EST tablet 4 TAKE 2 TABLETS BY MOUTH NOW AND TAKE 2 TABLETS IN 12 HOURS TAKE 2 TABLETS BY MOUTH NOW AND TAKE 2 TABLETS IN 12 HOURS SOLD: 03/26/2021 [facility] valacyclovir 1000 MG Oral Tablet [Valtrex] Valtrex 03/26/2021 12:00:00 AM EST ORAL active [facility] ([facility] 250 mg 02/09/2021 12:00:00 AM EDT tablet 6 TAKE TWO TABLETS BY MOUTH AT ONCE ON THE FIRST DAY THEN TAKE ONE DAILY THEREAFTER TAKE TWO TABLETS BY MOUTH AT ONCE ON THE FIRST DAY THEN TAKE ONE DAILY THEREAFTER SOLD: 02/10/2021 [facility] 150 mg 02/09/2021 12:00:00 AM EDT tablet 3 TAKE ONE TABLET BY MOUTH EVERY 72 HOURS FOR 2 DOSES TAKE ONE TABLET BY MOUTH EVERY 72 HOURS FOR 2 DOSES SO LD: 02/10/2021 [facility] Fluconazole 150 MG Oral Tablet Fluconazole 02/09/2021 12:00:00 AM EDT ORAL active [facility] ([facility]) Azithromycin 250 MG Oral Tablet Azithromycin 02/09/2021 12:00:00 AM EDT active [facility] ([facility]) 25 mg 01/17/2021 12:00:00 AM EDT tablet 30 TAKE ONE TABLET BY MOUTH EVERY DAY TAKE ONE TABLET BY MOUTH EVERY DAY SOLD: 01/28/2021 [facility] 20 mg 11/20/2020 12:00:00 AM EDT tablet,delayed release (DR/EC) 60 TAKE ONE TABLET BY MOUTH TWICE A DAY TAKE ONE TABLET BY MOUTH TWICE A DAY SOLD: 12/03/2020 [facility] 25 mg 11/20/2020 12:00:00 AM EDT tablet 30 TAKE ONE TABLET BY MOUTH EVERY DAY TAKE ONE TABLET BY MOUTH EVERY DAY SOLD: 12/03/2020 [facility] 20 mg 11/14/2020 12:00:00 AM EDT tablet 60 TAKE ONE TABLET BY MOUTH TWICE A DAY NEEDED TAKE ONE TABLET BY MOUTH TWICE A DAY NEEDED SOLD: 11/19/2020 [facility] POLYETHYLENE GLYCOL 3350 761338 MG / Pot assium Chloride 2970 MG / Sodium Bicarbonate 6740 MG / Sodium Chloride 5860 MG / sodium sulfate 92502 MG Powder for Oral Solution [Gavilyte-G] 236-22.74-6.74 -5.86 gram [id number]/SOD SULF,BICARB,CL/KCL 11/14/2020 12:00:00 AM EDT recon soln 4000 MIX ACCORDING TO OFFICE DIRECTIONS, REFRIGERATE MIX ACCORDING TO OFFICE DIRECTIONS, REFRIGERATE SOLD: 12/03/2020 [facility] 5 mg 11/14/2020 12:00:00 AM EDT tablet 1 TAKE 1 TABLET BY MOUTH ONCE 30 MINUTES PRIOR TO MRI * MAXIMUM DAILY DOSE = 1 TAKE 1 TABLET BY MOUTH ONCE 30 MINUTES PRIOR TO MRI * MAXIMUM DAILY DOSE = 1 SOLD: 12/03/2020 [facility] 25 mg 08/05/2020 12:00:00 AM EDT tablet 30 TAKE ONE TABLET BY MOUTH EVERY DAY TAKE ONE TABLET BY MOUTH EVERY DAY SOLD: 08/13/2020 [facility] 25 mg 08/05/2020 12:00:00 AM EDT tablet 30 TAKE ONE TABLET BY MOUTH EVERY DAY TAKE ONE TABLET BY MOUTH EVERY DAY SOLD: 10/25/2020 [facility] 25 mg 08/05/2020 12:00:00 AM EDT tablet 30 TAKE ONE TABLET BY MOUTH EVERY DAY TAKE ONE TABLET BY MOUTH EVERY DAY SOLD: 09/15/2020 [facility] 20 mg 07/02/2020 12:00:00 AM EDT tablet,delayed release (DR/EC) 60 TAKE ONE TABLET BY MOUTH TWICE A DAY TAKE ONE TABLET BY MOUTH TWICE A DAY SOLD: 08/13/2020 [facility] 20 mg 07/02/2020 12:00:00 AM EDT tablet,delayed release (DR/EC) 60 TAKE ONE TABLET BY MOUTH TWICE A DAY TAKE ONE TABLET BY MOUTH TWICE A DAY SOLD: 09/15/2020 [facility] 20 mg 07/02/2020 12:00:00 AM EDT tablet,delayed release (DR/EC) 60 TAKE ONE TABLET BY MOUTH TWICE A DAY TAKE ONE TABLET BY MOUTH TWICE A DAY SOLD: 07/09/2020 [facility] 20 mg 06/08/2020 12:00:00 AM EST tablet,delayed release (DR/EC) 30 TAKE ONE TABLET BY MOUTH TWICE A DAY TAKE ONE TABLET BY MOUTH TWICE A DAY SOLD: 06/08/2020 [facility] 100 mg/mL 06/08/2020 12:00:00 AM EST suspension 120 TAKE 10ML BY MOUTH TWO TIMES A DAY BEFORE FOOD TAKE 10ML BY MOUTH TWO TIMES A DAY BEFORE FOOD SOLD: 06/08/2020 [facility] 0.35 mg 06/06/2020 12:00:00 AM EST tablet 28 TAKE ONE TABLET BY MOUTH EVERY DAY TAKE ONE TABLET BY MOUTH EVERY DAY SOLD: 11/23/2020 [facility] 0.35 mg 06/06/2020 12:00:00 AM EST tablet 28 TAKE ONE TABLET BY MOUTH EVERY DAY TAKE ONE TABLET BY MOUTH EVERY DAY SOLD: 03/28/2021 [facility] 0.35 mg 06/06/2020 12:00:00 AM EST tablet 28 TAKE ONE TABLET BY MOUTH EVERY DAY TAKE ONE TABLET BY MOUTH EVERY DAY SOLD: 09/15/2020 [facility] 0.35 mg 06/06/2020 12:00:00 AM EST tablet 28 TAKE ONE TABLET BY MOUTH EVERY DAY TAKE ONE TABLET BY MOUTH EVERY DAY SOLD: 01/28/2021 [facility] 0.35 mg 06/06/2020 12:00:00 AM EST tablet 28 TAKE ONE TABLET BY MOUTH EVERY DAY TAKE ONE TABLET BY MOUTH EVERY DAY SOLD: 07/09/2020 [facility] 0.35 mg 06/06/2020 12:00:00 AM EST tablet 28 TAKE ONE TABLET BY MOUTH EVERY DAY TAKE ONE TABLET BY MOUTH EVERY DAY SOLD: 01/02/2021 [facility] 0.35 mg 06/06/2020 12:00:00 AM EST tablet 28 TAKE ONE TABLET BY MOUTH EVERY DAY TAKE ONE TABLET BY MOUTH EVERY DAY SOLD: 10/17/2020 [facility] 0.35 mg 06/06/2020 12:00:00 AM EST tablet 28 TAKE ONE TABLET BY MOUTH EVERY DAY TAKE ONE TABLET BY MOUTH EVERY DAY SOLD: 08/13/2020 [facility] 0.35 mg 06/06/2020 12:00:00 AM EST tablet 28 TAKE ONE TABLET BY MOUTH EVERY DAY TAKE ONE TABLET BY MOUTH EVERY DAY SOLD: 06/07/2020 [facility] 0.35 mg 06/06/2020 12:00:00 AM EST tablet 28 TAKE ONE TABLET BY MOUTH EVERY DAY TAKE ONE TABLET BY MOUTH EVERY DAY SOLD: 03/03/2021 [facility] Norethindrone 0.35 MG Oral Tablet Norethindrone 0.35 M G Oral Tablet (MICRONOR) Norethindrone 0.35 MG Oral Tablet (MICRONOR) 06/05/2020 12:00:00 AM EST 0.35 mg Oral active Take 1 tablet by mouth d [facility] 875-125 mg 05/22/2020 12:00:00 AM EST tablet [...] ONE TABLET BY MOUTH EVERY DAY SOLD: 07/09/2020 [facility] 25 mg 05/09/2020 12:00:00 AM EST tablet 30 TAKE ONE TABLET BY MOUTH EVERY DAY TAKE ONE TABLET BY MOUTH EVERY DAY SOLD: 06/07/2020 [facility] 25 mg 05/09/2020 12:00:00 AM EST tablet 30 TAKE ONE TABLET BY MOUTH EVERY DAY TAKE ONE TABLET BY MOUTH EVERY DAY SOLD: 05/10/2020 [facility] 25 mg 04/02/2020 12:00:00 AM [...] FOR NAUSEA/ VOMITING SOLD: 02/10/2020 [facility] Cephalexin 500 MG Oral Capsule CEPHALEXIN 02/01/2020 12:00:00 AM EDT capsule 30 TAKE ONE CAPSULE BY MOUTH THREE TIMES A DAY FOR 10 DAY S TAKE ONE CAPSULE BY MOUTH THREE TIMES A DAY FOR 10 DAYS SOLD: 02/02/2020 [facility] Fluconazole 150 MG Oral Tablet [Diflucan] Diflucan 02/01/2020 1 2:00:00 AM EDT ORAL completed [facility] ([facility] Cephalexin 500 MG Oral Capsule [Keflex] Keflex 02/01/2020 12:00:0 0 AM EDT ORAL completed [facility] ([facility] 150 mg 02/01/2020 12:00:00 AM EDT tablet 2 TAKE ONE TABLET BY MOUTH NOW AND ONE TABLET IN 7 DAYS TAKE ONE TABLET BY MOUTH NOW AND ONE TABLET IN 7 DAYS SOLD: 02/02/2020 [facility] 25 mg 01/04/2020 12:00:00 AM EDT tablet 30 TAKE ONE TABLET BY MOUTH EVERY DAY TAKE ONE TABLET BY MOUTH EVERY DAY SOLD: 03/05/2020 [facility] 25 mg 01/04/2020 12:00:00 AM EDT tablet 30 TAKE ONE TABLET BY MOUTH EVERY DAY TAKE ONE TABLET BY MOUTH EVERY DAY SOLD: 02/09/2020 [facility] 0.35 mg 07/19/2019 12:00:00 AM EDT tablet 28 TAKE ONE TABLET BY MOUTH EVERY DAY TAKE ONE TABLET BY MOUTH EVERY DAY SOLD: 05/06/2020 [facility] Norethindrone 0.35 MG Oral Tablet Norethindrone 0.35 M G Oral Tablet (MICRONOR) Norethindrone 0.35 MG Oral Tablet (MICRONOR) 07/19/2019 12:00:00 AM EDT 0.35 mg Oral aborted Take 1 tablet by mouth d [facility] 0.35 mg 07/19/2019 12:00:00 AM EDT tablet [...] TABLET BY MOUTH EVERY DAY SOLD: 03/05/2020 [facility] Insurance Providers Payer name Policy type / Coverage type Policy ID Covered libertarian ID Covered libertarian's relationship to navarro Policy Navarro Plan Information [id number] Spo [id number] U [id number] Self [id number] Spo [id number] U [id number] Spouse [id number] PGBA [place] [id number] HU2 [id number] EAST HUMANA [id number] HU2 [id number] Krysta [id number] EAST HUMANA [id number] HU2 [id number] Krysta [id number] U [id number] Self [id number] EAST HUMANA [id number] HU2 [id number] U [id number] Spouse [id number] FOR LIFE U [id number] EAST [id number] SPO [id number] SELF PAY EAST HUMANA [id number] HU2 [id number] PGBA [place] [id number] HU2 [id number] Formerly [facility] [id number] Family Dependent [id number] Krysta [id number] PI PI [id number] Krysta [id number] PI PI HEA [id number] SP [id number] PGBA [place] [id number] SP [id number] PGBA [place] [id number] SP [id number] PGBA [place] O [id number] S [id number] HEALTHNET/ AD O [id number] S [id number] [place] [place] [id number] HU2 [id number] PGBA [place] O [id number] S [id number] [facility] Federal Service Commercial [id number] HEALTHNET/ AD O [id number] P [id number] [facility] Federal Service Commercial [id number] HEALTHNET FEDERAL O [id number] SP [id number] CONTRACT CLAIMS SERVICES P [id number] S [id number] CONTRACT CLAIMS SERVICES [id number] SP [id number] OTHER WORKERS COMPENSATION [id number] SP [id number] [place] [place] [id number] HU2 [id number] N REGIONAL CLAIMS YEVGENIY-O/P [id number] 01 [id number] [facility] O [id number] U [id number] SELFPAY 5 UNAVAILABLE 1 UNAVAILA BLE SELF PAY 5 UNAVAILABLE 1 UNAVAILA BLE [facility] [id number] HU2 [id number] [facility] [place] [id number] 01 [id number] HEA [id number] SP [id number] PGBA [place] [id number] SP [id number] HUMANA [place]AST REG O [id number] S [id number] EAST HUMANA - O/P [id number] 01 [id number] SELF [id number] SELF PAY UNAVAILABLE SELF UNAVAILA BLE [id number] SELF [id number] [facility] Commercial [id number] Family Dependent [id number] [place] Commercial [id number] Family Dependent [id number] [facility] [employer] [id number] Other Alex ral Program .[id number] Formerly [facility] [id number] Family Dependent [id number] [facility] [id number] Family Dependent [id number] [facility] [id number] Family Dependent [id number] Problems, Conditions, and Diagnoses Code Display Name Description Problem Type Effective Dates Data Source(s) Z1152 ENCOUNTER FOR SCREENING FOR COVID-19 ENCOUNTER F OR SCREENING FOR COVID-19 Diagnosis 02/09/2021 04:51:00 PM EDT [facility] J069 Acute upper respiratory infection, unspe cified Acute upper respiratory infection, unspecified Diagnosis 02/09/2021 04:51:00 PM EDT [facility] R10.11 Right upper quadrant pain R10.11 - Right upper quadran t pain Diagnosis 07/05/2020 09:28:00 AM EDT [facility] R19.7 Diarrhea, unspecified R19.7 - Diarrhea, unspecified Di agnosis 07/05/2020 09:28:00 AM [facility] K50.00 Crohn's disease of small intestine witho ut complications K50.00 - Crohn's disease of small intestine without complications Diagnosis 06/17 09:28:00 AM [facility] N92.6 Irregular menstruation, unspecified Irregular me nstruation, unspecified Diagnosis 06/05/2020 10:00:06 AM [facility] N39.43 Post-void dribbling Post-void dribbling Diagnosis 0 06/05/2020 10:00:06 AM [facility] Z79.899 Other skilled nursing (current) drug therapy O ther skilled nursing (current) drug therapy Diagnosis 06/05/2020 10:00:[address] [facility] R20.2 [id number] Paresthesia Problem 10/24/2020 12:00:00 AM E DT eCW1 ([facility]) K50.90 [id number] Crohn's disease with out complication, unspecified gastrointestinal tract location Problem 10/24/2020 12:00:00 AM EDT e CW1 ([facility]) Surgeries/Procedures Procedure Description Date Indications Data Source(s) OFFICE OUTPATIENT VISIT 15 MINUTES 03/26/2021 12:00:00 AM EST [facility] ([facility] Pulse Oximetry Single Determination 02/09/2021 12:00:0 0 AM EDT [facility] ([facility]) OFFICE OUTPATIENT VISIT 10 MINUTES 02/09/2021 12:00:00 AM EDT [facility] ([facility]) OFFICE OUTPATIENT VISIT 25 MINUTES 01/16/2021 12:00:00 AM EDT [facility] ([facility] OFFICE OUTPATIENT VISIT 15 MINUTES 12/25/2020 12:00:00 AM EDT [facility] ([facility]) Results ID Date Data Source [id number] 03/26/2021 01:49:00 PM EST [facility] ([facility] Name Value Range Interpretation Code Description Data Kassy rce(s) Supporting Document(s) HSV 1 IgG, Type Spec 29.30 index 0.00-0.90 Above high normal [facility] ([facility] <content>Negative <0.91</content>
<content>Equivocal 0.91 - 1.09</content>
<content>Positive >1.09</content>
<content>Note: Negative indicates no antibodies detected to</content>
<content>HSV-1. Equivocal may suggest early infection. If</content>
<content>clinically appropriate, retest at later date. Positive</content>
<content>indicates antibodies detected to HSV-1.</content>
<content></content> HSV 2 IgG, Type Spec Laboratory test result 0.00-0.90 [facility] ([facility] <content>Negative <0.91</content>
<content>Equivocal 0.91 - 1.09</content>
<content>Positive >1.09</content>
<content>Note: Negative indicates no antibodies detected to</content>
<content>HSV-2. Equivocal may suggest early infection. If</content>
<content>clinically appropriate, retest at later date. Positive</content>
<content>indicates antibodies detected to HSV-2.</content>
<content></content> ID Date Data Source [id number] 02/09/2021 05:54:00 PM EDT [facility] ([facility]) Name Value Range Interpretation Code Description Data Kassy rce(s) Supporting Document(s) Covid-19 Laboratory test result [facility] ([facility]) ID Date Data Source [id number] 02/09/2021 05:53:00 PM EDT [facility] Name Value Range Interpretation Code Description Data Kassy rce(s) Supporting Document(s) SARS coronavirus 2 RNA Not Detected [facility] This lab was ordered by [facility] dami and reported by [employer]. ID Date Data Source [id number] 02/12/2021 07:23:00 AM EDT [facility] Name Value Range Interpretation Code Description Data Kassy rce(s) Supporting Document(s) SARS-CoV-2, BRAYDON Not Detected Not Detected [facility] This nucleic acid amplification test was developed and its performancecharacteristics determined by [employer]. Nucleic acidamplification tests include RT-PCR and TMA. This test has not beenFDA cleared or approved. This test has been authorized by FDA underan Emergency Use Authorization (EUA). This test is only authorizedfor the duration of time the declaration that circumstances existjustifying the authorization of the emergency use of in vitrodiagnostic tests for detection of SARS-CoV-2 virus and/or diagnosisof COVID-19 infection under section 564(b)(1) of the Act, 21 U.S.C.360bbb-3(b) (1), unless the authorization is terminated or revokedsooner.When diagnostic testing is negative, the possibility of a falsenegative result should be considered in the context of a patient'srecent exposures and the presence of clinical signs and symptomsconsistent with COVID- 19. An individual without symptoms of COVID-19and who is not shedding SARS-CoV-2 virus would expect to have anegative (not detected) result in this assay. ID Date Data Source [id number] 02/09/2021 05:53:00 PM EDT [facility] ([facility] Name Value Range Interpretation Code Description Data Kassy rce(s) Supporting Document(s) Coronavirus Covid-19 Laboratory test result [facility] ([facility] .~.~Z11.52 ID Date Data Source [id number] 01/27/2021 10:29:00 AM EDT [facility] Received: 01/24/2021 at 04:13:00 QPT : [facility], [address], [address] [place], [address], Maik Urias MD Name Value Range Interpretation Code Description Data Kassy rce(s) Supporting Document(s) Mycobacterium tuberculosis stimulated gamma interferon [Pres ence] in Blood NEGATIVE Normal (applies to non-numeric results) [facility] Negative test result. M. tuberculosis co mplexinfection unlikely. Gamma interferon background [Units/volume] in Blood by [facility] ay 0.04 IU/mL Normal (applies to non-numeric results) [facility] Mitogen stimulated gamma interferon [Uni ts/volume] corrected for background in Blood >10.00 IU/mL Normal (applies to non-numeric results) [facility] Mycobacterium tuberculosis stimulated ga mma interferon [Units/volume] corrected for background in Blood <0.00 IU/mL Normal (applies to non-numeric results) [facility] TB2-NIL 0.00 IU/mL Normal (applies to non-numeric resul ts) [facility] The Nil tube value reflects the backgrou nd interferongamma immune response of the patient's blood sample.This value has been subtracted from the patient'sdisplayed TB and Mitogen results.Lower than expected results with the Mitogen tubeprevent false-negative Quantiferon readings bydetecting a patient with a potential immunesuppressive condition and/or suboptimal pre- analyticalspecimen handling.The TB1 Antigen tube is coated with theM. tuberculosis-specific antigens designed to elicitresponses from TB antigen primed CD4+ helperT-lymphocytes.The TB2 Antigen tube is coated with theM. tuberculosis-specific antigens designed to elicitresponses from TB antigen primed CD4+ helper and CD8+cytotoxic T-lymphocytes.For additional information, please refer tohttps://education.Vivaty/faq/FCJ506(This link is being provided for informational/educational purposes only.) ID Date Data Source [id number] 01/13/2021 09:46:29 AM EDT [facility] [address] [address]Slp# SURGICAL PATHOLOGY REPORTPatient Name:MALLORY LARES:1980Received:01/08/2021ccession #:[id number](s) Received: A: Bx 1st and 2nd portion duodenum, r/o Crohn'sB: Bx stomach antrum and body, r/o H pyloriC: Bx ileum, r/o Crohn's ileitisD: Bx ascending and transverse, r/o Crohn'sE: Bx descending and sigmoid, r/o Crohn'sF: Bx rectum, r/o Crohn'sClinical Diagnosis and History: Rule out Crohn's, rule out Helicobacter pylori, rule Crohn's ileitis. DIAGNOSIS:A) DUODENUM, FIRST AND SECOND PORTIONS, BIOPSY FRAGMENT OF BENIGN SMALL INTESTINAL MUCOSA WITH NORMAL VILLOUS ARCHITECTURE AND NO INCREASE IN INTRAEPITHELIAL LYMPHOCYTES, THERE ARE NO FEATURES OF GLUTEN SENSITIVE ENTEROPATHY OR ANY OTHER PATHOLOGIC ABNORMALITY.B) GASTRIC BODY AND ANTRUM, BIOPSY FRAGMENTS OF BENIGN GASTRIC BODY AND ANTRAL MUCOSA WITH REACTIVE GASTROPATHY, NEGATIVE FOR GASTRITIS AND HELICOBACTER PYLORI ORGANISMS.C) ILEUM, BIOPSY FRAGMENTS OF CHRONIC INACTIVE ILEITIS, NEGATIVE FOR DYSPLASIA.D) ASCENDING AND TRANSVERSE COLON, BIOPSY FRAGMENTS OF BENIGN COLONIC MUCOSA WITH CHRONIC QUIESCENT COLITIS, NEGATIVE FOR DYSPLASIA.E) DESCENDING AND SIGMOID COLON, BIOPSY FRAGMENTS OF CHRONIC INACTIVE COLITIS WITH A RARE INTRAMUCOSAL NONNECROTIZING GRANULOMA, NEGATIVE FOR DYSPLASIA.F) RECTUM, BIOPSY NO DIAGNOSIS RENDERED (SEE COMMENT).CommentF) The specimen did not survive processing and there is no tissue presentfor evaluation. GROSS DESCRIPTION: Specimen A received in formalin labeled "biopsy first and second portionof duodenum" is a single 0.5 cm godinez-pink nodular fragment of tissue whichis submitted in toto for microscopic examination. (1 block) Specimen B received in formalin labeled "biopsy antrum and body" are twopink-red to godinez- pink irregular fragments of soft tissue measuring 0.2 and0.4 cm in greatest dimension and which are submitted in toto formicroscopic examination. (1 block) Specimen C received in formalin labeled "biopsy ileum" are two yellow- grayirregular fragments of soft tissue each measuring 0.2 cm in greatestdimension and which are submitted in toto for microscopic examination. (1block) Specimen D received in formalin labeled "biopsy ascending and transverse"are four yellow-garcia elongated irregular fragments of soft tissue varyingfrom 0.2 to 0.4 cm in greatest dimension and which are submitted in totofor microscopic examination. (1 block) Specimen E received in formalin labeled "biopsy descending and sigmoid"are five godinez-pink irregular fragments of soft tissue varying from 0.1 to0.3 cm in greatest dimension and which are submitted in toto formicroscopic examination. (1 block) Specimen F received in formalin labeled "biopsy of rectum" are three scanttan-pink irregular fragments of soft tissue varying from 0.1 to 0.2 cm ingreatest dimension and which are submitted in toto for microscopicexamination but may not survive processing. (1 block) [email or web address]: 01/13/2021 09:45Electronically Signed Out By Flori Pruett D.[facility] [place], [place] [address]Technical component performed at [facility], [facility], [address] [place] [address], [phone].Reported at [facility], [address] [place] [address], [phone].This report may include immunohistochemical or in-situ hybridizationresults. Testing was developed and the performance characteristicsdetermined by [facility], as required byCLIA '88. The FDA has determined that approval for specific use is notnecessary for clinical use. The quality of Hematoxylin and Eosin stainsand as applicable, for all immunohistochemical and/or special stains,including positive and negative controls, were reviewed and consideredappropriate.ICD codes: K50.80CPT4 codes: A: 77952TV: 39348WZ: 87303MH: 45659OM: 67561R Name Value Range Interpretation Code Description Data Kassy rce(s) Supporting Document(s) ID Date Data Source [id number] 01/12/2021 01:07:00 PM EDT [facility] [id number] [place] [place], [place] [address]ZLXAITC NAME: MALLORY LARESDATE OF : 1980REPORT: ENDOSCOPYPATIENT NUMBER: [id number] STATUS: SDMEDICAL RECORD NUMBER: [id number] ADMISSION: 01/08/2021ATE OF DISCHARGE:ROOM: 01DATE OF PROCEDURE: 01/08/2021OPERATOR: Froylan Lino MDANESTHESIA: Monitored anesthesia care.ANESTHESIOLOGIST: KORI GoinsROCEDURE PERFORMED: Upper endoscopy and colonoscopy with ileoscopy.PREOPERATIVE DIAGNOSIS: Mallory is a 40-year-old female with a history ofCrohn's disease diagnosed in 2013 on Remicade 5 mg/kg every 8 weeks. Lastcolonoscopy in 2017 showed clinical remission. She has been feeling wellexcept for occasional epigastric pain and nausea that does seem to improvewith eating. She has been using pantoprazole if needed.POSTOPERATIVE DIAGNOSIS: Normal-appearing upper endoscopy with GE junctionat 37 cm. Biopsies taken of the second and third portion of the duodenumto rule out celiac. Biopsy taken of the stomach to rule out H. pylori. Colonoscopy was normal with ileal intubation. Terminal ileum appearednormal. Biopsies taken of the terminal ileum and from the cecum throughthe rectum in separate jars. There was no evidence of polyps. There wasno internal hemorrhoids. No evidence of active colitis.PROCEDURE DETAILS: The patient was consented about the risk of theprocedure including bleeding, infection and perforation. At the start ofthe procedure the patient's pulse oxygen saturation, blood pressure and ZF3rbfe monitored. Timeout was performed. An upper endoscope was advancedthrough the mouth after a bite block was in place to the third portion ofthe duodenum. Retroflexion was completed in the stomach. Air was removedfrom the stomach at the end of the procedure. The equipment wasrearranged. An adult colonoscope was advanced to the cecum as identifiedby the ileocecal valve and appendiceal orifice. Terminal ileum wasintubated. Upon withdrawal the mucosa was carefully inspected. Retroflexion was completed in the rectum. Rectal exam showed no evidenceof hemorrhoids or Crohn's disease. The patient was awoken and brought tothe recovery area in stable condition.FINDINGS: Upper endoscopy: Celiac biopsies were taken from the second andthird portion of the duodenum. Stomach appeared normal on front andretroflexed views and biopsies were taken for H.pylori. GE junction waslocated at 37 cm. No cause of abdominal pain seen.FINDINGS: Terminal ileum appeared normal and biopsies taken. Colonappeared normal without any evidence of active colitis and biopsies weretaken in a segmental fashion. Retroflexion appeared normal. There was noevidence of polyps.PLAN: The patient should go to the recovery area and be discharged whenmeets criteria. Continue on medications for Crohn's disease. Follow upwith GI as recommended. Repeat colonoscopy in 3-5 years.DICTATED BY: YANNA Hansonictated: 01/08/2021 8:31DT: 01/08/2021 8:34Job #: [id number]:NOTE: [facility] computer generated reports are not confirmed orauthenticated unless they are signed by the providerElectronically Authenticated by:FROYLAN LINO MD On 01/12/2021 01:07 PM EDT Name Value Range Interpretation Code Description Data Kassy rce(s) Supporting Document(s) ID Date Data Source [id number] 01/05/2021 03:15:00 PM EDT [facility] Name Value Range Interpretation Code Description Data Kassy rce(s) Supporting Document(s) SARS-CoV-2 RNA Resp Ql BRAYDON+probe NOT DETECTED [facility] This lab was ordered by JAE leal and reported by JAE Castillo. ID Date Data Source [id number] 12/25/2020 09:59:00 AM EDT [facility] Name Value Range Interpretation Code Description Data Kassy rce(s) Supporting Document(s) SARS coronavirus 2 RNA Not Detected [facility] This [facility] [facility] and reported by [facility]. ID Date Data Source [id number] 12/27/2020 03:39:00 PM EDT [facility] Name Value Range Interpretation Code Description Data Kassy rce(s) Supporting Document(s) SARS-CoV-2, BRAYDON Not Detected Not Detected [facility] This nucleic acid amplification test was developed and its performancecharacteristics determined by [facility]. Nucleic acidamplification tests include RT-PCR and TMA. This test has not beenFDA cleared or approved. This test has been authorized by FDA underan Emergency Use Authorization (EUA). This test is only authorizedfor the duration of time the declaration that circumstances existjustifying the authorization of the emergency use of in vitrodiagnostic tests for detection of SARS-CoV-2 virus and/or diagnosisof COVID-19 infection under section 564(b)(1) of the Act, 21 U.S.C.360bbb-3(b) (1), unless the authorization is terminated or revokedsooner.When diagnostic testing is negative, the possibility of a falsenegative result should be considered in the context of a patient'srecent exposures and the presence of clinical signs and symptomsconsistent with COVID- 19. An individual without symptoms of COVID-19and who is not shedding SARS-CoV-2 virus would expect to have anegative (not detected) result in this assay. SARS-CoV-2, BRAYDON 2 DAY TAT Performed [facility] ID Date Data Source [id number] 12/25/2020 09:59:00 AM EDT MEDENT ([facility] Name Value Range Interpretation Code Description Data Kassy rce(s) Supporting Document(s) Sars-CoV-2, Braydon Laboratory test result MEDENT ([facility] .~.~J02.9 Laboratory test finding (navigational concept) Laboratory test result MEDENT ([facility] .~.~J02.9 ID Date Data Source [id number] 12/18/2020 11:03:00 AM EDT [facility] [address] [facility] EXA M: MRE Abdomen Pelvis WOW Contrast INDICATION: Crohn's disease of small intestine without complications R10.30 Lower abdominal pain, unspecified COMPARISON: 09/17/2014 MRI. Report from outside MRI dated 06/25/2020 (images unavailable for review). TECHNIQUE: Multiplanar multisequence images of the abdomen and pelvis were obtained before and after intravenous contrast administration per an enterography protocol. CONTRAST: This examination was performed with 15 mL ProHance IV contrast from a 15 mL bottle. Per the technologist note, the patient consumed 900 mL of Volumen. FINDINGS: Lung bases: Unremarkable. Liver: 1 cm T2 hyperintense lesion in the right hepatic lobe with appearance most consistent with a hemangioma. However, it has increased in size since 2014 when it measured 0.7 cm. Additional subcentimeter T2 hyperintense lesion in the right hepatic lobe with enhancement, likely an additional hemangioma. Bile Ducts: No dilation. Gallbladder: Absent. Pancreas and Pancreatic Duct: Normal. Spleen: Normal. Adrenal Glands: Normal. Kidneys: Normal. Peritoneum/Mesentery/Omentum: Normal. Lymph Nodes: No lymphadenopathy. Bowel: The colon is largely nondistended. There is increased pericolonic vascularity adjacent to the descending, sigmoid and ascending colon. Prominent enhancement of the descending and sigmoid colon, possibly accentuated by underdistention versus active inflammation. The terminal ileum is not thickened. Peristalsis is preserved. No areas of small bowel thickening or dilation. Bladder: Unremarkable. Reproductive Organs: 1 cm right vaginal cyst. Otherwise unremarkable. Vessels: Normal. Bones: Unremarkable. Other Findings: Postsurgical changes in the anterior abdominal wall. Right lower quadrant fat-containing spigelian hernia. IMPRESSION: 1. No definite findings of small bowel inflammation. Increased pericolonic vascularity in the ascending, descending and sigmoid colon with hyperenhancement of the descending and sigmoid colon. This could be accentuated by underdistention, though colonic inflammation cannot be excluded. 2. Right hepatic lobe hemangiomas. The larger measures 1 cm and is slightly increased in size since 2014. Professional interpretation performed at [facility] . Name Value Range Interpretation Code Description Data Kassy rce(s) Supporting Document(s) ID Date Data Source [id number] 12/08/2020 07:44:00 AM EDT MEDKATHLEEN ([facility] Name Value Range Interpretation Code Description Data Kassy rce(s) Supporting Document(s) Laboratory test finding (navigational concept) 8.9 ug/mL Normal (applies to non-numeric results) [facility] ([facility]) <content>Quantitation Limit: <0.4 ug/mL< /content>
<content>Results of 0.4 or higher indicate detection of infliximab.</content>
<content>Comments:</content>
<content>- The optimal drug concentration depends upon</content>
<content>patient-specific factors including the disease and</content>
<content>desired therapeutic endpoint.</content>
<content>- Maintenance trough concentrations >=5 may be</content>
<content>associated with higher remission rates.(1)</content>
<content>- In severe CD, higher trough levels (>10) may</content>
<content>be necessary to achieve fistula healing.(2)</content>
<content>- In rheumatoid arthritis, EULAR responders had higher</content>
<content>median trough levels (3.6) than non-responders</content>
<content>(0.5).(3)</content>
<content>- This assay measures the antibody-unbound (free)</content>
<content>fraction of infliximab when serum anti-infliximab</content>
<content>antibodies are present.</content>
<content></content> Laboratory test finding (navigational concept) Laboratory test r esult Normal (applies to non-numeric results) [facility] ([facility] <content>Interpretation:</content>
< content>The above result is an UNDETECTED Antibody titer.</content>
<content>Quantitation Limit: <22 ng/mL.</content>
<content>Results of 22 or higher indicate detection of anti-</content>
<content>infliximab antibodies.</content>
<content>22 - 200 ng/mL: LOW titer</content>
<content>201 - 1,000 ng/mL: INTERMEDIATE titer</content>
<content>1,001 or greater ng/mL: HIGH titer</content>
<content>Comments:</content>
<content>- Anti-drug antibody levels should be interpreted in</content>
<content>the context of the concomitant free drug trough</content>
<content>concentration.</content>
<content>- Low titer anti-drug antibodies may be transient</content>
<content>while high titers are likely to be more</content>
<content>consequential.(4-6)</content>
<content>- Some immunogenicity is reversible. Elimination of</content>
<content>intermediate titer (and even some high titer)</content>
<content>anti-infliximab antibodies has been achieved with</content>
<content>dose escalation and/or methotrexate or 6-MP.(7)</content>
<content>- Maintenance of drug levels greater than 3 ug/mL may</content>
<content>reduce the risk of developing anti-drug</content>
<content>antibodies.(8)</content>
<content>- This anti-infliximab antibody assay is drug tolerant,</content>
<content>and all positive results are verified for anti-drug</content>
<content>specificity by a confirmatory test.</content>
<content> References:</content>
<content>1. Holly N, et al. AGA Review on TDM in IBD.</content>
<content>Gastroenterol 2017;153:835-857.</content>
<content>2. Yarur A, et al. Gastroenterol 2016;150(4):Y632-D640.</content>
<content>3. Halima GJ, et al. Alethea Rheum Dis 2005;64:704-707.</content>
<content>4. Chelsey C, et al. Inflamm Bowel Dis 2012;18(12):</content>
<content>2209- 2211.</content>
<content>5. FranklineCastsmiley N, et al. Am J Gastroenterol 2013;108:</content>
<content>962-971.</content>
<content>6. Ji H et al. Clin Gastroenterol Hepatol 2015;13(3):</content>
<content>522- 530.</content>
<content>7. Tammy A, et al. Gastroenterol 2019;156(6):S-617.</content>
<content>8. Brandse JF, et al. Gastroenterol 2016;150(4):S144.</content>
<content>9. Sweta Mendez et al. AAPS Journal 2016 DOI:10.1208/</content>
<content>[id number].</content>
<content> These tests were developed and their performance</content>
<content>characteristics determined by [employer]. They have not been</content>
<content>cleared or approved by the Food and Drug Administration.</content>
<content>However, these electrochemiluminescence immunoassay (ECLIA)</content>
<content>measurements of infliximab and anti- infliximab antibody</content>
<content>(constituting DoseASSURE IFX) have been developed and</content>
<content>validated in accordance with CLIA (Clinical Laboratory</content>
<content>Improvement Amendments) and the FDA Guidance document, Assay</content>
<content>Development and Validation for Immunogenicity Testing of</content>
<content>Therapeutic Protein Products (2019). Results of a</content>
<content>peer-reviewed methods comparison / validation of these</content>
<content>assays have been published.(9)</content>
<content>Performed at: [employer] [facility] [employer]</content>
<content>[address] [place] [address] [id number]</content>
<content>[employer] Worker: Norman Chaney MD, Phone: [phone]</content>
<content></content> ID Date Data Source [id number] 12/01/2020 07:31:00 AM EDT [facility] ([facility] Name Value Range Interpretation Code Description Data Kassy rce(s) Supporting Document(s) Erythrocyte sedimentation rate by Westergren method 4 mm/hr 0-20 Normal (applies to non-numeric results) [facility] ([facility] ID Date Data Source [id number] 12/01/2020 07:31:00 AM EDT [facility] ([facility] Name Value Range Interpretation Code Description Data Kassy rce(s) Supporting Document(s) White Blood Count 7.6 10 4.0-10.0 Normal (applies to non-numeri c results) [facility] ([facility] Hemoglobin 16.3 g/dL 12.0-15.5 Above high normal [facility] ([facility] Red Blood Count 5.53 10 4.00-5.40 Above high normal ME DENT ([facility] Hematocrit 49.8 % 36.0-47.0 Above high normal [facility] ([facility] Mean Corpuscular Volume 90.1 fl 80.0-96.0 Normal ( applies to non-numeric results) [facility] ([facility] ) Mean Corpuscular Hemoglobin 29.5 pg 27.0-33.0 Norm al (applies to non-numeric results) [facility] ([facility] ) Red Cell Distribution Width 12.6 % 11.5-14.5 Norm al (applies to non-numeric results) [facility] ([facility] ) Mean Corpuscular HGB Conc 32.7 g/dL 32.0-36.5 Normal (applies to non-numeric results) [facility] ([facility] ) Platelet Count, Automated 323 10 150-450 Normal (applies to non-numeric results) [facility] ([facility] ) Neutrophils % 50.2 % 36.0-66.0 Normal (applies to non-numeric re sults) [facility] ([facility] Lymph % 39.5 % 24.0-44.0 Normal (applies to non-numeric resul ts) [facility] ([facility] Ogle % 6.1 % 2.0-8.0 Normal (applies to non-numeric resul ts) [facility] ([facility] Eos % 2.8 % 0.0-3.0 Normal (applies to non-numeric resul ts) [facility] ([facility] Baso % 0.9 % 0.0-1.0 Normal (applies to non-numeric resul ts) [facility] ([facility] Nucleated Red Blood Cell % 0.0 % 0-0 Normal (applies to n on-numeric results) [facility] ([facility] Immature Granulocyte % 0.5 % 0-3.0 Normal (applies to non-n umeric results) [facility] ([facility] Lymph # 3.0 10 1.5-5.0 Normal (applies to non-numeric resul ts) [facility] ([facility] Neutrophils # 3.8 10 1.5-8.5 Normal (applies to non-numeric re sults) [facility] ([facility] Eos # 0.2 10 0.0-0.5 Normal (applies to non-numeric resul ts) [facility] ([facility] Ogle # 0.5 10 0.0-0.8 Normal (applies to non-numeric resul ts) [facility] ([facility] Baso # 0.1 10 0.0-0.2 Normal (applies to non-numeric resul ts) [facility] ([facility] ID Date Data Source [id number] 12/01/2020 07:31:00 AM EDT [facility] ([facility] Name Value Range Interpretation Code Description Data Kassy rce(s) Supporting Document(s) C reactive protein [Mass/volume] in Serum or Plasma by High sensitivity method 0.52 mg/dL 0.00-0.[address] [facility] ID Date Data Source [id number] 12/01/2020 07:31:00 AM EDT JASON ([facility] Name Value Range Interpretation Code Description Data Kassy rce(s) Supporting Document(s) Blood Urea Nitrogen 13 mg/dL 7-18 Normal (applies to non-nume sophia results) MEDKATHLEEN ([facility] Glucose, Fasting 74 mg/dL 70-100 Normal (applies to non-numeric results) JASON ([facility] Glomerular Filtration Rate Laboratory test result Normal (applies to non- numeric results) JASON ([facility] ) <content>Units are mL/min/1.73 m2</content>
<content></content>
<content>Chronic Kidney Disease Staging per NKF:</content>
<content></content>
<content>Stage I & II GFR >=60 Normal to Mildly Decreased</content>
<content>Stage III GFR 30- 59 Moderately Decreased</content>
<content>Stage IV GFR 15-29 Severely Decreased</content>
<content>Stage V GFR <15 Very Little GFR Left</content>
<content>ESRD GFR <15 on BULK GAS SPECIALIST</content>
<content></content> Creatinine For GFR 0.78 mg/dL 0.55-1.30 Normal (applies to non -numeric results) [facility] ([facility] Sodium Level 140 meq/L 136-145 Normal (applies to non-numeric res ults) MEDKATHLEEN ([facility] Chloride Level 105 meq/L 98-107 Normal (applies to non-numeric r esults) JASON ([facility] Potassium Serum 3.6 meq/L 3.5-5.1 Normal (applies to non-numeric results) JASON ([facility] Carbon Dioxide Level 31 meq/L 21-32 Normal (applies to non-num nalini results) JASON ([facility] Anion Gap 4 meq/L 8-16 Below low normal MEDENT ( [facility] Calcium Level 9.1 mg/dL 8.5-10.1 Normal (applies to non-numeric re sults) [facility] ([facility] ID Date Data Source [id number] 12/01/2020 07:31:00 AM EDT [facility] ([facility] Name Value Range Interpretation Code Description Data Kassy rce(s) Supporting Document(s) Ast/Sgot 12 U/L 7-37 Normal (applies to non-numeric resul ts) [facility] ([facility] Alt/SGPT 28 U/L 12-78 Normal (applies to non-numeric resul ts) [facility] ([facility] Alkaline Phosphatase 68 U/L 45-117 Normal (applies to non-num nalini results) [facility] ([facility] Bilirubin,Direct 0.1 mg/dL 0.0-0.2 Normal (applies to non-numeric results) [facility] ([facility] Bilirubin,Total 0.5 mg/dL 0.2-1.0 Normal (applies to non-numeric results) [facility] ([facility] Albumin 3.8 GM/DL 3.2-5.2 Normal (applies to non-numeric resul ts) [facility] ([facility] Total Protein 7.2 GM/DL 6.4-8.2 Normal (applies to non-numeric re sults) [facility] ([facility] Albumin/Globulin Ratio 1.1 1.2-2.2 Below low normal [facility] ([facility] ID Date Data Source [facility] Ankle, complete 10/28/2020 12:00:00 AM EDT eCW1 [facility] Name Value Range Interpretation Code Description Data Kassy rce(s) Supporting Document(s) [facility] Ankle, complete eCW1 ([facility]) ID Date Data Source [facility] Wrist, complete 10/28/2020 12:00:00 AM EDT eCW1 ([facility] hospital) Name Value Range Interpretation Code Description Data Kassy rce(s) Supporting Document(s) [facility] Wrist, complete eCW1 ([facility]) ID Date Data Source [facility] HIPS BILAT 2 VIEW W/AP PELVIS 10/28/2020 12:00:00 AM EDT eCW1 ([facility]) Name Value Range Interpretation Code Description Data Kassy rce(s) Supporting Document(s) [facility] HIPS BILAT 2 VIEW W/AP PEL VIS eCW1 ([facility]) ID Date Data Source [facility] Hand, complete 10/28/2020 12:00:00 AM EDT eCW1 (Critical access hospital) Name Value Range Interpretation Code Description Data Kassy rce(s) Supporting Document(s) [facility] Hand, complete eCW1 ([facility]) ID Date Data Source INFLIXIMAB LEVEL & ANTIBODY 10/24/2020 12:00:00 AM EDT eCW1 ([facility]) Name Value Range Interpretation Code Description Data Kassy rce(s) Supporting Document(s) <22 . ANTI-INFLIXIMAB ANTIBODY eCW1 ([facility]) 58 . INFLIXIMAB DRUG LEVEL eCW1 (Critical [facility] hospital) ID Date Data Source HERPES SIMPLEX VIRUS TYPE 1&2 IgM 10/24/2020 12:00:00 AM EDT eCW1 ([facility]) Name Value Range Interpretation Code Description Data Kassy rce(s) Supporting Document(s) <0.91 0.00-0.90 HSV IgM TYPES 1&2 eCW1 ([facility]) ID Date Data Source COMPLEMENT TOTAL (CH50) 10/24/2020 12:00:00 AM EDT eCW1 ([facility]) Name Value Range Interpretation Code Description Data Kassy rce(s) Supporting Document(s) > 60 >41 COMPLEMENT TOTAL (CH50) eCW1 ( [facility]) ID Date Data Source ANCA Panel with MPO & PR3 10/24/2020 12:00:00 AM EDT eCW1 ([facility]) Name Value Range Interpretation Code Description Data Kassy rce(s) Supporting Document(s) Myeloperoxidase Ab [Units/volume] in Serum <9.0 0.0-9.0 Antimyeloperxidase(MPO) Abs eCW1 ([facility]) Proteinase 3 Ab [Units/volume] in Serum <3.5 0.0-3.5 Antiproteinase 3 (CT-3) Abs eCW1 ([facility]) Neutrophil cytoplasmic Ab.classic [Titer] in Serum by Immuno fluorescence <1:20 Neg:<1:20 Cytoplasmic (C-ANCA) eCW1 ([facility]) Neutrophil Cytoplasmic Ab atypical [Presence] in Serum by Immunofluorescence <1:20 Neg:<1:20 Atypical pANCA eCW1 ([facility]) Neutrophil cytoplasmic Ab.perinuclear [Titer] in Serum by Immunofluorescence <1:20 Neg:<1:20 Perinuclear (P-ANCA) eCW1 ([facility]) ID Date Data Source LUPUS TYPE ANTICOAGULANT SCREE 10/24/2020 12:00:00 AM EDT eC W1 ([facility]) Name Value Range Interpretation Code Description Data Kassy rce(s) Supporting Document(s) 1.0 0-1.2 PTT LUPUS TYPE ANTICOAG S CREEN eCW1 ([facility]) ID Date Data Source TOTAL PROTEIN,RANDOM URINE 10/24/2020 12:00:00 AM EDT eCW1 ( [facility]) Name Value Range Interpretation Code Description Data Kassy rce(s) Supporting Document(s) 7.7 0.0-12.0 TOTAL PROTEIN,RANDOM URIN E eCW1 ([facility]) ID Date Data Source CREATININE,RANDOM URINE 10/24/2020 12:00:00 AM EDT eCW1 ([facility]) Name Value Range Interpretation Code Description Data Kassy rce(s) Supporting Document(s) 115.0 CREATININE,RANDOM URINE eCW1 ( [facility]) ID Date Data Source UA URINALYSIS 10/24/2020 12:00:00 AM EDT eCW1 ([facility]) Name Value Range Interpretation Code Description Data Kassy rce(s) Supporting Document(s) UA URINALYSIS eCW1 ([facility]) ID Date Data Source Basic Metabolic Profile (BMP) 10/24/2020 12:00:00 AM EDT eCW 1 ([facility]) Name Value Range Interpretation Code Description Data Kassy rce(s) Supporting Document(s) 67 70-100 GLUCOSE, FASTING eCW1 (Critical access hospital) 0.71 0.55-1.30 CREATININE FOR GFR eCW1 ([facility]) 14 7-18 BLOOD UREA NITROGEN eCW1 ([facility]) 143 136-145 SODIUM LEVEL eCW1 ([facility]) > 60.0 >58 GLOMERULAR FILTRATION RATE eCW 1 ([facility]) 109 98-107 CHLORIDE LEVEL eCW1 ([facility]) 3.9 3.5-5.1 POTASSIUM SERUM eCW1 ([facility]) 8.3 8.5-10.1 CALCIUM LEVEL eCW1 ([facility]) 31 21-32 CARBON DIOXIDE LEVEL eCW1 ([facility]) ID Date Data Source ERYTHROCYTE SEDIMENTATION RATE 10/24/2020 12:00:00 AM EDT eC W1 ([facility]) Name Value Range Interpretation Code Description Data Kassy rce(s) Supporting Document(s) 8 0-20 ERYTHROCYTE SEDIMENTATION RATE eCW1 ([facility]) ID Date Data Source C REACTIVE PROTEIN QUANTITATIV (At [facility]) 10/24/2020 12:00 :00 AM EDT eCW1 ([facility]) Name Value Range Interpretation Code Description Data Kassy rce(s) Supporting Document(s) 0.35 0.00-0.30 C REACTIVE PROTEIN QUANTI TATIV eCW1 ([facility]) ID Date Data Source CBC with Differential 10/24/2020 12:00:00 AM EDT eCW1 ([facility]) Name Value Range Interpretation Code Description Data Kassy rce(s) Supporting Document(s) 46.5 36.0-47.0 HEMATOCRIT eCW1 ([facility]) 15.0 12.0-15.5 HEMOGLOBIN eCW1 ([facility]) 5.05 4.00-5.40 RED BLOOD COUNT eCW1 ([facility]) 10.9 4.0-10.0 WHITE BLOOD COUNT eCW1 ([facility]) 32.3 32.0-36.5 MEAN CORPUSCULAR HGB CONC eCW1 ([facility]) 29.7 27.0-33.0 MEAN CORPUSCULAR HEMOGLOB IN eCW1 ([facility]) 92.1 80.0-96.0 MEAN CORPUSCULAR VOLUME e CW1 ([facility]) 297 150-450 PLATELET COUNT, AUTOMATED eCW1 ([facility]) 52.7 36.0-66.0 NEUTROPHILS % eCW1 ([facility]) 13.1 11.5-14.5 RED CELL DISTRIBUTION WID TH eCW1 ([facility]) 0.5 0.0-1.0 BASO % eCW1 ([facility]) 5.1 2.0-8.0 MONO % eCW1 ([facility]) 1.6 0.0-3.0 EOS % eCW1 ([facility]) 39.7 24.0-44.0 LYMPH % eCW1 ([facility]) 5.8 1.5-8.5 NEUTROPHILS # eCW1 ([facility]) 0.6 0.0-0.8 MONO # eCW1 ([facility]) 4.3 1.5-5.0 LYMPH # eCW1 ([facility]) 0.1 0.0-0.2 BASO # eCW1 ([facility]) 0.2 0.0-0.5 EOS # eCW1 ([facility]) ID Date Data Source COMPLEMENT C4 10/24/2020 12:00:00 AM EDT eCW1 ([facility]) Name Value Range Interpretation Code Description Data Kassy rce(s) Supporting Document(s) 26 10-40 COMPLEMENT C4 eCW1 ([facility]) ID Date Data Source COMPLEMENT C3 10/24/2020 12:00:00 AM EDT eCW1 ([facility] hospital) Name Value Range Interpretation Code Description Data Kassy rce(s) Supporting Document(s) 134 90-180 COMPLEMENT C3 eCW1 ([facility]) ID Date Data Source [id number] 07/05/2020 10:30:00 AM EDT [facility] Name Value Range Interpretation Code Description Data Kassy rce(s) Supporting Document(s) SODIUM 140 MEQ/L 135-145 [facility] POTASSIUM 3.7 MEQ/L 3.5-5.3 [facility] CHLORIDE 106 MEQ/L 94-110 [facility] CARBON DIOXIDE 29 MEQ/L 22-33 [facility] ANION GAP 9 5-16 N [facility] BLOOD UREA NITRO 13 MG/DL 7-25 [facility] CREATININE 0.7 MG/DL 0.6-1.4 N [facility] GFR > 90.0 ML/MIN [facility] Stage G1 - Normal or high kidney functi on The GFR is an estimate of the Glomerular Filtration Rate. It is an aid to assess a patient's renal function. It is not a conclusive diagnosis of kidney disease. GFR normal is >=90 The MDRD GFR calculation is considered valid between the ages of 18 and 75 years only. BUN/CREAT RATIO 18 8-36 N [facility] GLUCOSE 95 MG/DL 70-100 N [facility] CA 9.3 MG/DL 8.7-10.5 N [facility] ID Date Data Source [id number] 07/10/2020 09:55:00 AM EDT [facility] Name Value Range Interpretation Code Description Data Kassy rce(s) Supporting Document(s) CALPROTECTIN, FECAL See Notes [facility] Calprotectin, Fecal 29 ug/g 0 - 120 Concentration Interpretation Follow-Up <16 - 50 ug/g Normal None >50 -120 ug/g Borderline Re-evaluate in 4-6 weeks >120 ug/g Abnormal Repeat as clinically indicated [facility] [id number] Dir: Yonathan Joseph MD ID Date Data Source [id number] 06/25/2020 01:35:00 PM EST [facility] Name Value Range Interpretation Code Description Data Kassy rce(s) Supporting Document(s) SARS-CoV-2 (COVID 19) NEGATIVE - SARS-CoV-2 (COVID19) [facility] This lab was ordered by [facility] a nd reported by [facility]. ID Date Data Source [id number] 06/10/2020 02:08:00 PM EST [facility] ([facility] Name Value Range Interpretation Code Description Data Kassy rce(s) Supporting Document(s) Homogeneous Pattern Laboratory test result Above high norm al [facility] ([facility] Nuclear Ab [Titer] in Serum by Immunofluorescence Laboratory netta t result Abnormal (applies to non-numeric results) [facility] <content>Negative <1:80</content>
<content>Borderline 1:80</content>
<content>Positive >1:80</content>
<content></content> Nucleolar Pattern Laboratory test result [facility] ([facility] Speckled Pattern Laboratory test result [facility] ([facility] Centromere Pattern Laboratory test result [facility] ([facility] Spindle Apparatus Pattern Laboratory test result [facility] ([facility] Nuclear Membrane Pattern Laboratory test result [facility] ([facility] Nuclear Dot Pattern Laboratory test result [facility] ([facility] Midbody Pattern Laboratory test result [facility] ([facility] Pcna Pattern Laboratory test result [facility] ([facility] Centriole Pattern Laboratory test result [facility] ([facility] Note: Laboratory test result MED[facility] ([facility] A positive RADHA result may occur in healt hy individuals (low titer) or be associated with a variety of diseases. See interpretation chart which is not all inclusive: Pattern Antigen Detected Suggested Disease Association --------- Homogeneous DNA(ds,ss), SLE - High titers Nucleosomes, Histones Drug-induced SLE --------- Speckled Sm, CNC TECHNICIAN, SCL-70, SLE,MCTD,PSS (diffuse form), SS-A/SS-B Sjogrens --------- Nucleolar SCL-70, PM-1/SCL High titers Scleroderma, PM/DM --------- Centromere Centromere PSS (limited form) w/Crest syndrome variable --------- Nuclear Dot Sp100,[id number] Primary Biliary Cirrhosis --------- Nuclear GP210, Primary Biliary Cirrhosis Membrane hair A,B,C --------- ID Date Data Source [id number] 06/10/2020 02:08:00 PM EST JASON ([facility] Name Value Range Interpretation Code Description Data Kassy rce(s) Supporting Document(s) Ferritin [Mass/volume] in Serum or Plasma 98 ng/mL 15-150 MEDKATHLEEN ([facility] Ceruloplasmin [Mass/volume] in Serum or Plasma 28.9 mg/dL 19.0-39.0 [facility] ([facility] Gamma glutamyl transferase [Enzymatic activity/volume] in Serum or Plasma 70 IU/L 0-60 Above high normal [facility] ([facility] Mitochondrial (M2) Antibody Laboratory test result 0.0-20.0 [facility] ([facility] Negative 0.0 - 20.0 Equivocal 20.1 - 24.9 Positive >24.9 Mitochondrial (M2) Antibodies are found in 90-96% of patients with primary biliary cirrhosis. ID Date Data Source [id number] 06/10/2020 02:08:00 PM EST MEDENT ([facility] Name Value Range Interpretation Code Description Data Kassy rce(s) Supporting Document(s) Hepatitis A virus IgM Ab [Presence] in Serum or Plasma by Immunoassay Laboratory test result [facility] Hepatitis B virus surface Ag [Presence] in Serum or Pl asma by Immunoassay Laboratory test result MED[facility] ([facility] Hep B Core Ab, IgM Laboratory test result [facility] ([facility] Hepatitis C virus Ab Signal/Cutoff in Serum or Plasma by Immunoassay Laboratory test result 0.0-0.9 [facility] ([facility] <content>Negative: < 0.8</content><b r/><content>Indeterminate: 0.8 - 0.9</content>
<content>Positive: > 0.9</content>
<content>The CDC recommends that a positive HCV antibody result</content>
<content>be followed up with a HCV Nucleic Acid Amplification</content>
<content>test ([id number]).</content>
<content></content> ID Date Data Source [id number] 06/10/2020 02:08:00 PM EST MED[facility] ([facility] Name Value Range Interpretation Code Description Data Kassy rce(s) Supporting Document(s) TP 7.1 g/dL 6.6-8.7 [facility] ([facility] Alb 4.7 g/dL 3.4-4.8 [facility] ([facility] A/G Ratio 1.9 CALC MED[facility] ([facility] Globulin 2.4 CALC [facility] ([facility] Alp 70.4 U/L 35-129 [facility] ([facility] Alt (SGPT) 107 U/L 0-41 Above high normal [facility] ([facility] Tbili 0.28 mg/dL 0.0-1.2 [facility] ([facility] Dbil 0.06 mg/dL 0.00-0.20 [facility] ([facility] Ast (Sgot) 22 U/L 0-40 [facility] ([facility] Bilirubin, Indirect 0.22 CALC [facility] ([facility] ID Date Data Source [id number] 06/08/2020 10:50:00 AM EST [facility] ([facility] Name Value Range Interpretation Code Description Data Kassy rce(s) Supporting Document(s) Blood Urea Nitrogen 10 mg/dL 7-18 Normal (applies to non-nume sophia results) [facility] ([facility] Glucose, Fasting 89 mg/dL 70-100 Normal (applies to non-numeric results) [facility] ([facility] Glomerular Filtration Rate Laboratory test result Normal (applies to non- numeric results) [facility] ([facility] ) <content>Units are mL/min/1.73 m2</content>
<content></content>
<content>Chronic Kidney Disease Staging per NKF:</content>
<content></content>
<content>Stage I & II GFR >=60 Normal to Mildly Decreased</content>
<content>Stage III GFR 30- 59 Moderately Decreased</content>
<content>Stage IV GFR 15-29 Severely Decreased</content>
<content>Stage V GFR <15 Very Little GFR Left</content>
<content>ESRD GFR <15 on BULK GAS SPECIALIST</content>
<content></content> Creatinine For GFR 0.68 mg/dL 0.55-1.30 Normal (applies to non -numeric results) [facility] ([facility] Sodium Level 140 meq/L 136-145 Normal (applies to non-numeric res ults) [facility] ([facility] Carbon Dioxide Level 28 meq/L 21-32 Normal (applies to non-num nalini results) [facility] ([facility] Potassium Serum 3.6 meq/L 3.5-5.1 Normal (applies to non-numeric results) [facility] ([facility] Chloride Level 104 meq/L 98-107 Normal (applies to non-numeric r esults) [facility] ([facility] Calcium Level 8.9 mg/dL 8.5-10.1 Normal (applies to non-numeric re sults) [facility] ([facility] Anion Gap 8 meq/L 8-16 Normal (applies to non-numeric resul ts) [facility] ([facility] Ast/Sgot 198 U/L 7-37 Above high normal [facility] ([facility] Alt/SGPT 294 U/L 12-78 Above high normal [facility] ([facility] Alkaline Phosphatase 86 U/L 45-117 Normal (applies to non-num nalini results) [facility] ([facility] Total Protein 6.7 GM/DL 6.4-8.2 Normal (applies to non-numeric re sults) [facility] ([facility] Bilirubin,Total 0.3 mg/dL 0.2-1.0 Normal (applies to non-numeric results) [facility] ([facility] Albumin 3.5 GM/DL 3.2-5.2 Normal (applies to non-numeric resul ts) [facility] ([facility] Albumin/Globulin Ratio 1.1 1.2-2.2 Below low normal [facility] ([facility] ID Date Data Source [id number] 06/08/2020 10:50:00 AM EST MEDENT ([facility] Name Value Range Interpretation Code Description Data Kassy rce(s) Supporting Document(s) White Blood Count 4.7 10 4.0-10.0 Normal (applies to non-numeri c results) [facility] ([facility] Red Blood Count 5.18 10 4.00-5.40 Normal (applies to non-numeric results) [facility] ([facility] Hemoglobin 15.3 g/dL 12.0-15.5 Normal (applies to non-numeric resul ts) [facility] ([facility] Mean Corpuscular Volume 89.8 fl 80.0-96.0 Normal ( applies to non-numeric results) [facility] ([facility] ) Mean Corpuscular Hemoglobin 29.5 pg 27.0-33.0 Norm al (applies to non-numeric results) [facility] ([facility] ) Hematocrit 46.5 % 36.0-47.0 Normal (applies to non-numeric resul ts) [facility] ([facility] Platelet Count, Automated 266 10 150-450 Normal (applies to non-numeric results) [facility] ([facility] ) Red Cell Distribution Width 12.5 % 11.5-14.5 Norm al (applies to non-numeric results) [facility] ([facility] ) Neutrophils % 52.0 % 36.0-66.0 Normal (applies to non-numeric re sults) [facility] ([facility] Mean Corpuscular HGB Conc 32.9 g/dL 32.0-36.5 Normal (applies to non-numeric results) [facility] ([facility] ) Lymph % 33.9 % 24.0-44.0 Normal (applies to non-numeric resul ts) [facility] ([facility] Ogle % 11.5 % 2.0-8.0 Above high normal [facility] ([facility] Baso % 1.3 % 0.0-1.0 Above high normal [facility] ([facility] Eos % 0.9 % 0.0-3.0 Normal (applies to non-numeric resul ts) [facility] ([facility] Immature Granulocyte % 0.4 % 0-3.0 Normal (applies to non-n umeric results) [facility] ([facility] Neutrophils # 2.4 10 1.5-8.5 Normal (applies to non-numeric re sults) [facility] ([facility] Nucleated Red Blood Cell % 0.0 % 0-0 Normal (applies to n on-numeric results) [facility] ([facility] Lymph # 1.6 10 1.5-5.0 Normal (applies to non-numeric resul ts) [facility] ([facility] Ogle # 0.5 10 0.0-0.8 Normal (applies to non-numeric resul ts) [facility] ([facility] Eos # 0.0 10 0.0-0.5 Normal (applies to non-numeric resul ts) [facility] ([facility] Baso # 0.1 10 0.0-0.2 Normal (applies to non-numeric resul ts) [facility] ([facility] ID Date Data Source [id number] 06/08/2020 09:32:00 AM EST [facility] ([facility] Name Value Range Interpretation Code Description Data Kassy rce(s) Supporting Document(s) Lipoprotein lipase [Enzymatic activity/volume] in Serum or P lasma 152 U/L 73-393 Normal (applies to non-numeric results) [facility] ([facility] ID Date Data Source [id number] 06/08/2020 09:32:00 AM EST [facility] ([facility] Name Value Range Interpretation Code Description Data Kassy rce(s) Supporting Document(s) CPK Creatine Phosphokinase 46 U/L 26-192 Mily l (applies to non-numeric results) [facility] ([facility] ) CK-MB Value Mass Laboratory test result Normal ( applies to non-numeric results) [facility] ([facility] ) MB/CK Relative Index 2.17 Normal (applies to non-num nalini results) MEDKATHLEEN ([facility] <content>DIAGNOSIS CRITERIA</content>
<content>MMB ng/ml Relative Index (RI)</content>
<content>NON-AMI < or = 5 N/A</content>
<content>GARCIA ZONE > 5 < or = 4</content>
<content>AMI > 5 > 4</content>
<content></content> Troponin I Laboratory test result Normal (applies to non-n umeric results) MEDKATHLEEN ([facility] <content>Troponin I Reference Interval f or Siemens [place] LOCI:</content>
<content></content>
<content>99th Percentile= 0.00-0.045 ng/ml</content>
<content></content>
<content>Risk Stratification:</content>
<content><= 0.10 ng/ml Decreased Risk for Adverse Clinical</content>
<content>Events.</content>
<content>0.10-1.50 ng/ml Increased Risk for Adverse Clinical</content>
<content>Events. Evaluation of additional</content>
<content>criterion and/or repeat testing in 2-6</content>
<content>hours is suggested to rule out myocardial</content>
<content>damage.</content>
<content>>= 1.50 ng/ml Indicative of Myocardial Injury.</content>
<content></content> ID Date Data Source [id number] 06/05/2020 10:38:35 AM EST [facility] Name Value Range Interpretation Code Description Data Kassy rce(s) Supporting Document(s) Progress Note [facility] YHLCRd1oVxBNBwXt40/JAEviSFTty5ScXHsmARm1XBdtZUWhL9EbNTH2pW5eXSO8GMkEOwBuWsPpOnJ1 lbm [file] AgICAgICAgICAgICAgICAgICAgICAgICAgICAgICAgICAgICAgICAgICAgICAgICAgICAgICAgICAgIC AgICAgICAgICAgICAgICAgICAgICAgICANCiAgICAg ICAgICAgICAgICAgICAgICAgICAgICAgICAgICAgICAgICAgICAgICAgICAgICAgICAgICAgICAgICAg ICAgICAgICAgICAgICAgICAgICAgICAgICAgICAgICAgICANCiAgICAgICAgICAgICAgICAgICAgICAg ICAgICAgICAgICAgICAgICAgICAgICAgICAgICAgIC AgICAgICAgICAgICAgICAgICAgICAgICAgICAgICAgICAgICAgICAgICAgICANCiAgICAgICAgICAgIC AgICAgICAgICAgICAgICAgICAgICAgICAgICAgICAgICAgICAgICAgICAgICAgICAgICAgICAgICAgIC AgICAgICAgICAgICAgICAgICAgICAgICAgICANCiAg ICAgICAgICAgICAgICAgICAgICAgICAgICAgICAgICAgICAgICAgICAgICAgICAgICAgICAgICAgICAg ICAgICAgICAgICAgICAgICAgICAgICAgICAgICAgICAgICAgICANCiAgICAgICAgICAgICAgICAgICAg ICAgICAgICAgICAgICAgICAgICAgICAgICAgICAgIC AgICAgICAgICAgICAgICAgICAgICAgICAgICAgICAgICAgICAgICAgICAgICAgICANCiAgICAgICAgIC AgICAgICAgICAgICAgICAgICAgICAgICAgICAgICAgICAgICAgICAgICAgICAgICAgICAgICAgICAgIC AgICAgICAgICAgICAgICAgICAgICAgICAgICAgICAN CiAgICAgICAgICAgICAgICAgICAgICAgICAgICAgICAgICAgICAgICAgICAgICAgICAgICAgICAgICAg ICAgICAgICAgICAgICAgICAgICAgICAgICAgICAgICAgICAgICAgICANCiAgICAgICAgICAgICAgICAg ICAgICAgICAgICAgICAgICAgICAgICAgICAgICAgIC AgICAgICAgICAgICAgICAgICAgICAgICAgICAgICAgICAgICAgICAgICAgICAgICAgICANCiAgICAgIC AgICAgICAgICAgICAgICAgICAgICAgICAgICAgICAgICAgICAgICAgICAgICAgICAgICAgICAgICAgIC AgICAgICAgICAgICAgICAgICAgICAgICAgICAgICAg ICANCjw/wFKnB9sfsZBeqeI5Q2xjTf2BXx0SKU3ur7MpPHDlPSqynmYuDexKPcIhOSZcTekTQny6DUsz MJ2SnAFsR4VrN5HxNUxfEJ9LGIWeHIGksUFfLWHlEQRhWcP3SPBkVWvpIU9NkUApKNcoUZNiIZFqHnMa QLErMYLdUBRlLCXwADNTGLNvTCTcEoPwGBapTG1Lt7 XtuBJ7OLp+Pe1PWJ9kz3BzJLitJVStTE1pxo2YGZdKRmMzH2ZbhnE1CXJxICTaSk2FYDTyPJLorOCiBG RjLZBHSzEtZ1BbbR45FTCEDi4+YMbmjcKmQqyFBzEfAHDms3DdSLz6PB8EIHRhYCz4aYOhMPNvD8Tik6 GfEd23GIWxRsjvFCYilLSytfJAEM1ccShlpxqqNZDq NZRxCy1vMH9eOLYwZDStOhRfDKQQBR2YKZViBJHdnZUxUVMfCCOAIU5HIBkoOXN5JDEiwkYbxJQtFCyz QG7PQCGulqFrPpDzXEDGVYi+Hn8IZW8ui4FgRRzgCpOcUV0aej2WIWfISxSfJ4K8qMWlV6D8WCoeRg2R YUExDKWsWaueXVTTGVdcEA1YVI1mriT0US1RnLGgNH FrRAZeyUVrMSu0T30ifQXwEZvuMA1FTJF+Emmanuel+Df8LAGSyJERaZGJxAgLaNITCHfQlJ4DoW4FCd3QmP7 UcVH19zVpvawUlWJgdWE7NRP6uQRWgFUGEMT6GxUUnyJ2mwuAoDKHjZNXEFsAiZ04ltZDnSDFuIUN5LN MpBw3ZEARlN5MbdpRfrFuxybObQVDfZXAUBN3KAOky axMwqGNcjHjrDQ35zVkaRO0MJv9SMkWdQG2qiv5HjYNzOa5HMERhVe1OKRKbFWIgXAVlTZR3AHBlKkDa GPzrHNWeXXCqDDB4TQYxSDKpIR8BNdAvXEPuErt6WoCrOFLkLIQugf0UIDUfDNKsMIZ7BVLtMOSbFTQy KRwlOLBoIMXzWJF7BHDoZZFgRI7AMlItTZZhKSNiAT gzDBOuZIArho4GMOWhLVEbSBJ3BrCsXHQrXEOoVUwnDALqEPY7Han5LJXbJWJoBU3IKxWeENKsVYO7CR YwGIOmLYLpdk3FGHKrXDEaJKJgOqBxURCoUTQjZSzaOBIcBIT2UZLpIWDrGNStNF0QLtGiWDPtITPwQX RoBBEwDQCdir4YJHGnCIXdQuTeVLXcOXNbHTNvRXec LRCvZMArThG2QCHrTXPjVM0WHgZsVNYsGEL8OQWvLOIpQMVnlk2HTWXvDUHvFPDgEiXaODXrFGLzLPcy NPDdJOD6RKe7MLMxGGEcIR2RWeXlOJZxNZZ8TQMrVDSfTGNfzd9THPCrSLAqJDg3OCOyGPXlXJKuEPin AUOkGGM2RVDkQHLlQBJxGK8HThHsICTpEAUuTzOpUB KnKELxgk0MBWBjBBMmIqA0GYPgHEQhDMScIAcdCDCaRGQ1JHb5ANXtVTKhUF2IEqIwSDNyZotbMCGmBV QhQAVddo7LGWGkHKDwGOX5JMYbJMWpBFXeYAwnRMHnBGL7DJcoYFLeTOPcDH9MNeOdHSBwVav5UgAaXV MrVAMuhp3AKZYbXOBsNTRrEiPnSCIkLKGyKOxtGJWs MHA8LVRtDBLiGYQyKU6RPmCzIYHmVdQpDPpgWXLyKZTkrh4SPKMsRDSwWHA8VvXzFSYaYICtJIuxPASq SFXfPrBzIDUcYVVyEC0LDuSjXCKgFtH9LMVaPWHcIOGakj6MpBQdcSaucu1MTUuMDj0QiMbgTTXoWXwp Zl3ibCHvCfHqFXXIJq3XhtDqQNBqCTDQWAhnPKUqDQ i8NIKvLLM8TAD2DQZsQHA2Rkk1TPZcLyY5VFnrDQt8FcU3Hgx8ZTNlKEKrXEP6FRSaTRW9PTX0MnNxML Q5AvLnEbK+ZR3tMUv+Iq6Ie8LmvjK7zzOsUHgwKlN2XQ6ALDFQK3CZCv== ID Date Data Source [id number] 05/01/2020 12:00:00 AM EST [facility] Name Value Range Interpretation Code Description Data Kassy rce(s) Supporting Document(s) [facility] 2 [facility] was ordered by [facility] and reported by [facility]. ID Date Data Source [id number] 02/01/2020 11:11:00 AM EDT [facility] ([facility] Name Value Range Interpretation Code Description Data Kassy rce(s) Supporting Document(s) Urine Culture, Routine Laboratory test result [facility] ([facility] SRC:VOIDED Bacteria identified in Urine by Culture Laboratory test result [facility] ([facility] SRC:VOIDED ID Date Data Source [id number] 02/01/2020 10:29:00 AM EDT [facility] ([facility] Name Value Range Interpretation Code Description Data Kassy rce(s) Supporting Document(s) Clarity Laboratory test result [facility] ([facility] Color Laboratory test result [facility] ([facility] Glucose-Ua Laboratory test result ME DENT ([facility] Ketone Laboratory test result [facility] ([facility] Bilirubin,Urine Laboratory test result [facility] ([facility] pH 5.5 # 5.0-8.0 [facility] Blood - Ua Laboratory test result ME DENT ([facility] Creatine kinase [Enzymatic activity/volume] in Serum or Plas ma 1.025 # 1.000-1.030 [facility] Protein Laboratory test result [facility] ([facility] Urobilinogen 0.2 NA 0.2-1.0 [facility] ([facility] Nitrite Laboratory test result [facility] ([facility] RBC-Ua Laboratory test result 0-3 [facility] ([facility] Leukocyte Laboratory test result Abnormal (applies to non -numeric results) [facility] ([facility] Bacteria - Ua Laboratory test result Abnormal (applies to non-numeric results) [facility] ([facility] Epithelial Cells - Ua Laboratory test result [facility] ([facility] Mucous - Ua Laboratory test result M TAMARA ([facility] WBC-Ua Laboratory test result 0-5 Abnormal (applies to non -numeric results) [facility] ([facility] Crystals Laboratory test result MEDKATHLEEN ([facility] Procedure Social History Code Duration Value Status Description Data Source(s ) Smoking 10/24/2020 12:00:00 AM EDT Never Smoker completed Never S moker eCW1 ([facility]) Smoking 10/24/2020 12:00:00 AM EDT Never Smoker completed Never S moker eCW1 ([facility]) Smoking 10/24/2020 12:00:00 AM EDT Never Smoker completed Never S moker eCW1 ([facility]) Alcohol intake 06/05/2020 12:00:00 AM EST Current non-d loco of alcohol (finding) completed Current non-drinker of alcohol (finding) [facility] Tobacco use and exposure 06/05/2020 12:00:00 AM EST Never used co mpleted Never used [facility] Cigarette pack-years 06/05/2020 12:00:00 AM EST UNK completed [facility] Cigarettes smoked current (pack per day) - Reported 06/05/19 12:00:00 AM EST UNK completed [facility] Smoking 06/05/2020 12:00:00 AM EST Former smoker completed Former smoker [facility] Vital Signs ID Date Data Source UNK Name Value Range Interpretation Code Description Data Source(s) Systolic blood pressure 104 mm[Hg] 104 mm[Hg] M TAMARA ([facility] Diastolic blood pressure 62 mm[Hg] 62 mm[Hg] JASON ([facility] Body temperature 97.2 [degF] 97.2 [degF] JASON ([facility] Heart rate 90 /min 90 /min JASON ([facility] Respiratory rate 16 /min 16 /min JASON ( [facility] Body height 68 [in_i] 68 [in_i] MEDENT ([facility] 5'8" Body weight 300.00 [lb_av] 300.00 [lb_av] MEDEN T ([facility] [place] body weight 140 [lb_av] 140 [lb_av] MEDEN T ([facility] Body mass index (BMI) [Ratio] 45.6 kg/m2 45.6 k g/m2 [facility] ([facility] Oxygen saturation in Arterial blood by Pulse oximetry 98 % 98 % [facility] ([facility] Systolic blood pressure 146 mm[Hg] 146 mm[Hg] M EDENT ([facility]) Diastolic blood pressure 105 mm[Hg] 105 mm[Hg] MEDENT ([facility]) Heart rate 84 /min 84 /min MED[facility] ([facility]) Body temperature 98.1 [degF] 98.1 [degF] MEDENT ([facility]) Oxygen saturation in Arterial blood by Pulse oximetry 99 % 99 % MEDENT ([facility]) Heart rate 86 /min 86 /min [facility] ([facility] Respiratory rate 16 /min 16 /min [facility] ( [facility] Body height 68 [in_i] 68 [in_i] [facility] ([facility] 5'8" Body weight 284.00 [lb_av] 284.00 [lb_av] MEDEN T ([facility] [place] body weight 140 [lb_av] 140 [lb_av] MEDEN T ([facility] Systolic blood pressure 118 mm[Hg] 118 mm[Hg] M EDENT ([facility] Diastolic blood pressure 80 mm[Hg] 80 mm[Hg] [facility] ([facility] Body temperature 98.0 [degF] 98.0 [degF] [facility] ([facility] Body mass index (BMI) [Ratio] 43.2 kg/m2 43.2 k g/m2 [facility] ([facility] Oxygen saturation in Arterial blood by Pulse oximetry 99 % 99 % [facility] ([facility] Heart rate 77 /min 77 /min MED[facility] ([facility]) Body temperature 98.2 [degF] 98.2 [degF] MEDENT ([facility]) Oxygen saturation in Arterial blood by Pulse oximetry 97 % 97 % MEDENT ([facility]) Body weight 286 [lb_av] 286 [lb_av] eCW1 ([facility]) Body weight 129.7 kg 129.7 kg eCW1 ([facility] Body height [in_i] eCW1 ([facility] Body mass index (BMI) [Ratio] 49.09 kg/m2 49.09 kg/m2 eCW1 ([facility]) Heart rate 94 /min 94 /min eCW1 ([facility]) Respiratory rate 22 /min 22 /min eCW1 ([facility] Body temperature 98.6 [degF] 98.6 [degF] eCW1 ( [facility]) Systolic blood pressure 132 mm[Hg] 132 mm[Hg] e CW1 ([facility]) Diastolic blood pressure 82 mm[Hg] 82 mm[Hg] eCW1 ([facility]) Body height 68 [in_i] 68 [in_i] MEDENT ([facility] 5'8" Body weight 283.00 [lb_av] 283.00 [lb_av] MEDEN T ([facility] [place] body weight 140 [lb_av] 140 [lb_av] MEDEN T ([facility] Systolic blood pressure 126 mm[Hg] 126 mm[Hg] M EDENT ([facility] Diastolic blood pressure 74 mm[Hg] 74 mm[Hg] MEDENT ([facility] Body temperature 96.6 [degF] 96.6 [degF] MEDENT ([facility] Heart rate 88 /min 88 /min MEDENT ([facility] Body mass index (BMI) [Ratio] 43.0 kg/m2 43.0 k g/m2 MEDENT ([facility] Oxygen saturation in Arterial blood by Pulse oximetry 98 % 98 % MEDENT ([facility] Respiratory rate 16 /min 16 /min MEDENT ( [facility] Body temperature 97.2 [degF] 97.2 [degF] MEDENT ([facility]) Oxygen saturation in Arterial blood by Pulse oximetry 97 % 97 % MEDENT ([facility]) Systolic blood pressure 144 mm[Hg] 144 mm[Hg] M EDENT ([facility]) Diastolic blood pressure 106 mm[Hg] 106 mm[Hg] MEDENT ([facility]) Heart rate 82 /min 82 /min MEDENT ([facility]) Body height 68 [in_i] 68 [in_i] MEDENT ([facility] 5'8" [place] body weight 140 [lb_av] 140 [lb_av] MEDEN T ([facility] Body mass index (BMI) [Ratio] 41.7 kg/m2 41.7 k g/m2 MEDENT ([facility] Systolic blood pressure 102 mm[Hg] 102 mm[Hg] M EDENT ([facility] Diastolic blood pressure 64 mm[Hg] 64 mm[Hg] MEDENT ([facility] Body temperature 98.0 [degF] 98.0 [degF] MEDENT ([facility] Heart rate 87 /min 87 /min MEDENT ([facility] Respiratory rate 16 /min 16 /min MEDENT ( [facility] Body weight 274.00 [lb_av] 274.00 [lb_av] MEDEN T ([facility] Oxygen saturation in Arterial blood by Pulse oximetry 99 % 99 % MEDENT ([facility] Diastolic blood pressure 76 mm[Hg] 76 mm[Hg] MEDENT ([facility] Body temperature 96.9 [degF] 96.9 [degF] MEDENT ([facility] Heart rate 75 /min 75 /min MEDENT ([facility] [place] body weight 140 [lb_av] 140 [lb_av] MEDEN T ([facility] Systolic blood pressure 118 mm[Hg] 118 mm[Hg] M EDENT ([facility] Respiratory rate 16 /min 16 /min JASON ( [facility] Body height 68 [in_i] 68 [in_i] JASON ([facility] 5'8" Body weight 266.00 [lb_av] 266.00 [lb_av] TAMELAEN T ([facility] Body mass index (BMI) [Ratio] 40.4 kg/m2 40.4 k g/m2 JASON ([facility] Oxygen saturation in Arterial blood by Pulse oximetry 98 % 98 % JASON ([facility] ([place] Rest), (Room Air) Patient Treatment Plan of Care Planned Activity Planned Date Details Description Data Source (s) Norethindrone 0.35 MG Oral Tablet 06/05/2020 12:00:00 AM [facility] Norethindrone 0.35 MG Oral Tablet 07/19/2019 12:00:00 AM [facility]
[2021-03-30] MEDS ORDERED: GABA-1171 (13:26)
[2021-03-30] MEDS ORDERED: IBUP-1022 PO (13:27)
[2021-03-30] MEDS ORDERED: VALA1TAB5 (13:27)
--- OUTSIDE RECORDS SUMMARY | 2021-03-30 16:25 | CCD ---
Author Author [facility] Organization [facility] Address Unknown Phone Unavailable Care Team Providers Care Chemical Process Project Engineer Name Role Phone BELLE WASHINGTON MD Unavailable [...] Delores PA Unavailable Unavailable BUMBANAC, A STAR PROFILE SAW OPERATOR Unavailable Unavailable BUMBANAC, A STAR PROFILE SAW OPERATOR Unavailable Unavailable BUMBANAC, A STAR PROFILE SAW OPERATOR Unavailable Unavailable BUMBANAC, A STAR PROFILE SAW OPERATOR Unavailable Unavailable BUMBANAC, A STAR PROFILE SAW OPERATOR Unavailable Unavailable BUMBANAC, A STAR PROFILE SAW OPERATOR Unavailable Unavailable BUMBANAC, A STAR PROFILE SAW OPERATOR Unavailable Unavailable BUMBANAC, A STAR PROFILE SAW OPERATOR Unavailable Unavailable BUMBANAC, A STAR PROFILE SAW OPERATOR Unavailable Unavailable BUMBANAC, A STAR PROFILE SAW OPERATOR Unavailable Unavailable BUMBANAC, A STAR PROFILE SAW OPERATOR Unavailable Unavailable BUMBANAC, A STAR PROFILE SAW OPERATOR Unavailable Unavailable BUMBANAC, A STAR PROFILE SAW OPERATOR Unavailable Unavailable BUMBANAC, A STAR PROFILE SAW OPERATOR Unavailable Unavailable BUMBANAC, A STAR PROFILE SAW OPERATOR Unavailable Unavailable BUMBANAC, A STAR PROFILE SAW OPERATOR Unavailable Unavailable BUMBANAC, A STAR PROFILE SAW OPERATOR Unavailable Unavailable BUMBANAC, A STAR PROFILE SAW OPERATOR Unavailable Unavailable BUMBANAC, A STAR PROFILE SAW OPERATOR Unavailable Unavailable BUMBANAC, A STAR PROFILE SAW OPERATOR Unavailable Unavailable BUMBANAC, A STAR PROFILE SAW OPERATOR Unavailable Unavailable BUMBANAC, A STAR PROFILE SAW OPERATOR Unavailable Unavailable BUMBANAC, A STAR PROFILE SAW OPERATOR Unavailable Unavailable BUMBANAC, A STAR PROFILE SAW OPERATOR Unavailable Unavailable BUMBANAC, A STAR PROFILE SAW OPERATOR Unavailable Unavailable BUMBANAC, A STAR PROFILE SAW OPERATOR Unavailable Unavailable BUMBANAC, A STAR PROFILE SAW OPERATOR Unavailable Unavailable BUMBANAC, A STAR PROFILE SAW OPERATOR Unavailable Unavailable BUMBANAC, A STAR PROFILE SAW OPERATOR Unavailable Unavailable BUMBANAC, A STAR PROFILE SAW OPERATOR Unavailable Unavailable BUMBANAC, A STAR PROFILE SAW OPERATOR Unavailable Unavailable DJOUINI, NAVNEET PA-C Unavailable Unavailable [...] Unavailable Kay PORTER MD Unavailable Unavailable Kay POTRER MD Unavailable Unavailable Kay PORTER MD Unavailable [...] NAVNEET PA-C Unavailable Unavailable BUMBANAC, A STAR PROFILE SAW OPERATOR Unavailable Unavailable BUMBANAC, A STAR PROFILE SAW OPERATOR Unavailable Unavailable BUMBANAC, A STAR PROFILE SAW OPERATOR Unavailable Unavailable BUMBANAC, A STAR PROFILE SAW OPERATOR Unavailable Unavailable BUMBANAC, A STAR PROFILE SAW OPERATOR Unavailable Unavailable BUMBANAC, A STAR PROFILE SAW OPERATOR Unavailable Unavailable BUMBANAC, A STAR PROFILE SAW OPERATOR Unavailable Unavailable BUMBANAC, A STAR PROFILE SAW OPERATOR Unavailable Unavailable BUMBANAC, A STAR PROFILE SAW OPERATOR Unavailable Unavailable BUMBANAC, A STAR PROFILE SAW OPERATOR Unavailable Unavailable BUMBANAC, A STAR PROFILE SAW OPERATOR Unavailable Unavailable BUMBANAC, A STAR PROFILE SAW OPERATOR Unavailable Unavailable BUMBANAC, A STAR PROFILE SAW OPERATOR Unavailable Unavailable BUMBANAC, A STAR PROFILE SAW OPERATOR Unavailable Unavailable BUMBANAC, A STAR PROFILE SAW OPERATOR Unavailable Unavailable BUMBANAC, A STAR PROFILE SAW OPERATOR Unavailable Unavailable BUMBANAC, A STAR PROFILE SAW OPERATOR Unavailable Unavailable BUMBANAC, A STAR PROFILE SAW OPERATOR Unavailable Unavailable BUMBANAC, A STAR PROFILE SAW OPERATOR Unavailable Unavailable BUMBANAC, A STAR PROFILE SAW OPERATOR Unavailable Unavailable BUMBANAC, A STAR PROFILE SAW OPERATOR Unavailable Unavailable BUMBANAC, A STAR PROFILE SAW OPERATOR Unavailable Unavailable BUMBANAC, A STAR PROFILE SAW OPERATOR Unavailable Unavailable BUMBANAC, A STAR PROFILE SAW OPERATOR Unavailable Unavailable BUMBANAC, A STAR PROFILE SAW OPERATOR Unavailable Unavailable BUMBANAC, A STAR PROFILE SAW OPERATOR Unavailable Unavailable BUMBANAC, A STAR PROFILE SAW OPERATOR Unavailable Unavailable BUMBANAC, A STAR PROFILE SAW OPERATOR Unavailable Unavailable BUMBANAC, A STAR PROFILE SAW OPERATOR Unavailable Unavailable BUMBANAC, A STAR PROFILE SAW OPERATOR Unavailable Unavailable BUMBANAC, A STAR PROFILE SAW OPERATOR Unavailable Unavailable Cata Lino MD Unavailable Unavailable Cata Lino MD Unavailable Unavailable Cata Lino MD Unavailable Unavailable Caat Lino MD Unavailable Unavailable Cata Lino MD [...] J Otto Unavailable Unavailable Woodrick, Princess Odalys DIRECTOR SEARCH-C Unavailable Unavail able Woodrick, Princess Odalys DIRECTOR SEARCH-C Unavailable Unavail able Woodrick, Princess Odalys DIRECTOR SEARCH-C Unavailable Unavail able Woodrick, Princess Odalys DIRECTOR SEARCH-C Unavailable Unavail able Woodrick, Princess Odalys DIRECTOR SEARCH-C Unavailable Unavail able Woodrick, Princess Odalys DIRECTOR SEARCH-C Unavailable Unavail able Woodrick, Princess Odalys DIRECTOR SEARCH-C Unavailable Unavail able Woodrick, Princess Odalys DIRECTOR SEARCH-C Unavailable Unavail able Woodrick, Princess Odalys DIRECTOR SEARCH-C Unavailable Unavail able Woodrick, Princess Odalys DIRECTOR SEARCH-C Unavailable Unavail able Woodrick, Princess Odalys DIRECTOR SEARCH-C Unavailable Unavail able Woodrick, Princess Odalys DIRECTOR SEARCH-C Unavailable Unavail able Woodrick, Princess Odalys DIRECTOR SEARCH-C Unavailable Unavail able Woodrick, Princess Odalys DIRECTOR SEARCH-C Unavailable Unavail able Woodrick, Princess Odalys DIRECTOR SEARCH-C Unavailable Unavail able Woodrick, Princess Odalys DIRECTOR SEARCH-C Unavailable Unavail able Woodrick, Princess Odalys DIRECTOR SEARCH-C Unavailable Unavail able Woodrick, Princess Odalys DIRECTOR SEARCH-C Unavailable Unavail able Woodrick, Princess Odalys DIRECTOR SEARCH-C Unavailable Unavail able Woodrick, Princess Odalys DIRECTOR SEARCH-C Unavailable Unavail able Woodrick, Princess Odalys DIRECTOR SEARCH-C Unavailable Unavail able Woodrick, Princess Odalys DIRECTOR SEARCH-C Unavailable Unavail able Woodrick, Princess Odalys DIRECTOR SEARCH-C Unavailable Unavail able Woodrick, Princess Odalys DIRECTOR SEARCH-C Unavailable Unavail able Woodrick, Princess Odalys DIRECTOR SEARCH-C Unavailable Unavail able Woodrick, Princess Odalys DIRECTOR SEARCH-C Unavailable Unavail able Woodrick, Princess Doalys DIRECTOR SEARCH-C Unavailable Unavail able Woodrick, Princess Odalys DIRECTOR SEARCH-C Unavailable Unavail able Woodrick, Princess Odalys DIRECTOR SEARCH-C Unavailable Unavail able Woodrick, Princess Odalys DIRECTOR SEARCH-C Unavailable Unavail able Woodrick, Princess Odalys DIRECTOR SEARCH-C Unavailable Unavail able Woodrick, Princess Odalys DIRECTOR SEARCH-C Unavailable Unavail able Fish, J Otto Unavailable [...] Unavailable Lino, M Froylan MD Unavailable Unavailable Lnio, M Froylan MD Unavailable Unavailable Lino, M [...] is protected by Article 27-F of the [facility] Public Health law. If you continue you may have access to information: Regarding HIV / AIDS; Provided by facilities licensed or operated by the [facility] Office of Mental Health; or Provided by the [facility] Office for People With Developmental Disabilities. If such information is present, then the following [facility] mandated warning applies: This information has [...] law may result in a fine or custodial sentence or both. A general authorization for [...] [facility]) Unknown Male Problem MED[facility] ([facility]) Encounters Encounter Providers Location Date Indications Data Source(s ) Outpatient Attender: Armen [facility]OURGEO[facility] [place] [facility] 12/2020 12:30:00 PM EST [facility] ([facility] Outpatient Attender: BELLE WASHINGTON MD 02/18/2021 12:00: [address] [facility] Outpatient Attender: NAVNEET DEL CASTILLO PA-C [facility] 05:00:00 PM [facility]patient Attender: NAVNEET PERAZACConsultant: Otto Joao 02/09/2021 04:51:00 PM EDT - 02/09/2021 04:51:[address] [facility] Outpatient Attender: Armen BOURGEOIS [place] [facility] 04/2020 03:45:00 PM EDT [facility] ([facility] Attender: Froylan Lino MD 01/13/2021 09:46:30 AM E DT Lab [place] [facility] [place] ( in Healthcare facility) Attender: Froylan Lino MDAdmitter: Froylan Lino MDConsultant: Otto Joao 01/08/2021 06:21:00 AM EDT - 01/08/2021 06:03:00 PM EDT [facility] Outpatient Attender: Froylan Lino MDAdmitter: Froylan Lino MD 01/08/2021 06:21:00 AM EDT - 01/08/2021 06:03:00 PM EDT [facility]OHN'S DISEASE OR ILEUM K50.00, URGENT DESIRE FOR STOOL R15 [facility] CROHN'S DISEASE OR ILEUM K50.00, URGENT DESIRE FOR STOOL R15 Patient discharged. Outpatient Attender: MARYLU MORFIN NPConsultant: Otto Aguila 12/25/2020 08:43:00 AM EDT - 12/25/2020 08:43:[address] [facility] Outpatient Attender: MARYLU MORFIN NP [facility] 12/25 08:40:00 AM EDT MED[facility] ([facility]) Outpatient 12/18/2020 09:15:00 AM EDT [facility] [place] [address] [facility] [facility] [address] 12/12/2020 12:00:00 AM EDT eCW1 ([facility]) [place] [address] [address] 11/14/2020 12:00:00 AM EDT eCW1 ([facility]) Outpatient Attender: BELLE WASHINGTON MD 11/05/2020 12:00: [address] 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 Other skilled nursing (current) drug therapy Outpatient Attender: MARYLU MORFIN NPConsultant: Otto tovar 05/22/2020 11:17:00 AM EST - 05/22/2020 11:17:[address] [facility] Outpatient Attender: WIL PORTER MD 05/13/2020 12:00:[address] [facility] Outpatient Attender: Armen BORUGEOIS [place] [facility] 03:00:00 PM EST [facility] ([facility] Outpatient Attender: Delores [facility] [place] [facility] 02/01/2020 11:00:00 AM EDT MEDENT [...] 03/26/2021 12:00:00 AM EST ORAL active MEDENT ([facility] 250 mg 02/09/2021 12:00:00 AM EDT [...] 02/09/2021 12:00:00 AM EDT ORAL active MEDENT ([facility]) Azithromycin 250 MG Oral Tablet Azithromycin 02/09/2021 12:00:00 AM EDT active MEDENT ([facility]) 25 mg 01/17/2021 12:00:00 AM EDT tablet [...] SOLD: 11/19/2020 [facility] POLYETHYLENE GLYCOL 3350 771852 MG / Pot assium Chloride 2970 MG / Sodium Bicarbonate 6740 MG / Sodium Chloride 5860 MG / sodium sulfate 92764 MG Powder for Oral Solution [Gavilyte-G] 236-22.74-6.74 -5.86 gram KID5613/SOD SULF,BICARB,CL/KCL 11/14/2020 12:00:00 AM EDT recon soln [...] active Take 1 tablet by mouth d [facility] 875-125 mg 05/22/2020 12:00:00 AM EST tablet [...] EDT ORAL completed MED[facility] ([facility] Cephalexin 500 MG Oral Capsule [Keflex] Keflex 02/01/2020 12:00:0 0 AM EDT ORAL completed MED[facility] ([facility] 150 mg 02/01/2020 12:00:00 [...] aborted Take 1 tablet by mouth d [facility] 0.35 mg 07/19/2019 12:00:00 AM EDT tablet [...] TABLET BY MOUTH EVERY DAY SOLD: 03/05/2020 [facility] Insurance Providers Payer name Policy type / Coverage type Policy ID Covered democrat ID Covered democrat's relationship to navarro Policy Navarro Plan Information U [id number] Self [id number] Spo [id number] Spouse [id number] Spo [id number] PG NORTH [place] [id number] HU2 [id number] Krysta [id number] Krysta [id number] EAST HUMANA [id number] HU2 [id number] FOR LIFE U [id number] EAST HUMANA [id number] HU2 [id number] EAST HUMANA [id number] HU2 [id number] U [id number] Self [id number] U [id number] Spouse [id number] EAST [id number] SPO [id number] SELF PAY [employer] [id number] Family Dependent [id number] [employer] .[id number] Other Alex ral Program .[id number] [employer] [id number] Family Dependent [id number] [employer] [id number] Family Dependent [id number] [employer] [id number] Family Dependent [id number] [employer] [id number] Family Dependent [id number] EAST HUMANA [id number] HU2 [id number] PGBA NORTH [place]ION [id number] 2 [id number] [facility] Commercial [id number] Family Dependent [id number] Krysta [id number] SELF [id number] PI PI [id number] Krysta [id number] SELF PAY UNAVAILABLE SELF UNAVAILA BLE [id number] SELF [id number] PI PI EAST HUMANA - O/P [id number] 01 [id number] PGBA NORTH REGION [id number] 2 [id number] HUMANA EAST REG O [id number] S [id number] PGBA NORTH REGION [id number] SP [id number] HEA [id number] SP [id number] HEA [id number] SP [id number] PGBA NORTH REGION [id number] SP [id number] PGBA NORTH REGION [id number] SP [id number] PGBA NORTH JAELYN O [id number] S [id number] HEALTHNET/ AD O [id number] S [id number] [facility] [place] [id number] EAST HUMANA [id number] 2 [id number] PGBA NORTH REGION [id number] HU2 [id number] PGBA NORTH JAELYN O [id number] S [id number] [employer] Commercial [id number] HEALTH[employer]/ AD O [id number] P [id number] [employer] Commercial [id number] HEALTH[employer] FEDERAL O [id number] SP [id number] CONTRACT CLAIMS SERVICES P [id number] S [id number] CONTRACT CLAIMS SERVICES [id number] SP [id number] OTHER WORKERS COMPENSATION [id number] SP [id number] N REGIONAL CLAIMS YEVGENIY-O/P [id number] [facility] O [id number] [place] [id number] [phone] [id number] SELFPAY 5 UNAVAILABLE 1 UNAVAILA BLE SELF PAY 5 UNAVAILABLE 1 UNAVAILA BLE [id number] Problems, Conditions, and Diagnoses Code Display Name Description Problem Type Effective Dates Data Source(s) Z1152 ENCOUNTER FOR SCREENING FOR COVID-19 ENCOUNTER F OR SCREENING FOR COVID-19 Diagnosis 02/09/2021 04:51:[address] [facility] J069 Acute upper respiratory infection, unspe cified Acute upper respiratory infection, unspecified Diagnosis 02/09/2021 04:51:00 PM EDT [facility] R10.11 Right upper quadrant pain R10.11 - Right upper quadran t pain Diagnosis 07/05/2020 09:28:00 AM EDT [facility] R19.7 Diarrhea, unspecified R19.7 - Diarrhea, unspecified Di agnosis 07/05/2020 09:28:00 AM T [facility] K50.00 Crohn's disease of small intestine witho ut complications K50.00 - Crohn's disease of small intestine without complications Diagnosis 06/17 09:28:00 AM T [facility] N92.6 Irregular menstruation, unspecified Irregular me nstruation, unspecified Diagnosis 06/05/2020 10:00:06 AM [facility] N39.43 Post-void dribbling Post-void dribbling Diagnosis 0 06/05/2020 10:00:06 AM [facility] Z79.899 Other skilled nursing (current) drug therapy O ther skilled nursing (current) drug therapy Diagnosis 06/05/2020 10:00:[address] [facility] R20.2 [id number] Paresthesia Problem 10/24/2020 12:00:00 AM E DT eCW1 ([facility]) K50.90 [id number] Crohn's disease with out complication, unspecified gastrointestinal tract location Problem 10/24/2020 12:00:00 AM EDT e CW1 ([facility]) Surgeries/Procedures Procedure Description Date Indications Data Source(s) OFFICE OUTPATIENT VISIT 15 MINUTES 03/26/2021 12:00:00 AM EST MED[facility] ([facility] Pulse Oximetry Single Determination 02/09/2021 12:00:0 0 AM EDT MEDENT ([facility]) OFFICE OUTPATIENT VISIT 10 MINUTES 02/09/2021 12:00:00 AM EDT MED[facility] ([facility]) OFFICE OUTPATIENT VISIT 25 MINUTES 01/16/2021 12:00:00 AM EDT [facility] ([facility] OFFICE OUTPATIENT VISIT 15 MINUTES 12/25/2020 12:00:00 AM EDT MED[facility] ([facility]) Results ID Date Data Source [id number] 03/26/2021 01:49:00 PM EST [facility] ([facility] Name Value Range Interpretation Code Description Data Kassy rce(s) Supporting Document(s) HSV 1 IgG, Type Spec 29.30 index 0.00-0.90 Above high normal [facility] ([facility] <content>Negative <0.91</content>
<content>Equivocal 0.91 - 1.09</content>
<content>Positive >1.09</content>
<content>Note: Negative indicates no antibodies detected to</content>
<content>HSV-1. Equivocal may suggest early infection. If</content>
<content>clinically appropriate, retest at later date. Positive</content>
<content>indicates antibodies detected to HSV-1.</content>
<content></content> HSV 2 IgG, Type Spec Laboratory test result 0.00-0.90 MED[facility] ([facility] <content>Negative <0.91</content>
<content>Equivocal 0.91 - 1.09</content>
<content>Positive >1.09</content>
<content>Note: Negative indicates no antibodies detected to</content>
<content>HSV-2. Equivocal may suggest early infection. If</content>
<content>clinically appropriate, retest at later date. Positive</content>
<content>indicates antibodies detected to HSV-2.</content>
<content></content> ID Date Data Source [id number] 02/09/2021 05:54:00 PM EDT MEDENT ([facility]) Name Value Range Interpretation Code Description Data Kassy rce(s) Supporting Document(s) Covid-19 Laboratory test result MEDENT ([facility]) ID Date Data Source [id number] 02/09/2021 05:53:00 PM [facility]T [facility] Name Value Range Interpretation Code Description Data Kassy rce(s) Supporting Document(s) SARS coronavirus 2 RNA Not Detected [facility] This lab was ordered by [facility] dami and reported by [facility]. ID Date Data Source [id number] 02/12/2021 07:23:[address] [facility] Name Value Range Interpretation Code Description Data Kassy rce(s) Supporting Document(s) SARS-CoV-2, BRAYDON Not Detected Not Detected [facility] This nucleic acid amplification test was developed and its performancecharacteristics determined by [employer]. Nucleic acidamplification tests include RT-PCR and TMA. [...] in this assay. ID Date Data Source [id number] 02/09/2021 05:53:00 PM EDT MEDENT ([facility] Name Value Range Interpretation Code Description Data Kassy rce(s) Supporting Document(s) Coronavirus Covid-19 Laboratory test result MED[facility] ([facility] .~.~Z11.52 ID Date Data Source [id number] 01/27/2021 10:29:00 AM EDT [facility] Received: 01/24/2021 at 04:13:00 QPT : [facility], [address], [address] [place], [address], Maik Urias MD Name Value Range Interpretation [...] and CD8+cytotoxic T-lymphocytes.For additional information, please refer [email or web address](This link is being provided for informational/educational purposes only.) ID Date Data Source [id number] 01/13/2021 09:46:29 AM EDT Lab [place] [facility] [address] [id number]# SURGICAL PATHOLOGY REPORTPatient Name:MALLORY LARES:1980Received:01/08/2021ccession #:[id number](s) [...] Out By Flori Pruett D.O. [facility] [place], [place] [address]Technical component performed at [facility], [facility], [address] [place] [address], [phone].Reported at [facility], [address] [place] [address], [phone]This report may include immunohistochemical or in-situ hybridizationresults. Testing was developed and the performance characteristicsdetermined by Scheduling Employee Scheduling [employer] [facility] [facility], as required byCLIA '88. The FDA has determined that approval for specific use is notnecessary for clinical use. The quality of Hematoxylin and Eosin stainsand as applicable, for all immunohistochemical and/or special stains,including positive and negative controls, were reviewed and consideredappropriate.ICD codes: K50.80CPT4 codes: A: 74871RU: 68164EC: 32958RN: 93293SM: 40681P Name Value Range Interpretation Code Description Data Kassy rce(s) Supporting Document(s) ID Date Data Source [id number] 01/12/2021 01:07:00 PM EDT [facility] ISAIAH [id number] [place] [place], [place] [address]VPUMIDQ NAME: MALLORY LARESDATE OF : 1980REPORT: ENDOSCOPYPATIENT NUMBER: [id number] STATUS: SDMEDICAL RECORD NUMBER: [id number] OF ADMISSION: 01/08/2021ATE OF DISCHARGE:ROOM: 01DATE OF [...] patient's pulse oxygen saturation, blood pressure and UQ4ciol monitored. Timeout was performed. An upper endoscope [...] YANNA Hansonictated: 01/08/2021 8:31DT: 01/08/2021 8:34Job #: [id number]:NOTE: [facility] computer generated reports are not confirmed orauthenticated unless they are signed by the providerElectronically Authenticated by:FROYLAN LINO MD On 01/12/2021 01:07 PM EDT Name Value Range Interpretation Code Description Data Kassy rce(s) Supporting Document(s) ID Date Data Source [id number] 01/05/2021 03:15:00 PM EDT [facility] Name Value Range Interpretation Code Description Data Kassy rce(s) Supporting Document(s) SARS-CoV-2 RNA Resp Ql BRAYDON+probe NOT DETECTED [facility] This lab was ordered by JAE leal and reported by JAE Castillo. ID Date Data Source [id number] 12/25/2020 09:59:00 AM EDT [facility] Name Value Range Interpretation Code Description Data Kassy rce(s) Supporting Document(s) SARS coronavirus 2 RNA Not Detected [facility] This lab was ordered by [facility] dami and reported by [facility]. ID Date Data Source [id number] 12/27/2020 03:39:[address] [facility] Name Value Range Interpretation Code Description Data Kassy rce(s) Supporting Document(s) SARS-CoV-2, BRAYDON Not Detected Not Detected [facility] This nucleic acid amplification test was developed and its performancecharacteristics determined by [employer]. Nucleic acidamplification tests include RT-PCR and TMA. [...] assay. SARS-CoV-2, BRAYDON 2 DAY TAT Performed [facility] ID Date Data Source [id number] 12/25/2020 09:59:00 AM EDT MED[facility] ([facility] Name Value Range Interpretation Code Description Data Kassy rce(s) Supporting Document(s) Sars-CoV-2, Braydon Laboratory test result MEDENT ([facility] .~.~J02.9 Laboratory test finding (navigational concept) Laboratory test result MED[facility] ([facility] .~.~J02.9 ID Date Data Source [id number] 12/18/2020 11:03:00 AM EDT [facility] [address] [facility] EXA M: MRE Abdomen Pelvis WOW [...] size since 2014. Professional interpretation performed at [facility] . Name Value Range Interpretation Code Description Data Kassy rce(s) Supporting Document(s) ID Date Data Source [id number] 12/08/2020 07:44:00 AM EDT MEDKATHLEEN ([facility] Name Value Range [...] 2017;153:835-857.</content>
<content>2. Yarur A, et al. Gastroenterol 2016;150(4):B568-W805.</content>
<content>3. Halima GJ, et al. Alethea Rheum Dis 2005;64:704-707.</content>
<content>4. Chelsey C, et al. Inflamm Bowel Dis 2012;18(12):</content>
<content>2209- 2216.</content>
<content>5. FranklineCastsmiley N, et al. Am J Gastroenterol 2013;108:</content>
<content>962-971.</content>
<content>6. Ji H et al. Clin Gastroenterol Hepatol 2015;13(3):</content>
<content>522- 530.</content>
<content>7. Tammy A, et al. Gastroenterol 2019;156(6):S-617.</content>
<content>8. Brandse JF, et al. Gastroenterol 2016;150(4):S144.</content>
<content>9. Sweta Mendez et al. AAPS Journal 2016 DOI:10.1208/</content>
<content>p05507-470-0023-7.</content>
<content> These tests were developed and their performance</content>
<content>characteristics determined by [employer]. They have not been</content>
<content>cleared or approved [...] these</content>
<content>assays have been published.(9)</content>
<content>Performed at: [facility]</content>
<content>[address] [place] [id number]</content>
<content>Textile Converter: Norman Chaney MD, Phone: [phone]</content>
<content></content> ID Date Data Source [id number] 12/01/2020 07:31:00 AM EDT MEDENT ([facility] Name Value Range Interpretation Code Description Data Kassy rce(s) Supporting Document(s) Erythrocyte sedimentation rate by Westergren method 4 mm/hr 0-20 Normal (applies to non-numeric results) MEDENT ([facility] ID Date Data Source [id number] 12/01/2020 07:31:00 AM EDT MEDENT ([facility] [...] Normal (applies to non-numeric re sults) MEDENT ([facility] Lymph % 39.5 % 24.0-44.0 Normal (applies to non-numeric resul ts) MEDENT ([facility] Luce % 6.1 % 2.0-8.0 Normal (applies to non-numeric resul ts) MEDENT ([facility] Eos % 2.8 % 0.0-3.0 Normal (applies to non-numeric resul ts) MEDENT ([facility] Baso % 0.9 % [...] resul ts) MEDENT ([facility] Luce # 0.5 10 0.0-0.8 Normal (applies to non-numeric resul ts) MEDENT ([facility] Baso # 0.1 10 0.0-0.2 Normal (applies to non-numeric resul ts) MEDENT ([facility] ID Date Data Source [id number] 12/01/2020 07:31:00 AM EDT MEDENT ([facility] Name Value Range Interpretation Code Description Data Kassy rce(s) Supporting Document(s) C reactive protein [Mass/volume] in Serum or Plasma by High sensitivity method 0.52 mg/dL 0.00-0.30 Above high normal [facility] ID Date Data Source [id number] 12/01/2020 07:31:00 AM EDT JASON ([facility] Name Value Range Interpretation Code Description Data Kassy rce(s) Supporting Document(s) Blood Urea Nitrogen 13 mg/dL 7-18 Normal (applies to non-nume sophia results) MEDKATHLEEN ([facility] Glucose, Fasting 74 mg/dL 70-100 Normal (applies to non-numeric results) JASON ([facility] Glomerular Filtration Rate Laboratory test result Normal (applies to non- numeric results) JASON ([facility] ) <content>Units are mL/min/1.73 m2</content>
<content></content>
<content>Chronic Kidney Disease Staging per NKF:</content>
<content></content>
<content>Stage I & II GFR >=60 Normal to Mildly Decreased</content>
<content>Stage III GFR 30- 59 Moderately Decreased</content>
<content>Stage IV GFR 15-29 Severely Decreased</content>
<content>Stage V GFR <15 Very Little GFR Left</content>
<content>ESRD GFR <15 on LABORATORY EQUIPMENT INSTALLER</content>
<content></content> Creatinine For GFR 0.78 mg/dL 0.55-1.30 Normal (applies to non -numeric results) MEDENT ([facility] Sodium Level 140 meq/L 136-145 Normal (applies to non-numeric res ults) MEDKATHLEEN ([facility] Chloride Level 105 meq/L 98-107 Normal (applies to non-numeric r esults) JASON ([facility] Potassium Serum 3.6 meq/L 3.5-5.1 Normal (applies to non-numeric results) JASON ([facility] Carbon Dioxide Level 31 meq/L 21-32 Normal (applies to non-num nalini results) JASON ([facility] Anion Gap 4 meq/L 8-16 Below low normal MEDENT ( [facility] Calcium Level 9.1 mg/dL 8.5-10.1 Normal (applies to non-numeric re sults) MEDENT ([facility] ID Date Data Source [id number] 12/01/2020 07:31:00 AM EDT MEDENT ([facility] Name Value Range Interpretation Code Description Data Kassy rce(s) Supporting Document(s) Ast/Sgot 12 U/L 7-37 Normal (applies to non-numeric resul ts) MEDENT ([facility] Alt/SGPT 28 U/L 12-78 Normal (applies to non-numeric resul ts) MEDENT ([facility] Alkaline Phosphatase 68 U/L 45-117 Normal (applies to non-num nalini results) MEDENT ([facility] Bilirubin,Direct 0.1 mg/dL 0.0-0.2 Normal (applies to non-numeric results) MEDENT ([facility] Bilirubin,Total 0.5 mg/dL 0.2-1.0 Normal (applies to non-numeric results) MEDENT ([facility] Albumin 3.8 GM/DL 3.2-5.2 Normal (applies to non-numeric resul ts) MEDENT ([facility] Total Protein 7.2 GM/DL 6.4-8.2 Normal (applies to non-numeric re sults) MEDENT ([facility] Albumin/Globulin Ratio 1.1 1.2-2.2 Below low normal MEDENT ([facility] ID Date Data Source [facility] Ankle, complete 10/28/2020 12:00:00 AM EDT eCW1 ([facility]) Name Value Range Interpretation Code Description Data Kassy rce(s) Supporting Document(s) [facility] Ankle, complete eCW1 ([facility]) ID Date Data Source [facility] Wrist, complete 10/28/2020 12:00:00 AM EDT eCW1 ([facility]) Name Value Range Interpretation Code Description Data Kassy rce(s) Supporting Document(s) [facility] Wrist, complete eCW1 ([facility]) ID Date Data Source [facility] HIPS BILAT 2 VIEW W/AP PELVIS 10/28/2020 12:00:00 AM EDT eCW1 ([facility]) Name Value Range Interpretation Code Description Data Kassy rce(s) Supporting Document(s) [facility] HIPS BILAT 2 VIEW W/AP PEL VIS eCW1 ([facility]) ID Date Data Source [facility] Hand, complete 10/28/2020 12:00:00 AM EDT eCW1 ([facility]) Name Value Range Interpretation Code Description Data Kassy rce(s) Supporting Document(s) [facility] Hand, complete eCW1 ([facility]) ID Date Data Source INFLIXIMAB LEVEL & ANTIBODY 10/24/2020 12:00:00 AM EDT eCW1 ([facility]) Name Value Range Interpretation Code Description Data Kassy rce(s) Supporting Document(s) <22 . ANTI-INFLIXIMAB ANTIBODY eCW1 ([facility]) 58 . INFLIXIMAB DRUG LEVEL eCW1 ([facility]) ID Date Data Source HERPES SIMPLEX VIRUS TYPE 1&2 IgM 10/24/2020 12:00:00 AM EDT eCW1 ([facility]) Name Value Range Interpretation Code Description Data Kassy rce(s) Supporting Document(s) <0.91 0.00-0.90 HSV IgM TYPES 1&2 eCW1 ([facility]) ID Date Data Source COMPLEMENT TOTAL (CH50) 10/24/2020 12:00:00 AM EDT eCW1 ([facility]) Name Value Range Interpretation Code Description Data Kassy rce(s) Supporting Document(s) > 60 >41 COMPLEMENT TOTAL (CH50) eCW1 ( [facility]) ID Date Data Source ANCA Panel with MPO & PR3 10/24/2020 12:00:00 AM EDT eCW1 ([facility]) Name Value Range Interpretation Code Description Data Kassy rce(s) Supporting Document(s) Myeloperoxidase Ab [Units/volume] in Serum <9.0 0.0-9.0 Antimyeloperxidase(MPO) Abs eCW1 ([facility]) Proteinase 3 Ab [Units/volume] in Serum <3.5 0.0-3.5 Antiproteinase 3 (CA-3) Abs eCW1 ([facility]) Neutrophil cytoplasmic Ab.classic [Titer] in Serum by Immuno fluorescence <1:20 Neg:<1:20 Cytoplasmic (C-ANCA) eCW1 ([facility]) Neutrophil Cytoplasmic Ab atypical [Presence] in Serum by Immunofluorescence <1:20 Neg:<1:20 Atypical pANCA eCW1 ([facility]) Neutrophil cytoplasmic Ab.perinuclear [Titer] in Serum by Immunofluorescence <1:20 Neg:<1:20 Perinuclear (P-ANCA) eCW1 ([facility]) ID Date Data Source LUPUS TYPE ANTICOAGULANT SCREE 10/24/2020 12:00:00 AM EDT eC W1 ([facility]) Name Value Range Interpretation Code Description Data Kassy rce(s) Supporting Document(s) 1.0 0-1.2 PTT LUPUS TYPE ANTICOAG S CREEN eCW1 ([facility]) ID Date Data Source TOTAL PROTEIN,RANDOM URINE 10/24/2020 12:00:00 AM EDT eCW1 ( [facility]) Name Value Range Interpretation Code Description Data Kassy rce(s) Supporting Document(s) 7.7 0.0-12.0 TOTAL PROTEIN,RANDOM URIN E eCW1 ([facility]) ID Date Data Source CREATININE,RANDOM URINE 10/24/2020 12:00:00 AM EDT eCW1 ([facility]) Name Value Range Interpretation Code Description Data Kassy rce(s) Supporting Document(s) 115.0 CREATININE,RANDOM URINE eCW1 ( [facility]) ID Date Data Source UA URINALYSIS 10/24/2020 12:00:00 AM EDT eCW1 ([facility]) Name Value Range Interpretation Code Description Data Kassy rce(s) Supporting Document(s) UA URINALYSIS eCW1 ([facility]) ID Date Data Source Basic Metabolic Profile (BMP) 10/24/2020 12:00:00 AM EDT eCW 1 ([facility]) Name Value Range Interpretation Code Description Data Kassy rce(s) Supporting Document(s) 67 70-100 GLUCOSE, FASTING eCW1 ([facility]) 0.71 0.55-1.30 CREATININE FOR GFR eCW1 ([facility]) 14 7-18 BLOOD UREA NITROGEN eCW1 ([facility]) 143 136-145 SODIUM LEVEL eCW1 ([facility]) > 60.0 >58 GLOMERULAR FILTRATION RATE eCW 1 ([facility]) 109 98-107 CHLORIDE LEVEL eCW1 ([facility]) 3.9 3.5-5.1 POTASSIUM SERUM eCW1 ([facility]) 8.3 8.5-10.1 CALCIUM LEVEL eCW1 ([facility]) 31 21-32 CARBON DIOXIDE LEVEL eCW1 ([facility]) ID Date Data Source ERYTHROCYTE SEDIMENTATION RATE 10/24/2020 12:00:00 AM EDT eC W1 ([facility]) Name Value Range Interpretation Code Description Data Kassy rce(s) Supporting Document(s) 8 0-20 ERYTHROCYTE SEDIMENTATION RATE eCW1 ([facility]) ID Date Data Source C REACTIVE PROTEIN QUANTITATIV (At [facility]) 10/24/2020 12:00 :00 AM EDT eCW1 ([facility]) Name Value Range Interpretation Code Description Data Kassy rce(s) Supporting Document(s) 0.35 0.00-0.30 C REACTIVE PROTEIN QUANTI TATIV eCW1 ([facility]) ID Date Data Source CBC with Differential 10/24/2020 12:00:00 AM EDT eCW1 ([facility]) Name Value Range Interpretation Code Description Data Kassy rce(s) Supporting Document(s) 46.5 36.0-47.0 HEMATOCRIT eCW1 ([facility]) 15.0 12.0-15.5 HEMOGLOBIN eCW1 ([facility]) 5.05 4.00-5.40 RED BLOOD COUNT eCW1 ([facility]) 10.9 4.0-10.0 WHITE BLOOD COUNT eCW1 ([facility]) 32.3 32.0-36.5 MEAN CORPUSCULAR HGB CONC eCW1 ([facility]) 29.7 27.0-33.0 MEAN CORPUSCULAR HEMOGLOB IN eCW1 ([facility]) 92.1 80.0-96.0 MEAN CORPUSCULAR VOLUME e CW1 ([facility]) 297 150-450 PLATELET COUNT, AUTOMATED eCW1 ([facility]) 52.7 36.0-66.0 NEUTROPHILS % eCW1 ([facility]) 13.1 11.5-14.5 RED CELL DISTRIBUTION WID TH eCW1 ([facility]) 0.5 0.0-1.0 BASO % eCW1 ([facility]) 5.1 2.0-8.0 MONO % eCW1 ([facility]) 1.6 0.0-3.0 EOS % eCW1 ([facility]) 39.7 24.0-44.0 LYMPH % eCW1 ([facility]) 5.8 1.5-8.5 NEUTROPHILS # eCW1 ([facility]) 0.6 0.0-0.8 MONO # eCW1 ([facility]) 4.3 1.5-5.0 LYMPH # eCW1 ([facility]) 0.1 0.0-0.2 BASO # eCW1 ([facility]) 0.2 0.0-0.5 EOS # eCW1 ([facility]) ID Date Data Source COMPLEMENT C4 10/24/2020 12:00:00 AM EDT eCW1 ([facility]) Name Value Range Interpretation Code Description Data Kassy rce(s) Supporting Document(s) 26 10-40 COMPLEMENT C4 eCW1 ([facility]) ID Date Data Source COMPLEMENT C3 10/24/2020 12:00:00 AM EDT eCW1 ([facility]) Name Value Range Interpretation Code Description Data Kassy rce(s) Supporting Document(s) 134 90-180 COMPLEMENT C3 eCW1 ([facility]) ID Date Data Source [id number] 07/05/2020 10:30:00 AM EDT [facility] Name Value Range Interpretation Code Description Data Kassy rce(s) Supporting Document(s) SODIUM 140 MEQ/L 135-145 [facility] POTASSIUM 3.7 MEQ/L 3.5-5.3 [facility] CHLORIDE 106 MEQ/L 94-110 [facility] CARBON DIOXIDE 29 MEQ/L 22-33 [facility] ANION GAP 9 5-16 N [facility] BLOOD UREA NITRO 13 MG/DL 7-25 [facility] CREATININE 0.7 MG/DL 0.6-1.4 N [facility] GFR > 90.0 ML/MIN [facility] Stage G1 - Normal or high kidney functi on The GFR is an estimate of the Glomerular Filtration Rate. It is an aid to assess a patient's renal function. It is not a conclusive diagnosis of kidney disease. GFR normal is >=90 The MDRD GFR calculation is considered valid between the ages of 18 and 75 years only. BUN/CREAT RATIO 18 8-36 N [facility] GLUCOSE 95 MG/DL 70-100 N [facility] CA 9.3 MG/DL 8.7-10.5 N [facility] ID Date Data Source [id number] 07/10/2020 09:55:00 AM EDT [facility] Name Value Range Interpretation Code Description Data Kassy rce(s) Supporting Document(s) CALPROTECTIN, FECAL See Notes [facility] Calprotectin, Fecal 29 ug/g 0 - 120 Concentration Interpretation Follow-Up <16 - 50 ug/g Normal None >50 -120 ug/g Borderline Re-evaluate in 4-6 weeks >120 ug/g Abnormal Repeat as clinically indicated [facility] [id number] Dir: Yonathan Joseph MD ID Date Data Source [id number] 06/25/2020 01:35:00 PM EST [facility] Name Value Range Interpretation Code Description Data Kassy rce(s) Supporting Document(s) SARS-CoV-2 (COVID 19) NEGATIVE - SARS-CoV-2 (COVID19) [facility] This lab was ordered by [facility] a nd reported by [facility]. ID Date Data Source [id number] 06/10/2020 02:08:00 PM EST MEDENT ([facility] [...]
<content></content> Nucleolar Pattern Laboratory test result MEDENT ([facility] Speckled Pattern Laboratory test result MEDENT ([facility] Centromere Pattern Laboratory test result MEDENT ([facility] Spindle Apparatus Pattern Laboratory test result MEDENT ([facility] Nuclear Membrane Pattern Laboratory test result MEDENT ([facility] Nuclear Dot Pattern Laboratory test result MEDENT ([facility] Midbody Pattern Laboratory test result MEDENT ([facility] Pcna Pattern Laboratory test result MEDENT ([facility] Centriole Pattern Laboratory test result MEDENT ([facility] Note: Laboratory test result MEDENT ([facility] A positive RADHA result may occur in healt hy individuals (low titer) or be associated with a variety of diseases. See interpretation chart which is not all inclusive: Pattern Antigen Detected Suggested Disease Association --------- Homogeneous DNA(ds,ss), SLE - High titers Nucleosomes, Histones Drug-induced SLE --------- Speckled Sm, ASSOCIATE PROFESSOR OF SURGERY, SCL-70, SLE,MCTD,PSS (diffuse form), SS-A/SS-B Sjogrens --------- Nucleolar SCL-70, PM-1/SCL High titers Scleroderma, PM/DM --------- Centromere Centromere PSS (limited form) w/Crest syndrome variable --------- Nuclear Dot [id number] Primary Biliary Cirrhosis --------- Nuclear GP210, Primary Biliary Cirrhosis Membrane hair A,B,C --------- ID Date Data Source [id number] 06/10/2020 02:08:00 PM EST JASON ([facility] Name Value Range Interpretation Code Description Data Kassy rce(s) Supporting Document(s) Ferritin [Mass/volume] in Serum or Plasma 98 ng/mL 15-150 MEDKATHLEEN ([facility] Ceruloplasmin [Mass/volume] in Serum or Plasma 28.9 mg/dL 19.0-39.0 MEDENT ([facility] Gamma glutamyl transferase [Enzymatic activity/volume] in Serum or Plasma 70 IU/L 0-60 Above high normal MEDENT ([facility] Mitochondrial (M2) Antibody Laboratory test result 0.0-20.0 MEDENT ([facility] Negative 0.0 - 20.0 Equivocal 20.1 - 24.9 Positive >24.9 Mitochondrial (M2) Antibodies are found in 90-96% of patients with primary biliary cirrhosis. ID Date Data Source [id number] 06/10/2020 02:08:00 PM EST MEDENT ([facility] Name Value Range Interpretation Code Description Data Kassy rce(s) Supporting Document(s) Hepatitis A virus IgM Ab [Presence] in Serum or Plasma by Immunoassay Laboratory test result [facility] Hepatitis B virus surface Ag [Presence] in Serum or Pl asma by Immunoassay Laboratory test result MEDENT ([facility] Hep B Core Ab, IgM Laboratory test result MEDENT ([facility] Hepatitis C virus Ab Signal/Cutoff in Serum or Plasma by Immunoassay Laboratory test result 0.0-0.9 MEDENT ([facility] <content>Negative: < 0.8</content><b r/><content>Indeterminate: 0.8 - 0.9</content>
<content>Positive: > 0.9</content>
<content>The CDC recommends that a positive HCV antibody result</content>
<content>be followed up with a HCV Nucleic Acid Amplification</content>
<content>test (978103).</content>
<content></content> ID Date Data Source [id number] 06/10/2020 02:08:00 PM EST MEDENT ([facility] Name Value Range Interpretation Code Description Data Kassy rce(s) Supporting Document(s) TP 7.1 g/dL 6.6-8.7 MEDENT ([facility] Alb 4.7 g/dL 3.4-4.8 MEDENT ([facility] A/G Ratio 1.9 CALC MEDENT ([facility] Globulin 2.4 CALC MEDENT ([facility] Alp 70.4 U/L 35-129 MEDENT ([facility] Alt (SGPT) 107 U/L 0-41 Above high normal MEDENT ([facility] Tbili 0.28 mg/dL 0.0-1.2 MEDENT ([facility] Dbil 0.06 mg/dL 0.00-0.20 MEDENT ([facility] Ast (Sgot) 22 U/L 0-40 MEDENT ([facility] Bilirubin, Indirect 0.22 CALC MEDENT ([facility] ID Date Data Source [id number] 06/08/2020 10:50:00 AM EST MEDENT ([facility] Name Value Range Interpretation Code Description Data Kassy rce(s) Supporting Document(s) Blood Urea Nitrogen 10 mg/dL 7-18 Normal (applies to non-nume sophia results) MEDENT ([facility] Glucose, Fasting 89 mg/dL 70-100 Normal (applies to non-numeric results) MEDENT ([facility] Glomerular Filtration Rate Laboratory test result Normal (applies to non- numeric results) MEDENT ([facility] ) <content>Units are mL/min/1.73 m2</content>
<content></content>
<content>Chronic Kidney Disease Staging per NKF:</content>
<content></content>
<content>Stage I & II GFR >=60 Normal to Mildly Decreased</content>
<content>Stage III GFR 30- 59 Moderately Decreased</content>
<content>Stage IV GFR 15-29 Severely Decreased</content>
<content>Stage V GFR <15 Very Little GFR Left</content>
<content>ESRD GFR <15 on LABORATORY EQUIPMENT INSTALLER</content>
<content></content> Creatinine For GFR 0.68 mg/dL 0.55-1.30 Normal (applies to non -numeric results) MEDENT ([facility] Sodium Level 140 meq/L 136-145 Normal (applies to non-numeric res ults) MEDENT ([facility] Carbon Dioxide Level 28 meq/L 21-32 Normal (applies to non-num nalini results) MEDENT ([facility] Potassium Serum 3.6 meq/L 3.5-5.1 Normal (applies to non-numeric results) MEDENT ([facility] Chloride Level 104 meq/L 98-107 Normal (applies to non-numeric r esults) MEDENT ([facility] Calcium Level 8.9 mg/dL 8.5-10.1 Normal (applies to non-numeric re sults) [facility] ([facility] Anion Gap 8 meq/L 8-16 Normal (applies to non-numeric resul ts) MEDENT ([facility] Ast/Sgot 198 U/L 7-37 Above high normal MED[facility] ([facility] Alt/SGPT 294 U/L 12-78 Above high normal MEDENT ([facility] Alkaline Phosphatase 86 U/L [...] [facility] ID Date Data Source [id number] 06/08/2020 10:50:00 AM EST MEDENT ([facility] Name Value Range Interpretation Code Description Data Kassy rce(s) Supporting Document(s) White Blood Count 4.7 10 4.0-10.0 Normal (applies to non-numeri c results) MEDENT ([facility] Red Blood Count 5.18 10 4.00-5.40 Normal (applies to non-numeric results) MED[facility] ([facility] Hemoglobin 15.3 g/dL 12.0-15.5 Normal (applies to non-numeric resul ts) MEDENT ([facility] Mean Corpuscular Volume 89.8 fl 80.0-96.0 Normal ( applies to non-numeric results) MEDENT ([facility] ) Mean Corpuscular Hemoglobin 29.5 pg 27.0-33.0 Norm al (applies to non-numeric results) MEDENT ([facility] ) Hematocrit 46.5 % 36.0-47.0 Normal (applies to non-numeric resul ts) [facility] Platelet Count, Automated 266 10 150-450 Normal (applies to non-numeric results) MEDENT ([facility] Red Cell Distribution Width 12.5 % 11.5-14.5 Norm al (applies to non-numeric results) MEDENT ([facility] ) Neutrophils % 52.0 % 36.0-66.0 Normal (applies to non-numeric re sults) MEDENT ([facility] Mean Corpuscular HGB Conc 32.9 g/dL 32.0-36.5 Normal (applies to non-numeric results) MEDENT ([facility] ) Lymph % 33.9 % 24.0-44.0 Normal (applies to non-numeric resul ts) MEDENT ([facility] Luce % 11.5 % 2.0-8.0 Above high normal MEDENT ([facility] Baso % 1.3 % 0.0-1.0 Above high normal MEDENT ([facility] Eos % 0.9 % 0.0-3.0 Normal (applies to non-numeric resul ts) MEDENT ([facility] Immature Granulocyte % 0.4 % 0-3.0 Normal (applies to non-n umeric results) MEDENT ([facility] Neutrophils # 2.4 10 1.5-8.5 Normal (applies to non-numeric re sults) MEDENT ([facility] Nucleated Red Blood Cell % 0.0 % 0-0 Normal (applies to n on-numeric results) MEDENT ([facility] Lymph # 1.6 10 1.5-5.0 Normal (applies to non-numeric resul ts) MEDENT ([facility] Luce # 0.5 10 0.0-0.8 Normal (applies to non-numeric resul ts) MEDENT ([facility] Eos # 0.0 10 0.0-0.5 Normal (applies to non-numeric resul ts) MEDENT ([facility] Baso # 0.1 10 0.0-0.2 Normal (applies to non-numeric resul ts) MEDENT ([facility] ID Date Data Source [id number] 06/08/2020 09:32:00 AM EST [facility] ([facility] Name Value Range Interpretation Code Description Data Kassy rce(s) Supporting Document(s) Lipoprotein lipase [Enzymatic activity/volume] in Serum or P lasma 152 U/L 73-393 Normal (applies to non-numeric results) MEDENT ([facility] ID Date Data Source [id number] 06/08/2020 09:32:00 AM EST MEDENT ([facility] Name Value Range Interpretation Code Description Data Kassy rce(s) Supporting Document(s) CPK Creatine Phosphokinase 46 U/L 26-192 Mily l (applies to non-numeric results) MEDENT ([facility] ) CK-MB Value Mass [...] Normal (applies to non-n umeric results) MEDKATHLEEN ([facility] <content>Troponin I Reference Interval f or Siemens Morning Sun LOCI:</content>
<content></content>
<content>99th Percentile= 0.00-0.045 ng/ml</content>
<content></content>
<content>Risk Stratification:</content>
<content><= 0.10 ng/ml Decreased Risk for Adverse Clinical</content>
<content>Events.</content>
<content>0.10-1.50 ng/ml Increased Risk for Adverse Clinical</content>
<content>Events. Evaluation of additional</content>
<content>criterion and/or repeat testing in 2-6</content>
<content>hours is suggested to rule out myocardial</content>
<content>damage.</content>
<content>>= 1.50 ng/ml Indicative of Myocardial Injury.</content>
<content></content> ID Date Data Source [id number] 06/05/2020 10:38:35 AM EST [facility] Name Value Range Interpretation Code Description Data Kassy rce(s) Supporting Document(s) Progress Note [facility] XMOIQx3bQjNNCqPm70/GRBosQXXdg1OyOXppEBb1GXpuYAHfX2YgZJS5vO1iKUG3ZRjIWmBgDcRbBaQ9 lbm [file] dpUP1A58vIIULt6l2oePcbOfva9258tZEST4AEvig4Fod/support dba/Iyf1CvykB3Pdqrd16A23+K3Y/6aTJP [file] AgICAgICAgICAgICAgICAgICAgICAgICAgICAgICAgICAgICAgICAgICAgICAgICAgICAgICAgICAgIC AgICAgICAgICAgICAgICAgICAgICAgICANCiAgICAg ICAgICAgICAgICAgICAgICAgICAgICAgICAgICAgICAgICAgICAgICAgICAgICAgICAgICAgICAgICAg ICAgICAgICAgICAgICAgICAgICAgICAgICAgICAgICAgICANCiAgICAgICAgICAgICAgICAgICAgICAg ICAgICAgICAgICAgICAgICAgICAgICAgICAgICAgIC AgICAgICAgICAgICAgICAgICAgICAgICAgICAgICAgICAgICAgICAgICAgICANCiAgICAgICAgICAgIC AgICAgICAgICAgICAgICAgICAgICAgICAgICAgICAgICAgICAgICAgICAgICAgICAgICAgICAgICAgIC AgICAgICAgICAgICAgICAgICAgICAgICAgICANCiAg ICAgICAgICAgICAgICAgICAgICAgICAgICAgICAgICAgICAgICAgICAgICAgICAgICAgICAgICAgICAg ICAgICAgICAgICAgICAgICAgICAgICAgICAgICAgICAgICAgICANCiAgICAgICAgICAgICAgICAgICAg ICAgICAgICAgICAgICAgICAgICAgICAgICAgICAgIC AgICAgICAgICAgICAgICAgICAgICAgICAgICAgICAgICAgICAgICAgICAgICAgICANCiAgICAgICAgIC AgICAgICAgICAgICAgICAgICAgICAgICAgICAgICAgICAgICAgICAgICAgICAgICAgICAgICAgICAgIC AgICAgICAgICAgICAgICAgICAgICAgICAgICAgICAN CiAgICAgICAgICAgICAgICAgICAgICAgICAgICAgICAgICAgICAgICAgICAgICAgICAgICAgICAgICAg ICAgICAgICAgICAgICAgICAgICAgICAgICAgICAgICAgICAgICAgICANCiAgICAgICAgICAgICAgICAg ICAgICAgICAgICAgICAgICAgICAgICAgICAgICAgIC AgICAgICAgICAgICAgICAgICAgICAgICAgICAgICAgICAgICAgICAgICAgICAgICAgICANCiAgICAgIC AgICAgICAgICAgICAgICAgICAgICAgICAgICAgICAgICAgICAgICAgICAgICAgICAgICAgICAgICAgIC AgICAgICAgICAgICAgICAgICAgICAgICAgICAgICAg ICANCjw/bPZcW8czeMDjniZ7I2naXx4XYz4TOG0mu7XrNXHoTZzygyGyPaxLAzKtPKZwEryIUmq3ADan NU8SyXJnR7KfK1QnIXmeDP0IKGFgWCIebOOcCZSeNUGfObE5SPRtIMfgDP6XmBYrGIbdKVYcLZXoNfBs GQDpOTOhIMXvPETdZFJOTGDcIJXvDtYqUUsvHH3Fi9 DvwLN6CFf+Ex8FTC8nn1LvIXxpMUYuCH9xoz2QOYoWNxKcZ6NyavN3BVPbBAFfXy9OBPWrSGBjaUHyOO UfZFATVhKaN0HveL01ENVBQo9+EWkhnaJgYmkZJkYaUQPna8YsSDx5XU5VDRHoTUv8wUQuALMiR7Lpv9 CuTc65KZIoGmsbVJZpnKMxxaRVZN9fcJifhwhkOLOk DJAbId5tHG9zLYIqNODtPzMcWPTZKR9DVAHdVFToxDLtMQThUGTUVE5YFSqrYRA4RBIvrcGqfZMpUZnt IJ4WNTJatjBlFeCcTNXPSCv+Jp0WVX6ot9WiTWivWfThUG4ryy2GDPhJRrGzR0F0pQQaP3M1OYcfLd6D IOYhSQHcTrkwLVVCJKubFW5YAF7bycI2SL2ZwGLvVY InLNEffVUfMUc8W18uxNXcIBmdET2WYTZ+Emmanuel+Dz0OIQWjWLVrKSXfSaZzRLFWTaHjU5ZoT0RQr4GbD6 YtWW22kAqkxaFlALqhDT9VUY7vQKAhYNQHMG2LpAZkrX0gqzPuYCNqSGROXrAlX86ibNCpEYWdKXZ5FZ UsGr6HVZLxW7NvutRakKudvkWeWTDrTMCTJX8JGPke dbAwsQNcyJheFL78mWddOC0EYk8GEmNjOO9qke5TtRXhBt2FWGOkCx0GMAKdJUCqDIDeIET5USYcSdLq ZZbrIVSwAEZsKYV1PUTbNOYxXF7QTeRsBNZaMaz9PmIgIAVgLMUpmz8GOBBcCNYiKAN6QXKdTNNwXLSv NTyoTZEsRBUnFXV3DBMkYZGnNW3BJfDvLYLrYZHiKU mpAMUkUIUflx1PDHAjZBPeCQV8KaAyDRMqHLRbHKxqPDOyNDY1Kqv3VBTnIBLiEE4EYoTjQQXmCQO4JQ SyUEQvPSRzbg2JSAMaLVRcQAHzSqTxJPJwRVVaQWshCLLxVMM6AVFzDDSuGNThID2AGsJbNMVdJCOdRJ VjOXSjGWUzmx0IWANtMYAqIdImFVKjMBHjAJMfINha AKYxJRJiVlO7OKOfVXGgGO6OJpIdBPGgTEU2KUWhKVVaCYHuoa0IDNInOSQyDLTeElVgAEBkORXeQVzt ZBUrXGX4GWt3VOYgGDEdUB8QMiOlSYUfXXJ6RBIsLDXpYKGplr3LWYVpLCNiSQy8WIYgQLVzJDGoBPyq YPNdSYY2TGIkIMXrLTHjZF4WYdAkSIGiALRyAjDeYB HnLHFgdy3AVBGeZEAnZpN2TJPrQQXsZXLkYLdzSEMvTFL1SWh8WAOuSHFvPI1ZFpOjZQEgCzcuLAGeMG FuLDCaou9YTWSvXKHlEHT6HEJvEFGmOWEzIFwoJAEiFGJ1HWozZWCzSCUfGS0GGbUzVXLhTcu9OrArFT HeGBFiov5DQAOyTTPbPMVoAsVmBMKmXDQbNSmoXXVp PDK2XAAtNJWzBRVsWY7LHmGqJKBqLsRoOMvbCLZwRNMzpv9CNBXzQUJvIYS6BqJiIEEcJGAkSCmxMZVy QMMqKbYdUILfEYSrYS2PMaLsHEAoMeX1NRQuCBCzLZPiwj0PvHXryAtibu1QBXuZAc1SeGygIUVlRIog Ed0oaRXuLaByYCMWRg8ObrReIEBzPQZCFSmoVOZbBP o8YAAtQRQ3WNG7DWQcQKM6Qug0EECoXqS4DUznPWg3XvQ2Izm0NQSpNQHgKCW2QRUdUEY6RYU6IrGtES O7CmFdPcK+WJ2hQDf+Hl4Pw7WkawK2qgVmIZmfLyL2LM9JVBTKL4BWFc== ID Date Data Source [id number] 05/01/2020 12:00:00 AM EST [facility] Name Value Range Interpretation Code Description Data Kassy rce(s) Supporting Document(s) SARS coronavirus 2 [facility] by [facility] and reported by [facility] [place]. ID Date Data Source [id number] 02/01/2020 11:11:00 AM EDT MEDENT ([facility] Name Value Range Interpretation Code Description Data Kassy rce(s) Supporting Document(s) Urine Culture, Routine Laboratory test result [facility] ([facility] SRC:VOIDED Bacteria identified in Urine by Culture Laboratory test result [facility] ([facility] SRC:VOIDED ID Date Data Source [id number] 02/01/2020 10:29:00 AM EDT MEDENT ([facility] Name Value [...] [facility] pH 5.5 # 5.0-8.0 [facility] Blood - Ua [...] Never Smoker completed Never S moker eCW1 ([facility]) Smoking 10/24/2020 12:00:00 AM EDT Never Smoker completed Never S moker eCW1 ([facility]) Smoking 10/24/2020 12:00:00 AM EDT Never Smoker completed Never S moker eCW1 ([facility]) Alcohol intake 06/05/2020 12:00:00 AM EST Current non-d loco of alcohol (finding) completed Current non-drinker of alcohol (finding) [facility] Tobacco use and exposure 06/05/2020 12:00:00 AM EST Never used co mpleted Never used [facility] Cigarette pack-years 06/05/2020 12:00:00 AM EST UNK completed [facility] Cigarettes smoked current (pack per day) - Reported 06/05/19 12:00:00 AM EST UNK completed [facility] Smoking 06/05/2020 12:00:00 AM EST Former smoker completed Former smoker [facility] Vital Signs ID Date Data Source UNK Name Value Range Interpretation Code Description Data Source(s) Systolic blood pressure 104 mm[Hg] 104 mm[Hg] M TAMARA ([facility] Diastolic blood pressure 62 mm[Hg] 62 mm[Hg] JASON ([facility] Body temperature 97.2 [degF] 97.2 [degF] JASON ([facility] Heart rate 90 /min 90 /min JASON ([facility] Respiratory rate 16 /min 16 /min JASON ( [facility] Body height 68 [in_i] 68 [in_i] MEDENT ([facility] 5'8" Body weight 300.00 [lb_av] 300.00 [lb_av] MEDEN T ([facility] O'Brien body weight 140 [lb_av] 140 [lb_av] MEDEN T ([facility] Body mass index (BMI) [Ratio] 45.6 kg/m2 45.6 k g/m2 MEDENT ([facility] Oxygen saturation in Arterial blood by Pulse oximetry 98 % 98 % MEDENT ([facility] Systolic blood pressure 146 mm[Hg] 146 mm[Hg] M EDENT ([facility]) Diastolic blood pressure 105 mm[Hg] 105 mm[Hg] MEDENT ([facility]) Heart rate 84 /min 84 /min MEDENT ([facility]) Body temperature 98.1 [degF] 98.1 [degF] MEDENT ([facility]) Oxygen saturation in Arterial blood by Pulse oximetry 99 % 99 % MEDENT ([facility]) Heart rate 86 /min 86 /min MED[facility] ([facility] Respiratory rate 16 /min 16 /min MEDENT ( [facility] Body height 68 [in_i] 68 [in_i] MEDENT ([facility] 5'8" Body weight 284.00 [lb_av] 284.00 [lb_av] MEDEN T ([facility] O'Brien body weight 140 [lb_av] 140 [lb_av] MEDEN T ([facility] Diastolic blood pressure 80 mm[Hg] 80 mm[Hg] MEDENT ([facility] Body temperature 98.0 [degF] 98.0 [degF] MEDENT ([facility] Body mass index (BMI) [Ratio] 43.2 kg/m2 43.2 k g/m2 MEDENT ([facility] Systolic blood pressure 118 mm[Hg] 118 mm[Hg] M EDENT ([facility] Oxygen saturation in Arterial blood by Pulse oximetry 99 % 99 % MEDENT ([facility] Heart rate 77 /min 77 /min MEDENT ([facility]) Body temperature 98.2 [degF] 98.2 [degF] MEDENT ([facility]) Oxygen saturation in Arterial blood by Pulse oximetry 97 % 97 % MEDENT ([facility]) Heart rate 94 /min 94 /min eCW1 ([facility]) Respiratory rate 22 /min 22 /min eCW1 ([facility]) Body temperature 98.6 [degF] 98.6 [degF] eCW1 ( [facility]) Diastolic blood pressure 82 mm[Hg] 82 mm[Hg] eCW1 ([facility]) Body weight 286 [lb_av] 286 [lb_av] eCW1 ([facility]) Body weight 129.7 kg 129.7 kg eCW1 ([facility]) Body height [in_i] eCW1 ([facility]) Body mass index (BMI) [Ratio] 49.09 kg/m2 49.09 kg/m2 eCW1 ([facility]) Systolic blood pressure 132 mm[Hg] 132 mm[Hg] e CW1 ([facility]) Body height 68 [in_i] 68 [in_i] MEDENT ([facility] 5'8" Body weight 283.00 [lb_av] 283.00 [lb_av] MEDEN T ([facility] O'Brien body weight 140 [lb_av] 140 [lb_av] MEDEN [...] [Ratio] 43.0 kg/m2 43.0 k g/m2 MEDENT ([facility] Oxygen saturation in Arterial blood by Pulse oximetry 98 % 98 % MEDENT ([facility] Respiratory rate 16 /min 16 /min MEDENT ( [facility] Systolic blood pressure 144 mm[Hg] 144 mm[Hg] M EDENT ([facility]) Body temperature 97.2 [degF] 97.2 [degF] MEDENT ([facility]) Oxygen saturation in Arterial blood by Pulse oximetry 97 % 97 % MEDENT ([facility]) Heart rate 82 /min 82 /min MEDENT ([facility]) Diastolic blood pressure 106 mm[Hg] 106 mm[Hg] MEDENT ([facility]) Body height 68 [in_i] 68 [in_i] MEDENT ([facility] 5'8" O'Brien body weight 140 [lb_av] 140 [lb_av] MEDEN T ([facility] Body mass index (BMI) [Ratio] 41.7 kg/m2 41.7 k g/m2 MEDENT ([facility] Systolic blood pressure 102 mm[Hg] 102 mm[Hg] M EDENT ([facility] Diastolic blood pressure 64 mm[Hg] 64 mm[Hg] MEDENT ([facility] Body temperature 98.0 [degF] 98.0 [degF] MEDENT ([facility] Heart rate 87 /min 87 /min MEDENT ([facility] Respiratory rate 16 /min 16 /min MEDENT ( [facility] Body weight 274.00 [lb_av] 274.00 [lb_av] MEDEN T ([facility] Oxygen saturation in Arterial blood by Pulse oximetry 99 % 99 % MEDENT ([facility] O'Brien body weight 140 [lb_av] 140 [lb_av] MEDEN T ([facility] Diastolic blood pressure 76 mm[Hg] 76 mm[Hg] MEDENT ([facility] Body temperature 96.9 [degF] 96.9 [degF] MEDENT ([facility] Heart rate 75 /min 75 /min JASON ([facility] Systolic blood pressure 118 mm[Hg] 118 mm[Hg] M EDENT ([facility] Respiratory rate 16 /min 16 /min MEDKATHLEEN ( [facility] Body height 68 [in_i] 68 [in_i] MEDENT ([facility] 5'8" Body weight 266.00 [lb_av] 266.00 [lb_av] MEDEN T ([facility] Body mass index (BMI) [Ratio] 40.4 kg/m2 40.4 k g/m2 MEDKATHLEEN ([facility] Oxygen saturation in Arterial blood by Pulse oximetry 98 % 98 % JASON ([facility] (AT Rest), (Room Air) Patient Treatment Plan of Care Planned Activity Planned Date Details Description Data Source (s) Norethindrone 0.35 MG Oral Tablet 06/05/2020 12:00:00 AM [facility] Norethindrone 0.35 MG Oral Tablet 07/19/2019 12:00:00 AM [facility]
[2021-03-30] MEDS ORDERED: ACETAMINOPHEN 500 MG TAB PO ONE (16:45)
[2021-03-30 17:28] LABS: HEMATOCRIT 45.6 % (36.0-47.0); MEAN CORPUSCULAR HEMOGLOBIN 29.5 pg (27.0-33.0); MEAN CORPUSCULAR HGB CONC 32.9 g/dl (32.0-36.5); MEAN CORPUSCULAR VOLUME 89.8 fl (80.0-96.0); PLATELET COUNT, AUTOMATED 312 10^3/uL (150-450); RED BLOOD COUNT 5.08 10^6/uL (4.00-5.40); WHITE BLOOD COUNT 11.4 10^3/uL (4.0-10.0)
[2021-03-30 17:44] LABS: ATYPICAL LYMPH 5 % (0-5); EOSINOPHILS 3 % (0-3); LYMPHOCYTES 46 % (16-44); NEUTROPHILS 46 % (28-66); PLATELET ESTIMATE NORMAL (NORMAL)
[2021-03-30 17:48] LABS: BLOOD UREA NITROGEN 12 MG/DL (7-18); C REACTIVE PROTEIN QUANTITATIV 0.66 MG/DL (0.00-0.30); CALCIUM LEVEL 9.4 MG/DL (8.5-10.1); CARBON DIOXIDE LEVEL 30 MEQ/L (21-32); CHLORIDE LEVEL 102 MEQ/L (98-107); CREATININE FOR GFR 0.74 MG/DL (0.55-1.30); GLOMERULAR FILTRATION RATE > 60.0 (>58); GLUCOSE, FASTING 95 MG/DL (70-100); POTASSIUM SERUM 3.9 MEQ/L (3.5-5.1); SODIUM LEVEL 138 MEQ/L (136-145)
[2021-03-30 17:51] LABS: ERYTHROCYTE SEDIMENTATION RATE 12 mm/hr (0-20)
[2021-03-30] MEDS ORDERED: KETOROLAC 30 MG/ML 1ML VIAL IV ONE (17:55)
[2021-03-30] MEDS ORDERED: KETO10TAB PO (18:12)
[2021-03-30 18:52] VITALS: BP 132/86
== END 2021-03-30 18:55 | disposition home or self-care (01) ==
LOC: M ED 13:15
DX: R51.9 Headache, unspecified (principal); M79.10 Myalgia, unspecified site
CPT/HCPCS: 80048; 85025; 85652; 86140; 96374; 99284; J1885

== ENCOUNTER 2021-04-22 07:01 | Outpatient (CLI) | payer OTHER ==
[2021-04-22 07:00] VITALS: BP 175/95
[~2021-04-22 07:01] MED LIST changes: +GABA-1171; +IBUP-1022 PO; +VALA1TAB5
[2021-04-22] MEDS ORDERED: inFLIXimab INJECTION 600 MG in NS 190 ML IV ONE (07:15)
[2021-04-22] MEDS ORDERED: NS 1,000 ML IV SCH (07:15)
[2021-04-22] MEDS ORDERED: ACETAMINOPHEN 650MG PO PRIOR TO INFUSION PO ONE (07:15)
[2021-04-22] MEDS ORDERED: diphenhydrAMINE 25MG PO PRIOR TO INFUSION PO ONE (07:15)
[2021-04-22 07:41] VITALS: BP 175/95
[2021-04-22 08:25] VITALS: BP 174/94
[2021-04-22 09:30] VITALS: BP 160/98
[2021-04-22 10:15] VITALS: BP 160/98
== END 2021-04-22 09:30 | disposition home or self-care (01) ==
LOC: M INFU 07:01
PROVIDERS: ATTEND Student in an Organized Health Care Education/Training Program
DX: K50.90 Crohn's disease, unspecified, without complications (principal); Z88.4 Allergy status to anesthetic agent; Z88.5 Allergy status to narcotic agent; Z91.041 Radiographic dye allergy status; Z91.040 Latex allergy status
CPT/HCPCS: 96413; 96415; J1745

== ENCOUNTER 2021-06-22 11:49 | Outpatient (CLI) | payer OTHER ==
[~2021-06-22 11:49] MED LIST changes: -LISI10TA15 PO; +LISI10TA24 PO
[2021-06-22] MEDS ORDERED: diphenhydrAMINE 25MG PO PRIOR TO INFUSION PO ONE (12:00)
[2021-06-22] MEDS ORDERED: ACETAMINOPHEN 650MG PO PRIOR TO INFUSION PO ONE (12:00)
[2021-06-22] MEDS ORDERED: NS 1,000 ML IV SCH (12:00)
[2021-06-22] MEDS ORDERED: inFLIXimab INJECTION 600 MG in NS 190 ML IV ONE (12:00)
[2021-06-22 12:05] VITALS: BP 170/89
[2021-06-22 13:15] VITALS: BP 125/75
[2021-06-22 14:00] VITALS: BP 108/68
== END 2021-06-22 14:10 | disposition home or self-care (01) ==
LOC: M INFU 11:49
PROVIDERS: ATTEND Student in an Organized Health Care Education/Training Program
DX: K50.90 Crohn's disease, unspecified, without complications (principal); Z88.4 Allergy status to anesthetic agent; Z88.5 Allergy status to narcotic agent; Z91.041 Radiographic dye allergy status; Z91.040 Latex allergy status
CPT/HCPCS: 96413; J1745

== ENCOUNTER → 2021-07-14 | Outpatient (REF) | LOC: M EMP 08:02 | PROVIDERS: ATTEND Family Medicine | DX: Z20.822 Contact with and (suspected) exposure to COVID-19 (principal) ==

== ENCOUNTER 2021-08-20 06:57 | Outpatient (CLI) | payer OTHER ==
[~2021-08-20] VITALS: Ht 167.6 cm; Wt 127.0 kg
[2021-08-20 07:29] VITALS: BP 138/72
[2021-08-20 08:04] VITALS: BP 116/72
[2021-08-20] MEDS ORDERED: diphenhydrAMINE 25MG CAP PO ONE (08:30)
[2021-08-20] MEDS ORDERED: inFLIXimab INJECTION 600 MG in NS 190 ML IV ONE (08:30)
[2021-08-20] MEDS ORDERED: ACETAMINOPHEN TAB 650MG DOSE (2X325MG) PO ONE (08:30)
[2021-08-20 08:57] VITALS: BP 129/73
== END 2021-08-20 09:00 | disposition home or self-care (01) ==
LOC: M INFU 06:57
PROVIDERS: ATTEND Student in an Organized Health Care Education/Training Program
DX: K50.00 Crohn's disease of small intestine without complications (principal); Z88.8 Allergy status to other drugs, medicaments and biological substances; Z91.040 Latex allergy status
CPT/HCPCS: 96413; J1745

== ENCOUNTER → 2021-10-09 | Outpatient (REF) | payer OTHER | LOC: M LAB REF 15:25 | PROVIDERS: ATTEND Nurse Practitioner Family | DX: R19.7 Diarrhea, unspecified (principal) ==

== ENCOUNTER → 2021-11-06 | Outpatient (CLI) | payer OTHER ==
[~2021-11-06] VITALS: Ht 160 cm; Wt 143.0 kg
[~2021-11-06] MED LIST changes: +ACETAMINOPHEN TAB 650MG DOSE (2X325MG) PO ONE; +NS 1,000 ML IV SCH; +diphenhydrAMINE 25MG CAP PO ONE; +inFLIXimab INJECTION 700 MG in NS 180 ML IV ONE
[2021-11-06 09:25] VITALS: BP 179/100
[2021-11-06 09:45] VITALS: BP 148/88
[2021-11-06 10:00] VITALS: BP 129/72
[2021-11-06 10:44] VITALS: BP 184/99
[2021-11-06 10:50] VITALS: BP 133/80
== END ==
LOC: M INFU 09:13
PROVIDERS: ATTEND Student in an Organized Health Care Education/Training Program
DX: K50.00 Crohn's disease of small intestine without complications (principal); Z88.8 Allergy status to other drugs, medicaments and biological substances
CPT/HCPCS: 96413; J1745

== ENCOUNTER 2022-01-01 07:00 | Outpatient (CLI) | payer OTHER ==
[~2022-01-01] VITALS: Ht 160 cm; Wt 140.0 kg
[~2022-01-01 07:00] MED LIST changes: -ACETAMINOPHEN TAB 650MG DOSE (2X325MG) PO ONE; -NS 1,000 ML IV SCH; -diphenhydrAMINE 25MG CAP PO ONE; -inFLIXimab INJECTION 700 MG in NS 180 ML IV ONE
[2022-01-01 07:15] VITALS: BP 160/91
[2022-01-01] MEDS ORDERED: NS 1,000 ML IV SCH (07:30)
[2022-01-01] MEDS ORDERED: inFLIXimab INJECTION 700 MG in NS 180 ML IV ONE (07:30)
[2022-01-01] MEDS ORDERED: diphenhydrAMINE 25MG PO PRIOR TO INFUSION PO ONE (07:30)
[2022-01-01 08:42] VITALS: BP 155/84
== END 2022-01-01 08:40 | disposition home or self-care (01) ==
LOC: M INFU 07:00
PROVIDERS: ATTEND Student in an Organized Health Care Education/Training Program
DX: K50.00 Crohn's disease of small intestine without complications (principal); Z88.8 Allergy status to other drugs, medicaments and biological substances
CPT/HCPCS: 96413; J1745

== ENCOUNTER → 2022-01-31 | Outpatient (REF) | LOC: M LABSMTC 09:14 | PROVIDERS: ATTEND Family Medicine | DX: Z20.822 Contact with and (suspected) exposure to COVID-19 (principal) ==

== ENCOUNTER → 2022-02-03 | Outpatient (CLI) | payer OTHER | LOC: M WHC 14:31 | PROVIDERS: ATTEND Obstetrics & Gynecology | DX: Z12.31 Encounter for screening mammogram for malignant neoplasm of breast (principal) ==

== ENCOUNTER → 2022-02-09 | Outpatient (CLI) | payer OTHER | LOC: M LAB 16:07 | PROVIDERS: ATTEND Student in an Organized Health Care Education/Training Program | DX: K50.00 Crohn's disease of small intestine without complications (principal) ==

== ENCOUNTER → 2022-02-21 | Outpatient (REF) | LOC: M LABSMTC 09:29 | PROVIDERS: ATTEND Family Medicine | DX: Z20.822 Contact with and (suspected) exposure to COVID-19 (principal) ==

== ENCOUNTER 2022-02-26 07:05 | Outpatient (CLI) | payer OTHER ==
[~2022-02-26] VITALS: Ht 160 cm; Wt 143.0 kg
[2022-02-26 07:05] VITALS: BP 138/76
[2022-02-26] MEDS ORDERED: diphenhydrAMINE 25MG PO PRIOR TO INFUSION PO ONE (07:30)
[2022-02-26] MEDS ORDERED: inFLIXimab INJECTION 700 MG in NS 180 ML IV ONE (07:30)
[2022-02-26] MEDS ORDERED: NS 1,000 ML IV SCH (07:30)
[2022-02-26 08:15] VITALS: BP 111/58
[2022-02-26 09:10] VITALS: BP 122/70
== END 2022-02-26 09:05 | disposition home or self-care (01) ==
LOC: M INFU 07:05
PROVIDERS: ATTEND Student in an Organized Health Care Education/Training Program
DX: K50.00 Crohn's disease of small intestine without complications (principal); Z88.8 Allergy status to other drugs, medicaments and biological substances
CPT/HCPCS: 96413; J1745

== ENCOUNTER → 2022-04-13 | Outpatient (REF) | LOC: M LABSMTC 08:02 | PROVIDERS: ATTEND Family Medicine | DX: Z11.52 Encounter for screening for COVID-19 (principal) ==

== ENCOUNTER 2022-05-20 07:20 | Outpatient (CLI) | payer OTHER ==
[~2022-05-20] VITALS: Ht 160 cm; Wt 143.0 kg
[~2022-05-20 07:20] MED LIST changes: +ALBUTEROL SULFATE 2.5MG/0.5ML INH NEB SOLN INH PRN; +EPINEPHrine INJ 1 MG/ML 1ML AMP IM PRN; +diphenhydrAMINE 50MG/ML VIAL IV PRN; +methylPREDNISolone 125MG 2ML VIAL IV PRN
[2022-05-20] MEDS ORDERED: NS 1,000 ML IV SCH (07:30)
[2022-05-20] MEDS ORDERED: diphenhydrAMINE 25MG PO PRIOR TO INFUSION PO ONE (07:30)
[2022-05-20] MEDS ORDERED: inFLIXimab INJECTION 700 MG in NS 180 ML IV ONE (07:30)
[2022-05-20 07:31] VITALS: BP 143/78
[2022-05-20 09:11] VITALS: BP 144/70
== END 2022-05-20 09:20 | disposition home or self-care (01) ==
LOC: M INFU 07:20
PROVIDERS: ATTEND Student in an Organized Health Care Education/Training Program
DX: K50.00 Crohn's disease of small intestine without complications (principal); Z88.8 Allergy status to other drugs, medicaments and biological substances; Z91.040 Latex allergy status; Z91.02 Food additives allergy status
CPT/HCPCS: 96413; J1745

== ENCOUNTER → 2022-06-18 | Outpatient (CLI) | payer OTHER ==
[~2022-06-18] MED LIST changes: -ALBUTEROL SULFATE 2.5MG/0.5ML INH NEB SOLN INH PRN; -EPINEPHrine INJ 1 MG/ML 1ML AMP IM PRN; -diphenhydrAMINE 50MG/ML VIAL IV PRN; -methylPREDNISolone 125MG 2ML VIAL IV PRN
== END ==
LOC: M WUC 09:48
PROVIDERS: ATTEND Nurse Practitioner Family
DX: M54.2 Cervicalgia (principal); R93.7 Abnormal findings on diagnostic imaging of other parts of musculoskeletal system

== ENCOUNTER 2022-06-28 10:29 | Emergency (ER) | payer OTHER ==
[~2022-06-28] VITALS: Ht 162.6 cm; Wt 145.0 kg
[2022-06-28] MEDS ORDERED: predniSONE 20 MG TAB PO ONE (10:55)
[2022-06-28] MEDS ORDERED: diphenhydrAMINE 25MG CAP PO ONE (10:55)
[2022-06-28] MEDS ORDERED: FAMOTIDINE 20 MG TAB PO ONE (10:55)
[2022-06-28] MEDS ORDERED: PEPC40TA12 PO (11:25)
[2022-06-28] MEDS ORDERED: PRED20TA PO (11:25)
[2022-06-28 12:58] VITALS: BP 142/77
== END 2022-06-28 13:02 | disposition home or self-care (01) ==
LOC: M ED 10:29
DX: T78.40XA Allergy, unspecified, initial encounter (principal); K50.90 Crohn's disease, unspecified, without complications; J45.909 Unspecified asthma, uncomplicated; G43.909 Migraine, unspecified, not intractable, without status migrainosus; G47.33 Obstructive sleep apnea (adult) (pediatric); Z79.899 Other long term (current) drug therapy; Z91.89 Other specified personal risk factors, not elsewhere classified; Z91.040 Latex allergy status; Z88.8 Allergy status to other drugs, medicaments and biological substances
CPT/HCPCS: 99283; J7512

== ENCOUNTER → 2022-07-19 | Outpatient (REF) ==
[~2022-07-19] MED LIST changes: +PEPC40TA12 PO; +PRED20TA PO
== END ==
LOC: M EMP 08:22
PROVIDERS: ATTEND Family Medicine
DX: Z11.52 Encounter for screening for COVID-19 (principal)

== ENCOUNTER 2022-07-22 08:05 | Outpatient (CLI) | payer OTHER ==
[~2022-07-22] VITALS: Ht 160 cm; Wt 143.0 kg
[2022-07-22] MEDS ORDERED: NS 1,000 ML IV SCH (08:30)
[2022-07-22] MEDS ORDERED: ACETAMINOPHEN 650MG PO PRIOR TO INFUSION PO ONE (08:30)
[2022-07-22] MEDS ORDERED: diphenhydrAMINE 25MG PO PRIOR TO INFUSION PO ONE (08:30)
[2022-07-22] MEDS ORDERED: inFLIXimab INJECTION 700 MG in NS 180 ML IV ONE (08:30)
[2022-07-22 08:37] VITALS: BP 152/91
[2022-07-22 09:11] VITALS: BP 129/77
[2022-07-22 10:05] VITALS: BP 138/89
== END 2022-07-22 12:26 | disposition home or self-care (01) ==
LOC: M INFU 08:05
PROVIDERS: ATTEND Student in an Organized Health Care Education/Training Program
DX: K50.00 Crohn's disease of small intestine without complications (principal); Z88.8 Allergy status to other drugs, medicaments and biological substances
CPT/HCPCS: 96413; J1745

== ENCOUNTER 2022-09-09 07:15 | Outpatient (CLI) | payer OTHER ==
[~2022-09-09] VITALS: Ht 160 cm; Wt 142.0 kg
[2022-09-09 07:15] VITALS: BP 168/74
[2022-09-09] MEDS ORDERED: diphenhydrAMINE 25MG PO PRIOR TO INFUSION PO ONE (07:30)
[2022-09-09] MEDS ORDERED: ACETAMINOPHEN 650MG PO PRIOR TO INFUSION PO ONE (07:30)
[2022-09-09] MEDS ORDERED: inFLIXimab INJECTION 700 MG in NS 180 ML IV ONE (07:30)
[2022-09-09] MEDS ORDERED: NS 1,000 ML IV SCH (07:30)
[2022-09-09 08:25] VITALS: BP 130/61
[2022-09-09 08:26] VITALS: BP 130/61
[2022-09-09 09:15] VITALS: BP 134/80
== END 2022-09-09 09:15 ==
LOC: M INFU 07:15
PROVIDERS: ATTEND Student in an Organized Health Care Education/Training Program
DX: K50.00 Crohn's disease of small intestine without complications (principal); Z88.8 Allergy status to other drugs, medicaments and biological substances
CPT/HCPCS: 96413; J1745

== ENCOUNTER → 2022-09-24 | Outpatient (REF) | payer OTHER | LOC: M LAB REF 09-23 16:59 | PROVIDERS: ATTEND Physician Assistant | DX: R30.0 Dysuria (principal) ==

== ENCOUNTER → 2022-11-10 | Outpatient (REF) | LOC: M EMP 07:53 | PROVIDERS: ATTEND Family Medicine | DX: Z11.52 Encounter for screening for COVID-19 (principal) ==

== ENCOUNTER 2022-11-30 15:00 | Outpatient (CLI) | payer OTHER ==
[~2022-11-30] VITALS: Ht 160 cm; Wt 150.0 kg
[2022-11-30] MEDS ORDERED: diphenhydrAMINE 25MG PO PRIOR TO INFUSION PO ONE (15:30)
[2022-11-30] MEDS ORDERED: inFLIXimab INJECTION 700 MG in NS 180 ML IV ONE (15:30)
[2022-11-30] MEDS ORDERED: NS 1,000 ML IV SCH (15:30)
[2022-11-30] MEDS ORDERED: ACETAMINOPHEN 650MG PO PRIOR TO INFUSION PO ONE (15:30)
[2022-11-30 15:44] VITALS: BP 147/67; TEMP 98.2; O2SAT 100
[2022-11-30 17:05] VITALS: BP 164/96; TEMP 97.5; O2SAT 96
== END 2022-11-30 17:15 ==
LOC: M INFU 15:00
PROVIDERS: ATTEND Student in an Organized Health Care Education/Training Program
DX: K50.00 Crohn's disease of small intestine without complications (principal); Z88.8 Allergy status to other drugs, medicaments and biological substances
CPT/HCPCS: 96413; J1745

== ENCOUNTER → 2023-01-04 | Outpatient (CLI) | payer OTHER | LOC: M LAB 06:37 | PROVIDERS: ATTEND Student in an Organized Health Care Education/Training Program | DX: K50.00 Crohn's disease of small intestine without complications (principal) ==

== ENCOUNTER → 2023-01-24 | Outpatient (CLI) | payer OTHER | LOC: M WHC 14:54 | PROVIDERS: ATTEND Obstetrics & Gynecology | DX: R10.2 Pelvic and perineal pain (principal); N83.201 Unspecified ovarian cyst, right side ==

== ENCOUNTER 2023-01-25 06:50 | Outpatient (CLI) | payer OTHER ==
[~2023-01-25] VITALS: Ht 165.1 cm; Wt 152.5 kg
[2023-01-25] MEDS ORDERED: ACETAMINOPHEN TAB 650MG DOSE (2X325MG) PO ONE (07:00)
[2023-01-25] MEDS ORDERED: NS 1,000 ML IV SCH ×2 (07:00→07:10)
[2023-01-25] MEDS ORDERED: diphenhydrAMINE 25MG CAP PO ONE (07:00)
[2023-01-25] MEDS ORDERED: inFLIXimab INJECTION 800 MG in NS 170 ML IV ONE (07:10)
[2023-01-25] MEDS ORDERED: ACETAMINOPHEN 650MG PO PRIOR TO INFUSION PO ONE (07:10)
[2023-01-25] MEDS ORDERED: diphenhydrAMINE 25MG PO PRIOR TO INFUSION PO ONE (07:10)
[2023-01-25 07:12] VITALS: BP 137/98; TEMP 98.3; O2SAT 93
[2023-01-25 08:20] VITALS: BP 137/75; TEMP 97.5; O2SAT 98
[2023-01-25 09:01] VITALS: BP 137/75; TEMP 97.5; O2SAT 98
== END 2023-01-25 09:00 ==
LOC: M INFU 06:50
PROVIDERS: ATTEND Student in an Organized Health Care Education/Training Program
DX: K50.00 Crohn's disease of small intestine without complications (principal); Z88.8 Allergy status to other drugs, medicaments and biological substances
CPT/HCPCS: 96413; J1745

== ENCOUNTER → 2023-03-01 | Outpatient (CLI) | payer OTHER ==
[2023-03-01 16:40] LABS: HEMATOCRIT 46.4 % (36.0-47.0); HEMOGLOBIN 15.1 g/dl (12.0-15.5); MEAN CORPUSCULAR HEMOGLOBIN 31.7 pg (27.0-33.0); MEAN CORPUSCULAR HGB CONC 32.5 g/dl (32.0-36.5); MEAN CORPUSCULAR VOLUME 97.3 fl (80.0-96.0); PLATELET COUNT, AUTOMATED 267 10^3/uL (150-450); RED BLOOD COUNT 4.77 10^6/uL (4.00-5.40); WHITE BLOOD COUNT 16.1 10^3/uL (4.0-10.0)
[2023-03-01 16:45] LABS: ALBUMIN 3.9 G/DL (3.2-5.2); ALKALINE PHOSPHATASE 51 U/L (46-116); ALT/SGPT 34 U/L (7.0-40); AST/SGOT 22 U/L (<34); BILIRUBIN,TOTAL 0.4 MG/DL (0.3-1.2); BLOOD UREA NITROGEN 16 MG/DL (9-23); CALCIUM LEVEL 9.2 MG/DL (8.5-10.1); CARBON DIOXIDE LEVEL 32 MMOL/L (20-31); CHLORIDE LEVEL 102 MMOL/L (98-107); CREATININE FOR GFR 0.77 MG/DL (0.55-1.30); GLOMERULAR FILTRATION RATE > 60.0 (>58); GLUCOSE, FASTING 91 MG/DL (60-100); POTASSIUM SERUM 3.2 MMOL/L (3.5-5.1); SODIUM LEVEL 142 MMOL/L (136-145); TOTAL PROTEIN 6.9 G/DL (5.7-8.2)
== END ==
LOC: M WUC 11:10
PROVIDERS: ATTEND Physician Assistant
DX: I10 Essential (primary) hypertension (principal); E55.9 Vitamin D deficiency, unspecified; K50.00 Crohn's disease of small intestine without complications; M54.50 Low back pain, unspecified; M47.816 Spondylosis without myelopathy or radiculopathy, lumbar region

== ENCOUNTER → 2023-04-01 | Outpatient (CLI) | payer OTHER ==
[2023-04-01 07:27] LABS: BASO # 0.1 10^3/uL (0.0-0.2); BASO % 0.7 % (0.0-1.0); EOS # 0.2 10^3/uL (0.0-0.5); EOS % 2.4 % (0.0-3.0); HEMATOCRIT 44.6 % (36.0-47.0); HEMOGLOBIN 14.6 g/dl (12.0-15.5); LYMPH # 3.3 10^3/uL (1.5-5.0); LYMPH % 37.8 % (24.0-44.0); MEAN CORPUSCULAR HGB CONC 32.7 g/dl (32.0-36.5); MEAN CORPUSCULAR VOLUME 94.7 fl (80.0-96.0); MONO # 0.5 10^3/uL (0.0-0.8); MONO % 5.3 % (2.0-8.0); NEUTROPHILS # 4.6 10^3/uL (1.5-8.5); NEUTROPHILS % 53.2 % (36.0-66.0); PLATELET COUNT, AUTOMATED 265 10^3/uL (150-450); RED BLOOD COUNT 4.71 10^6/uL (4.00-5.40)
[2023-04-01 07:57] LABS: ALBUMIN 3.3 G/DL (3.2-5.2); ALKALINE PHOSPHATASE 52 U/L (46-116); ALT/SGPT 23 U/L (7.0-40); AST/SGOT 14 U/L (<34); BILIRUBIN,TOTAL 0.6 MG/DL (0.3-1.2); BLOOD UREA NITROGEN 9 MG/DL (9-23); CARBON DIOXIDE LEVEL 32 MMOL/L (20-31); CHLORIDE LEVEL 102 MMOL/L (98-107); GLOMERULAR FILTRATION RATE > 60.0 (>58); GLUCOSE, FASTING 86 MG/DL (60-100); POTASSIUM SERUM 3.3 MMOL/L (3.5-5.1); SODIUM LEVEL 141 MMOL/L (136-145); TOTAL PROTEIN 6.2 G/DL (5.7-8.2)
[2023-04-04 07:23] LABS: WHITE BLOOD COUNT 8.7 10^3/uL (4.0-10.0)
== END ==
LOC: M LAB 06:38
PROVIDERS: ATTEND Physician Assistant
DX: K50.00 Crohn's disease of small intestine without complications (principal)

== ENCOUNTER 2023-04-06 14:30 | Outpatient (CLI) | payer OTHER ==
[~2023-04-06] VITALS: Ht 162.6 cm; Wt 159.0 kg
[~2023-04-06 14:30] MED LIST changes: +ACETAMINOPHEN 650MG PO PRIOR TO INFUSION PO ONE; +NS 1,000 ML IV SCH; +diphenhydrAMINE 25MG PO PRIOR TO INFUSION PO ONE; +inFLIXimab INJECTION 800 MG in NS 170 ML IV ONE
[2023-04-06 16:00] VITALS: BP 165/80; O2SAT 98
== END 2023-04-06 16:00 | disposition home or self-care (01) ==
LOC: M INFU 14:30
PROVIDERS: ATTEND Student in an Organized Health Care Education/Training Program
DX: K50.00 Crohn's disease of small intestine without complications (principal); Z88.8 Allergy status to other drugs, medicaments and biological substances
CPT/HCPCS: 96413; J1745

== ENCOUNTER → 2023-06-01 | Outpatient (REF) ==
[~2023-06-01] MED LIST changes: -ACETAMINOPHEN 650MG PO PRIOR TO INFUSION PO ONE; -NS 1,000 ML IV SCH; -diphenhydrAMINE 25MG PO PRIOR TO INFUSION PO ONE; -inFLIXimab INJECTION 800 MG in NS 170 ML IV ONE
== END ==
LOC: M EMP 08:35
PROVIDERS: ATTEND Family Medicine
DX: Z11.52 Encounter for screening for COVID-19 (principal)

== ENCOUNTER → 2023-07-21 | Outpatient (REF) | payer OTHER | LOC: M LAB REF 16:19 | PROVIDERS: ATTEND Student in an Organized Health Care Education/Training Program | DX: R30.0 Dysuria (principal) ==

== ENCOUNTER → 2023-08-02 | Outpatient (REF) | payer OTHER | LOC: M LAB REF 10:17 | PROVIDERS: ATTEND Nurse Practitioner Family | DX: R30.0 Dysuria (principal) ==

== ENCOUNTER 2023-08-12 12:41 | Outpatient (CLI) | payer OTHER ==
[~2023-08-12] VITALS: Ht 162.6 cm; Wt 150.5 kg
[2023-08-12] MEDS: diphenhydrAMINE 25MG PO PRIOR TO INFUSION PO ONE (12:59)
[2023-08-12] MEDS ORDERED: NS 1,000 ML IV SCH (13:00)
[2023-08-12 13:10] VITALS: BP 134/74; TEMP 97.4; O2SAT 98
[2023-08-12] MEDS: inFLIXimab INJECTION 800 MG in NS 170 ML IV ONE (13:39)
== END 2023-08-12 14:50 ==
LOC: M INFU 12:41
PROVIDERS: ATTEND Student in an Organized Health Care Education/Training Program
DX: K50.00 Crohn's disease of small intestine without complications (principal); Z88.8 Allergy status to other drugs, medicaments and biological substances; Z91.040 Latex allergy status; Z91.89 Other specified personal risk factors, not elsewhere classified
CPT/HCPCS: 96413; J1745

== ENCOUNTER 2023-09-14 08:08 | Outpatient (RCR) | payer OTHER | END 2023-09-16 | LOC: M PT 08:08 | PROVIDERS: ATTEND Physician Assistant | DX: M47.816 Spondylosis without myelopathy or radiculopathy, lumbar region (principal) ==

== ENCOUNTER 2023-10-12 07:00 | Outpatient (RCR) | payer OTHER ==
[~2023-10-12 07:00] MED LIST changes: +ONDA-282 PO; -ONDA4TAB6 PO
== END 2023-10-16 ==
LOC: M PT 07:00
PROVIDERS: ATTEND Physician Assistant
DX: M47.816 Spondylosis without myelopathy or radiculopathy, lumbar region (principal)

== ENCOUNTER 2023-10-12 14:35 | Outpatient (CLI) | payer OTHER ==
[~2023-10-12] VITALS: Ht 162.6 cm; Wt 151.0 kg
[~2023-10-12 14:35] MED LIST changes: +NS 1,000 ML IV SCH
[2023-10-12 14:40] VITALS: BP 168/81; O2SAT 96
[2023-10-12] MEDS: diphenhydrAMINE 25MG PO PRIOR TO INFUSION PO ONE (14:49)
[2023-10-12] MEDS: inFLIXimab INJECTION 800 MG in NS 170 ML IV ONE (15:33)
[2023-10-12 16:10] VITALS: BP 143/84; O2SAT 100
[2023-10-12 16:47] VITALS: BP 162/71; O2SAT 99
== END 2023-10-12 16:50 | disposition home or self-care (01) ==
LOC: M INFU 14:35
PROVIDERS: ATTEND Student in an Organized Health Care Education/Training Program
DX: K50.00 Crohn's disease of small intestine without complications (principal); Z88.8 Allergy status to other drugs, medicaments and biological substances; Z91.040 Latex allergy status
CPT/HCPCS: 96413; J1745

== ENCOUNTER → 2023-11-03 | Outpatient (REF) ==
[~2023-11-03] MED LIST changes: -NS 1,000 ML IV SCH
== END ==
LOC: M EMP 08:25
PROVIDERS: ATTEND Family Medicine
DX: Z11.52 Encounter for screening for COVID-19 (principal)

== ENCOUNTER → 2023-11-11 | Outpatient (CLI) | payer OTHER | LOC: M LAB 06:25 | PROVIDERS: ATTEND Student in an Organized Health Care Education/Training Program | DX: K50.00 Crohn's disease of small intestine without complications (principal) ==

== ENCOUNTER 2023-12-23 10:15 | Outpatient (CLI) | payer OTHER ==
[~2023-12-23] VITALS: Ht 162.6 cm; Wt 148.0 kg
[2023-12-23 10:15] VITALS: BP 170/87; O2SAT 96
[2023-12-23] MEDS: diphenhydrAMINE 25MG PO PRIOR TO INFUSION PO ONE (10:24)
[2023-12-23] MEDS ORDERED: NS 1,000 ML IV SCH (10:30)
[2023-12-23] MEDS: inFLIXimab INJECTION 800 MG in NS 170 ML IV ONE (11:10)
[2023-12-23 12:38] VITALS: BP 136/86; O2SAT 100
== END 2023-12-23 12:40 ==
LOC: M INFU 10:15
PROVIDERS: ATTEND Student in an Organized Health Care Education/Training Program
DX: K50.00 Crohn's disease of small intestine without complications (principal); Z88.8 Allergy status to other drugs, medicaments and biological substances; Z91.040 Latex allergy status
CPT/HCPCS: 96413; J1745

== ENCOUNTER → 2024-02-03 | Outpatient (CLI) | payer OTHER | LOC: M WHC 12:37 | PROVIDERS: ATTEND Obstetrics & Gynecology | DX: Z12.31 Encounter for screening mammogram for malignant neoplasm of breast (principal); R92.313 Mammographic fatty tissue density, bilateral breasts ==

== ENCOUNTER 2024-02-17 13:00 | Outpatient (CLI) | payer OTHER ==
[~2024-02-17] VITALS: Ht 162.6 cm; Wt 142.0 kg
[~2024-02-17 13:00] MED LIST changes: +diphenhydrAMINE 25MG PO PRIOR TO INFUSION PO ONE
[2024-02-17 13:30] VITALS: BP 109/65; O2SAT 100
[2024-02-17] MEDS: inFLIXimab INJECTION 800 MG in NS 170 ML IV ONE (13:49)
[2024-02-17] MEDS ORDERED: BACL10TA2 PO (13:55)
[2024-02-17] MEDS ORDERED: ATEN50TA9 PO (13:55)
[2024-02-17 14:45] VITALS: BP 131/88; O2SAT 98
[2024-02-17 15:01] VITALS: BP 129/77; O2SAT 99
== END 2024-02-17 15:00 ==
LOC: M INFU 13:00
PROVIDERS: ATTEND Student in an Organized Health Care Education/Training Program
DX: K50.90 Crohn's disease, unspecified, without complications (principal); Z88.8 Allergy status to other drugs, medicaments and biological substances; Z91.040 Latex allergy status; Z91.048 Other nonmedicinal substance allergy status
CPT/HCPCS: 96413; J1745

== ENCOUNTER → 2024-03-01 | Outpatient (CLI) | payer OTHER ==
[~2024-03-01] MED LIST changes: +ATEN50TA9 PO; +BACL10TA2 PO; -diphenhydrAMINE 25MG PO PRIOR TO INFUSION PO ONE
[2024-03-01 16:26] LABS: C REACTIVE PROTEIN QUANTITATIV 1.5 MG/DL (<1.0)
[2024-03-01 16:27] LABS: ALBUMIN 3.7 G/DL (3.2-5.2); BILIRUBIN,DIRECT 0.2 MG/DL (<0.4); BILIRUBIN,TOTAL 0.4 MG/DL (0.3-1.2); TOTAL PROTEIN 6.9 G/DL (5.7-8.2)
== END ==
LOC: M LAB 15:10
PROVIDERS: ATTEND Physician Assistant
DX: R10.84 Generalized abdominal pain (principal); R79.89 Other specified abnormal findings of blood chemistry; R43.9 Unspecified disturbances of smell and taste

== ENCOUNTER → 2024-03-02 | Outpatient (REF) | payer OTHER | LOC: M LAB REF 10:59 | PROVIDERS: ATTEND Physician Assistant | DX: R10.84 Generalized abdominal pain (principal); R79.89 Other specified abnormal findings of blood chemistry; K43.9 Ventral hernia without obstruction or gangrene ==

== ENCOUNTER → 2024-03-28 | Outpatient (CLI) | payer OTHER ==
[~2024-03-28] MED LIST changes: +E-Z-GAS II EFFERVESCENT PACKET (SODIUM BICARB./CITRIC ACID/SIMETHICONE) As Ordered ONE; +E-Z-HD 98% w/w 340GM SUSP BTL As Ordered ONE; +E-Z-PAQUE 96% w/w SUSP 176GM BTL As Ordered ONE
== END ==
LOC: M RAD 10:19
PROVIDERS: ATTEND Physician Assistant
DX: R13.12 Dysphagia, oropharyngeal phase (principal)

== ENCOUNTER 2024-04-25 12:27 | Outpatient (CLI) | payer OTHER ==
[~2024-04-25] VITALS: Ht 162.6 cm; Wt 138.0 kg
[~2024-04-25 12:27] MED LIST changes: -E-Z-GAS II EFFERVESCENT PACKET (SODIUM BICARB./CITRIC ACID/SIMETHICONE) As Ordered ONE; -E-Z-HD 98% w/w 340GM SUSP BTL As Ordered ONE; -E-Z-PAQUE 96% w/w SUSP 176GM BTL As Ordered ONE
[2024-04-25] MEDS ORDERED: NS (Normal Saline) 0.9% 1,000 ML IV SCH (12:30)
[2024-04-25 12:35] VITALS: BP 143/70; O2SAT 97
[2024-04-25] MEDS: diphenhydrAMINE 25MG PO PRIOR TO INFUSION PO ONE (12:49)
[2024-04-25] MEDS: inFLIXimab INJECTION 800 MG in NS 170 ML IV ONE (13:40)
[2024-04-25 14:50] VITALS: BP 128/78; O2SAT 97
== END 2024-04-25 14:50 | disposition home or self-care (01) ==
LOC: M INFU 12:27
PROVIDERS: ATTEND Student in an Organized Health Care Education/Training Program
DX: K50.00 Crohn's disease of small intestine without complications (principal); Z88.8 Allergy status to other drugs, medicaments and biological substances; Z91.040 Latex allergy status
CPT/HCPCS: 96413; J1745

== ENCOUNTER → 2024-04-30 | Outpatient (CLI) | payer OTHER ==
[2024-04-30 16:45] LABS: ALBUMIN 3.9 G/DL (3.2-5.2); ALKALINE PHOSPHATASE 71 U/L (35-104); ALT/SGPT 21 U/L (7.0-40); AST/SGOT 12 U/L (<34); BILIRUBIN,DIRECT 0.1 MG/DL (<0.4); BILIRUBIN,TOTAL 0.4 MG/DL (0.3-1.2); TOTAL PROTEIN 7.8 G/DL (5.7-8.2)
[2024-04-30 16:49] LABS: FERRITIN 93.3 NG/ML (7.3-270.7)
[2024-04-30 17:07] LABS: HEPATITIS B SURFACE ANTIGEN NEGATIVE (NEGATIVE)
[2024-04-30 17:27] LABS: HEPATITIS B CORE ANTIBODY IGM NEGATIVE (NEGATIVE); HEPATITIS C VIRUS ABY INDEX < 0.02 INDEX (<0.8)
[2024-05-03 15:37] LABS: ANA PATTERN Nuclear, Homogeneous (NEGATIVE); ANA PATTERN 2 Nuclear, Speckled; ANA SCREEN, IFA POSITIVE (NEGATIVE); ANA TITER 1:40 titer (<1:40); ANA TITER 2 1:40 titer (NEGATIVE)
== END ==
LOC: M LAB 15:14
PROVIDERS: ATTEND Physician Assistant
DX: R74.01 Elevation of levels of liver transaminase levels (principal); K50.00 Crohn's disease of small intestine without complications

== ENCOUNTER → 2024-05-01 | Outpatient (REF) | LOC: M EMP 08:06 | PROVIDERS: ATTEND Family Medicine | DX: Z11.52 Encounter for screening for COVID-19 (principal) ==

== ENCOUNTER → 2024-07-10 | Outpatient (REF) | LOC: M EMP 09:12 | PROVIDERS: ATTEND Family Medicine | DX: Z11.52 Encounter for screening for COVID-19 (principal); Z20.822 Contact with and (suspected) exposure to COVID-19 ==

== ENCOUNTER 2024-07-16 15:00 | Outpatient (CLI) | payer OTHER ==
[~2024-07-16] VITALS: Ht 162.6 cm; Wt 137.7 kg
[2024-07-16 15:00] VITALS: BP 137/82; O2SAT 94
[~2024-07-16 15:00] MED LIST changes: +NS (Normal Saline) 0.9% 1,000 ML IV SCH; +diphenhydrAMINE 25MG PO PRIOR TO INFUSION PO ONE
[2024-07-16] MEDS: inFLIXimab INJECTION 800 MG in NS 170 ML IV ONE (16:17)
[2024-07-16 17:35] VITALS: BP 168/82; TEMP 36.5; O2SAT 98
== END 2024-07-16 17:30 ==
LOC: M INFU 15:00
PROVIDERS: ATTEND Student in an Organized Health Care Education/Training Program
DX: K50.00 Crohn's disease of small intestine without complications (principal); Z88.8 Allergy status to other drugs, medicaments and biological substances; Z91.040 Latex allergy status
CPT/HCPCS: 96413; J1745

== ENCOUNTER → 2024-10-18 | Outpatient (CLI) | payer OTHER ==
[~2024-10-18] MED LIST changes: -NS (Normal Saline) 0.9% 1,000 ML IV SCH; -diphenhydrAMINE 25MG PO PRIOR TO INFUSION PO ONE
== END ==
LOC: M LAB 09:07
PROVIDERS: ATTEND Student in an Organized Health Care Education/Training Program
DX: K50.00 Crohn's disease of small intestine without complications (principal); Z79.899 Other long term (current) drug therapy

== ENCOUNTER 2024-11-07 08:15 | Outpatient (CLI) | payer OTHER ==
[~2024-11-07] VITALS: Ht 162.6 cm; Wt 146.8 kg
[2024-11-07] MEDS: inFLIXimab INJECTION 700 MG in NS 180 ML IV ONE (09:12)
[2024-11-07] MEDS: diphenhydrAMINE 25MG PO PRIOR TO INFUSION PO ONE (09:12)
[2024-11-07 10:20] VITALS: BP 142/84; O2SAT 97
== END 2024-11-07 10:25 ==
LOC: M INFU 08:15
PROVIDERS: ATTEND Student in an Organized Health Care Education/Training Program
DX: K50.00 Crohn's disease of small intestine without complications (principal); Z88.8 Allergy status to other drugs, medicaments and biological substances; Z91.040 Latex allergy status; Z91.02 Food additives allergy status
CPT/HCPCS: 96413; J1745

== ENCOUNTER → 2024-12-20 | Outpatient (CLI) | payer OTHER ==
[~2024-12-20] MED LIST changes: -IBUP-1022 PO; +IBUP600T42 PO
[2024-12-20 07:55] LABS: PLATELET COUNT, AUTOMATED 284 10^3/uL (150-450)
[2024-12-20 08:02] LABS: APPEARANCE, URINE HAZY (CLEAR); BACTERIA, URINE AUTO 1+ (NEGATIVE); BILIRUBIN, URINE AUTO NEGATIVE (NEGATIVE); BLOOD, URINE BLOOD NEGATIVE (NEGATIVE); GLUCOSE, URINE (UA) AUTO NEGATIVE (NEGATIVE); KETONE, URINE AUTO NEGATIVE (NEGATIVE); LEUKOCYTE ESTERASE, URINE AUTO NEGATIVE (NEGATIVE); MUCUS, URINE SMALL (NEGATIVE); NITRITE, URINE AUTO NEGATIVE (NEGATIVE); PROTEIN, URINE AUTO NEGATIVE (NEGATIVE); RBC, URINE AUTO 1 /HPF (0-3); SPECIFIC GRAVITY URINE AUTO 1.018 (1.002-1.035); SQUAMOUS EPITHELIAL CELL UR AU 11 /HPF (0-6); UROBILINOGEN, URINE AUTO 0.2 mg/dL (0.0-2.0); WBC, URINE AUTO 3 /HPF (0-3)
[2024-12-20 08:25] LABS: ALT/SGPT 17 U/L (7.0-40); AST/SGOT 16 U/L (<34); CALCIUM LEVEL 9.4 MG/DL (8.5-10.1); CARBON DIOXIDE LEVEL 31 MMOL/L (20-31); CHLORIDE LEVEL 102 MMOL/L (98-107); CREATININE FOR GFR 0.75 MG/DL (0.55-1.30); GLOMERULAR FILTRATION RATE > 90.0 (>58); POTASSIUM SERUM 3.7 MMOL/L (3.5-5.1); SODIUM LEVEL 143 MMOL/L (136-145)
[2024-12-20 08:33] LABS: ESTIMATED AVERAGE GLUCOSE 117.0 MG/DL (60-110)
== END ==
LOC: M RAD 06:17
PROVIDERS: ATTEND Physician Assistant
DX: M25.551 Pain in right hip (principal); M51.360 Other intervertebral disc degeneration, lumbar region with discogenic back pain only; I10 Essential (primary) hypertension; K50.00 Crohn's disease of small intestine without complications; R73.01 Impaired fasting glucose; R35.1 Nocturia

== ENCOUNTER 2025-01-01 14:47 | Outpatient (CLI) | payer OTHER ==
[~2025-01-01] VITALS: Ht 162.6 cm; Wt 149.1 kg
[2025-01-01 14:55] VITALS: BP 136/88; O2SAT 97
[2025-01-01] MEDS: inFLIXimab INJECTION 700 MG in NS 180 ML IV ONE (16:07)
[2025-01-01] MEDS: diphenhydrAMINE 25MG PO PRIOR TO INFUSION PO ONE (17:04)
[2025-01-01 17:07] VITALS: BP 131/75; O2SAT 96
== END 2025-01-01 17:07 ==
LOC: M INFU 14:47
PROVIDERS: ATTEND Student in an Organized Health Care Education/Training Program
DX: K50.00 Crohn's disease of small intestine without complications (principal); Z88.8 Allergy status to other drugs, medicaments and biological substances; Z91.040 Latex allergy status; Z91.02 Food additives allergy status
CPT/HCPCS: 96413; J1745

== ENCOUNTER 2025-02-06 15:15 | Outpatient (RCR) | payer OTHER | END 2025-02-15 | LOC: M PT 15:15 | PROVIDERS: ATTEND Physician Assistant | DX: M54.50 Low back pain, unspecified (principal); M25.551 Pain in right hip ==

== ENCOUNTER 2025-02-26 07:45 | Outpatient (RCR) | payer OTHER | END 2025-03-17 | LOC: M PT 07:45 | PROVIDERS: ATTEND Physician Assistant | DX: M54.50 Low back pain, unspecified (principal); M25.511 Pain in right shoulder ==

== ENCOUNTER 2025-03-13 11:37 | Outpatient (CLI) | payer OTHER ==
[~2025-03-13] VITALS: Ht 162.6 cm; Wt 152.7 kg
[2025-03-13 11:45] VITALS: BP 147/98; O2SAT 97
[2025-03-13] MEDS: diphenhydrAMINE 25MG PO PRIOR TO INFUSION PO ONE (12:03)
[2025-03-13] MEDS: inFLIXimab INJECTION 700 MG in NS 180 ML IV ONE (13:01)
[2025-03-13 14:00] VITALS: BP 135/69; O2SAT 100
== END 2025-03-13 14:00 | disposition home or self-care (01) ==
LOC: M INFU 11:37
PROVIDERS: ATTEND Student in an Organized Health Care Education/Training Program
DX: K50.00 Crohn's disease of small intestine without complications (principal); Z88.8 Allergy status to other drugs, medicaments and biological substances; Z91.040 Latex allergy status
CPT/HCPCS: 96413; J1745